=== PATIENT | male | born 2000 | race African-American/Black ===

== ENCOUNTER 2024-09-26 18:45 | Emergency (ER) | payer MEDICAID, SELFPAY ==
[2024-09-26] VITALS (8 sets, daily range): BP systolic 113–140; BP diastolic 56–86; PULSE 96–117; RESP 14–24; TEMP 36.6–38.8; O2SAT 95–100; BMI 27.4
--- NOTE | 2024-09-26 20:05 | EKG12_ITS ---
Test Reason : SOB Blood Pressure : */* mmHG Vent. Rate : 91 BPM Atrial Rate : 91 BPM P-R Int : 162 ms QRS Dur : 86 ms QT Int : 290 ms P-R-T Axes : 30 45 29 degrees QTcB Int : 356 ms Normal sinus rhythm with sinus arrhythmia Normal ECG Confirmed by Kevin Kimball ([id number]), editor book YO SHERMAN ([id number]) on 09/28/2024 6:07:49 AM Referred By: Confirmed By: Kevin Kimball
--- NOTE | 2024-09-26 21:00 | ED.VIS.DYS ---
HPI History of Present Illness Chief Complaint: Shortness of Breath Informant: patient Onset/Context/Timing Onset: Month(s) (2) Context: gradual Timing: Continuous Quality: Positive for Dyspnea on exertion Worsened by: Exertion Relieved by: Nothing Associated Symptoms cough, subjective and chills; Negative for rhinorrhea, post nasal drip, ear pain, fever, sore throat, sweats, clear sputum, white sputum, yellow sputum or green sputum Narrative Narrative: Patient patient presents with shortness of breath that has been constant over the last 2 months. Patient states it is gradually getting worse. Patient states his breathing is worse with any exertion. Patient states nothing helps with it. Patient admits to a cough but denies any sputum production. Patient admits to some subjective chills but denies any fevers. Patient denies any sore throat or rhinorrhea. Patient admits to some chest pain. Patient states it is diffuse across his entire chest. Patient describes it as sharp, stabbing, aching, burning, and dull. Patient denies any PE risk factors. PE Risk Factors: Negative for Cancer, OCP + Smoking + > 35, Prior DVT or PE, Recent immobilization, Recent surgery or Recent travel [facility] Medical History Manic depression ADHD Depression Anxiety Schizophrenia Home Medications ?Medication ?Instructions ?Recorded ?Last Taken ?Type buspirone 15 mg tablet 15 mg PO BID anxiety 09/26/24 Unknown History lithium carbonate 150 mg capsule 300 mg PO BID 09/26/24 09/25/24 History lithium carbonate 300 mg tablet 300 mg PO BID 09/26/24 09/25/24 History Allergy/AdvReac Type Severity Reaction Status Date / Time No Known Allergies Allergy Verified 09/26/24 18:46 Surgical History no surgical history no surgical history Social History Smoking Status: Light Smoker (<10/day) ROS ROS ED Constitutional Constitutional ED: Denies chills or fever(s) Eyes Eyes: Denies blurry vision or change in vision ENT ENT ED: Denies rhinorrhea or sore throat Cardiovascular Cardiovascular: Reports chest pain; Denies palpitations Respiratory/Chest Respiratory/Chest: Reports cough and dyspnea Gastrointestinal Gastrointestinal: Reports nausea and vomiting Genitourinary Genitourinary ED: Reports hematuria; Denies dysuria Musculoskeletal Musculoskeletal: Reports back pain; Denies neck pain Integumentary Denies abscess or rash Neurologic Neurologic: Reports headache(s); Denies weakness Allergic/Immunologic Allergic/Immunologic ED: Denies mouth swelling or urticaria EXAM Physical Exam Const Vital Signs: 09/26/24 18:46 09/26/24 19:51 09/26/24 20:16 Temperature 101.6 F H 97.8 F Temperature Source Oral Oral Pulse Rate 96 96 Respiratory Rate 18 14 Respiratory Effort Short of Breath Respiratory Depth Normal Respiratory Pattern Bradypnea Blood Pressure 122/77 H 127/80 H Blood Pressure Mean 92 95 Pulse Ox 100 100 Oxygen Delivery Method Room Air Room Air Room Air 09/26/24 20:46 09/26/24 21:34 09/26/24 21:37 Temperature 98.2 F 100.2 F H 100.2 F H Temperature Source Oral Oral Oral Pulse Rate 98 106 H 106 H Respiratory Rate 14 19 H 19 H Respiratory Effort Respiratory Depth Respiratory Pattern Blood Pressure 140/74 H 129/79 H 129/79 H Blood Pressure Mean 96 95 95 Pulse Ox 95 99 99 Oxygen Delivery Method Room Air Room Air Room Air 09/26/24 22:00 Temperature 100.1 F H Temperature Source Oral Pulse Rate 117 H Respiratory Rate 17 Respiratory Effort Respiratory Depth Respiratory Pattern Blood Pressure 119/86 H Blood Pressure Mean 97 Pulse Ox 100 Oxygen Delivery Method Room Air Positive well nourished and well developed General Appearance ED: well developed and NAD HEENT Reports moist mucous membranes Neck supple and no JVD Resp normal respiratory effort and clear to auscultation bilaterally Cardio regular rate and regular rhythm GI non-tender and non-distended Palpation: soft Neuro oriented x3, CN's II-XII intact bilaterally and no sensory deficits noted Wilson Coma Scale: document GCS findings Spontaneous Obeys Commands Oriented 15 Sensorium / Orientation: alert Speech: speech normal Motor Exam: strength 5/5 throughout Psych mental status grossly normal MDM MDM MDM Narrative Medical decision making narrative: Differential diagnosis includes pneumonia, bronchitis, electrolyte abnormality, cardiac dysrhythmia, cardiac ischemia, and viral illness. EKG will be obtained to assess for cardiac dysrhythmia and cardiac ischemia. Chest x-ray will be obtained to assess for pneumonia and bronchitis. CBC will be obtained to assess for leukocytosis and anemia. Comprehensive metabolic profile will be obtained to assess for hepatic function, renal function, and electrolyte abnormality. Lipase will be obtained to assess for pancreatitis. [place] level will be obtained to assess for medication compliance. Urinalysis will be obtained to assess for urinary tract infection and hematuria. COVID-19, influenza, and RSV PCR will be obtained to assess for viral illness. History & Record Review Additional record(s) reviewed:: No prior records Lab Data Attestation: I reviewed the patient's lab results. Lab results narrative: CBC was reviewed. There is a slight leukocytosis of 12.8. The remainder is within normal limits. Comprehensive metabolic profile was reviewed. BUN was 21 and creatinine was 1.35. The remainder is within normal limits. Lipase was reviewed and was normal at 28. Urinalysis was reviewed. There is no evidence of urinary tract infection or hematuria. [place] level was reviewed and was less than 0.10. COVID-19 PCR was reviewed and was negative. Influenza PCR was reviewed and was negative for influenza A and influenza B. RSV PCR was reviewed and was negative. Labs: Laboratory Results - last 24 hr 09/26/24 09/26/24 21:20 22:09 WBC 12.8 H RBC 5.75 Hgb 16.3 Hct 48.7 MCV 84.7 MCH 28.3 MCHC 33.5 RDW Std Deviation 39.4 RDW Coeff of [place]onia 12.8 Plt Count 153 MPV 10.4 Immature Gran % (Auto) 0.400 Neut % (Auto) 85.4 H Lymph % (Auto) 4.7 L [place] % (Auto) 8.8 Eos % (Auto) 0.4 Baso % (Auto) 0.3 Absolute Neuts (auto) 10.9 H Absolute Lymphs (auto) 0.60 L Nucleated RBC % 0 Sodium 138 Potassium 4.2 Chloride 100 Carbon Dioxide 24.7 Anion Gap 13 BUN 21 H Creatinine 1.35 H Estim Creat Clear Calc 85.83 Est GFR (MDRD) Non-Af 76 BUN/Creatinine Ratio 15.3 Glucose 91 Calcium 10.0 Total Bilirubin 0.62 AST 24 ALT 19 Alkaline Phosphatase 80 Total Protein 7.6 Albumin 4.6 Globulin 3.0 Albumin/Globulin Ratio 1.6 Lipase 28 Urine Color Straw Urine Clarity Clear Urine pH 6.0 Ur Specific [place] 1.015 Urine Protein 30 H Urine Glucose (UA) Normal Urine Ketones 15 H Urine Occult Blood 10 H Urine Nitrite Negative Urine Bilirubin Negative Urine Urobilinogen Normal Ur Leukocyte Esterase Negative Urine RBC 0-5 SEEN Urine WBC 0-5 SEEN Ur Squamous Epith Cells 0-5 SEEN Urine Bacteria 0 SEEN Urine Mucus 0 SEEN [place] < 0.10 L Radiography Chest X-Ray - ED: 2 View, Read by ED Physician, Read by Radiologist and No Acute Disease Diagnostic Testing: Clinical Impression(s) from Imaging Studies Chest X-Ray 09/26/24 21:35 IMPRESSION: No focal consolidations. Reading Location: [facility] [place] and lateral chest x-ray was obtained. There are 2 views. On my independent interpretation, lung cutler are clear. There is normal cardiac silhouette. Bony thorax is normal. There is no acute process noted. Radiologist also interpreted the x-ray and agrees. EKG Initial EKG: Attestation: I personally reviewed and interpreted this EKG as follows: Interpretation: Sinus Rhythm (91) and No Acute Injury Pattern Comments: EKG was obtained. On my independent interpretation, it showed a normal sinus rhythm with a rate of []. [place] interval, QRS interval, and QTc intervals were all normal. [place] was normal. There are no acute ST or T wave changes. Prior EKG tracings: not available for review Prior: No Prior Treatment and Re-Evaluation :: Patient was advised of his findings. Patient has a HEART score of 1. Patient was advised that this is low risk for acute cardiac event. Patient was instructed to drink plenty of fluids. Patient was instructed to continue Tylenol and ibuprofen as needed for any pain or fevers. Patient was instructed to return if worse in any way. Patient understood and was agreeable with the plan. All questions were answered. Discharge Plan Triage Chief Complaint: Shortness of Breath Other Complaint: Abd Pain ED Provider: Damion Trevino Dx/Rx/DC Orders Clinical Impression: Dyspnea, Anxiety Instructions: ED Dyspnea Prescriptions: No Action lithium carbonate 150 mg capsule 300 mg PO BID lithium carbonate 300 mg tablet 300 mg PO BID buspirone 15 mg tablet 15 mg PO BID Primary Care Provider: Jose Mcgovern Referrals: Jose Mcgovern MD [Primary Care Provider] - 3-5 Days Print Language: Latvian Disposition Disposition: Home, Self Care
[2024-09-26 21:30] LABS: Absolute Neutrophil Count 10.9 X10^3/uL (2.0-7.7); Basophil# 0.04 X10^3/uL; Basophil% 0.3 % (0-1); Eosinophil# 0.05 X10^3/uL; Eosinophils% 0.4 % (0-5); Hematocrit 48.7 % (40-54); Hemoglobin 16.3 g/dL (13.0-16.5); Lymphocyte % 4.7 % (19-41); Mean Corp Hgb Conc 33.5 g/dL (32-36); Mean Corpuscular Hgb 28.3 pg (27.0-32.0); Mean Corpuscular Volume 84.7 fL (80-94); Mean Platelet Vol. 10.4 fl (6.2-12.0); Monocyte# 1.12 X10^3/uL; Monocyte% 8.8 % (0-10); NRBC Flagged by Analyzer 0 % (0-5); Neutrophil # 10.89 X10^3/uL (2.7-7.7); Neutrophil % 85.4 % (47-70); POSITIVE DIFFERENTIAL YES; Platelet Count 153 K/mm3 (150-450); RBC Distribution Width CV 12.8 % (11.6-14.6); RBC Distribution Width SD 39.4 fl (35.1-43.9); Red Blood Count 5.75 M/mm3 (4.6-6.2); White Blood Count 12.8 K/mm3 (4.4-11.0)
[2024-09-26] MEDS: 0.9% Normal Saline (1000mL) 1,000 ML 1000 ML IV (21:31)
--- NOTE | 2024-09-26 21:35 | RAD_ITS ---
PROCEDURE: CHEST PA AND LATERAL 09/26/2024 REASON FOR EXAM: DYSPNEA TECHNIQUE: Frontal and lateral views of the chest. COMPARISON: None FINDINGS: No focal consolidations. No pleural effusion or pneumothorax. Cardiac silhouette is within normal limits. No acute fractures. RAD/Chest PA and Lateral IMPRESSION: No focal consolidations. Reading Location: [id number]
[2024-09-26 21:49] LABS: Lithium < 0.10 mmol/L (0.60-1.20)
[2024-09-26 21:50] LABS: ALB/GLOB Ratio 1.6 RATIO (0.9-2.4); AST(SGOT) 24 U/L (<=37); Alanine Aminotransfer ALT/SGPT 19 U/L (<=46); Albumin, Serum 4.6 g/dL (3.5-5.0); Alkaline Phosphatase 80 U/L (40-129); Anion Gap 13 (5-15); BUN 21 mg/dL (4-19); BUN/Creat Ratio 15.3 RATIO (10-20); Carbon Dioxide 24.7 mmol/L (21.0-32.0); Chloride 100 mmol/L (98-108); Creatinine, Serum 1.35 mg/dL (0.70-1.20); EST Glomerular Filtration Rate 76 (>60); Estimated Creatinine Clearance 85.83 ml/min (50-250); Glucose 91 mg/dL (70-99); Lipase 28 U/L (13-75); Potassium 4.2 mmol/L (3.3-5.1); Protein, Total 7.6 g/dL (5.9-8.4); Sodium Level 138 mmol/L (133-145); Total Bilirubin 0.62 mg/dL (0.00-1.30)
[2024-09-26] MEDS: Ondansetron 4 MG/2 ML Vial IV (22:12)
[2024-09-26 22:15] LABS: Bacteria 0 SEEN /hpf (None Seen); Mucous, Urine 0 SEEN /hpf (<or=2+)
[2024-09-26 22:17] LABS: Color, Urine Straw (Yellow); Glucose, Dipstick Normal (Normal); Ketone-Dipstick 15 mg/dl (Negative); Leukocyte Esterase-Dipstick Negative /ul (Negative); Nitrite-Dipstick Negative (Negative); Occult Blood-Urine 10 /ul (Negative); Protein-Dipstick 30 mg/dl (Negative); Specific Gravity, Urine 1.015 (1.002-1.030); Urine Bilirubin Dipstick Negative (Negative); Urine Clarity Clear (Clear); Urine Urobilinogen Normal (Normal)
[2024-09-26 22:25] LABS: Red Blood Cells-Urine 0-5 SEEN /hpf (0-5); Squamous Epithelial Cells - UA 0-5 SEEN /hpf (0-5); White Blood Cells 0-5 SEEN /hpf (0-5)
[2024-09-26] MEDS: Acetaminophen 500 MG Tablet 1000 MG PO (22:33)
== END 2024-09-26 23:05 | disposition home or self-care (01) ==
PROVIDERS: Emergency Provider Emergency Medicine; PCP Family Medicine; Visit Provider Emergency Medicine
DX: R06.00 Dyspnea, unspecified (principal); F41.9 Anxiety disorder, unspecified; F17.210 Nicotine dependence, cigarettes, uncomplicated; R07.9 Chest pain, unspecified; R05.9 Cough, unspecified; R11.2 Nausea with vomiting, unspecified; R31.9 Hematuria, unspecified; M54.9 Dorsalgia, unspecified; R51.9 Headache, unspecified
CPT/HCPCS: 71046; 80053; 80178; 81001; 83690; 85025; 87631; 93005; 96361; 96374; 99285; A4216; J2405

== ENCOUNTER 2025-02-02 04:55 | Emergency (ER) | payer MEDICAID, SELFPAY ==
[2025-02-02 04:57] VITALS: BP 131/78; PULSE 76; RESP 18; TEMP 37; O2SAT 100; BMI 22.9
--- NOTE | 2025-02-02 05:17 | EX.ED.DYSGE1 ---
HPI History of Present Illness Chief Complaint: Fall Informant: patient and EMS Narrative Narrative: Patient is a 25-year-old male with past medical history of of anxiety depression and schizophrenia. He states that he is staying at the [facility]. He states that he awoke this morning and he was going to sit up and maneuver in bed when he lost his balance and fell out of the top bunk. He states he fell approximately 5 feet. He states that he landed on his left knee. He denies striking his head or any loss of consciousness. He denies any history of bleeding disorder or blood thinner use. He states when he landed he heard a pop. He reports he was able to get up and ambulate but after doing so had severe pain and with concern for injury EMS was called and he was brought into the ER for evaluation. [facility] Medical History Manic depression ADHD Depression Anxiety Schizophrenia Home Medications ?Medication ?Instructions ?Recorded ?Last Taken ?Type buspirone 15 mg tablet 15 mg PO BID anxiety 09/26/24 Unknown History lithium carbonate 150 mg capsule 300 mg PO BID 09/26/24 09/25/24 History lithium carbonate 300 mg tablet 300 mg PO BID 09/26/24 09/25/24 History Allergy/AdvReac Type Severity Reaction Status Date / Time No Known Allergies Allergy Verified 09/26/24 18:46 Social History Smoking Status: Light Smoker (<10/day) ROS ROS ED Constitutional Constitutional ED: Denies chills or fever(s) Eyes Eyes: Denies blurry vision or change in vision Cardiovascular Cardiovascular: Reports other Details: Negative syncope ; Denies chest pain Respiratory/Chest Respiratory/Chest: Denies cough or dyspnea Gastrointestinal Gastrointestinal: Reports diarrhea; Denies abdominal pain Musculoskeletal Musculoskeletal: Reports other Details: Positive left knee pain ; Denies back pain or neck pain Integumentary Reports Abrasions Neurologic Neurologic: Denies headache(s) or paresthesias Hematologic/Lymphatic Hematologic/Lymphatic: Denies easy bleeding or easy bruising EXAM Physical Exam Const Vital Signs: 02/02/25 04:57 02/02/25 05:00 02/02/25 06:14 Temperature 98.6 F 98 F Temperature Source Oral Pulse Rate 76 78 Respiratory Rate 18 18 Respiratory Effort Normal Respiratory Depth Normal Respiratory Pattern Normal Blood Pressure 131/78 H 145/73 H Blood Pressure Mean 95 97 Pulse Ox 100 100 Oxygen Delivery Method Room Air Room Air Positive well nourished and well developed General Appearance ED: well developed; Negative for pallor HEENT HEENT Narrative: Normocephalic atraumatic Eyes PERRL and EOMs intact bilaterally General Eye ED: Negative for scleral icterus Neck supple Resp normal respiratory effort and clear to auscultation bilaterally Cardio regular rate and regular rhythm Extremity Extremity Narrative: Left lower extremity is neurovascularly intact Patellar tendon is intact and knee ligaments are stable The patient has a superficial abrasion to the anterior lateral aspect of the left knee. There is mild soft tissue swelling over top of the patella. No bony deformity or joint effusion. Remainder of the exam is normal All compartments are soft and compressible going against compartment syndrome Neuro oriented x3, CN's II-XII intact bilaterally and no sensory deficits noted Sensorium / Orientation: alert Motor Exam: strength 5/5 throughout Psych mental status grossly normal Skin no rashes or lesions noted Skin Narrative: Positive abrasion to the left knee as documented above without secondary findings to suggest infection General Skin Exam: Negative for jaundice or pallor MDM MDM MDM Narrative Medical decision making narrative: Patient arrived to the ER with stable vitals and reported a mechanical fall causing him to injure his left knee. He did not strike his head or have loss of consciousness he denies any history of bleeding disorder or blood thinner use. Therefore I have low concern for traumatic subarachnoid or subdural hemorrhage and there is no need for a head CT. Also as this was a mechanical fall I do not feel the need for cardiac or syncope workup. As patient had pain to the anterior knee there is concern for a patellar fracture or potential tibial plateau fracture and therefore an x-ray will be obtained. By physical exam he does not have findings of patellar tendon rupture or stabilizing ligament injury. The x-ray revealed no findings of fracture dislocation or joint effusion which correlates with his physical exam. Therefore the negative x-ray and exam indicate he has a knee contusion. He will be placed in an [place] wrap for stabilization and padding and is otherwise safe for discharge History & Record Review Discussion w/independent historian: Patient Radiography Diagnostic Testing: Clinical Impression(s) from Imaging Studies Knee X-Ray 02/02/25 05:20 IMPRESSION: No evidence for acute abnormality. Reading Location: [place] [id number] X-ray of the left knee as interpreted by the emergency medicine physician reveals no acute fracture dislocation or joint effusion Discharge Plan Triage Chief Complaint: Fall Other Complaint: Lower Extremity Injury ED Provider: Jeramie Edouard Dx/Rx/DC Orders Clinical Impression: Contusion of left knee, Accidental fall, Schizophrenia, Anxiety and depression, Abrasion of knee, left Instructions: Bone Contusion Prescriptions: No Action lithium carbonate 150 mg capsule 300 mg PO BID lithium carbonate 300 mg tablet 300 mg PO BID buspirone 15 mg tablet 15 mg PO BID Primary Care Provider: Care Physician,No Primary Referrals: [facility] Doctor,Out of [Non-Staff, Medical] Activity Restrictions/Additional Instructions: Your x-ray revealed no sign of fracture or joint effusion indicating you have a knee contusion. This will heal spontaneously over the next 1 to 2 weeks. Please wash the skin tear to the left knee with soap and water to prevent infection. Use the [place] wrap for compression and padding. You can take Tylenol and/or Motrin for pain control and return to the ER should you have any further concerns Print Language: American Disposition Disposition: Home, Self Care Discharge Date/Time: 02/02/25 06:16
--- NOTE | 2025-02-02 05:20 | RAD_ITS ---
PROCEDURE: KNEE 4 OR MORE VIEWS 02/02/2025 REASON FOR EXAM: PAIN TECHNIQUE: Procedure Code: RADKN Modality: DX Procedure: KNEE 4 OR MORE VIEWS Laterality: Left. COMPARISON: None. FINDINGS: Normal medial femorotibial compartment. Normal lateral femorotibial compartment. Normal patellofemoral articulation. Normal visualized distal femur. Normal visualized proximal tibia and fibula. Normal proximal tibiofibular articulation. RAD/Knee 4 or More Views IMPRESSION: No evidence for acute abnormality. Reading [facility]
--- OUTSIDE RECORDS SUMMARY | 2025-02-02 05:26 | XMS RPT_ITS | CCD ---
Author Organization [facility] Care Team Providers Care Security Guard Dispatcher Name Role Phone VanessaYanely Primary Care Provider [phone] Jose Yen MD Primary Care Provider Jose Yen MD Primary Care Provider FARSHAD WHITT, DR GARCIA Primary Care Physician FARSHAD WHITT, DR GARCIA Primary Care Unavailgreg MOCTEZUMA MD, DRISS Gibbons Attending Unavailable Jose Yen MD Primary Care Provider FARSHAD WHITT, DR GARCIA Primary Care Unavailgreg PRECIADO DO, DR JONI Carmona Attending Unavailable JOSE ELIAS WHITT, DRISS Gibbons Attending Unavailable DR JOSE YEN MD Primary Care UnavailDr. Damion Coughlin DO Emergency Provider Farshad WHITT, Dr. Garcia Primary Care Provider Damion Trevino Attending Unavailable Jose Yen Primary Care Unavailable JOSE YEN Primary Care Unavailable KVNG VERA Attending Unavailable KAR ROJAS Attending Unavailable JOSE YEN Primary Care Unavailable JOSE YEN Primary Care Unavailable JERAMIE POST Admitting Unavailable ONELIA SOFIA Attending Unavailable CATHY FRAIRE Consulting Unavailable JOSE YEN Primary Care Unavailable JOSE YEN Primary Care Unavailable JOSE YEN Attending Unavailable JOSE YEN Primary Care Unavailable KAR ROJAS Attending Unavailable JOSE YEN Primary Care Unavailable Allergies Allergy Classification Reported Allergen(s) Allergy Type Date of Onset Reaction(s) Facility (8 sources) Seasonal allergy Propensity to adverse reactions to substance 11-14-2015 [place], [place] (20 sources) Other Propensity to adverse reactions 11-14-2015 [facility] (1 source) Cholestatin Drug Intolerance 11-14-2015 [facility] (19 sources) Octacosanol Drug Intolerance 11-14-2015 [facility] (1 source) Ondansetron Drug Allergy 10-26-2024 [facility] Medications Current Medications Medication Drug Class(es) Dates Sig (Normalized) Sig (Original) [id number] 200 actuat albuterol 0.09 mg/actuat metered dose inhaler (1 source) beta2-Adrenergic Agonist Start: 10-26-2024 End: 10-26-2025 take 2 puff(s) by inhalation every four hours as needed for wheezing albuterol (Ventolin HFA) 108 (90 Base) MCG/ACT inhaler Indications: Asthma, exercise induced Inhale 2 puffs every 4 hours as needed for wheezing or shortness of breath (and before strenuous exercise). 8 g 5 10/26/2024 10/26/2025 Active busPIRone hydrochloride 15 mg oral tablet (20 sources) Start: 02-07-2024 End: 10-26-2024 take 1 tablet by mouth twice daily Buspirone 15 mg tablet Active 15 mg PO TWICE A DAY September 26, 2024 12:00am Start: 09-08-2023 take 1 tablet by ashutosh th twice daily busPIRone (Buspar) 15 MG tablet Take 15 mg by mouth 2 times daily. 09/08/2023 Active Start: 04-02-2023 End: 07-01-2023 take 1 tablet by mouth twice daily busPIRone (Buspar) 15 MG tablet Indications: Anxiety Disorder Take 1 tablet (15 mg) by mouth 2 times daily. 60 tablet 2 04/02/2023 04/21/2023 Discontinued (Therapy completed) Start: 07-03-2022 take 1 tablet by ashutosh th twice daily busPIRone (Buspar) 15 MG tablet Take 15 mg by mouth 2 times daily. 0 07/03/2022 Active Start: 05-12-2022 take 1 tablet by ashutosh th twice daily busPIRone (Buspar) 10 MG tablet take 1 tablet by mouth twice a day 60 tablet 5 05/12/2022 Active 24 hr dexmethylphenidate hydrochloride 25 mg extended release oral capsule (5 sources) Central Nervous System Stimulant Dexmethylphenidate H Cl ER (FOCALIN XR) 25 MG CP24 Take 25 mg by mouth . 0 Active 2 ml dicyclomine hydrochloride 10 mg/ml injection (5 sources) Anticholinergic Start: 08-07-19 dicyclomine (BENTYL) injection 20 mg Start: 08-06-2021 End: 08-16-2021 take 1 capsule by mouth four times daily dicyclomine (BENTYL) 10 MG capsule Take 1 capsule by mouth 4 times daily for 10 days 40 capsule 0 08/06/2021 Active Start: 05-16-2021 End: 05-21-2021 dicyclomine (BENTYL) capsule 10 mg guaiFENesin 400 mg oral tablet (5 sources) ibuprofen 600 mg oral tablet (4 sources) Nonsteroidal Anti-inflammatory Drug Start: End: take 1 tablet by mouth three times daily at mealtime ibuprofen 600 MG tablet Indications: Back strain, initial encounter Take 1 tablet (600 mg) by mouth 3 times daily for 7 days. Take with food 21 tablet 10/26/2024 11/02/2024 Active Start: 08-18-2021 End: 08-18-2021 ibuprofen (ADVIL;MOTRIN) tab let 400 mg Start: 12-06-2020 ibuprofen (ADV IL;MOTRIN) tablet 600 mg lamoTRIgine 25 mg oral tablet (3 sources) Mood Stabilizer, Anti-epileptic Agent Start: 04-09-2023 lamoTRIgine (LaMICtal) 25 MG tablet take 1 tablet by mouth for 14 days then INCREASE to 2 tablets daily 0 04/09/2023 Active lithium carbonate 150 mg oral capsule (20 sources) Start: 09-26-2024 take 1 tablet by mouth twice daily [place] Carbonate 300 mg tablet Active 300 mg PO TWICE A DAY September 26, 2024 12:00am Start: 09-26-2024 take 2 capsules by m outh twice daily [place] Carbonate 150 mg capsule Active 300 mg PO TWICE A DAY September 26, 2024 12:00am Start: 02-07-2024 End: 10-26-2024 take 3 capsules by mouth twice daily lithium 150 MG capsule Indications: Mood stabilization Take 3 capsules (450 mg) by mouth 2 times daily. 180 capsule 02/07/2024 10/26/2024 Discontinued Start: 04-04-2023 End: 10-12-2023 take 1 capsule by mouth twice daily lithium 600 MG capsule Indications: Bipolar Mood Disorder Take 600 mg by mouth 2 times daily. 04/04/2023 10/12/2023 Discontinued (Med list cleanup) Start: 04-02-2023 End: 07-01-2023 take 1 tablet by mouth twice daily lithium 300 MG tablet Indications: Bipolar Mood Disorder Take 1 tablet (300 mg) by mouth 2 times daily. 60 tablet 2 04/02/2023 04/21/2023 Discontinued (Ineffective) Start: 06-09-2022 take 1 capsule by mo uth three times daily lithium 300 MG capsule Take 300 mg by mouth 3 times daily. 0 06/09/2022 Active Start: 05-12-2022 [facility] ER (Lithobid) 300 MG 12 hr tablet take 1 tablet by mouth twice a day 60 tablet 5 05/12/2022 Active Start: 06-13-2021 take 2 tablets by mo uth twice daily lithium (LITHOBID) 300 MG extended release tablet Take 2 tablets by mouth 2 times daily 60 tablet 3 06/13/2021 Active Start: 03-03-2021 take 1 capsule by mo uth twice daily at mealtime lithium 300 MG capsule Take 1 capsule by mouth 2 times daily (with meals) 90 capsule 1 03/03/2021 Active Start: 11-04-2020 take 1 capsule by mo uth twice daily at mealtime lithium 300 MG capsule Take 1 capsule by mouth 2 times daily (with meals) 60 capsule 1 11/04/2020 Active take 2 capsules by out twice daily at mealtime methylPREDNISolone 4 mg oral tablet (2 sources) Corticosteroid Start: 08-15-2024 End: 08-22-2024 methylPREDNISolone (Medrol Dospak) 4 MG tablets Indications: Contact dermatitis, unspecified contact dermatitis type, unspecified trigger Take as directed on package. 21 tablet 08/15/2024 08/22/2024 Active 24 hr nicotine 0.292 mg/hr transdermal system (4 sources) Cholinergic Nicotinic Agonist Start: 07-16-2021 nicotine (NICODERM CQ) 7 MG/24HR Place 1 patch onto the skin daily for 14 days 14 patch 0 07/16/2021 Active Start: 07-01-2021 apply 1 dose transde rmal route once daily nicotine (NICODERM CQ) 14 MG/24HR Place 1 patch onto the skin daily for 14 days 14 patch 0 07/01/2021 Active ondansetron 4 mg oral tablet (2 sources) Serotonin-3 Receptor Antagonist Start: 09-11-2024 End: 09-16-2024 Zofran 4 mg oral tablet Dose : 4 mg = 1 tab(s), Oral, q8h, PRN Nausea/Vomiting, X 5 day(s), # 15 tab(s), 0 Refill(s), 09/16/24 3:01:00 PM EDT Start Date: 09/11/24 Stop Date: 09/16/24 Status: Ordered Quantity: 15.0 Unit: tab(s) Repeat number: 1 Start: 05-16-2021 End: 05-16-2021 ondansetron (ZOFRAN) injecti on 4 mg 1.5 ml paliperidone palmitate 156 mg/ml prefilled syringe (4 sources) Atypical Antipsychotic Start: 04-29-2023 End: 04-29-2023 paliperidone palmitate ER (Invega Sustenna) 234 MG/1.5ML suspension prefilled syringe Indications: Schizoaffective Disorder Inject 1.5 mL (234 mg) into the shoulder, thigh, or buttocks Once for 1 dose. Do not start before April 29, 2023. 1.5 mL 2 04/29/2023 Active pantoprazole 20 mg delayed release oral tablet (1 source) Proton Pump Inhibitor Start: 09-11-2024 Protonix 20 mg oral enteric coated tablet Dose : 20 mg = 1 tab(s), Oral, qDay, # 30 tab(s), 0 Refill(s) Start Date: 09/11/24 Status: Ordered Quantity: 30.0 Unit: tab(s) Repeat number: 1 risperiDONE 2 mg oral tablet (12 sources) Atypical Antipsychotic Start: 04-08-2022 take 1 tablet by mouth once daily in the morning risperiDONE (RisperDAL) 2 MG tablet Take 2 mg by mouth every morning. 0 04/08/2022 Active Start: 04-06-2022 take 1 tablet by ashutosh th once daily risperiDONE (RisperDAL) 4 MG tablet Take 4 mg by mouth Nightly. 0 04/06/2022 Active Start: 06-14-2021 take 1 tablet by ashutosh th once daily in the morning risperiDONE (RISPERDAL) 2 MG tablet Take 1 tablet by mouth every morning 30 tablet 2 06/14/2021 Active Start: 06-13-2021 take 1 tablet by ashutosh th at bedtime risperiDONE (RISPERDAL) 4 MG tablet Take 1 tablet by mouth at bedtime 30 tablet 2 06/13/2021 Active Start: 03-03-2021 take 1 tablet by ashutosh th once daily risperiDONE (RISPERDAL) 2 MG tablet Take 1 tablet by mouth nightly 30 tablet 1 03/03/2021 Active Start: 11-04-2020 take 1 tablet by ashutosh th once daily risperiDONE (RISPERDAL) 2 MG tablet Take 1 tablet by mouth nightly 30 tablet 1 11/04/2020 Active sucralfate 1000 mg oral tablet (2 sources) Aluminum Complex Start: 05-16-2021 End: 05-21-2021 sucralfate (CARAFATE) tablet 1 g tiZANidine 2 mg oral tablet (1 source) Central alpha-2 Adrenergic Agonist Start: 10-26-2024 End: 10-29-2024 take 1 tablet by mouth every eight hours as needed for muscle spasms tiZANidine (Zanaflex) 2 MG tablet Indications: Back strain, initial encounter Take 1 tablet (2 mg) by mouth every 8 hours as needed for muscle spasms for up to 3 days. 9 tablet 10/26/2024 10/29/2024 Active traZODone hydrochloride 50 mg oral tablet (2 sources) Serotonin Reuptake Inhibitor Start: 05-12-2022 take 1 tablet by mouth once daily for sleep traZODone (Desyrel) 50 MG tablet take 1 tablet by mouth nightly if needed for sleep 30 tablet 5 05/12/2022 Active triamcinolone acetonide 1 mg/ml topical cream (5 sources) Corticosteroid Start: 08-19-2016 triamcinolone (KENALOG) 0.1 % cream Apply topically 2 times daily for 1 week. 1 Tube 0 08/19/2016 Active Completed/Discontinued Medications Medication Drug Class(es) Dates Sig (Normalized) Sig (Original) aluminum & magnesium hydroxide-simethic one (MAALOX) 30 mL, lidocaine viscous hcl (XYLOCAINE) 5 mL (GI COCKTAIL) (1 source) Start: 05-16-2021 End: 05-16-2021 aluminum & magnesium hydroxide-simethico ne (MAALOX) 30 mL, lidocaine viscous hcl (XYLOCAINE) 5 mL (GI COCKTAIL) ARIPiprazole 5 mg oral tablet (8 sources) Atypical Antipsychotic Start: 02-08-2024 End: 10-26-2024 take 1 tablet by mouth once daily ARIPiprazole (Abilify) 5 MG tablet Indications: Unspecified mood disorder Take 1 tablet (5 mg) by mouth daily. 30 tablet 02/08/2024 10/26/2024 Discontinued QUEtiapine 100 mg oral tablet (1 source) Atypical Antipsychotic Start: 01-28-2023 End: 04-21-2023 take 1 tablet by mouth three times daily QUEtiapine (SEROquel) 100 MG tablet Take 100 mg by mouth 3 times daily. 0 01/28/2023 04/21/2023 Discontinued (Therapy completed) rosuvastatin calcium 5 mg oral tablet (3 sources) HMG-CoA Reductase Inhibitor Start: 12-27-2023 End: 04-26-2024 take 1 tablet by mouth once daily rosuvastatin (Crestor) 5 MG tablet Indications: Hyperlipidemia TAKE 1 TABLET BY MOUTH EVERY DAY 90 tablet 1 12/27/2023 04/26/2024 Discontinued (Med list cleanup) 24 hr divalproex sodium 500 mg extended release oral tablet (2 sources) Mood Stabilizer, Anti-epileptic Agent Start: 06-15-2023 End: 10-12-2023 take 2 tablets by mouth once daily divalproex (Depakote ER) 500 MG 24 hr tablet Indications: Mood Disorder Take 2 tablets (1,000 mg) by mouth Nightly. Do not crush, chew, or split. 60 tablet 06/15/2023 10/12/2023 Discontinued (Therapy completed) Problems Active Problems Problem Classification Problem Date Documented Da te Episodic/Chronic Abdominal pain (3 sources) Generalized abdominal pain; Translations: [Generalized abdominal pain] Onset: 09-11-2024 Episodic Allergic reactions (6 sources) Contact dermatitis; Translations: [Unspecified contact dermatitis, unspecified cause] Onset: 08-15-2024 Resolved: 10-26-2024 08-15-2024 Episodic Anxiety disorders (20 sources) Generalized anxiety disorder; Translations: [Generalized anxiety disorder] Onset: 12-31-2011 03-25-2023 Chronic Asthma (20 sources) Exercise-induced asthma; Translations: [Exercise induced bronchospasm] Onset: 11-26-2009 03-03-2021 Chronic Attention-deficit, conduct, and disruptive behavior disorders (20 sources) Attention deficit hyperactivity disorder, combined type; Translations: [Attention-deficit hyperactivity disorder, combined type] Onset: 12-31-2011 03-03-2021 Chronic Attention-deficit, conduct, and disruptive behavior disorders (19 sources) Oppositional defiant disorder; Translations: [Oppositional defiant disorder] Onset: 11-26-2009 03-25-2023 Chronic Attention-deficit, conduct, and disruptive behavior disorders (2 sources) Attention-deficit hyperactivity disorder, combined type; Translations: [Attention-deficit hyperactivity disorder, combined type] Onset: 03-25-2023 Chronic Disorders of lipid metabolism (20 sources) Hypercholesterolemi a; Translations: [Pure hypercholesterolemi a, unspecified] Onset: 10-12-2023 10-12-2023 Chronic Disorders usually diagnosed in infancy, childhood, or adolescence (20 sources) Autism spectrum disorder; Translations: [Pervasive developmental disorder, unspecified] Onset: 03-03-2021 03-03-2021 Chronic Gastrointestinal hemorrhage (3 sources) Hematochezia; Translations: [Melena] Onset: 09-11-2024 Episodic Immunizations and screening for infectious disease (1 source) Immunization due; Translations: [Encounter for immunization] 04-21-2023 Episodic Miscellaneous mental health disorders (20 sources) Mental disorder; Translations: [Mental disorder, not otherwise specified] Onset: 12-28-2013 03-25-2023 Chronic Mood disorders (20 sources) Acute depression; Translations: [Major depressive disorder, single episode, unspecified] Onset: 09-28-2012 Resolved: 11-04-2020 11-04-2020 Chronic Mood disorders (20 sources) Mood disorders; Translations: [Depression, unspecified] Onset: 03-28-2023 Resolved: 10-26-2024 03-28-2023 Nausea and vomiting (3 sources) Vomiting; Translations: [Vomiting, unspecified] Onset: 09-11-2024 Episodic Other acquired deformities (20 sources) Scoliosis deformity of spine; Translations: [Scoliosis, unspecified] Onset: 06-22-2018 03-03-2021 Chronic Other bone disease and musculoskeletal deformities (2 sources) Adolescent idiopathic scoliosis of thoracolumbar spine; Translations: [Adolescent idiopathic scoliosis, thoracolumbar region] 04-26-2024 Chronic Other bone disease and musculoskeletal deformities (2 sources) Adolescent idiopathic scoliosis, thoracic region; Translations: [Adolescent idiopathic scoliosis, thoracic region] Onset: 03-25-2023 Chronic Other lower respiratory disease (1 source) Dyspnea; Translations: [Dyspnea, unspecified] 09-26-2024 Episodic Other lower respiratory disease (1 source) Dyspnea, unspecified; Translations: [Dyspnea, unspecified] Onset: 10-02-2024 Episodic Other nutritional; endocrine; and metabolic disorders (5 sources) Obesity; Translations: [Obesity, unspecified] Onset: 12-28-2013 03-03-2021 Chronic Other upper respiratory disease (20 sources) Allergic rhinitis; Translations: [Allergic rhinitis, unspecified] Onset: 08-13-2011 03-03-2021 Chronic Other upper respiratory disease (2 sources) Allergic rhinitis due to pollen; Translations: [Allergic rhinitis due to pollen] 10-12-2023 Chronic Schizophrenia and other psychotic disorders (20 sources) Disorganized schizophrenia; 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] Onset: 11-02-2020 11-04-2020 Chronic Sprains and strains (6 sources) Sprain of left foot; Translations: [Unspecified sprain of left foot, initial encounter] Onset: 10-26-2024 Episodic Substance-related disorders (19 sources) Substance abuse; Translations: [Other psychoactive substance abuse, uncomplicated] Onset: 03-28-2023 03-28-2023 Chronic Unclassified (2 sources) Blood Work; Translations: [Blood Work] Onset: 12-07-2023 Past or Other Problems Problem Classification Problem Date Documented Da te Episodic/Chronic Epilepsy; convulsions (19 sources) Seizure; Translations: [Unspecified convulsions] Onset: 11-26-2009 Resolved: 10-12-2023 03-25-2023 Episodic Other gastrointestinal disorders (20 sources) Heartburn; Translations: [Heartburn] Onset: 02-26-2012 03-03-2021 Episodic Other nutritional; endocrine; and metabolic disorders (20 sources) Obese class I; Translations: [Obesity, unspecified] Onset: 04-21-2023 Resolved: 04-26-2024 04-21-2023 Chronic Other screening for suspected conditions (not mental disorders or infectious disease) (7 sources) Patient encounter status; Translations: [Encounter for screening for diseases of the blood and blood-forming organs and certain disorders involving the immune mechanism] Onset: 04-26-2024 04-21-2023 Episodic Residual codes; unclassified (4 sources) Noncompliance with treatment; Translations: [Patient's noncompliance with other medical treatment and regimen] Onset: 11-02-2020 Resolved: 11-04-2020 11-04-2020 Episodic Schizophrenia and other psychotic disorders (19 sources) Brief psychotic disorder; Translations: [Unspecified psychosis] Onset: 03-27-2023 Resolved: 10-26-2024 03-27-2023 Episodic Skull and face fractures (18 sources) Fracture of tooth ; Translations: [Fracture of tooth (traumatic), subsequent encounter for fracture with routine healing] Onset: 05-26-2023 Resolved: 10-26-2024 05-26-2023 Episodic Suicide and intentional self-inflicted injury (20 sources) Suicidal thoughts; Translations: [Suicidal ideations] Onset: 03-01-2021 Resolved: 06-13-2021 11-04-2020 Episodic Superficial injury; contusion (20 sources) Contusion of left foot; Translations: [Contusion of left foot, initial encounter] Onset: 05-26-2023 Resolved: 10-26-2024 Episodic Results Test Name Value Interpretation Reference Range Facility 36on 11-06-2024 36 Attempted to phone p t to let hm know Mellisa's message. Unable to lvm as mb not set up. Normal [facility] 36 Per documentation fr om his visit with Jaclyn on 10/26/2024 he was to return around April 28, 2025 for his yearly wellness visit. He will need to schedule an office visit for further documentation regarding his dog. Need more information to determine if this is something we can help him with or not. Normal [facility] 36 Pt came in stating they should have an appt for blood work. I don't see anything in the system for blood work from us. Do they need blood work? Also, pt is requesting how they can go about paper work to have his dog registered as a therapy dog. Normal [facility] Office Visiton 10-26-2024 Follow-up visit [id number] Aries Carrasco 2000 M Date Provider Department Center 10/26/2024 [id number] ROJAS [facility] [place] [facility] Family History Family Status - Relation Status Age at Father Alive Sister Alive Mother Alive Brother Alive Sister Alive Sister Alive Level of Service:45213 MT OFFICE/OUTPATIENT ESTABLISHED MOD MDM 30 MIN Reason for Visit and Comments: Medication Check [[id number]] [facility] Progress Noteon 10-26-2024 Progress Note Consistent with strain. Left side of lumbar, thoracic. NSAID, muscle relaxant as directed. Start stretches provided. Normal [facility] Progress Note Stable currently, recommend that he follow up with his mental health provider [facility] Progress Note Uncontrolled. Recommend follow up with mental health provider [facility] Progress Note Intermittent symptom s. Mostly exercise induced. Continue albuterol mdi as directed [facility] Progress Note Patient was identifi ed by name and Date of . Health Maintenance Due Topic Meningococcal B Vaccine-declined DTaP/Tdap/Td Vaccines-declined Depression Monitoring-completed [facility] Progress Note 10/26/2024 Aries Carrasco (: 2000) is a 24 y.o. male , Established patient, here for evaluation of the following chief complaint(s): Medication Check ASSESSMENT/PLAN: 1. Asthma, exercise induced Assessment & Plan: Intermittent symptoms. Mostly exercise induced. Continue albuterol mdi as directed Orders: - albuterol (Ventolin HFA) 108 (90 Base) MCG/ACT inhaler; Inhale 2 puffs every 4 hours as needed for wheezing or shortness of breath (and before strenuous exercise)., Starting Swati 10/26/2024, Until Wed10/26/2025 at 2359, Normal 2. Back strain, initial encounter Assessment & Plan: Consistent with strain. Left side of lumbar, thoracic. NSAID, muscle relaxant as directed. Start stretches provided. Orders: - tiZANidine (Zanaflex) 2 MG tablet; Take 1 tablet (2 mg) by mouth every 8 hours as needed for muscle spasms for up to 3 days., Starting Swati 10/26/2024, Until 10/29/2024 at 2359, Normal - ibuprofen 600 MG tablet; Take 1 tablet (600 mg) by mouth 3 times daily for 7 days. Take with food, Starting Swati 10/26/2024, Until Swati 11/02/2024, Normal 3. Bipolar disorder in partial remission, most recent episode unspecified type ([facility]) Assessment & Plan: Stable currently, recommend that he follow up with his mental health provider 4. Generalized anxiety disorder Assessment & Plan: Uncontrolled. Recommend follow up with mental health provider Reviewed and provided written patient education/instructions regarding diagnosis and management. Reviewed symptom management with non-pharmacological interventions and appropriate use of otc medications for relief of symptoms. Follow up for worsening or no improvement in symptoms. Follow up in about 6 months (around 04/28/2025) for Yearly Wellness Visit. SUBJECTIVE/OBJECTIVE: HPI - Aries Carrasco (: 2000) is a 24 y.o. male , Established patient, here for the evaluation of the following chief complaint(s): Medication Check Patient presents for med check. He currently is not taking any medications but would like refill of his albuterol inhaler for his exercise-induced asthma. Reports he has been getting some shortness of breath with exercise especially when it is hot out. He has not had an inhaler for quite some time. Denies any chest pain or shortness of breath currently. Mental health-patient reports that he is doing okay but has noted that he does get easily agitated and sometimes his anxiety can be high. He is not taking any of his mental health medications and needs to follow-up with his mental health provider. He did go to the hospital within the past month for some vomiting, reports that he has not had any episodes since. He denies any abdominal pain nausea or vomiting. Back pain-reports his back has been bothering him and is difficult to lift heavy things and when he walks a long time it hurts. It is mostly left-sided going all the way up the back. Denies any numbness or tingling in the legs and no change in bowel or bladder Current Medications[1] Review of Systems Constitutional: Negative. HENT: Negative. Respiratory: Positive for shortness of breath. Negative for cough, chest tightness and wheezing. Occasional with activity such as exercise due to his asthma Cardiovascular: Negative. Gastrointestinal: Negative. Genitourinary: Negative for difficulty urinating. Musculoskeletal: Positive for back pain. Neurological: Negative. Psychiatric/Behavioral : Positive for agitation. Negative for dysphoric mood, self-injury, sleep disturbance and suicidal ideas. The patient is nervous/anxious. Vitals: 10/26/24 0807 BP: 122/82 Pulse: 58 Resp: 24 Weight: 176 lb 3.2 oz (79.9 kg) Physical Exam Vitals reviewed. Constitutional: General: He is not in acute distress. Appearance: Normal appearance. He is not ill-appearing. HENT: Head: Normocephalic and atraumatic. Mouth/Throat: Mouth: Mucous membranes are moist. Pharynx: Oropharynx is clear. No posterior oropharyngeal erythema. Eyes: Conjunctiva/sclera: Conjunctivae normal. Cardiovascular: Rate and Rhythm: Normal rate and regular rhythm. Pulses: Normal pulses. Heart sounds: Normal heart sounds. Pulmonary: Effort: Pulmonary effort is normal. Breath sounds: Normal breath sounds. Musculoskeletal: Thoracic back: Spasms and tenderness present. No bony tenderness. Normal range of motion. Lumbar back: Spasms and tenderness present. No bony tenderness. Normal range of motion. Back: Right lower leg: No edema. Left lower leg: No edema. Comments: Able to get on and off the exam table without difficulty Lymphadenopathy: Cervical: No cervical adenopathy. Neurological: Mental Status: He is alert and oriented to person, place, and time. Psychiatric: Mood and Affect: Mood normal. Behavior: Behavior normal. Thought Content: Thought content normal. An electronic signature was used to authenticate this note. Kar Sanders (more content not included)... Normal [facility] 12 Lead EKGon 09-26-2024 12 Lead EKG [facility] Cardiovascular Services [address] [place] [address] 12 Lead EKG 09/26/24 1913 MR#: [id number] Acct: [id number] Name: ARIES CARRASCO Rep #: [id number] : 2000 24 From: Kevin Kimball MD Attending Dr: Status: DEP ER Ordering Dr: Damion Trevino DO Date: 09/26/24 Location: ED Sex: M AA Admitted: Test Reason : SOB Blood Pressure : */* mmHG Vent. Rate : 91 BPM Atrial Rate : 91 BPM P-R Int : 162 ms QRS Dur : 86 ms QT Int : 290 ms P-R-T Axes : 30 45 29 degrees QTcB Int : 356 ms Normal sinus rhythm with sinus arrhythmia Normal ECG Confirmed by Kevin Kimball ([id number]), supervising film or videotape editor YO SHERMAN ([id number]) on 09/28/2024 6:07:49 AM Referred By: Confirmed By: Kevin Kimball 09/28/24606 Date Kevin Kimball MD CC: Dr. Jose Yen MD; Dr. Damion Trevino DO Signed [address] 09-26-2024 36 Called the patient's sister--Julianne. She states that she is out of town. I gave her the message from Dr. Yen and she states that she will inform the patient when she gets back into town. I said that Dr. Yen recommends him to go to a larger hospital---[place] or [place]---we do not have an opening and our POD is filled as well. [place] [address] I would highly recommend that he go back to the emergency room and probably go to a hospital that is a little bit bigger like [place] or [place], unfortunately we do not have any openings to get him in. [place] [address] Pt came back with hi s sister's phone number [phone]. States we can call her in the mean time. Pt also stated that his sister or his dad would be available if he needs to go to the hospital. [place] [address] Patient went to [facility] 2 weeks ago for stomach pain. He said that they told him he needs to see GI. He has called [facility] and they have not returned his call. He now has urine that is dark red, vomitting blood, headache, stomach ache and he has lost weight---in July he weighed 192 and he was weighed today in the office at 189.4. He also has SOB at times too. He currently does not have a phone---the patient does not have his sister or dad's phone numbers. He will stop back in the office to get message. Informed him we close at 4 pm. The patient states that he has been having this problem x 2 months. He states he has had Zofran from ER in the past. Please advise. Normal [facility] Absolute lymphocyte countOrd ered By: Damion Trevino on 09-26-2024 Lymphocytes Auto (Unsp spec) [#/Vol] 0.60 10*3/uL Low 0.83-4.51 [facility] Absolute neutrophil countOrd ered By: Damion Trevino on 09-26-2024 Neutrophils (Bld) [#/Vol] 10.9 10*3/uL High 2.0-7.7 [facility] Anion gap in Serum or Plasma Ordered By: Damion Trevino on 09-26-2024 Anion gap [Moles/Vol] 13 mmol/L 5-15 [facility] Automated lymphocyte count a s percentage of total leukocytesOrdered By: Damion Trevino on 09-26-2024 Lymphocytes/100 WBC Auto (Unsp spec) 4.7 % Low 19-41 [facility] BUN/creatinine ratioOrdered By: Damion Trevino on 09-26-2024 Urea nitrogen/Creatinine [Mass ratio] 15.3 mg/mg 10-20 [facility] Basophil percentageOrdered B y: Damion Trevino on 09-26-2024 Basophils/100 WBC (Bld) 0.3 % 0-1 [facility] Bilirubin Test strip Ql (U)O rdered By: Damion Trevino on 09-26-2024 Bilirubin Ql (U) Negative Negative [facility] Bilirubin, totalOrdered By: Damion Trevino on 09-26-2024 Bilirubin [Mass/Vol] 0.62 mg/dL 0.00-1.30 [facility] CBC W/Diff, Automatedon 09-17 0 Absolute Lymph 0.60 X10 3/uL Low 0.83-4.51 [facility] Comment on above: Performed By: #### L 500.4050, L100.0100, L501.2450, L501.9060 #### [facility] [address] [place], [id number] Absolute Neut 10.9 X10 3/uL High 2.0-7.7 [facility] Comment on above: Performed By: #### L 500.4050, L100.0100, L501.2450, L501.9060 #### [facility] [address] [place], [address] Basophils/100 WBC (Bld) 0.3 % Normal 0-1 [facility] Comment on above: Performed By: #### L 500.4050, L100.0100, L501.2450, L501.9060 #### [facility] [address] [place], [address] Eosinophils/100 WBC (Bld) 0.4 % Normal 0-5 [facility] Comment on above: Performed By: #### L 500.4050, L100.0100, L501.2450, L501.9060 #### [facility] [address] [place], [address] Erythrocyte distribution width (RBC) [Ratio] 12.8 % Normal 11.6-14.6 [facility] Comment on above: Performed By: #### L 500.4050, L100.0100, L501.2450, L501.9060 #### [facility] [address] [place], [address] Hematocrit (Bld) [Volume fraction] 48.7 % Normal 40-54 [facility] Comment on above: Performed By: #### L 500.4050, L100.0100, L501.2450, L501.9060 #### [facility] [address] [place], [address] Hemoglobin (Bld) [Mass/Vol] 16.3 g/dL Normal 13.0-16.5 [facility] Comment on above: Performed By: #### L 500.4050, L100.0100, L501.2450, L501.9060 #### [facility] [address] [place], [address] IG% 0.400 Normal 0.0-0.9 [facility] Comment on above: Result Comment: IG% - Immature Granulocytes (promyelocytes, myelocytes and metamyelocytes) > 1% indicates that a LEFT SHIFT is Present. Performed By: #### L 500.4050, L100.0100, L501.2450, L501.9060 #### [facility] [address] [place], [address] Lymphocytes/100 WBC (Bld) 4.7 % Low 19-41 [facility] Comment on above: Performed By: #### L 500.4050, L100.0100, L501.2450, L501.9060 #### [facility] [address] [place], [address] MCH (RBC) [Entitic mass] 28.3 pg Normal 27.0-32.0 [facility] Comment on above: Performed By: #### L 500.4050, L100.0100, L501.2450, L501.9060 #### [facility] [address] [place], [address] MCHC (RBC) [Mass/Vol] 33.5 g/dL Normal 32-36 [facility] Comment on above: Performed By: #### L 500.4050, L100.0100, L501.2450, L501.9060 #### [facility] [address] [place], [address] MCV (RBC) [Entitic vol] 84.7 fL Normal 80-94 [facility] Comment on above: Performed By: #### L 500.4050, L100.0100, L501.2450, L501.9060 #### [facility] [address] [place], [address] Monocytes/100 WBC (Bld) 8.8 % Normal 0-10 [facility] Comment on above: Performed By: #### L 500.4050, L100.0100, L501.2450, L501.9060 #### [facility] [address] [place], [address] Neutrophils/100 WBC (Bld) 85.4 % High 47-70 [facility] Comment on above: Performed By: #### L 500.4050, L100.0100, L501.2450, L501.9060 #### [facility] [address] [place], [address] Nucleated RBC (Bld) [#/Vol] 0 10*3/uL Normal 0-5 [facility] Comment on above: Performed By: #### L 500.4050, L100.0100, L501.2450, L501.9060 #### [facility] [address] [place], [address] Platelet mean volume (Bld) [Entitic vol] 10.4 fL Normal 6.2-12.0 [facility] Comment on above: Performed By: #### L 500.4050, L100.0100, L501.2450, L501.9060 #### [facility] [address] [place], [address] Platelets (Bld) [#/Vol] 153 10*3/uL Normal 150-450 [facility] Comment on above: Performed By: #### L 500.4050, L100.0100, L501.2450, L501.9060 #### [facility] [address] [place], [address] RBC (Bld) [#/Vol] 5.75 10*6/uL Normal 4.6-6.2 [facility] Comment on above: Performed By: #### L 500.4050, L100.0100, L501.2450, L501.9060 #### [facility] [address] [place], [address] RDW SD 39.4 fl Normal 35.1-43.9 [facility] Comment on above: Performed By: #### L 500.4050, L100.0100, L501.2450, L501.9060 #### [facility] [address] [place], [address] WBC (Bld) [#/Vol] 12.8 10*3/uL High 4.4-11.0 [facility] Comment on above: Performed By: #### L 500.4050, L100.0100, L501.2450, L501.9060 #### [facility] [address] [place], [address] Carbon dioxide, total [Moles /volume] in Central venous bloodOrdered By: Damion Trevino on 09-26-2024 CO2 [Moles/Vol] 24.7 mmol/L 21.0-32.0 [facility] Chest PA and Lateralon 09-26 Chest PA and Lateral [facility] Imaging Services [address] [place] [place] [address] Chest PA and Lateral MR#: [id number] Acct: [id number] Name: ARIES CARRASCO Rep #: [id number] : 2000 M 24 From: Randal Massey PCP: Dr. Jose Yen MD Status: [facility] ER Study: Chest PA and Lateral Date of Exam: 09/26/24 Exam# [id number] Ordering Dr: Damion Trevino DO PROCEDURE: CHEST PA AND LATERAL 09/26/2024 REASON FOR EXAM: DYSPNEA TECHNIQUE: Frontal and lateral views of the chest. COMPARISON: None FINDINGS: No focal consolidations. No pleural effusion or pneumothorax. Cardiac silhouette is within normal limits. No acute fractures. RAD/Chest PA and Lateral IMPRESSION: No focal consolidations. Reading Location: [facility] CC: Dr. Jose Yen MD; Dr. Damion Trevino, Flocculator Operator: Signed Normal [facility] Chloride assayOrdered By: Santi Trevino on 09-26-2024 Chloride [Moles/Vol] 100 mmol/L 98-108 [facility] Comprehensive Metabolic Prof ilon 09-26-2024 Albumin [Mass/Vol] 4.6 g/dL Normal 3.5-5.0 [facility] Comment on above: Performed By: #### L 500.4050, L100.0100, L501.2450, L501.9060 #### [facility] [address] [place], [address] Albumin/Globulin [Mass ratio] 1.6 {ratio} Normal 0.9-2.4 [facility] Comment on above: Performed By: #### L 500.4050, L100.0100, L501.2450, L501.9060 #### [facility] [address] [place], [address] ALK PHOS 80 U/L Normal 40-129 [facility] Comment on above: Performed By: #### L 500.4050, L100.0100, L501.2450, L501.9060 #### [facility] [address] [place], [address] ALT [Catalytic activity/Vol] 19 U/L Normal <=46 [facility] Comment on above: Performed By: #### L 500.4050, L100.0100, L501.2450, L501.9060 #### [facility] [address] [place], [address] AST [Catalytic activity/Vol] 24 U/L Normal <=37 [facility] Comment on above: Performed By: #### L 500.4050, L100.0100, L501.2450, L501.9060 #### [facility] [address] [place], [address] Bilirubin [Mass/Vol] 0.62 mg/dL Normal 0.00-1.30 [facility] Comment on above: Performed By: #### L 500.4050, L100.0100, L501.2450, L501.9060 #### [facility] [address] [place], [address] BUN/CRE 15.3 RATIO Normal 10-20 [facility] Comment on above: Performed By: #### L 500.4050, L100.0100, L501.2450, L501.9060 #### [facility] [address] [place], [address] Calcium [Mass/Vol] 10.0 mg/dL Normal 7.6-11.0 [facility] Comment on above: Performed By: #### L 500.4050, L100.0100, L501.2450, L501.9060 #### [facility] [address] [place], [address] Chloride [Moles/Vol] 100 mmol/L Normal 98-108 [facility] Comment on above: Performed By: #### L 500.4050, L100.0100, L501.2450, L501.9060 #### [facility] [address] [place], [address] CO2 [Moles/Vol] 24.7 mmol/L Normal 21.0-32.0 [facility] Comment on above: Performed By: #### L 500.4050, L100.0100, L501.2450, L501.9060 #### [facility] [address] [place], [address] Creatinine [Mass/Vol] 1.35 mg/dL High 0.70-1.20 [facility] Comment on above: Performed By: #### L 500.4050, L100.0100, L501.2450, L501.9060 #### [facility] [address] [place], [address] ECRCL 85.83 ml/min Normal 50-250 [facility] Comment on above: Performed By: #### L 500.4050, L100.0100, L501.2450, L501.9060 #### [facility] [address] [place], [address] GAP 13 Normal 5-15 [facility] Comment on above: Performed By: #### L 500.4050, L100.0100, L501.2450, L501.9060 #### [facility] [address] [place], [address] GFR/1.73 sq M.predicted among non-blacks MDRD (S/P/Bld) [Vol rate/Area] 76 mL/min/{1.73_m2} Normal >60 [facility] Comment on above: Result Comment: mL/m in/1.73m2 CKD-EPI Creatinine Equation (2020) Performed By: #### L 500.4050, L100.0100, L501.2450, L501.9060 #### [facility] [address] [place], [address] Globulin (S) [Mass/Vol] 3.0 g/dL Normal 2.2-4.2 [facility] Comment on above: Performed By: #### L 500.4050, L100.0100, L501.2450, L501.9060 #### [facility] [address] [place], [address] Glucose [Mass/Vol] 91 mg/dL Normal 70-99 [facility] Comment on above: Performed By: #### L 500.4050, L100.0100, L501.2450, L501.9060 #### [facility] [address] [place], [address] Potassium [Moles/Vol] 4.2 mmol/L Normal 3.3-5.1 [facility] Comment on above: Performed By: #### L 500.4050, L100.0100, L501.2450, L501.9060 #### [facility] [address] [place], [address] Sodium [Moles/Vol] 138 mmol/L Normal 133-145 [facility] Comment on above: Performed By: #### L 500.4050, L100.0100, L501.2450, L501.9060 #### [facility] [address] [place], [address] T PROT 7.6 g/dL Normal 5.9-8.4 [facility] Comment on above: Performed By: #### L 500.4050, L100.0100, L501.2450, L501.9060 #### [facility] [address] [place], [address] Urea nitrogen [Mass/Vol] 21 mg/dL High 4-19 [facility] Comment on above: Performed By: #### L 500.4050, L100.0100, L501.2450, L501.9060 #### [facility] [address] [place], [address] Emergency Department Summary on 09-26-2024 Emergency Department Summary [facility] Medical Records Department [address] [place] [address] Emergency Department Summary 09/26/24 MR#: [id number] Acct: [id number] Name: DANILOARIES Rep #: [id number] : 2000 24 From: Damion Trevino DO PCP: Dr. Jose Yen MD Status:DEP ER Location: ED HPI History of Present Illness Chief Complaint: Shortness of Breath Informant: patient Onset/Context/Timing Onset: Month(s) (2) Context: gradual Timing: Continuous Quality: Positive for Dyspnea on exertion Worsened by: Exertion Relieved by: Nothing Associated Symptoms cough, subjective and chills; Negative for rhinorrhea, post nasal drip, ear pain, fever, sore throat, sweats, clear sputum, white sputum, yellow sputum or green sputum Narrative Narrative: Patient patient presents with shortness of breath that has been constant over the last 2 months. Patient states it is gradually getting worse. Patient states his breathing is worse with any exertion. Patient states nothing helps with it. Patient admits to a cough but denies any sputum production. Patient admits to some subjective chills but denies any fevers. Patient denies any sore throat or rhinorrhea. Patient admits to some chest pain. Patient states it is diffuse across his entire chest. Patient describes it as sharp, stabbing, aching, burning, and dull. Patient denies any PE risk factors. PE Risk Factors: Negative for Cancer, OCP + Smoking + > 35, Prior DVT or PE, Recent immobilization, Recent surgery or Recent travel [facility] Medical History Manic depression ADHD Depression Anxiety Schizophrenia Home Medications ???Medication ???Instructions ???Recorded ???Last Taken ???Type buspirone 15 mg tablet 15 mg PO BID anxiety 09/26/24 Unkn own History lithium carbonate 150 mg capsule 300 mg PO BID 09/26/24 09/25/24 Hi story lithium carbonate 300 mg tablet 300 mg PO BID 09/26/24 09/25/24 Hi story Allergy/AdvReac Type Severity Reaction Status Date / Time No Known Allergies Allergy Verified 09/26/24 18:46 Surgical History no surgical history no surgical history Social History Smoking Status: Light Smoker (<10/day) ROS ROS ED Constitutional Constitutional ED: Denies chills or fever(s) Eyes Eyes: Denies blurry vision or change in vision ENT ENT ED: Denies rhinorrhea or sore throat Cardiovascular Cardiovascular: Reports chest pain; Denies palpitations Respiratory/Chest Respiratory/Chest: Reports cough and dyspnea Gastrointestinal Gastrointestinal: Reports nausea and vomiting Genitourinary Genitourinary ED: Reports hematuria; Denies dysuria Musculoskeletal Musculoskeletal: Reports back pain; Denies neck pain Integumentary Denies abscess or rash Neurologic Neurologic: Reports headache(s); Denies weakness Allergic/Immunologic Allergic/Immunologic ED: Denies mouth swelling or urticaria EXAM Physical Exam Const Vital Signs: 09/26/24 18:46 09/26/24 19:51 09/26/24 20:16 Temperature 101.6 F H 97.8 F Temperature Source Oral Oral Pulse Rate 96 96 Respiratory Rate 18 14 Respiratory Effort Short of Breath Respiratory Depth Normal Respiratory Pattern Bradypnea Blood Pressure 122/77 H 127/80 H Blood Pressure Mean 92 95 Pulse Ox 100 100 Oxygen Delivery Method Room Air Room Air Room Air 09/26/24 20:46 09/26/24 21:34 09/26/24 21:37 Temperature 98.2 F 100.2 F H 100.2 F H Temperature Source Oral Oral Oral Pulse Rate 98 106 H 106 H Respiratory Rate 14 19 H 19 H Respiratory Effort Respiratory Depth Respiratory Pattern Blood Pressure 140/74 H 129/79 H 129/79 H Blood Pressure Mean 96 95 95 Pulse Ox 95 99 99 Oxygen Delivery Method Room Air Room Air Room Air 09/26/24 22:00 Temperature 100.1 F H Temperature Source Oral Pulse Rate 117 H Respiratory Rate 17 Respiratory Effort Respiratory Depth Respiratory Pattern Blood Pressure 119/86 H Blood Pressure Mean 97 Pulse Ox 100 Oxygen Delivery Method Room Air Positive well nourished and well developed General Appearance ED: well developed and NAD HEENT Reports moist mucous membranes Neck supple and no JVD Resp normal respiratory effort and clear to auscultation bilaterally Cardio regular rate and regular rhythm GI non-tender and non-distended Palpation: soft Neuro oriented x3, CN's II-XII intact bilaterally and no sensory deficits noted [place] Coma Scale: document GCS findings Spontaneous Obeys Commands Oriented 15 Sensorium / Orientation: alert Speech: speech normal Motor Exam: strength 5/5 throughout Psych mental status grossly normal MDM MDM MDM Narrative Medical decisi (more content not included)... Normal [facility] Eosinophil percentageOrdered By: Damion Trevino on 09-26-2024 Eosinophils/100 WBC (Bld) 0.4 % 0-5 [facility] Erythrocyte distribution wid th ratioOrdered By: Damion Trevino on 09-26-2024 Erythrocyte distribution width (RBC) [Ratio] 12.8 % 11.6-14.6 [facility] Erythrocyte distribution wid th standard deviationOrdered By: Damion Trevino on 09-26-2024 Erythrocyte distribution width (RBC) [Ratio] 39.4 fl 35.1-43.9 [facility] Glomerular filtration rate ( GFR) estimation/1.73 sq m using serum, plasma, or whole bOrdered By: Damion Trevino on 09-26-2024 GFR/1.73 sq M.predicted among non-blacks MDRD (S/P/Bld) [Vol rate/Area] 76 mL/min/{1.73_m2} >60 [facility] Comment on above: mL/min/1.73m2 CKD-EP I Creatinine Equation (2020) Hematocrit Auto (Bld) [Volum e fraction]Ordered By: Damion Trevino on 09-26-2024 Hematocrit (Bld) [Volume fraction] 48.7 % 40-54 [facility] Hemoglobin measurementOrdere d By: Damion Trevino on 09-26-2024 Hemoglobin (Bld) [Mass/Vol] 16.3 g/dL 13.0-16.5 [facility] Immature granulocytes/100 WB C Auto (Bld)Ordered By: Damion Trevino on 09-26-2024 Immature granulocytes/100 WBC (Bld) 0.400 % 0.0-0.9 [facility] Comment on above: IG% - Immature Granu locytes (promyelocytes, myelocytes and metamyelocytes) > 1% indicates that a LEFT SHIFT is Present. Influenza virus A and B and SARS-CoV-2 (COVID-19) and Respiratory syncytial virus RNAOrdered By: Damion Trevino on 09-26-2024 SARS-CoV-2 (COVID-19) RNA PERNELL+probe Ql (Unsp spec) [facility] Ketones Test strip Ql (U)Ord ered By: Damion Trevino on 09-26-2024 Ketones Ql (U) 15 mg/dl High Negative [facility] - Chemistry and C hemistry - challengeOrdered By: Damion Trevino on 09-26-2024 AST [Catalytic activity/Vol] 24 U/L <38 [facility] Lipaseon 09-26-2024 Lipase [Catalytic activity/Vol] 28 U/L Normal 13-75 [facility] Comment on above: Result Comment: Natasha rodrigues note: LIPASE revised reference range effective 22. New Lipase methodology. Expected to produce lower values than the previous assay method. NEW Reference Range: 13 - 75 U/L Performed By: #### L 500.4050, L100.0100, L501.2450, L501.9060 #### [facility] [address] [place], [address] Lipase measurementOrdered By : Damion Trevino on 09-26-2024 Lipase [Catalytic activity/Vol] 28 U/L 13-75 [facility] Comment on above: Please note:LIPASE r evised reference range effective 22. New Lipase methodology. Expected to produce lower values than the previous assay method. NEW Reference Range: 13 - 75 U/L Lithiumon 09-26-2024 LI < 0.10 Low 0.60-1.20 [facility] Comment on above: Performed By: #### L 500.4050, L100.0100, L501.2450, L501.9060 #### [facility] [address] [place], [address] M100.678on 09-26-2024 M100.678 Pending SARS-CoV-2 (COVID 19) Negative INFLUENZA A Negative INFLUENZA B Negative RSV PCR Negative Normal [facility] Comment on above: Performed By: #### M 100.678, L400.0001 #### [facility] [address] [place], [address] MCV (mean corpuscular volume ) determinationOrdered By: Damion Trevino on 09-26-2024 MCV (RBC) [Entitic vol] 84.7 fL 80-94 [facility] Mean corpuscular hemoglobin (MCH) determinationOrdered By: Damion Trevino on 09-26-2024 MCH (RBC) [Entitic mass] 28.3 pg 27.0-32.0 [facility] Mean corpuscular hemoglobin concentration (MCHC) determinationOrdered By: Damion Trevino on 09-26-2024 MCHC (RBC) [Mass/Vol] 33.5 g/dL 32-36 [facility] Mean platelet volume determi nationOrdered By: Damion Trevino on 09-26-2024 Platelet mean volume (Bld) [Entitic vol] 10.4 fL 6.2-12.0 [facility] Microscopic analysis of urin e for red blood cells (RBC)Ordered By: Damion Trevino on 09-26-2024 Microscopic analysis of urine for red blood cells (RBC) 0-5 SEEN /hpf 0-5 [facility] Monocyte percentageOrdered B y: Damion Trevino on 09-26-2024 Monocytes/100 WBC (Bld) 8.8 % 0-10 [facility] Mucus LM Ql (Urine sed)Order ed By: Damion Trevino on 09-26-2024 Mucus Ql (Urine sed) 0 SEEN /hpf [facility] Neutrophil percentageOrdered By: Damion Trevino on 09-26-2024 Neutrophils/100 WBC (Bld) 85.4 % High 47-70 [facility] Nitrite Test strip Ql (U)Ord ered By: Damion Trevino on 09-26-2024 Nitrite Ql (U) Negative Negative [facility] Nucleated red blood cell per centageOrdered By: Damion Trevino on 09-26-2024 Nucleated RBC/100 WBC (Bld) [Ratio] 0 % 0-5 [facility] Platelet countOrdered By: Santi Trevino on 09-26-2024 Platelets (Bld) [#/Vol] 153 10*3/uL 150-450 [facility] Potassium measurement (mass/ volume)Ordered By: Damion Trevino on 09-26-2024 Potassium (Unsp spec) [Mass/Vol] 4.2 mmol/L 3.3-5.1 [facility] Protein Test strip Ql (U)Ord ered By: Damion Trevino on 09-26-2024 Protein Ql (U) 30 mg/dl High Negative [facility] RBC Auto (Bld) [#/Vol]Ordere d By: Damion Trevino on 09-26-2024 RBC (Bld) [#/Vol] 5.75 10*6/uL 4.6-6.2 [facility] Serum creatinine measurement (mass/volume)Ordered By: Damion Trevino on 09-26-2024 Creatinine [Mass/Vol] 1.35 mg/dL High 0.70-1.20 [facility] Serum globulin measurementOr dered By: Damion Trevino on 09-26-2024 Globulin (S) [Mass/Vol] 3.0 g/dL 2.2-4.2 [facility] Serum glucose measurement (m ass/volume)Ordered By: Damion Trevino on 09-26-2024 Glucose [Mass/Vol] 91 mg/dL 70-99 [facility] Serum or plasma alanine miramontes otransferase (ALT) measurementOrdered By: Damion Trevino on 09-26-2024 ALT [Catalytic activity/Vol] 19 U/L <47 [facility] Serum or plasma albumin priyanka urement (mass/volume)Ordered By: Damion Trevino on 09-26-2024 Albumin [Mass/Vol] 4.6 g/dL 3.5-5.0 [facility] Serum or plasma albumin/glob ulin mass ratioOrdered By: Damion Trevino on 09-26-2024 Albumin/Globulin [Mass ratio] 1.6 {ratio} 0.9-2.4 [facility] Serum or plasma alkaline teddy sphatase measurementOrdered By: Damion Trevino 09-26-2024 ALP [Catalytic activity/Vol] 80 U/L 40-129 [facility] Serum or plasma calcium priyanka urement (mass/volume)Ordered By: Damion Trevino on 09-26-2024 Calcium [Mass/Vol] 10.0 mg/dL 7.6-11.0 [facility] Serum or plasma urea nitroge n measurement (mass/volume)Ordered By: Damion Trevino on 09-26-2024 Urea nitrogen [Mass/Vol] 21 mg/dL High 4-19 [facility] Sodium levelOrdered By: Damion Trevino on 09-26-2024 Sodium [Moles/Vol] 138 mmol/L 133-145 [facility] Squamous epithelial cells de tection in urine sediment by light microscopyOrdered By: Damion Trevino on 09-26-2024 Epithelial cells.squamous LM Ql (Urine sed) 0-5 SEEN /hpf 0-5 [facility] Total proteinOrdered By: Zahira Trevino on 09-26-2024 Protein [Mass/Vol] 7.6 g/dL 5.9-8.4 [facility] Urinalysis, Completeon 09-26 EPI,SQUAMOUS 0-5 SEEN Normal 0-5 [facility] Comment on above: Order Comment: CLEAN CATCH Performed By: #### M 100.678, [id number] #### [facility] [address] [place], [address] RBC 0-5 SEEN Normal 0-5 [facility] Comment on above: Order Comment: CLEAN CATCH Performed By: #### M 100.678, [id number] #### [facility] [address] [place], [address] WBC 0-5 SEEN Normal 0-5 [facility] Comment on above: Order Comment: CLEAN CATCH Performed By: #### M 100.678, [id number] #### [facility] [address] [place], [address] BACTERIA 0 SEEN Normal None Seen [facility] Comment on above: Order Comment: CLEAN CATCH Performed By: #### M 100.678, [id number] #### [facility] [address] [place], [address] Mucus Ql (Urine sed) 0 SEEN Normal [facility] Comment on above: Order Comment: CLEAN CATCH Performed By: #### M 100.678, [id number] #### [facility] [address] [place], [address] Urine clarityOrdered By: Zahira Trevino on 09-26-2024 Clarity (U) Clear Clear [facility] Urine color determinationOrd ered By: Damion Trevino on 09-26-2024 Color (U) Straw Yellow [facility] Urine glucose detectionOrder ed By: Damion Trevino on 09-26-2024 Glucose Ql (U) Normal mg/dl Normal [facility] Urine leukocyte esterase det ection by dipstickOrdered By: Damion Trevino on 09-26-2024 Leukocyte esterase Test strip Ql (U) Negative Negative [facility] Urine pHOrdered By: Damion beckman on 09-26-2024 pH (U) 6.0 [pH] 5.0 - 8.0 [facility] Urine sediment bacteria coun t by microscopy (number/high power field)Ordered By: Damion Trevino on 09-26-2024 Bacteria LM.HPF (Urine sed) [#/Area] 0 /[HPF] None Seen [facility] Urine specific gravity measu rementOrdered By: Damion Trevino on 09-26-2024 Specific gravity (U) [Rel density] 1.015 1.002-1.030 [facility] Urine urobilinogen measureme ntOrdered By: Damion Trevino on 09-26-2024 Urobilinogen Ql (U) Normal mg/dl Normal [facility] White blood cell (WBC) count Ordered By: Damion Trevino on 09-26-2024 WBC (Bld) [#/Vol] 12.8 10*3/uL High 4.4-11.0 [facility] White blood cell countOrdere d By: Damion Trevino on 09-26-2024 White blood cell count 0-5 SEEN /hpf 0-5 [facility] .Auto Diffon 09-11-2024 Basophil, Absolute 0.0 10 3/mcL Normal 0.0-0.3 [facility] Comment on above: Performed By: #### T ROPHS, GFR, CMP, MDW, ANEU, CBC, LIP, ADIFF #### [address] [place], [place] [address] Basophils/100 WBC (Bld) 0.5 % Normal 0.0-2.5 [facility] Comment on above: Performed By: #### T ROPHS, GFR, CMP, MDW, ANEU, CBC, LIP, ADIFF #### [address] [place], [place] [address] Eosinophil, Absolute 0.1 10 3/mcL Normal 0.0-0.7 [facility] Comment on above: Performed By: #### T ROPHS, GFR, CMP, MDW, ANEU, CBC, LIP, ADIFF #### [address] [address] Eosinophils/100 WBC (Bld) 0.8 % Normal 0.0-6.0 [facility] Comment on above: Performed By: #### T ROPHS, GFR, CMP, MDW, ANEU, CBC, LIP, ADIFF #### [address] [address] Lymphocyte, Absolute 2.1 10 3/mcL Normal 0.9-4.3 [facility] Comment on above: Performed By: #### T ROPHS, GFR, CMP, MDW, ANEU, CBC, LIP, ADIFF #### [address] [address] Lymphocytes/100 WBC (Bld) 30.3 % Normal 20.0-40.0 [facility] Comment on above: Performed By: #### T ROPHS, GFR, CMP, MDW, ANEU, CBC, LIP, ADIFF #### [address] [address] Monocyte, Absolute 0.4 10 3/mcL Normal 0.1-1.4 [facility] Comment on above: Performed By: #### T ROPHS, GFR, CMP, MDW, ANEU, CBC, LIP, ADIFF #### [address] [address] Monocytes/100 WBC (Bld) 6.4 % Normal 2.0-13.0 [facility] Comment on above: Performed By: #### T ROPHS, GFR, CMP, MDW, ANEU, CBC, LIP, ADIFF #### [address] [address] Neutrophils/100 WBC (Bld) 62.0 % Normal 50.0-75.0 [facility] Comment on above: Performed By: #### T ROPHS, GFR, CMP, MDW, ANEU, CBC, LIP, ADIFF #### [address] [address] .GFRon 09-11-2024 Estimated Glomerular Filtration Rate 104 ml/min/1.73sqm Normal [facility] Comment on above: Result Comment: Stages of Chronic Kidney Disease (CKD) Stage Description eGFR(ml/min/1.73 sq.m.) CKD 1 Normal kidney function or >=90 normal kindney function with possible kidney damage (ex. Proteinuria) CKD 2 Kidney damage with mild loss 60-89 of kidney function CKD 3a Mild to moderate loss of kidney 45-59 function CKD 3b Moderate to severe loss of 30-44 of kindey function CKD 4 Severe loss of kidney function 15-29 CKD 5 Kidney failure <15 Note: (go live 2024) the eGFR calculation was updated to the 2020 CKD-EPI creatinine equation without a race factor to calculate the eGFR results. Performed By: #### T ALEX, GFR, CMP, MDW, ANEU, CBC, LIP, ADIFF #### [address] [address] .MDWon 09-11-2024 Monocyte Distribution Width 14.63 Normal 0.00-20.00 [facility] Comment on above: Result Comment: For ED adult patients suspected of sepsis, MDW<=20.0 does not rule out sepsis or risk of sepsis Performed By: #### T ALEX, GFR, CMP, MDW, ANEU, CBC, LIP, ADIFF #### [address] [address] .NEUABSon 09-11-2024 Neutrophil, Absolute 4.2 10 3/mcL Normal 2.3-8.1 [facility] Comment on above: Performed By: #### T SANTYHS, GFR, CMP, MDW, ANEU, CBC, LIP, ADIFF #### [address] [address] CBCon 09-11-2024 Erythrocyte distribution width (RBC) [Ratio] 13.1 % Normal 11.5-15.5 [facility] Comment on above: Performed By: #### T ROPHS, GFR, CMP, MDW, ANEU, CBC, LIP, ADIFF #### [address] [address] Hematocrit (Bld) [Volume fraction] 48.1 % Normal 40.0-52.0 [facility] Comment on above: Performed By: #### T ROPHS, GFR, CMP, MDW, ANEU, CBC, LIP, ADIFF #### [address] [address] Hgb 16.2 G/dL Normal 13.0-17.5 [facility] Comment on above: Performed By: #### T SANTYHS, GFR, CMP, MDW, ANEU, CBC, LIP, ADIFF #### [address] [address] MCH (RBC) [Entitic mass] 29.0 pg Normal 27.0-33.0 [facility] Comment on above: Performed By: #### T ALEX, GFR, CMP, MDW, ANEU, CBC, LIP, ADIFF #### [address] [address] MCHC 33.8 G/dL Normal 32.0-36.0 [facility] Comment on above: Performed By: #### T ALEX, GFR, CMP, MDW, ANEU, CBC, LIP, ADIFF #### [address] [address] MCV (RBC) [Entitic vol] 85.8 fL Normal 81.0-100.0 [facility] Comment on above: Performed By: #### T ROPHS, GFR, CMP, MDW, ANEU, CBC, LIP, ADIFF #### [address] [address] Platelet 168 10 3/mcL Normal 150-450 [facility] Comment on above: Performed By: #### T ROPHS, GFR, CMP, MDW, ANEU, CBC, LIP, ADIFF #### [address] [address] Platelet mean volume (Bld) [Entitic vol] 8.3 fL Normal 6.4-10.5 [facility] Comment on above: Performed By: #### T ROPHS, GFR, CMP, MDW, ANEU, CBC, LIP, ADIFF #### [address] [address] RBC 5.60 10 6/mcL Normal 4.50-6.00 [facility] Comment on above: Performed By: #### T ROPHS, GFR, CMP, MDW, ANEU, CBC, LIP, ADIFF #### [address] [address] WBC 6.8 10 3/mcL Normal 4.5-10.8 [facility] Comment on above: Performed By: #### T ROPHS, GFR, CMP, MDW, ANEU, CBC, LIP, ADIFF #### [address] [address] CMPon 09-11-2024 Albumin Level 4.0 G/dL Normal 3.5-5.0 [facility] Comment on above: Performed By: #### T ROPHS, GFR, CMP, MDW, ANEU, CBC, LIP, ADIFF #### [address] [address] Albumin/Globulin [Mass ratio] 1.3 {ratio} Normal 1.1-2.5 [facility] Comment on above: Performed By: #### T ROPHS, GFR, CMP, MDW, ANEU, CBC, LIP, ADIFF #### [address] [address] ALP [Catalytic activity/Vol] 84 U/L Normal 40-135 [facility] Comment on above: Performed By: #### T ROPHS, GFR, CMP, MDW, ANEU, CBC, LIP, ADIFF #### [address] [address] ALT [Catalytic activity/Vol] 28 U/L Normal 16-63 [facility] Comment on above: Performed By: #### T ROPHS, GFR, CMP, MDW, ANEU, CBC, LIP, ADIFF #### [address] [address] AST [Catalytic activity/Vol] 17 U/L Normal 10-40 [facility] Comment on above: Performed By: #### T ALEX, GFR, CMP, MDW, ANEU, CBC, LIP, ADIFF #### [address] [address] Bili Total 1.1 mg/dL High 0.2-1.0 [facility] Comment on above: Result Comment: Use of this assay is not recommended for patients undergoing treatment with eltrombopag due to the potential for falsely elevated results. Performed By: #### T ALEX, GFR, CMP, MDW, ANEU, CBC, LIP, ADIFF #### [address] [address] BUN/Creatinine Ratio 11 ratio Normal 7-27 [facility] Comment on above: Performed By: #### T ALEX, GFR, CMP, MDW, ANEU, CBC, LIP, ADIFF #### [address] [address] Calcium [Mass/Vol] 9.4 mg/dL Normal 8.4-10.2 [facility] Comment on above: Performed By: #### T ALEX, GFR, CMP, MDW, ANEU, CBC, LIP, ADIFF #### [address] [address] Chloride [Moles/Vol] 104 mmol/L Normal 98-107 [facility] Comment on above: Performed By: #### T ALEX, GFR, CMP, MDW, ANEU, CBC, LIP, ADIFF #### [address] [address] CO2 [Moles/Vol] 29 mmol/L Normal 22-29 [facility] Comment on above: Performed By: #### T ALEX, GFR, CMP, MDW, ANEU, CBC, LIP, ADIFF #### [address] [address] Creatinine [Mass/Vol] 1.04 mg/dL Normal 0.67-1.17 [facility] Comment on above: Performed By: #### T ROPHS, GFR, CMP, MDW, ANEU, CBC, LIP, ADIFF #### [address] [address] Electrolyte Balance 6.0 mEq/L Normal 4.0-15.0 [facility] Comment on above: Performed By: #### T ROPHS, GFR, CMP, MDW, ANEU, CBC, LIP, ADIFF #### [address] [address] Globulin 3.0 G/dL Normal 2.7-4.4 [facility] Comment on above: Performed By: #### T ROPHS, GFR, CMP, MDW, ANEU, CBC, LIP, ADIFF #### [address] [address] Glucose [Mass/Vol] 90 mg/dL Normal 70-105 [facility] Comment on above: Performed By: #### T ROPHS, GFR, CMP, MDW, ANEU, CBC, LIP, ADIFF #### [address] [address] Potassium [Moles/Vol] 4.2 mmol/L Normal 3.5-5.1 [facility] Comment on above: Performed By: #### T ROPHS, GFR, CMP, MDW, ANEU, CBC, LIP, ADIFF #### [address] [address] Sodium [Moles/Vol] 139 mmol/L Normal 136-145 [facility] Comment on above: Performed By: #### T ROPHS, GFR, CMP, MDW, ANEU, CBC, LIP, ADIFF #### [address] [address] Total Protein 7.0 G/dL Normal 6.4-8.2 [facility] Comment on above: Performed By: #### T ROPHS, GFR, CMP, MDW, ANEU, CBC, LIP, ADIFF #### [address] [address] Urea nitrogen [Mass/Vol] 11 mg/dL Normal 7-18 [facility] Comment on above: Performed By: #### T ROPHS, GFR, CMP, MDW, ANEU, CBC, LIP, ADIFF #### [facility] [address] [place], [place] [address] LABORATORYOrdered By: SYSTEM SYSTEM on 09-11-2024 Albumin BCP dye [Mass/Vol] 4.0 G/dL Normal 3.5 - 5.0 G/dL AO ADM SS Albumin/Globulin [Mass ratio] 1.3 {ratio} Normal 1.1 - 2.5 ratio AO ADM SS ALP [Catalytic activity/Vol] 84 U/L Normal 40 - 135 U/L AO ADM SS ALT With P-5'-P [Catalytic activity/Vol] 28 U/L Normal 16 - 63 U/L AO ADM SS AST With P-5'-P [Catalytic activity/Vol] 17 U/L Normal 10 - 40 U/L AO ADM SS Basophils (Bld) [#/Vol] 0.0 103/mcL Normal 0.0 - 0.3 10^3/mcL AO Workflow SS Basophils/100 WBC (Bld) 0.5 % Normal 0.0 - 2.5 % AO Workflow SS Bilirubin [Mass/Vol] 1.1 mg/dL High 0.2 - 1 .0 mg/dL AO ADM SS Comment on above: Interpretive Data: U se of this assay is not recommended for patients undergoing treatment with eltrombopag due to the potential for falsely elevated results. Calcium [Mass/Vol] 9.4 mg/dL Normal 8.4 - 10. 2 mg/dL AO ADM SS Chloride [Moles/Vol] 104 mmol/L Normal 98 - 10 7 mmol/L AO ADM SS CO2 [Moles/Vol] 29 mmol/L Normal 22 - 29 mmol/L AO ADM SS Creatinine [Mass/Vol] 1.04 mg/dL Normal 0.67 - 1.17 mg/dL AO ADM SS Electrolyte Balance 6.0 mEq/L Normal 4.0 - 15 .0 mEq/L AO ADM SS Eosinophil, Absolute 0.1 103/mcL Normal 0.0 - 0 .7 10^3/mcL AO Workflow SS Eosinophils/100 WBC (Bld) 0.8 % Normal 0.0 - 6.0 % AO Workflow SS Erythrocyte distribution width (RBC) [Ratio] 13.1 % Normal 11.5 - 15.5 % AO Workflow SS Estimated Glomerular Filtration Rate 104 ml/min/1.73sqm Invalid Interpretation Code AO Chemistry S Comment on above: Interpretive Data: Stages of Chronic Kidney Disease (CKD) Stage Description eGFR(ml/min/1.73 sq.m.) CKD 1 Normal kidney function or >=90 normal kindney function with possible kidney damage (ex. Proteinuria) CKD 2 Kidney damage with mild loss 60-89 of kidney function CKD 3a Mild to moderate loss of kidney 45-59 function CKD 3b Moderate to severe loss of 30-44 of kindey function CKD 4 Severe loss of kidney function 15-29 CKD 5 Kidney failure <15 Note: (go live 2024) the eGFR calculation was updated to the 2020 CKD-EPI creatinine equation without a race factor to calculate the eGFR results. Globulin 3.0 G/dL Normal 2.7 - 4.4 G/dL AO ADM SS Glucose [Mass/Vol] 90 mg/dL Normal 70 - 105 mg/dL AO ADM SS Hematocrit (Bld) [Volume fraction] 48.1 % Normal 40.0 - 52.0 % AO Workflow SS Hemoglobin (Bld) [Mass/Vol] 16.2 G/dL Normal 13.0 - 17.5 G/dL AO Workflow SS Lipase [Catalytic activity/Vol] 28 U/L Normal 16 - 77 U/L AO ADM SS Lymphocytes (Bld) [#/Vol] 2.1 103/mcL Normal 0.9 - 4.3 10^3/mcL AO Workflow SS Lymphocytes/100 WBC (Bld) 30.3 % Normal 20.0 - 40.0 % AO Workflow SS MCH (RBC) [Entitic mass] 29.0 pg Normal 27. 0 - 33.0 pg AO Workflow SS MCHC 33.8 G/dL Normal 32.0 - 36.0 G/dL AO Workflow SS MCV (RBC) [Entitic vol] 85.8 fL Normal 81.0 - 100.0 fL AO Workflow SS Monocyte distribution width Auto (Bld) [Entitic vol] 14.63 1 Normal 0.00 - 20.00 AO Workflow SS Comment on above: Result Comment: For ED adult patients suspected of sepsis, MDW<=20.0 does not rule out sepsis or risk of sepsis Monocytes (Bld) [#/Vol] 0.4 103/mcL Normal 0.1 - 1.4 10^3/mcL AO Workflow SS Monocytes/100 WBC (Bld) 6.4 % Normal 2.0 - 13.0 % AO Workflow SS Neutrophils (Bld) [#/Vol] 4.2 103/mcL Normal 2.3 - 8.1 10^3/mcL AO Workflow SS Neutrophils/100 WBC (Bld) 62.0 % Normal 50.0 - 75.0 % AO Workflow SS Platelet mean volume (Bld) [Entitic vol] 8.3 fL Normal 6.4 - 10.5 fL AO Workflow SS Platelets (Bld) [#/Vol] 168 103/mcL Normal 150 - 450 10^3/mcL AO Workflow SS Potassium [Moles/Vol] 4.2 mmol/L Normal 3.5 - 5.1 mmol/L AO ADM SS Protein [Mass/Vol] 7.0 G/dL Normal 6.4 - 8.2 G/dL AO ADM SS RBC (Bld) [#/Vol] 5.60 106/mcL Normal 4.50 - 6.0 0 10^6/mcL AO Workflow SS Sodium [Moles/Vol] 139 mmol/L Normal 136 - 145 mmol/L AO ADM SS Troponin I.cardiac DL <= 0.01 ng/mL [Mass/Vol] ng/L Normal 0 - 76 ng/L AO ADM SS Comment on above: Interpretive Data: H igh Sensitive Troponin I Reference Ranges: Female: 0-51 ng/L Male: 0-76 ng/L Testing performed on [employer] using a homogeneous sandwich chemiluminescent immunoassay based on [employer] technology. Urea nitrogen [Mass/Vol] 11 mg/dL Normal 7 - 18 mg/dL AO ADM SS Urea nitrogen/Creatinine [Mass ratio] 11 ratio Normal 7 - 27 ratio AO ADM SS WBC (Bld) [#/Vol] 6.8 103/mcL Normal 4.5 - 10.8 10^3/mcL AO Workflow SS LABORATORYOrdered By: Lias Van on 09-11-2024 Appearance (U) Clear (09/11/24 2:25 PM) Normal Clear AO Auto Urine SS Bilirubin Ql (U) Negative (09/11/24 2:25 PM) Normal Negative AO Auto Urine SS Color (U) Yellow (09/11/24 2:25 PM) Normal AO Auto Urine SS Glucose Test strip (U) [Mass/Vol] Negative Normal Negative AO Auto Urine SS Hemoglobin Auto test strip (U) [Mass/Vol] Negative (09/11/24 2:25 PM) Normal Negative AO Auto Urine SS Ketones Ql (U) Negative Normal Negative AO Auto Urine SS UA Leuk Est Negative (09/11/24 2:25 PM) Normal Negative AO Auto Urine SS UA Nitrite Negative (09/11/24 2:25 PM) Normal Negative AO Auto Urine SS UA pH 7.5 (09/11/24 2:25 PM) Normal 5.0 - 8.0 AO Auto Urine SS UA Protein Negative Normal Negative AO Auto Urine SS UA Spec Grav 1.010 *ABN* (09/11/24 2:25 PM) Invalid Interpretation Code 1.015-1.025 AO Auto Urine SS UA Specimen Type Clean Catch (09/11/24 2:25 PM) Normal AO Auto Urine SS UA Urobilinogen 0.2 E.U./dL Normal 0.2-1.0 AO Auto Urine SS LIPon 09-11-2024 Lipase Level 28 U/L Normal 16-77 [facility] Comment on above: Performed By: #### T ALEX, GFR, CMP, MDW, ANEU, CBC, LIP, ADIFF #### [address] [address] [facility] High Sensitivity Troponin I <4 Normal 0-76 [facility] Comment on above: Result Comment: High Sensitive Troponin I Reference Ranges: Female: 0-51 ng/L Male: 0-76 ng/L Testing performed on [employer] using a homogeneous sandwich chemiluminescent immunoassay based on [employer] technology. Performed By: #### T ALEX, GFR, CMP, MDW, ANEU, CBC, LIP, ADIFF ####[facility] [place], [place] [address] on 09-11-2024 Color (U) Yellow Normal [facility] Comment on above: Performed By: #### U A #### [facility] [address] [place], [place] [address] Glucose (U) [Mass/Vol] Negative Normal Negative [facility] Comment on above: Performed By: #### U A #### [address] [address] Ketones Ql (U) Negative Normal Negative [facility] Comment on above: Performed By: #### U A #### [address] [address] UA Appear Clear Normal Clear [facility] Comment on above: Performed By: #### U A #### [place] [address] UA Blood Negative Normal Negative [facility] Comment on above: Performed By: #### U A #### [place] [address] UA Leuk Est Negative Normal Negative [facility] Comment on above: Performed By: #### U A #### [place] [address] UA Nitrite Negative Normal Negative [facility] Comment on above: Performed By: #### U A #### [place] [address] UA pH 7.5 Normal 5.0 - 8.0 [facility] Comment on above: Performed By: #### U A #### [place] [address] UA Protein Negative Normal Negative [facility] Comment on above: Performed By: #### U A #### [place] [address] UA Spec Grav 1.010 Abnormal 1.015-1.025 [facility] Comment on above: Performed By: #### U A #### [place] [address] UA Specimen Type Clean Catch Normal [facility] Comment on above: Performed By: #### U A #### [place] [address] UA Urobilinogen 0.2 E.U./dL Normal 0.2-1.0 [facility] Comment on above: Performed By: #### U A #### [address] [address] Urobilinogen (U) [Mass/Vol] Negative Normal Negative [facility] Comment on above: Performed By: #### U A #### [address] [address] XR CHEST 1 VIEWon 09-11-2024 XR CHEST 1 VIEW ORIGINAL EXAMINATION: Exam Title:ONE XRAY VIEW OF THE CHEST Completed Time: 09/11/2024 2:39 pm Procedure Description:CHEST ONE VIEW AP/PA COMPARISON: July 12, 2024 chest x-ray HISTORY: ORDERING SYSTEM PROVIDED HISTORY: Reason for Exam: c/o feeling a knot in epigastric area that causes pressure with movement, especially bending over. Pt also c/o vomiting blood pain FINDINGS: Mild hypoinflation. No gross consolidative pneumonia, effusion, or pneumothorax. Heart size normal. Aortic arch contour normal. No gross acute osseous process demonstrated. Mild rotoscoliosis. IMPRESSION: No acute cardiopulmonary process demonstrated. Interpreted by: Wilfredo Gonzalez DO Preliminary Report By: Wilfredo Gonzalez DO Electronically signed By Wilfredo Gonzalez DO Dictated Date: 09/11/2024 2:52:50 PM Prelim Date: 09/11/2024 2:53:30 PM Sign Date: 09/11/2024 2:53:30 PM Ordering Provider: ABNER Basurto [facility] 36on 08-15-2024 36 S: Patient called [facility] clinical access [facility] with complaint of redness and swelling of his nose. B: started on Wednesday A: Pt complains of his nose being dry, wrinkled, puffy. He denies shortness of breath, any other facial swelling, fever, pus, sinus congestion. R: Appt today at 10:20 am with Mely Rojas. Pt advised to bring photo ID, insurance card, medications with them to their visit if possible. Home care advise given to patient: CALL BACK IF: * Fever * Swelling becomes red -spreading redness * You become worse Patient instructed to call back with worsening symptoms, concerns or questions. Covid/Flu questions: 1) Current symptoms consistent with Covid/Flu-no 2) Have you tested positive for Covid/Flu in last 10 days-no, has not taken a test 3) Known exposure to Covid/Flu in the last 10 days -no 4) Traveled out of the country in the last 10 days-no Reason for Disposition Looks infected (e.g., spreading redness, pus) Protocols used: Face [id number] Normal [facility] Office Visiton 08-15-2024 Follow-up visit [id number] Aries Carrasco 2000 M Date Provider Department Center 08/15/2024 [id number] [facility] Family History Family Status - Relation Status Age at Father Alive Sister Alive Mother Alive Brother Alive Sister Alive Sister Alive Level of Service:89453 MT OFFICE/OUTPATIENT ESTABLISHED LOW [facility] 20 MIN Reason for Visit and Comments: Facial Swelling [[id number]] Normal [facility] Progress Noteon 08-15-2024 Progress Note Consistent with contact dermatitis. Unsure etiology. Recommend avoiding possible irritants. Cool compresses. Medrol dose aditya to help with swelling. Normal [facility] Progress Note 08/15/2024 Aries Carrasco (: 2000) is a 24 y.o. male , Established patient, here for evaluation of the following chief complaint(s): Facial Swelling ASSESSMENT/PLAN: 1. Contact dermatitis, unspecified contact dermatitis type, unspecified trigger Assessment & Plan: Consistent with contact dermatitis. Unsure etiology. Recommend avoiding possible irritants. Cool compresses. Medrol dose aditya to help with swelling. Orders: - methylPREDNISolone (Medrol Dospak) 4 MG tablets; Take as directed on package., Normal Follow up if symptoms worsen or fail to improve. SUBJECTIVE/OBJECTIVE: HPI - Aries Carrasco (: 2000) is a 24 y.o. male , Established patient, here for the evaluation of the following chief complaint(s): Facial Swelling Started last Wednesday, Last night started to have more irritation on his face and around the nose. No fever or chills. Nose felt numb yesterday. Inside the nose is sore, throat is mildly irritated. Denies any change in medications. Has tried cool compresses. No itching, skin feels sore. Current Outpatient Medications Medication Sig Dispense Refill ARIPiprazole (Abilify) 5 MG tablet Take 1 tablet (5 mg) by mouth daily. 30 tablet 0 busPIRone (Buspar) 15 MG tablet Take 1 tablet (15 mg) by mouth 2 times daily. 60 tablet 0 lithium 150 MG capsule Take 3 capsules (450 mg) by mouth 2 times daily. 180 capsule 0 methylPREDNISolone (Medrol Dospak) 4 MG tablets Take as directed on package. 21 tablet 0 No current facility-administered medications for this visit. Review of Systems Constitutional: Negative. HENT: Positive for facial swelling. Negative for congestion, mouth sores and postnasal drip. Respiratory: Negative. Cardiovascular: Negative. Skin: Positive for rash. Vitals: 08/15/24 0931 BP: 125/80 Pulse: 76 Resp: 24 Temp: 37.4 ?C (99.3 ?F) TempSrc: Infrared SpO2: 97% Weight: 192 lb 12.8 oz (87.5 kg) Physical Exam Vitals reviewed. Constitutional: General: He is not in acute distress. Appearance: Normal appearance. He is not ill-appearing. HENT: Head: Normocephalic and atraumatic. Mouth/Throat: Mouth: Mucous membranes are moist. Pharynx: Oropharynx is clear. Uvula midline. No posterior oropharyngeal erythema. Eyes: Conjunctiva/sclera: Conjunctivae normal. Cardiovascular: Rate and Rhythm: Normal rate and regular rhythm. Pulses: Normal pulses. Heart sounds: Normal heart sounds. Pulmonary: Effort: Pulmonary effort is normal. Breath sounds: Normal breath sounds. Musculoskeletal: Right lower leg: No edema. Left lower leg: No edema. Lymphadenopathy: Cervical: No cervical adenopathy. Skin: Comments: Noted erythema and mild swelling over nasolabial folds, cheeks and forehead bilaterally. Neurological: Mental Status: He is alert and oriented to person, place, and time. Psychiatric: Mood and Affect: Mood normal. Behavior: Behavior normal. Thought Content: Thought content normal. An electronic signature was used to authenticate this note. Kar Rojas APRN - [place] 08/15/2024 11:02 AM Normal [facility] Progress Note Patient was identifi ed by name and Date of . Normal [facility] .Auto Diffon 07-12-2024 Basophil, Absolute 0.1 10 3/mcL Normal 0.0-0.2 [facility] Comment on above: Performed By: #### M DW, LIP, CBC, GFR, TROPHS, ADIFF, CMP, ANEU ####[facility] [place], [place] [address] Basophils/100 WBC (Bld) 0.6 % Normal 0.0-2.5 [facility] Comment on above: Performed By: #### M DW, LIP, CBC, GFR, TROPHS, ADIFF, CMP, ANEU ####[facility] [place], [place] [address] Eosinophil, Absolute 0.1 10 3/mcL Normal 0.0-0.7 [facility] Comment on above: Performed By: #### M DW, LIP, CBC, GFR, TROPHS, ADIFF, CMP, ANEU ####[address] [place], [place] [address] Eosinophils/100 WBC (Bld) 1.6 % Normal 0.0-7.0 [facility] Comment on above: Performed By: #### M DW, LIP, CBC, GFR, TROPHS, ADIFF, CMP, ANEU ####[address] [address] Lymphocyte, Absolute 2.5 10 3/mcL Normal 0.9-4.3 [facility] Comment on above: Performed By: #### M DW, LIP, CBC, GFR, TROPHS, ADIFF, CMP, ANEU ####[address] [address] Lymphocytes/100 WBC (Bld) 28.5 % Normal 20.0-40.0 [facility] Comment on above: Performed By: #### M DW, LIP, CBC, GFR, TROPHS, ADIFF, CMP, ANEU ####[facility] [place], [place] [address] Monocyte, Absolute 0.5 10 3/mcL Normal 0.1-1.4 [facility] Comment on above: Performed By: #### M DW, LIP, CBC, GFR, TROPHS, ADIFF, CMP, ANEU ####[address] [place], [place] [address] Monocytes/100 WBC (Bld) 6.0 % Normal 2.0-13.0 [facility] Comment on above: Performed By: #### M DW, LIP, CBC, GFR, TROPHS, ADIFF, CMP, ANEU ####[address] [place], [place] [address] Neutrophils/100 WBC (Bld) 63.3 % Normal 50.0-75.0 [facility] Comment on above: Performed By: #### M DW, LIP, CBC, GFR, TROPHS, ADIFF, CMP, ANEU ####[address] [place], [place] [address] .GFRon 07-12-2024 Estimated Glomerular Filtration Rate 80 ml/min/1.73sqm Normal [facility] Comment on above: Result Comment: Stages of Chronic Kidney Disease (CKD) Stage Description eGFR(ml/min/1.73 sq.m.) CKD 1 Normal kidney function or >=90 normal kindney function with possible kidney damage (ex. Proteinuria) CKD 2 Kidney damage with mild loss 60-89 of kidney function CKD 3a Mild to moderate loss of kidney 45-59 function CKD 3b Moderate to severe loss of 30-44 of kindey function CKD 4 Severe loss of kidney function 15-29 CKD 5 Kidney failure <15 Note: (go live 2024) the eGFR calculation was updated to the 2020 CKD-EPI creatinine equation without a race factor to calculate the eGFR results. Performed By: #### M DW, LIP, CBC, GFR, TROPHS, ADIFF, CMP, ANEU ####[facility] [place], [place] [address] .MDWon 07-12-2024 Monocyte Distribution Width 14.38 Normal 0.00-20.00 [facility] Comment on above: Result Comment: For ED adult patients suspected of sepsis, MDW<=20.0 does not rule out sepsis or risk of sepsis Performed By: #### M DW, LIP, CBC, GFR, TROPHS, ADIFF, CMP, ANEU ####[address] [place], [place] [address] .NEUABSon 07-12-2024 Neutrophil, Absolute 5.7 10 3/mcL Normal 2.3-8.1 [facility] Comment on above: Performed By: #### M DW, LIP, CBC, GFR, TROPHS, ADIFF, CMP, ANEU ####[address] [address] CBCon 07-12-2024 Erythrocyte distribution width (RBC) [Ratio] 14.2 % Normal 11.5-15.5 [facility] Comment on above: Performed By: #### M DW, LIP, CBC, GFR, TROPHS, ADIFF, CMP, ANEU ####[address] [address] Hematocrit (Bld) [Volume fraction] 46.9 % Normal 40.0-52.0 [facility] Comment on above: Performed By: #### M DW, LIP, CBC, GFR, TROPHS, ADIFF, CMP, ANEU ####[address] [address] Hgb 16.0 G/dL Normal 13.0-17.5 [facility] Comment on above: Performed By: #### M DW, LIP, CBC, GFR, TROPHS, ADIFF, CMP, ANEU ####[address] [address] MCH (RBC) [Entitic mass] 29.1 pg Normal 27.0-33.0 [facility] Comment on above: Performed By: #### M DW, LIP, CBC, GFR, TROPHS, ADIFF, CMP, ANEU ####[address] [address] MCHC 34.2 G/dL Normal 32.0-36.0 [facility] Comment on above: Performed By: #### M DW, LIP, CBC, GFR, TROPHS, ADIFF, CMP, ANEU ####[address] [address] MCV (RBC) [Entitic vol] 85.1 fL Normal 81.0-100.0 [facility] Comment on above: Performed By: #### M DW, LIP, CBC, GFR, TROPHS, ADIFF, CMP, ANEU ####[address] [place], [place] [address] Platelet 200 10 3/mcL Normal 150-450 [facility] Comment on above: Performed By: #### M DW, LIP, CBC, GFR, TROPHS, ADIFF, CMP, ANEU ####[address] [place], [place] [address] Platelet mean volume (Bld) [Entitic vol] 8.2 fL Normal 6.4-10.5 [facility] Comment on above: Performed By: #### M DW, LIP, CBC, GFR, TROPHS, ADIFF, CMP, ANEU ####[address] [place], [place] [address] RBC 5.51 10 6/mcL Normal 4.50-6.00 [facility] Comment on above: Performed By: #### M DW, LIP, CBC, GFR, TROPHS, ADIFF, CMP, ANEU ####[address] [place], [place] [address] WBC 9.0 10 3/mcL Normal 4.5-10.8 [facility] Comment on above: Performed By: #### M DW, LIP, CBC, GFR, TROPHS, ADIFF, CMP, ANEU ####[address] [place], [place] [address] CMPon 07-12-2024 Albumin Level 4.0 G/dL Normal 3.5-5.0 [facility] Comment on above: Performed By: #### M DW, LIP, CBC, GFR, TROPHS, ADIFF, CMP, ANEU ####[address] [place], [place] [address] Albumin/Globulin [Mass ratio] 1.3 {ratio} Normal 1.1-2.5 [facility] Comment on above: Performed By: #### M DW, LIP, CBC, GFR, TROPHS, ADIFF, CMP, ANEU ####[address] [place], [place] [address] ALP [Catalytic activity/Vol] 80 U/L Normal 40-135 [facility] Comment on above: Performed By: #### M DW, LIP, CBC, GFR, TROPHS, ADIFF, CMP, ANEU ####[facility] [place], [place] [address] ALT [Catalytic activity/Vol] 34 U/L Normal 16-63 [facility] Comment on above: Performed By: #### M DW, LIP, CBC, GFR, TROPHS, ADIFF, CMP, ANEU ####[facility] [place], [place] [address] AST [Catalytic activity/Vol] 18 U/L Normal 10-40 [facility] Comment on above: Performed By: #### M DW, LIP, CBC, GFR, TROPHS, ADIFF, CMP, ANEU ####[address] [place], [place] [address] Bili Total 0.5 mg/dL Normal 0.2-1.0 [facility] Comment on above: Result Comment: Use of this assay is not recommended for patients undergoing treatment with eltrombopag due to the potential for falsely elevated results. Performed By: #### M DW, LIP, CBC, GFR, TROPHS, ADIFF, CMP, ANEU ####[address] [place], [place] [address] BUN/Creatinine Ratio 12 ratio Normal 7-27 [facility] Comment on above: Performed By: #### M DW, LIP, CBC, GFR, TROPHS, ADIFF, CMP, ANEU ####[address] [place], [place] [address] Calcium [Mass/Vol] 9.0 mg/dL Normal 8.4-10.2 [facility] Comment on above: Performed By: #### M DW, LIP, CBC, GFR, TROPHS, ADIFF, CMP, ANEU ####[facility] [place], [place] [address] Chloride [Moles/Vol] 107 mmol/L Normal 98-107 [facility] Comment on above: Performed By: #### M DW, LIP, CBC, GFR, TROPHS, ADIFF, CMP, ANEU ####[address] [address] CO2 [Moles/Vol] 28 mmol/L Normal 22-29 [facility] Comment on above: Performed By: #### M DW, LIP, CBC, GFR, TROPHS, ADIFF, CMP, ANEU ####[address] [place], [place] [address] Creatinine [Mass/Vol] 1.29 mg/dL Normal 0.70-1.30 [facility] Comment on above: Result Comment: Test ing performed on Siemens Dimension EXL analyzer using a modified kinetic Tim technique. Performed By: #### M DW, LIP, CBC, GFR, TROPHS, ADIFF, CMP, ANEU ####[address] [place], [place] [address] Electrolyte Balance 8.0 mEq/L Normal 4.0-15.0 [facility] Comment on above: Performed By: #### M DW, LIP, CBC, GFR, TROPHS, ADIFF, CMP, ANEU ####[address] [address] Globulin 3.1 G/dL Normal 1.5-3.8 [facility] Comment on above: Performed By: #### M DW, LIP, CBC, GFR, TROPHS, ADIFF, CMP, ANEU ####[address] [address] Glucose [Mass/Vol] 102 mg/dL Normal 70-105 [facility] Comment on above: Performed By: #### M DW, LIP, CBC, GFR, TROPHS, ADIFF, CMP, ANEU ####[address] [address] Potassium [Moles/Vol] 4.0 mmol/L Normal 3.5-5.1 [facility] Comment on above: Performed By: #### M DW, LIP, CBC, GFR, TROPHS, ADIFF, CMP, ANEU ####[address] [place], [place] [address] Sodium [Moles/Vol] 143 mmol/L Normal 136-145 [facility] Comment on above: Performed By: #### M DW, LIP, CBC, GFR, TROPHS, ADIFF, CMP, ANEU ####[address] [place], [place] [address] Total Protein 7.1 G/dL Normal 6.4-8.2 [facility] Comment on above: Performed By: #### M DW, LIP, CBC, GFR, TROPHS, ADIFF, CMP, ANEU ####[facility] [place], [place] [address] Urea nitrogen [Mass/Vol] 16 mg/dL Normal 7-18 [facility] Comment on above: Performed By: #### M DW, LIP, CBC, GFR, TROPHS, ADIFF, CMP, ANEU ####[address] [place], [place] [address] LIPon 07-12-2024 Lipase Level 31 U/L Normal 16-77 [facility] Comment on above: Performed By: #### M DW, LIP, CBC, GFR, TROPHS, ADIFF, CMP, ANEU ####[facility] [place], [place] [address] TROPHSon 07-12-2024 High Sensitivity Troponin I 7 ng/L Normal 0-76 [facility] Comment on above: Result Comment: High Sensitive Troponin I Reference Ranges: Female: 0-51 ng/L Male: 0-76 ng/L Testing performed on [employer] using a homogeneous sandwich chemiluminescent immunoassay based on [employer] technology. Performed By: #### M DW, LIP, CBC, GFR, TROPHS, ADIFF, CMP, ANEU ####[address] [place], [place] [address] XR CHEST 1 VIEWon 07-12-2024 XR CHEST 1 VIEW ORIGINAL EXAMINATION: ONE XRAY VIEW OF THE CHEST07/12/2024 7:48 pm COMPARISON: None HISTORY: ORDERING SYSTEM PROVIDED HISTORY: Reason for Exam: SOB FINDINGS: Cardiomediastinal contours are within normal limits. No focal consolidation or pulmonary edema. No pleural effusion or visible pneumothorax. The bony thorax appears intact. IMPRESSION: No acute radiographic findings. I have personally reviewed the images of this examination and agree with the resident's findings and interpretation. Interpreted by: Toño Olmstead Preliminary Report By: Macario Stafford Electronically signed By Toño Olmstead Dictated Date: 07/12/2024 7:53:20 PM Prelim Date: 07/12/2024 7:54:35 PM Sign Date: 07/12/2024 7:55:44 PM Ordering Provider: JONI Basurto [facility] CBC W Auto Differential pane l (Bld)on 06-01-2024 Basophils (Bld) [#/Vol] 0 10*3/uL 0.0 - 0.2 10*3/uL [facility] Basophils/100 WBC (Bld) 0.4 % 0.0 - 2.0 % [facility] Eosinophils (Bld) [#/Vol] 0.2 10*3/uL 0.0 - 0.5 10*3/uL [facility] Eosinophils/100 WBC (Bld) 2.4 % 0.0 - 6.0 % [facility] Erythrocyte distribution width (RBC) [Ratio] 12.4 % 11.5 - 15.0 % [facility] Hematocrit (Bld) [Volume fraction] 45.4 % 40.0 - 52.0 % [facility] Hemoglobin (Bld) [Mass/Vol] 15.6 g/dL 13.0 - 18.0 g/dL [facility] Immature granulocytes (Bld) [#/Vol] 0.1 10*3/uL High NINF - 0.1 10*3/uL [facility] Immature granulocytes/100 WBC (Bld) 0.5 % 0.0 - 2.0 % [facility] Interpretation and review of laboratory results Abnormal [facility] Lymphocytes (Bld) [#/Vol] 1.3 10*3/uL 1.0 - 4.3 10*3/uL [facility] Lymphocytes/100 WBC (Bld) 13.8 % Low 15.0 - 45.0 % [facility] MCH (RBC) [Entitic mass] 28.6 pg 26. 0 - 34.0 pg [facility] MCHC (RBC) [Mass/Vol] 34.4 % 30.5 - 36.0 % [facility] MCV (RBC) [Entitic vol] 83.2 fL 77.0 - 99.0 fL [facility] Monocytes (Bld) [#/Vol] 0.7 10*3/uL 0.0 - 0.9 10*3/uL [facility] Monocytes/100 WBC (Bld) 7.4 % 5.0 - 13.0 % [facility] Neutrophils (Bld) [#/Vol] 7.1 10*3/uL 1.8 - 7.5 10*3/uL [facility] Neutrophils/100 WBC (Bld) 75.5 % 38.0 - 82.0 % [facility] Nucleated RBC/100 WBC (Bld) [Ratio] 0 % [facility] Platelet mean volume (Bld) [Entitic vol] 9.9 fL 9.0 - 12.7 fL [facility] Platelets (Bld) [#/Vol] 171 10*3/uL 140 - 440 10*3/uL [facility] RBC (Bld) [#/Vol] 5.46 10*6/uL 4.40 - 5.9 0 10*6/uL [facility] WBC (Bld) [#/Vol] 9.4 10*3/uL 3.6 - 10.7 10*3/uL [facility] CBC WITH AUTO DIFFERENTIALon 06-01-2024 Basophils (Bld) [#/Vol] 0.0 10*3/uL Normal 0.0-0.2 [facility] Comment on above: Performed By: #### L [id number] ####Aerospace Stress Engineer: ZULMA ESPINO ([id number])[address] Basophils/100 WBC (Bld) 0.4 % Normal 0.0-2.0 [facility] Comment on above: Performed By: #### L [id number] ####Aerospace Stress Engineer: ZULMA ESPINO ([id number])[facility] ([facility])[address] [place] [address] Eosinophils (Bld) [#/Vol] 0.2 10*3/uL Normal 0.0-0.5 [facility] Comment on above: Performed By: #### L [id number] ####Aerospace Stress Engineer: ZULMA ESPINO ([id number])[facility])[address] [place] [address] Eosinophils/100 WBC (Bld) 2.4 % Normal 0.0-6.0 [facility] Comment on above: Performed By: #### L [id number] ####Aerospace Stress Engineer: ZULMA ESPINO ([id number])[address] Erythrocyte distribution width (RBC) [Ratio] 12.4 % Normal 11.5-15.0 [facility] Comment on above: Performed By: #### L [id number] ####Aerospace Stress Engineer: ZULMA ESPINO ([id number])[address] Hematocrit (Bld) [Volume fraction] 45.4 % Normal 40.0-52.0 [facility] Comment on above: Performed By: #### L [id number] ####Aerospace Stress Engineer: ZULMA ESPINO ([id number])[address] Hemoglobin (Bld) [Mass/Vol] 15.6 g/dL Normal 13.0-18.0 [facility] Comment on above: Performed By: #### L [id number] ####Aerospace Stress Engineer: ZULMA ESPINO ([id number])[address] IMMATURE GRANS % 0.5 % Normal 0.0-2.0 [facility] Comment on above: Performed By: #### L [id number] ####Aerospace Stress Engineer: ZULMA ESPINO ([id number])[address] IMMATURE GRANS ABSOLUTE 0.1 10*3/uL High <0.1 [facility] Comment on above: Performed By: #### L [id number] ####Aerospace Stress Engineer: ZULMA ESPINO ([id number])[address] Lymphocytes (Bld) [#/Vol] 1.3 10*3/uL Normal 1.0-4.3 [facility] Comment on above: Performed By: #### L [id number] ####Aerospace Stress Engineer: ZULMA [id number])[facility] ([facility])[address] [place] [address] Lymphocytes/100 WBC (Bld) 13.8 % Low 15.0-45.0 [facility] Comment on above: Performed By: #### L [id number] ####Aerospace Stress Engineer: ZULMA ESPINO ([id number])[facility])[address] [place] [address] MCH (RBC) [Entitic mass] 28.6 pg Normal 26.0-34.0 [facility] Comment on above: Performed By: #### L [id number] ####Aerospace Stress Engineer: ZULMA ESPINO ([id number])[facility])[address] [place] [address] MCHC 34.4 % Normal 30.5-36.0 [facility] Comment on above: Performed By: #### L [id number] ####Aerospace Stress Engineer: ZULMA ESPINO ([id number])[facility] ([facility])[address] [place] [address] MCV (RBC) [Entitic vol] 83.2 fL Normal 77.0-99.0 [facility] Comment on above: Performed By: #### L [id number] ####Aerospace Stress Engineer: ZULMA ESPINO ([id number])[facility])[address] [place] [address] Monocytes (Bld) [#/Vol] 0.7 10*3/uL Normal 0.0-0.9 [facility] Comment on above: Performed By: #### L [id number] ####Aerospace Stress Engineer: ZULMA ESPINO ([id number])[facility])[address] [place] [address] Monocytes/100 WBC (Bld) 7.4 % Normal 5.0-13.0 [facility] Comment on above: Performed By: #### L [id number] ####Aerospace Stress Engineer: ZULMA ESPINO ([id number])[facility])[address] [place] [address] NEUTROPHILS ABSOLUTE 7.1 10*3/uL Normal 1.8-7.5 [facility] Comment on above: Performed By: #### L [id number] ####Aerospace Stress Engineer: ZULMA ESPINO ([id number])[facility] ([facility])[address] [place] [address] Neutrophils/100 WBC (Bld) 75.5 % Normal 38.0-82.0 [facility] Comment on above: Performed By: #### L [id number] ####Aerospace Stress Engineer: ZULMA ESPINO ([id number])[facility] ([facility])[address] [place] [address] NRBC 0.0 /100 WBCs Normal 0.0-2.0 [facility] Comment on above: Performed By: #### L [id number] ####Aerospace Stress Engineer: ZULMA ESPINO ([id number])[facility] ([facility])[address] [place] [address] Platelet mean volume (Bld) [Entitic vol] 9.9 fL Normal 9.0-12.7 [facility] Comment on above: Performed By: #### L [id number] ####Aerospace Stress Engineer: ZULMA ESPINO ([id number])[facility] ([facility])[address] [place] [address] [place] Platelets (Bld) [#/Vol] 171 10*3/uL Normal 140-440 [facility] Comment on above: Performed By: #### L [id number] ####Aerospace Stress Engineer: ZULMA ESPINO ([id number])[facility] ([facility])[address] [place] [address] [place] RBC (Bld) [#/Vol] 5.46 10*6/uL Normal 4.40-5.90 [facility] Comment on above: Performed By: #### L [id number] ####Aerospace Stress Engineer: ZULMA ESPINO ([id number])[facility] ([facility])[address] [place] [address] [place] WBC (Bld) [#/Vol] 9.4 10*3/uL Normal 3.6-10.7 [facility] Comment on above: Performed By: #### L [id number] ####Aerospace Stress Engineer: ZULMA ESPINO ([id number])[facility])[address] [place] [address] COMPREHENSIVE METABOLIC PANE Hipolito 06-01-2024 Albumin [Mass/Vol] 4.1 g/dL Normal 3.5-5.0 [facility] Comment on above: Performed By: #### L AB17, LAB46 #### Aerospace Stress Engineer: ZULMA ESPINO ([id number]) [facility] ([facility]) [address] [place] [address] ALP [Catalytic activity/Vol] 76 U/L Normal 40-150 [facility] Comment on above: Performed By: #### L AB17, LAB46 #### Aerospace Stress Engineer: ZULMA ESPINO ([id number]) [facility]) [address] [place] [address] ALT [Catalytic activity/Vol] 26 U/L Normal <40 [facility] Comment on above: Performed By: #### L AB17, LAB46 #### Aerospace Stress Engineer: ZULMA ESPINO ([id number]) [facility] ([facility]) [address] [place] [address] Anion gap [Moles/Vol] 8 mmol/L Normal 3-13 [facility] Comment on above: Performed By: #### L AB17, LAB46 #### Aerospace Stress Engineer: ZULMA ESPINO ([id number]) [facility] ([facility]) [address] [place] [address] AST [Catalytic activity/Vol] 25 U/L Normal <34 [facility] Comment on above: Performed By: #### L AB17, LAB46 #### Aerospace Stress Engineer: ZULMA ESPINO ([id number]) [facility]) [address] [place] [address] Bilirubin [Mass/Vol] 0.8 mg/dL Normal <1.2 [facility] Comment on above: Performed By: #### L AB17, LAB46 #### Aerospace Stress Engineer: ZULMA [id number]) [facility] ([facility]) [address] [place] [address] [place] Calcium [Mass/Vol] 9.7 mg/dL Normal 8.4-10.2 [facility] Comment on above: Performed By: #### L AB17, LAB46 #### Aerospace Stress Engineer: ZULMA ESPINO ([id number]) [facility] [address] [place] [address] [place] Chloride [Moles/Vol] 108 mmol/L High 98-107 [facility] Comment on above: Performed By: #### L AB17, LAB46 #### Aerospace Stress Engineer: ZULMA ESPINO ([id number]) [facility] [address] [place] [address] CO2 [Moles/Vol] 23 mmol/L Normal 22-29 [facility] Comment on above: Performed By: #### Jessica AB17, LAB46 #### Aerospace Stress Engineer: ZULMA ESPINO ([id number]) [facility] [address] [place] [address] Creatinine [Mass/Vol] 1.03 mg/dL Normal 0.72-1.25 [facility] Comment on above: Performed By: #### L AB17, LAB46 #### Aerospace Stress Engineer: ZULMA ESPINO ([id number]) [facility]) [address] [place] [address] GLOMERULAR FILTRATION RATE ML/MIN/1.73 SQ M.PREDICTED >90.0 Normal >60.0 [facility] Comment on above: Result Comment: Calc ulation based on the Chronic Kidney Disease Epidemiology Collaboration (CKD-EPI) equation refit without adjustment for race Performed By: #### L AB17, LAB46 #### Aerospace Stress Engineer: ZULMA ESPINO ([id number]) [facility] ([facility]) [address] [place] [address] [place] Glucose [Mass/Vol] 97 mg/dL Normal 74-100 [facility] Comment on above: Performed By: #### L AB17, LAB46 #### Aerospace Stress Engineer: ZULMA [id number]) [facility] ([facility]) [address] [place] [address] Potassium [Moles/Vol] 4.0 mmol/L Normal 3.5-5.1 [facility] Comment on above: Result Comment: [facility] potassium values may be up to 0.5 mmol/L lower than serum values. Performed By: #### L AB17, LAB46 #### Aerospace Stress Engineer: ZULMA SEPINO ([id number]) [facility] ([facility]) [address] [place] [address] Protein [Mass/Vol] 7.1 g/dL Normal 6.4-8.3 [facility] Comment on above: Performed By: #### L AB17, LAB46 #### Aerospace Stress Engineer: ZULMA ESPINO ([id number]) [facility] ([facility]) [address] [place] [address] Sodium [Moles/Vol] 139 mmol/L Normal 136-145 [facility] Comment on above: Performed By: #### L AB17, LAB46 #### Aerospace Stress Engineer: ZULMA ESPINO ([id number]) [facility] ([facility]) [address] [place] [address] Urea nitrogen [Mass/Vol] 11 mg/dL Normal 8-21 [facility] Comment on above: Performed By: #### L AB17, LAB46 #### Aerospace Stress Engineer: ZULMA ESPINO ([id number]) [facility]) [address] [place] [address] Comprehensive metabolic 1998 panelon 06-01-2024 Albumin [Mass/Vol] 4.1 g/dL 3.5 - 5.0 g/dL [facility] ALP [Catalytic activity/Vol] 76 U/L 40 - 150 U/L [facility] ALT [Catalytic activity/Vol] 26 U/L NINF - 40 U/L [facility] Anion gap [Moles/Vol] 8 mmol/L 3 - 13 mmol/L [facility] AST [Catalytic activity/Vol] 25 U/L NINF - 34 U/L [facility] Bilirubin [Mass/Vol] 0.8 mg/dL NINF - 1.2 mg/dL [facility] Calcium [Mass/Vol] 9.7 mg/dL 8.4 - 10. 2 mg/dL [facility] Chloride [Moles/Vol] 108 mmol/L High 98 - 10 7 mmol/L [facility] CO2 [Moles/Vol] 23 mmol/L 22 - 29 mmol/L [facility] Creatinine [Mass/Vol] 1.03 mg/dL 0.72 - 1.25 mg/dL [facility] GFR/1.73 sq M.predicted (S/P/Bld) [Vol rate/Area] - PINF [facility] Comment on above: Calculation based on the Chronic Kidney Disease Epidemiology Collaboration (CKD-EPI) equation refit without adjustment for race Glucose [Mass/Vol] 97 mg/dL 74 - 100 mg/dL [facility] Interpretation and review of laboratory results Abnormal [facility] Potassium [Moles/Vol] 4 mmol/L 3.5 - 5.1 mmol/L [facility] Comment on above: Plasma potassium samir ues may be up to 0.5 mmol/L lower than serum values. Protein [Mass/Vol] 7.1 g/dL 6.4 - 8.3 g/dL [facility] Sodium [Moles/Vol] 139 mmol/L 136 - 145 mmol/L [facility] Urea nitrogen [Mass/Vol] 11 mg/dL 8 - 21 mg/dL [facility] DRUGS OF ABUSEon 06-01-2024 AMPHETAMINE SCREEN Negative Normal [facility] Comment on above: Performed By: #### L AB17, LAB46 #### Aerospace Stress Engineer: ZULMA ESPINO ([id number]) [facility] [address] [place] [address] BARBITURATES SCREEN Negative Normal [facility] Comment on above: Performed By: #### L AB17, LAB46 #### Aerospace Stress Engineer: ZULMA ESPINO ([id number]) [facility] ([facility]) [address] [place] [address] BENZODIAZEPINE SCREEN Negative Normal [facility] Comment on above: Performed By: #### L AB17, LAB46 #### Aerospace Stress Engineer: ZULMA ESPINO ([id number]) [facility] ([facility]) [address] [place] [address] [place] COCAINE METAB. SCREEN Negative Normal [facility] Comment on above: Performed By: #### L AB17, LAB46 #### Aerospace Stress Engineer: ZULMA ESPINO ([id number]) [facility] ([facility]) [address] [place] [address] FENTANYL SCREEN, UR QUAL Negative Normal [facility] Comment on above: Result Comment: KELE R COMMENTS: The expected value for all of the drugs listed above is Negative. The following drugs or drug groups have been screened for by Immunoassay at the following thresholds: Amphetamine class (1000 ng/mL) Barbiturates (200 ng/mL) Benzodiazepines (200 ng/mL) Cocaine (300 ng/mL) Methadone (300 ng/mL) Opiates (300 ng/mL) Oxycodone (100 ng/mL) PCP (25 ng/mL) Fentanyl (1.0 ng/ml) NOTE: These results are for medical treatment only. Analysis performed using non-forensic procedures. POSITIVE results are NOT confirmed by a more specific alternative method unless requested. If confirmation is needed, request confirmation under separate order. Performed By: #### L AB17, LAB46 #### Aerospace Stress Engineer: ZULMA ESPINO ([id number]) [facility] [address] [place] [address] [place] METHADONE SCREEN Negative Normal [facility] Comment on above: Performed By: #### L AB17, LAB46 #### Aerospace Stress Engineer: ZULMA ESPINO ([id number]) [facility] ([facility]) [address] [place] [address] [place] OPIATES SCREEN Negative Normal [facility] Comment on above: Performed By: #### L AB17, LAB46 #### Aerospace Stress Engineer: ZULMA ESPINO ([id number]) [facility] ([facility]) [address] [place] [address] [place] OXYCODONE SCREEN Negative Normal [facility] Comment on above: Performed By: #### L AB17, LAB46 #### Aerospace Stress Engineer: ZULMA ESPINO ([id number]) [facility] [address] [place] [address] [place] PHENCYCLIDINE SCREEN Negative Normal [facility] Comment on above: Performed By: #### L AB17, LAB46 #### Aerospace Stress Engineer: ZULMA ESPINO ([id number]) [facility] ([facility]) [address] [place] [address] ECG 12-LEADon 06-01-2024 ECG 12-LEAD IMPRESSION: Sinus rhythm ST elev, probable normal early repol pattern Electronically Signed On 06-01-2024 13:47:40 EST by Kvng Vera Normal [facility] ED Nursing Noteon 06-01-2024 ED Nursing Note Pt walked to cot to leave unit. Pt cooperative. Normal [facility] ED Nursing Note Pt transported with DM. Pt cooperative, ambulatory with steady gate. Pt left with 2 bags Normal [facility] ED Nursing Note Jacob Conner here to transport Pt to [facility]. 2 bags of belongings and paperwork given to EMS. Yael RN at bedside for vitals prior to transport Normal [facility] ED Nursing Note Pt escorted to restroom by Annika DAVIS. Normal [facility] ED Nursing Note Yael RN at bedside Normal [facility] ED Nursing Note Report to RYAN Roblero Normal [facility] ED Nursing Note Pt To Restroom Normal [facility] ED Nursing Note Patient eating dinne r in bed. No needs expressed at this time. Respirations equal and unlabored. Normal [facility] ED Nursing Note Dinner Tray Provided Normal [facility] ED Nursing Note Pt returned phone an d now talking with Tiffanie DAVIS in hallway. Normal [facility] ED Nursing Note Pt provided with phone. Normal [facility] ED Nursing Note RYAN Flynn At Pt Bedside To Check Vitals Normal [facility] ED Nursing Note Report to RYAN Flynn Normal [facility] ED Nursing Note Hand off report give n to Tiffanie DAVIS Normal [facility] ED Nursing Note Pt To Room 58 Normal [facility] ED Nursing Note Pt Changed Into Hospital Gowns And Socks. Skin Assessment Completed By RYAN Delgado. Pt Wanded By Protective Services, 2 Bags Of Belongings Locked Into Cabinet. Normal [facility] ED Nursing Note Tobin at bedside speaking with patient. Normal [facility] ED Nursing Note Patient given a food menu and educated on how to order, patient verbalized understanding. Normal [facility] ED Nursing Note Per Dr. Vera and Dr. Manley patient will be seen shortly by Tobin with [facility]. RN updated patient regarding this information. Normal [facility] ED Nursing Note RN answered patients call light, Patient asking when the provider is coming in to see him. RN notified 3 providers on team via secure chat. Normal [facility] ED Provider Noteon ED Provider Note EMERGENCY DEPARTMENT ENCOUNTER Pt Name: Aries Carrasco Birthdate 2000 Date of evaluation: 06/01/2024 ED Provider: Manjeet Valentin PA-C CHIEF COMPLAINT Chief Complaint Patient presents with Depression Pt states depression increasing, denies SI/HI. HISTORY OF PRESENT ILLNESS (Location/Symptom, Timing/Onset, Context/Setting, Quality, Duration, Modifying Factors, Severity) Note limiting factors. I wore appropriate PPE for the entirety of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 Interactions with others: gave feedback Interventions utilized were Psychoeducation and Modeling/skills training Patient's Response to Intervention: Pt was Actively Engaged and Receptive. Pt was Able to verbalize current knowledge/experience, Able to verbalize/acknowledge new learning, Able to retain information and Capable of insight. One goal the Pt wants to work on is, ?stay out of the hospital Progress Towards Goal(s): Minimal Additional Comments: na Next Step: Continue with current services Patients Problems: Patient Active Problem List Diagnosis Heartburn Asthma, exercise induced Attention deficit hyperactivity disorder, combined type Allergic rhinitis Scoliosis Mental disorder Schizophrenia (HCC) Suicidal ideation Episodic mood disorder (HCC) Generalized anxiety disorder Oppositional defiant disorder Pervasive developmental disorder, unspecified Jermaine (HCC) Acute psychosis (HCC) Substance abuse (CMS/HCC) (HCC) Obesity (BMI 30.0-34.9) Contusion of scalp Closed fracture of tooth with routine healing Hypercholesterolemia Unspecified mood (affective) disorder (HCC) [facility] GROUPNOTE Department: [facility] ACTIVITIES THERAPY Group Topic: Other Group Date: 02/07/2024 Start Time: 1030 End Time: 1100 Facilitators: Swati Munroe Number of Participants: 7 Group Name: Leisure Treatment Modality: Activity Therapy Purpose: enhance coping skills and reinforce self-care Summary: Concentration game- Patient will focus on game playing activities a game that is organized and meant to enhance the therapeutic experience patient will learn games ,skills and techniques Q&A. Object of game is to prompt conversations a fun way to get participants to engage with the group, enhance coping skills,social skills and encourage listening skills. Name: Aries Carrasco Date of : 2000 MR: [id number] Appearance: Appropriately dressed and groomed Affect: Appropriate Behavior: Pleasant Alertness: Alert Speech: Appropriate Level/Quality of Participation: active Interactions with others: gave feedback Interventions utilized were Building rapport and engagement and Empathic listening Patient's Response to Intervention: Patient actively engaged in group social on task supportive of peers. Will continue to offer groups and encourage participation face mask worn at all times during patient interations. Patients Problems: Patient Active Problem List Diagnosis Heartburn Asthma, exercise induced Attention deficit hyperactivity disorder, combined type Allergic rhinitis Scoliosis Mental disorder Schizophrenia (HCC) Suicidal ideation Episodic mood disorder (HCC) Generalized anxiety disorder Oppositional defiant disorder Pervasive developmental disorder, unspecified Jermaine (HCC) Acute psychosis (HCC) Substance abuse (CMS/HCC) (HCC) Obesity (BMI 30.0-34.9) Contusion of scalp Closed fracture of tooth with routine healing Hypercholesterolemia Unspecified mood (affective) disorder (HCC) [facility] GROUPNOTE Department: [facility] ACTIV[facility]IES [facility]ERAP[facility] Group Topic: Other Group Date: 02/07/2024 Start Time: 0830 End Time: 0900 Facilitators: Swati Munroe Number of Participants: 7 Group Name: setting goals Treatment Modality: Activity Therapy Purpose: enhance coping skills and express feelings Summary: To promote positive self- image by identifying things you do to maintain good health and improve well - being to gain an understanding regarding the importance of short - term goals. patient will focus on the positive aspects found in everyday life visualizing achieving daily and weekly goals. Name: Aries Carrasco Date of : 2000 MR: [id number] Appearance: Appropriately dressed and groomed Affect: Appropriate Behavior: Pleasant Alertness: Alert Speech: Appropriate Level/Quality of Participation: active Interactions with others: gave feedback Interventions utilized were Building rapport and engagement Patient's Response to Intervention: Patient meet expectations of group completed worksheet was able to share coping skills setting a goal to reinforce self care. Will continue to offer groups and encourage participation face mask worn at all times during patient interations. Patients Problems: Patient Active Problem List Diagnosis Heartburn Asthma, exercise induced Attention deficit hyperactivity disorder, combined type Allergic rhinitis Scoliosis Mental disorder Schizophrenia (HCC) Suicidal ideation Episodic mood disorder (HCC) Generalized anxiety disorder Oppositional defiant disorder Pervasive developmental disorder, unspecified Jermaine (HCC) Acute psychosis (HCC) Substance abuse (CMS/HCC) (HCC) Obesity (BMI 30.0-34.9) Contusion of scalp Closed fracture of tooth with routine healing Hypercholesterolemia Unspecified mood (affective) disorder ([facility]) [facility] IDNon 02-07-2024 IDN Problem: Anxiety Goal: Verbalizes ways to manage anxiety Outcome: Completed Note: Pt states talking with peers is effective [facility] Nursing Noteon 02-07-2024 Nursing Note [facility] discharged to [facility]. Pt picked up by brother. Discharge medications, appointments, and instructions reviewed with pt. Pt verbalizes understanding. Pt signed discharge paperwork. Pt denies SI/HI and is escorted to intake for belongings. [facility] Nursing Note Pt in day area speaking with peers when approached by RN for assessment. Pt pleasant, cooperative, and medication compliant. Pt states that he slept and ate good. Emotional support provided. Pt denies SI/HI and makes verbal contract for safety on unit. Pt encouraged to seek staff with any questions/concerns/nee ds. Will continue to monitor pt for safety on unit. [facility] GROUPNOTEon 02-06-2024 GROUPNOTE Department: [facility] ACTIV[facility]IES [facility]ERAP[facility] Group Topic: Leisure Skills Group Date: 02/06/2024 Start Time: 1030 End Time: 1100 Facilitators: Mellisa Rader Number of Participants: 5 Group Name: [employer] Treatment Modality: Leisure Development Purpose: enhance coping skills Summary: To expose patients to healthy leisure outlets. Name: Aries Carrasco Date of : 2000 MR: [id number] Mental Status Exam: Appearance: Good eye contact Affect: Appropriate Behavior: Interactive Alertness: Alert Speech: Appropriate Cognition: Intact Thought Process: Goal-directed Thought Content: organized Level/Quality of Participation: engaged Interactions with others: appropriate Interventions utilized were Activity Therapy Patient's Response to Intervention: on-task; appropriate interactions & affect Progress Towards Goal(s): Goal(s) met Additional Comments: Staff will continue to encourage pt to attend AT sessions. Next Step: Continue with current services Patients Problems: Patient Active Problem List Diagnosis Heartburn Asthma, exercise induced Attention deficit hyperactivity disorder, combined type Allergic rhinitis Scoliosis Mental disorder Schizophrenia ([facility]) Suicidal ideation Episodic mood disorder ([facility]) Generalized anxiety disorder Oppositional defiant disorder Pervasive developmental disorder, unspecified Jermaine ([facility]) Acute psychosis ([facility]) Substance abuse (CMS/HCC) ([facility]) Obesity (BMI 30.0-34.9) Contusion of scalp Closed fracture of tooth with routine healing Hypercholesterolemia Unspecified mood (affective) disorder ([facility]) [facility] IDNon 02-06-2024 IDN Problem: Ineffective Coping Goal: Identifies ineffective coping skills Outcome: Progressing Goal: Identifies healthy coping skills Outcome: Progressing Problem: Anxiety Goal: Verbalizes ways to manage anxiety Outcome: Progressing Problem: Problem Interventions Goal: Dietary Supplements Outcome: Progressing Problem: Thought Disorders Goal: STG: Aries will identify 3 coping skills with symptoms Outcome: Progressing [facility] Nursing Noteon 02-06-2024 Nursing Note Aries out in patient lounge watching TV and socializing with others. Behavior calm and appropriate. Denies any SI, HI or hallucinations. Planning to be discharged home tomorrow. Shaved face with staff observation. [facility] Nursing Note Pt calm and cooperative on the unit. Mood is brighter and affect is appropriate. Out in the milieu and social with his peers. Voicing no SI and compliant with medications. Hoping to be discharged on Wednesday. Emotional support given. [facility] Psych Noteon 02-06-2024 Psych Note Pt A&OX4, denies current SI. Pt pleasant and cooperative during assessment. Aries has been compliant with medications and treatment. He is looking forward to being discharged Wednesday and returning to his job at [employer]. Encouraged pt to reach out to staff with any questions or concerns. [facility] IDNon 02-05-2024 IDN Problem: Ineffective Coping Goal: Identifies ineffective coping skills Outcome: Progressing Goal: Identifies healthy coping skills Outcome: Progressing Problem: Anxiety Goal: Verbalizes ways to manage anxiety Outcome: Progressing Problem: Problem Interventions Goal: Dietary Supplements Outcome: Progressing Problem: Thought Disorders Goal: STG: Aries will identify 3 coping skills with symptoms Outcome: Progressing [facility] Nursing Noteon 02-05-2024 Nursing Note Pt states prn Bentyl was effective. [facility] Nursing Note Pt c/o abdominal cramps so prn Bentyl po given. [facility] Psych Noteon 02-05-2024 Psych Note Patient pleasant and cooperative during assessment. Pt compliant with medications and treatment. Aries says he is looking forward to being discharged Wednesday. Reports his boss in [place] is finding him a place to stay. Behaviors appropriate. Encouraged pt to reach out to staff with any questions or concerns. [facility] Behavioral Health Treatment Planon 02-04-2024 Behavioral Health Treatment Plan Complaint with current medications, no prn's for agitation has been given. Denies any SI/HI/AVH, awaiting placement at [facility] in [place]. Follow-up with [facility]. [facility] IDNon 02-04-2024 IDN Problem: Ineffective Coping Goal: Identifies ineffective coping skills 02/04/20242212 by Debbie Troy RN Outcome: Progressing 02/04/20242212 by Debbie Troy RN Outcome: Progressing Goal: Identifies healthy coping skills 02/04/20242212 by Debbie Troy RN Outcome: Progressing 02/04/20242212 by Debbie Troy RN Outcome: Progressing Problem: Anxiety Goal: Verbalizes ways to manage anxiety 02/04/20242212 by Debbie Troy RN Outcome: Progressing 02/04/20242212 by Debbie Troy RN Outcome: Progressing Problem: Problem Interventions Goal: Dietary Supplements 02/04/20242212 by Debbie Troy RN Outcome: Progressing 02/04/20242212 by Debbie Troy RN Outcome: Progressing Problem: Thought Disorders Goal: STG: Aries will identify 3 coping skills with symptoms 02/04/20242212 by Debbie Troy RN Outcome: Progressing 02/04/20242212 by Debbie Troy RN Outcome: Progressing [facility] IDN Problem: Ineffective Coping Goal: Identifies ineffective coping skills Outcome: Progressing Goal: Identifies healthy coping skills Outcome: Progressing Problem: Anxiety Goal: Verbalizes ways to manage anxiety Outcome: Progressing Problem: Problem Interventions Goal: Dietary Supplements Outcome: Progressing Problem: Thought Disorders Goal: STG: Aries will identify 3 coping skills with symptoms Outcome: Progressing [facility] IDN Problem: Thought Disorders Intervention: Encourage Aries to participate in treatment to assist with improvement of insight and understanding of needs Note: Pt has been active in his treatment. Has insight about his triggers, and ways to remain calm. He also knows to continue his medications after discharge. Intervention: Encourage Aries to engage in therapeutic groups and wellness-focused activities Note: Pt goes to majority of groups and is focused on improving his mental health [facility] Nursing Noteon 02-04-2024 Nursing Note Aries has been pleasant and cooperative on unit. Compliant with medications. Declined PRN Trazodone. Denies thoughts of harming self or others. Behavior calm. [facility] Nursing Note Patient states that he now has a plan upon discharge. He says his boss is able to arrange somewhere for him to stay in [place], as of Wednesday, and his parents will be able to pick him up and take him there. [facility] Nursing Note Pt out in common are a, pleasant, cooperative, and compliant with medications. Denies SI/HI/AVH. States he and his mother will be making more phone calls today to try to set up housing. He is feeling hopeful for the future, and thinks it will be good to get out on his own, and be more independent. Denies needs at this time. Encouraged to notify staff of any needs, questions, or concerns. [facility] Progress Noteon 02-04-2024 Progress Note -- Attestation signed by Tim Weir MD at 02/04/2024 4:47 PM I saw and evaluated the patient, participating in the iraheta portions of the service. I reviewed the resident?s note. I agree with the resident?s findings and plan. Tim Weir MD Inpatient Psychiatric Progress Note 02/04/24 Aries Carrasco was seen in follow up for unspecified mood and anxiety disorders, which are chronic in nature. He denies suicidal or homicidal ideation. Denied auditory and visual hallucinations. Reports good sleep and good appetite. On exam, Aries was friendly during discussion. Shares he is overwhelmed with trying to figure out where he can live after discharge. He plans to call various apartments today to figure out if he can find any housing options and figure out who his payee is for his disability check. He notes some anxiety over there stressors, so encouraged him to use coping skills from group therapy and ask for PRN vistaril as needed. He also expressed some concerns about managing his emotions, saying that patients on the unit have been frustrating him and he feels he is almost at a point of acting up. Shares an analogy about how he is like water that is about to boil and his usual coping skills aren't doing enough. Discussed adding medication for mood stability as he reports feeling like a ticking time bomb. Per SW/TCC team, only option at this time on discharge would be [facility]. Afternoon update: Patient shares he talked to his boss on the phone who will find him a place to live before Wednesday. Parents will be able to drive him there that day. He has been compliant with his [place], Abilify, and Buspar. Medications: ARIPiprazole, 5 mg, Oral, Daily busPIRone, 15 mg, Oral, BID lithium, 300 mg, Oral, BID rosuvastatin, 5 mg, Oral, Daily PRN medications: acetaminophen, dicyclomine, diphenhydrAMINE AND haloperidol lactate AND LORazepam, diphenhydrAMINE AND haloperidol AND LORazepam, hydrOXYzine pamoate, ondansetron ODT OR ondansetron, polyethylene glycol (PEG) 3350, simethicone, traZODone Mental Status Examination: Vitals : BP (!) 141/105 (BP Location: Left arm, Patient Position: Sitting) Pulse 64 Temp 36.4 ?C (97.5 ?F) (Temporal) Resp 16 Ht 1.753 m (5' 9) Wt 86.2 kg (190 lb) SpO2 100% BMI 28.06 kg/m? APPEARANCE: Well groomed, appropriate eye contact. BEHAVIOR: normal PSYCHOMOTOR: unremarkable SPEECH: Coherent and Regular rate, rhythm, volume and articulation LANGUAGE: Naming intact MOOD: overwhelmed AFFECT: Congruent with mood and topic of conversation THOUGHT PROCESS: Goal-directed THOUGHT CONTENT: normal PERCEPTIONS/HALLUCINAT IONS: none ABSTRACTION: good INSIGHT: poor, including concerning psychiatric condition. JUDGMENT: fair, including concerning psychiatric condition. ORIENTATION: Appropriate to age MEMORY: recent and remote memory intact ATTENTION SPAN: fair CONCENTRATION: fair FUND OF KNOWLEDGE: fair GAIT: Within normal limits ROS: [] All negative/unchanged except if checked. Explain positive(checked items) below: [x] Constitutional [] Eyes [] Ear/Nose/Mouth/Throat [] Respiratory [] CV [x] GI [] [] Musculoskeletal [] Skin/Breast [] Neurological [] Endocrine [] Heme/Lymph [] Allergic/Immunologic Explanation: has some bloating/abdominal pain, still improving ASSESSMENT: Unspecified mood disorder Unspecified anxiety disorder Patient symptoms : are improving Patient continues to need, on a daily basis, active treatment furnished directly by or requiring the supervision of inpatient psychiatric personnel. Treatment Plan: - Will increase lithium from 300 mg twice daily to 450 mg twice daily for mood stabilization. Milford level was subtherapeutic on 02/03/24 blood draw. Will need repeat level in 5 days 02/09/24 - Continue buspar 15 mg twice daily for anxiety - Continue 5 mg Abilify nightly for psychosis symptoms - Continue follow up with [facility] for for abdominal pain. - Hopeful for discharge early next week with plan for housing, patient is working towards these goals over the weekend with help of his mom. Continue Current Medications if not otherwise stated. Will continue to titrate medications and assess for effectiveness and tolerability. Continue Follow-up. Continue crisis intervention oriented psychotherapy, group and milieu therapies. Social work and transitional care continue to assist with necessary family liaison and discharge planning. Pt expressed agreement and understanding with treatment plan. PSYCHOTHERAPY/COUNSELI NG: Supportive, therapeutic interview Note: Please note this report has been produced using speech recogni (more content not included)... Normal [facility] CARECOORDon 02-03-2024 CAR[place]OORD Telephone call to catalina [phone] spoke with Hamzah. Per Contreras patient has no flags and [facility]. Shall work continues to follow for additional discharge needs. Normal [facility] CBC (HEMOGRAM)on 02-03-2024 Erythrocyte distribution width (RBC) [Ratio] 13.0 % Normal 11.5-15.0 [facility] Comment on above: Performed By: #### L AB17, LAB46 #### Aerospace Stress Engineer: ZULMA ESPINO ([id number]) [address] Hematocrit (Bld) [Volume fraction] 48.3 % Normal 40.0-52.0 [facility] Comment on above: Performed By: #### L AB17, LAB46 #### Aerospace Stress Engineer: ZULMA ESPINO ([id number]) [address] Hemoglobin (Bld) [Mass/Vol] 15.7 g/dL Normal 13.0-18.0 [facility] Comment on above: Performed By: #### L AB17, LAB46 #### Aerospace Stress Engineer: ZULMA ESPINO ([id number]) [facility] ([facility]) [address] [place] [address] MCH (RBC) [Entitic mass] 28.3 pg Normal 26.0-34.0 [facility] Comment on above: Performed By: #### L AB17, LAB46 #### Aerospace Stress Engineer: ZULMA ESPINO ([id number]) [facility]) [address] [place] [address] MCHC 32.5 % Normal 30.5-36.0 [facility] Comment on above: Performed By: #### L AB17, LAB46 #### Aerospace Stress Engineer: ZULMA ESPINO ([id number]) [facility]) [address] [place] [address] MCV (RBC) [Entitic vol] 87.2 fL Normal 77.0-99.0 [facility] Comment on above: Performed By: #### L AB17, LAB46 #### Aerospace Stress Engineer: ZULMA ESPINO ([id number]) [facility] ([facility]) [address] [place] [address] Platelet mean volume (Bld) [Entitic vol] 10.8 fL Normal 9.0-12.7 [facility] Comment on above: Performed By: #### L AB17, LAB46 #### Aerospace Stress Engineer: ZULMA ESPINO ([id number]) [facility]) [address] [place] [address] Platelets (Bld) [#/Vol] 194 10*3/uL Normal 140-440 [facility] Comment on above: Performed By: #### L AB17, LAB46 #### Aerospace Stress Engineer: ZULMA ESPINO ([id number]) [facility]) [address] [place] [address] RBC (Bld) [#/Vol] 5.54 10*6/uL Normal 4.40-5.90 [facility] Comment on above: Performed By: #### L AB17, LAB46 #### Aerospace Stress Engineer: ZULMA ESPINO ([id number]) [facility] ([facility]) [address] [place] [address] WBC (Bld) [#/Vol] 9.6 10*3/uL Normal 3.6-10.7 [facility] Comment on above: Performed By: #### L AB17, LAB46 #### Aerospace Stress Engineer: ZULMA ESPINO ([id number]) [facility] ([facility]) [address] [place] [address] GROUPNOTEon 02-03-2024 GROUPNOTE Department: [facility] Group Topic: Art Therapy Group Date: 02/03/2024 Start Time: 1400 End Time: 1530 Facilitators: DAVID White Number of Participants: 8 Group Name: Art Therapy: Self Appreciation Leaves Treatment Modality: Art Therapy, [place] Therapy, and Patient-Centered Therapy Purpose: explore maladaptive thinking, express feelings, regain self-worth, and reinforce self-care Summary: Starke Yourself. Therapist facilitated discussion of self-love and appreciation of the self via poem prompt. Therapist facilitated art therapy task: decorate an origami leaf based on self-love and self-apreciation. Therapist facilitated processing of art making process. Therapist facilitated processing of individual self-love valentines. Name: Aries Carrasco Date of : 2000 MR: [id number] Mental Status Exam: Appearance: Appropriately dressed and groomed Mood: Euthymic Affect: Appropriate Behavior: Pleasant, Cooperative, Engaging, and Interactive Alertness: Alert Speech: Appropriate Cognition: Intact Thought Process: Goal-directed Thought Content: No evidence of psychosis/delusions Level/Quality of Participation: active, attentive, cooperative, engaged, and motivated Interactions with others: sociable and supportive Interventions utilized were: Building rapport and engagement, Empathic listening, Psychoeducation, Modeling/skills training, Art therapy, Expressive therapy, and [place] Therapy Patient's Response to Intervention: Patient appropriately participated in discussion of self-love and self-appreciation. Patient actively participated in creating self-love and self-appreciation origami leaf. Patint appropriately processed art making process. Patient actively engaged in processing his individual leaf art with the group. Patient created a jewel tones leaf bejeweled in rhinestones on which the patient wrote many words and phrases the patient stated described himself and made him individual. Progress Towards Goal(s): Moderate Additional Comments: None Next Step: Continue with current services Patients Problems: Patient Active Problem List Diagnosis Heartburn Asthma, exercise induced Attention deficit hyperactivity disorder, combined type Allergic rhinitis Scoliosis Mental disorder Schizophrenia (HCC) Suicidal ideation Episodic mood disorder (HCC) Generalized anxiety disorder Oppositional defiant disorder Pervasive developmental disorder, unspecified Jermaine (HCC) Acute psychosis (HCC) Substance abuse (CMS/HCC) (HCC) Obesity (BMI 30.0-34.9) Contusion of scalp Closed fracture of tooth with routine healing Hypercholesterolemia Unspecified mood (affective) disorder (HCC) Normal [facility] GROUPNOTE Department: [facility] Group Topic: Emotional Regulation Skill Group Date: 02/03/2024 Start Time: 899 End Time: 949 Facilitators: DAVID Sellers Number of Participants: 4 Group Name: dual diagnosis Treatment Modality: Psychoeducation and Skills Training Purpose: enhance coping skills, increase insight or knowledge, and reinforce self-care Summary: Discussed sympathetic/parasympat hetic nervous system, as well as dangers to physical and mental health due to prolonged stress. Discussed benefits of gratitude and reframing thoughts (CBT) in situations that are out of our control. Name: Aries Carrasco Date of : 2000 MR: [id number] Mental Status Exam: Appearance: Appropriately dressed and groomed Mood: Euthymic Affect: Congruent with mood Behavior: Pleasant Alertness: Alert Speech: Appropriate Cognition: Intact Thought Process: Goal-directed Thought Content: No evidence of psychosis/delusions Level/Quality of Participation: active Interactions with others: gave feedback Interventions utilized were Psychoeducation and Modeling/skills training Patient's Response to Intervention: Pt was Actively Engaged and Receptive. Pt was Able to verbalize current knowledge/experience, Able to verbalize/acknowledge new learning, Able to retain information and Capable of insight. Pt reported they are thankful for, ?my family Progress Towards Goal(s): Minimal Additional Comments: na Next Step: Continue with current services Patients Problems: Patient Active Problem List Diagnosis Heartburn Asthma, exercise induced Attention deficit hyperactivity disorder, combined type Allergic rhinitis Scoliosis Mental disorder Schizophrenia (HCC) Suicidal ideation Episodic mood disorder (HCC) Generalized anxiety disorder Oppositional defiant disorder Pervasive developmental disorder, unspecified Jermaine (HCC) Acute psychosis (HCC) Substance abuse (CMS/HCC) (HCC) Obesity (BMI 30.0-34.9) Contusion of scalp Closed fracture of tooth with routine healing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 can keep his behaviors under control. Shares that upon discussion with his mom yesterday, he would be open to going to the [facility] for temporary housing. He shares he is unable to return home, as the legal eviction date was moved up so now he cannot reside with his parents. Also has 2 adult siblings in the area, but he does not have their phone numbers and his mom doesn't think it would be good for him to live with them given his behavioral issues (as they have young kids too). Today, SW/TCC team reached out to [facility]--unfortunately there are no beds available at this time. Call was made to his case work aide as well, who has been working to find housing for this patient, though he did not follow up on appointments prior to admission. Will continue to work to find other options. At this time, patient cannot identify other friends or family with whom he can stay. He has been compliant with his [place], Abilify, and Buspar. Medications: ARIPiprazole, 5 mg, Oral, Daily busPIRone, 15 mg, Oral, BID dicyclomine, 10 mg, Oral, Once lithium, 300 mg, Oral, BID rosuvastatin, 5 mg, Oral, Daily PRN medications: acetaminophen, diphenhydrAMINE AND haloperidol lactate AND LORazepam, diphenhydrAMINE AND haloperidol AND LORazepam, hydrOXYzine pamoate, ondansetron ODT OR ondansetron, polyethylene glycol (PEG) 3350, simethicone, traZODone Mental Status Examination: Vitals : BP 147/89 (BP Location: Left arm, Patient Position: Sitting) Pulse 69 Temp 36.3 ?C (97.4 ?F) (Temporal) Resp 16 Ht 1.753 m (5' 9) Wt 86.2 kg (190 lb) SpO2 100% BMI 28.06 kg/m? APPEARANCE: Well groomed, appropriate eye contact. BEHAVIOR: normal PSYCHOMOTOR: unremarkable SPEECH: Coherent and Regular rate, rhythm, volume and articulation LANGUAGE: Naming intact MOOD: better AFFECT: Congruent with mood and topic of conversation THOUGHT PROCESS: Goal-directed THOUGHT CONTENT: normal PERCEPTIONS/HALLUCINAT IONS: none ABSTRACTION: good INSIGHT: poor, including concerning psychiatric condition. JUDGMENT: fair, including concerning psychiatric condition. ORIENTATION: Appropriate to age MEMORY: recent and remote memory intact ATTENTION SPAN: fair CONCENTRATION: fair FUND OF KNOWLEDGE: fair GAIT: Within normal limits ROS: [] All negative/unchanged except if checked. Explain positive(checked items) below: [x] Constitutional [] Eyes [] Ear/Nose/Mouth/Throat [] Respiratory [] CV [x] GI [] [] Musculoskeletal [] Skin/Breast [] Neurological [] Endocrine [] Heme/Lymph [] Allergic/Immunologic Explanation: has some bloating/abdominal pain, still improving ASSESSMENT: Unspecified mood disorder Unspecified anxiety disorder Patient symptoms : are improving Patient continues to need, on a daily basis, active treatment furnished directly by or requiring the supervision of inpatient psychiatric personnel. Treatment Plan: - Continue home medications for mood: buspar 15 mg BID and lithium 300 mg BID - Continue 5 mg Abilify nightly for psychosis symptoms - Will need to check lithium level due to restarting medication after period of noncompliance (level was subtherapeutic on admission): recheck on 02/03/24 - Continue follow up with [facility]MS for for abdominal pain. X-ray results show non-obstructive gas at this time. Continue Current Medications if not otherwise stated. Will continue to titrate medications and assess for effectiveness and tolerability. Continue Follow-up. Continue crisis intervention oriented psychotherapy, group and milieu therapies. Social work and transitional care continue to assist with necessary family liaison and discharge planning. Pt expressed agreement and understanding with treatment plan. PSYCHOTHERAPY/COUNSELI NG: Supportive, therapeutic interview Note: Please note this report has been produced using speech recognition software and may contain errors related to th (more content not included)... Normal [facility] COMPLETE URINALYSISon 2023 BILIRUBIN, TOTAL PRESENCE IN URINE Negative Normal Negative [facility] Comment on above: Performed By: #### L AB17, LAB46 #### Aerospace Stress Engineer: ZULMA ESPINO ([id number]) [facility] ([facility]) [address] [place] [address] Clarity (U) Clear Normal Clear [facility] Comment on above: Performed By: #### L AB17, LAB46 #### Aerospace Stress Engineer: ZULMA ESPINO ([id number]) [facility] ([facility]) [address] [place] [address] Color (U) Colorless Normal Lt. Yellow [facility] Comment on above: Performed By: #### L AB17, LAB46 #### Aerospace Stress Engineer: ZULMA ESPINO ([id number]) [facility] [address] [place] [address] [place] GLUCOSE (MG/DL) IN URINE Normal Normal Nor mal (<70) [facility] Comment on above: Performed By: #### L AB17, LAB46 #### Aerospace Stress Engineer: ZULMA ESPINO ([id number]) [facility] [address] [place] [address] [place] HEMOGLOBIN PRESENCE IN URINE Negative Normal Negative [facility] Comment on above: Performed By: #### L AB17, LAB46 #### Aerospace Stress Engineer: ZULMA ESPINO ([id number]) [facility] [address] [place] [address] Ketones Ql (U) Negative Normal Negative [facility] Comment on above: Performed By: #### L AB17, LAB46 #### Aerospace Stress Engineer: ZULMA ESPINO ([id number]) [facility] [address] [place] [address] [place] LEUKOCYTE ESTERASE PRESENCE IN URINE BY TEST STRIP Negative Normal Negative [facility] Comment on above: Performed By: #### L AB17, LAB46 #### Aerospace Stress Engineer: ZULMA ESPINO ([id number]) [facility] [address] [place] [address] [place] NITRITE PRESENCE IN URINE Negative Normal Negative [facility] Comment on above: Performed By: #### L AB17, LAB46 #### Aerospace Stress Engineer: ZULMA ESPINO ([id number]) [facility] [address] [place] [address] [place] pH (U) 7.0 [pH] Normal 5.0-8.0 [facility] Comment on above: Performed By: #### L AB17, LAB46 #### Aerospace Stress Engineer: ZULMA ESPINO ([id number]) [facility] [address] [place] [address] [place] Protein (U) [Mass/Vol] Negative Normal Negative [facility] Comment on above: Performed By: #### L AB17, LAB46 #### Aerospace Stress Engineer: ZULMA ESPINO ([id number]) [facility]) [address] [place] [address] Specific gravity (U) [Rel density] 1.011 Normal 1.005-1.030 [facility] Comment on above: Performed By: #### L AB17, LAB46 #### Aerospace Stress Engineer: ZULMA ESPINO ([id number]) [facility] ([facility]) [address] [place] [address] UROBILINOGEN (MG/DL) IN URINE Normal Normal Normal (0-1) [facility] Comment on above: Performed By: #### L AB17, LAB46 #### Aerospace Stress Engineer: ZULMA ESPINO ([id number]) [address] Consulton 02-01-2024 Consult [facility] Medicine Consult Patient - Aries Carrasco, Age - 24 y.o. - 2000 Room Number - [id number]/[id number] A Consulting - Onelia Sofia DO Primary Care Physician - Jose Yne MD [facility] # - [id number] Date of Admission - 01/27/2024 4:45 PM Hospital Day - 5 Reason for Consult: Medical Management HISTORY OF PRESENT ILLNESS: Aries is a 24 y.o. male with a PMH of ADD, ADHD, asthma, Bipolar 1 disorder, schizophrenia, noncompliance, substance abuse that presented to the ED requesting admission to get back on his psychiatric medications. Pt reported that he used to take lithium however is no longer taking it. He reported being very stressed at home. He had a relationship that recently ended and he had been feeling upset. He reported that he was kicked out of his moms home due to aggression and agitation. He denied SI, HI, hallucinations. Reports he has been off medications for 6 months. In the ED, pt was afebrile, hemodynamically stable. CMP and CBC were unremarkable, CK 279, lithium level 0.2, UA not concerning for infection, etoh normal, urine tox negative. Pt was medically cleared and admitted to behavioral health for further evaluation and management. [facility] [place] consulted for abdominal pain. Pt seen and evaluated at bedside. Reports lower abdominal pain that started 4 days ago. He denies nausea and vomiting. Reports pain is like someone tearing in to him with a knife Denies flank pain, dysuria, hematuria, frequency, urgency. Last BM yesterday. Denies dark stools, bright red blood in stools. He reports stool was soft, brown. Denies fever, chills. 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 No pertinent surgical history. Medications: Scheduled PRN ARIPiprazole, 5 mg, Oral, Daily busPIRone, 15 mg, Oral, BID lithium, 300 mg, Oral, BID rosuvastatin, 5 mg, Oral, Daily PRN medications: acetaminophen, diphenhydrAMINE AND haloperidol lactate AND LORazepam, diphenhydrAMINE AND haloperidol AND LORazepam, hydrOXYzine pamoate, ondansetron ODT OR ondansetron, polyethylene glycol (PEG) 3350, traZODone Continuous Allergies: Other and Seasonal ic [octacosanol] Social History: Social History Socioeconomic History Marital status: Single Spouse name: Not on file Number of children: Not on file Years of education: Not on file Highest education level: Not on file Occupational History Not on file Tobacco Use Smoking status: Former Current packs/day: 0.00 Average packs/day: 0.3 packs/day for 0.1 years Types: Cigarettes Start date: 05/03/2021 Quit date: 06/03/2021 Years since quittin.6 Smokeless tobacco: Never Vaping Use Vaping status: Never Used Substance and Sexual Activity Alcohol use: Not Currently Drug use: Not Currently Comment: sober 3 years Sexual activity: Not Currently Comment: attracted to both male and female. Other Topics Concern Not on file Social History [place] step dad and biological mom (biological dad estranged prior to ). Gets along with step dad. Ok with mom. 2 older step siblings and 1/2 sister and 1/2 sister, 1/2 sister (oldest 28, youngest 7)brother 26. 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 Social Determinants of Health Financial Resource Strain: High Risk (01/27/2024) Overall Financial Resource Strain (CARDIA) Difficulty of Paying Living Expenses: Very hard Food Insecurity: Patient Declined (01/27/2024) Hunger Vital Sign Worried About Running Out of Food in the Last Year: Patient declined Ran Out of Food in the Last Year: Patient declined Transportation Needs: Unmet Transportation Needs (01/27/2024) PRAPARE - Transportation Lack of Transportation (Medical): No Lack of Transportation (Non-Medical): Yes Physical Activity: Patient Declined (01/27/2024) Exercise Vital Sign Days of Exercise per Week: Patient declined Minutes of Exercise per Session: Patient declined Stress: Stress Concern Present (01/27/2024) [place] [address] [facility] [employer] - Occupational Stress Questionnaire Feeling of Stress : Rather much Social Connections: Unknown (01/27/2024) Social Connection and Isolation Panel [NHANES] Frequency of Communication with Friends and Family: Patient declined Frequency of Social Gatherings with Friends and Family: Patient declined Attends Restorationism Services: Patient declined Active Member of Clubs or Organizations: Patient declined Attends Club or Organization Meetings: Patient declined Marital Status: Never Intimate Partner Violence: Not At Risk (01/27/2024) Humiliation, Afraid, Rape, and Kick questionnaire Fear of Curren (more content not included)... Normal [facility] GROUPNOTEon 02-01-2024 GROUPNOTE Department: [facility] ACTIVITIES THERAPY Group Topic: Leisure Skills Group Date: 02/01/2024 Start Time: 1600 End Time: 1630 Facilitators: Mellisa Rader Number of Participants: 3 Group Name: [employer] Treatment Modality: Leisure Development Purpose: enhance coping skills Summary: To expose patients to healthy leisure outlets. Name: Aries Carrasco Date of : 2000 MR: [id number] Mental Status Exam: Appearance: Good eye contact Affect: Appropriate Behavior: Interactive Alertness: Alert Speech: Appropriate Cognition: Intact Thought Process: Goal-directed Thought Content: organized Level/Quality of Participation: engaged Interactions with others: appropriate Interventions utilized were Activity Therapy Patient's Response to Intervention: on-task; appropriate interactions & affect Progress Towards Goal(s): Goal(s) met Additional Comments: Staff will continue to encourage pt to attend AT sessions. Next Step: Continue with current services Patients Problems: Patient Active Problem List Diagnosis Heartburn Asthma, exercise induced Attention deficit hyperactivity disorder, combined type Allergic rhinitis Scoliosis Mental disorder Schizophrenia (HCC) Suicidal ideation Episodic mood disorder (HCC) Generalized anxiety disorder Oppositional defiant disorder Pervasive developmental disorder, unspecified Jermaine (HCC) Acute psychosis (HCC) Substance abuse (CMS/HCC) (HCC) Obesity (BMI 30.0-34.9) Contusion of scalp Closed fracture of tooth with routine healing Hypercholesterolemia Unspecified mood (affective) disorder ([facility]) Normal [facility] GROUPNOTE Department: [facility]IV[facility]ER[facility] Group Topic: Art Therapy Group Date: 02/01/2024 Start Time: 1400 End Time: 1530 Facilitators: DAVID White Number of Participants: 7 Group Name: Art Therapy: Self Love Valentines Treatment Modality: Art Therapy, [place] Therapy, and Patient-Centered Therapy Purpose: explore maladaptive thinking, express feelings, regain self-worth, and reinforce self-care Summary: Facilitated group: Star[place] Yourself. Therapist facilitated discussion of self-love via quote prompts. Therapist facilitated art therapy task: Create a Best for yourself using origami hearts provided. Therapist facilitated processing of art making process. Therapist facilitated processing of individual self-love valentines. Name: Aries Carrasco Date of : 2000 MR: [id number] Mental Status Exam: Appearance: Appropriately dressed and groomed Mood: Euthymic Affect: Appropriate Behavior: Pleasant, Cooperative, Engaging, and Interactive Alertness: Alert Speech: Appropriate and patient has a slight impediment Cognition: Intact Thought Process: Goal-directed Thought Content: No evidence of psychosis/delusions Level/Quality of Participation: active, attentive, cooperative, engaged, and motivated Interactions with others: Sociable Interventions utilized were Building rapport and engagement, Empathic listening, Psychoeducation, Modeling/skills training, Art therapy, and Expressive therapy Patient's Response to Intervention: Patient appropriately participated in discussion of self-love. Patient actively participated in creating self-love best. Patient actively engaged in processing their individual self-love best with the group. Patient created a rhinestone encrusted heart and stated, love yourself fist, and stated that he has, always felt that way. Progress Towards Goal(s): Moderate Additional Comments: None Next Step: Continue with current services Patients Problems: Patient Active Problem List Diagnosis Heartburn Asthma, exercise induced Attention deficit hyperactivity disorder, combined type Allergic rhinitis Scoliosis Mental disorder Schizophrenia (HCC) Suicidal ideation Episodic mood disorder (HCC) Generalized anxiety disorder Oppositional defiant disorder Pervasive developmental disorder, unspecified Jermaine (HCC) Acute psychosis (HCC) Substance abuse (CMS/HCC) (HCC) Obesity (BMI 30.0-34.9) Contusion of scalp Closed fracture of tooth with routine healing Hypercholesterolemia Unspecified mood (affective) disorder (HCC) [facility] GROUPNOTE Department: [facility] X-IO THERAPY Group Topic: Other Group Date: 02/01/2024 Start Time: 1300 End Time: 1350 Facilitators: Abhishek Reyes Number of Participants: 4 Group Name: [employer] Treatment Modality: Leisure Development Purpose: express feelings, improve communication skills, and reinforce self-care Summary: Pts will choose a song from a given list. Pts will share how the song has impacted their life or how the song is meaningful to them. Pts will have the opportunity to listen, sing, or otherwise perform the song with the therapist if they desire. Name: Aries Carrasco Date of : 2000 MR: [id number] Appearance: Appropriately dressed and groomed Mood: Euthymic Affect: Appropriate Behavior: Pleasant Alertness: Alert Speech: Appropriate Level/Quality of Participation: active Interactions with others: supportive Interventions utilized were Building rapport and engagement and Empathic listening Patient's Response to Intervention: Pt voiced improvement Next Step: Continue with current services Patients Problems: Patient Active Problem List Diagnosis Heartburn Asthma, exercise induced Attention deficit hyperactivity disorder, combined type Allergic rhinitis Scoliosis Mental disorder Schizophrenia (HCC) Suicidal ideation Episodic mood disorder (HCC) Generalized anxiety disorder Oppositional defiant disorder Pervasive developmental disorder, unspecified Jermaine (HCC) Acute psychosis (HCC) Substance abuse (CMS/HCC) (HCC) Obesity (BMI 30.0-34.9) Contusion of scalp Closed fracture of tooth with routine healing Hypercholesterolemia Unspecified mood (affective) disorder (HCC) Normal [facility] GROUPNOTE Department: [facility] Group Topic: Emotional Regulation Skill Group Date: 02/01/2024 Start Time: 899 End Time: 929 Facilitators: DAVID Sellers Number of Participants: 1 Group Name: dual diagnosis Treatment Modality: Psychoeducation and Skills Training Purpose: enhance coping skills, increase insight or knowledge, and reinforce self-care Summary: Discussion on the myths of resentment (it's punsihment for the other person, sense of false power, forgiveness is weakness, letting go means they win, bad habit, need an apology to forgive,protects me, is justified). Assisted group members with work sheet on processing through emotions of resentment and practical ways to let go of it. Name: Aries Carrasco Date of : 2000 MR: [id number] Mental Status Exam: Appearance: Appropriately dressed and groomed Mood: Euthymic Affect: Congruent with mood Behavior: Pleasant Alertness: Alert Speech: Appropriate Cognition: Intact Thought Process: Goal-directed Thought Content: No evidence of psychosis/delusions Level/Quality of Participation: active Interactions with others: gave feedback Interventions utilized were Psychoeducation and Modeling/skills training Patient's Response to Intervention: Pt was Actively Engaged and Receptive. Pt was Able to verbalize current knowledge/experience, Able to verbalize/acknowledge new learning, Able to retain information and Capable of insight. Pt reported they are going to work on letting go of a resentment towards, ?family Progress Towards Goal(s): Minimal Additional Comments: na Next Step: Continue with current services Patients Problems: Patient Active Problem List Diagnosis Heartburn Asthma, exercise induced Attention deficit hyperactivity disorder, combined type Allergic rhinitis Scoliosis Mental disorder Schizophrenia (HCC) Suicidal ideation Episodic mood disorder (HCC) Generalized anxiety disorder Oppositional defiant disorder Pervasive developmental disorder, unspecified Jermaine (HCC) Acute psychosis (HCC) Substance abuse (CMS/HCC) (HCC) Obesity (BMI 30.0-34.9) Contusion of scalp Closed fracture of tooth with routine healing Hypercholesterolemia Unspecified mood (affective) disorder (HCC) Normal [facility] GROUPNOTE Department: [facility] ACTIV[facility]IES [facility]ERAP[facility] Group Topic: Other Group Date: 02/01/2024 Start Time: 824 End Time: 854 Facilitators: Swati Munroe Number of Participants: 4 Group Name: Coping skills Treatment Modality: Activity Therapy Purpose: enhance coping skills and express feelings Summary: To increase coping skills by using methods to deal with stress such as relaxation, art ,music activities you enjoy doing . To improve self care health and wellness. Name: Aries Carrasco Date of : 2000 MR: [id number] Appearance: Appropriately dressed and groomed Affect: Appropriate Behavior: Pleasant Alertness: Alert Speech: Appropriate Level/Quality of Participation: active Interactions with others: gave feedback Interventions utilized were Building rapport and engagement and Empathic listening Patient's Response to Intervention: Patient meet expectations of group completed worksheet was able to share coping skills setting a goal to reinforce self care. Will continue to offer groups and encourage participation face mask worn at all times during patient interations. Patients Problems: Patient Active Problem List Diagnosis Heartburn Asthma, exercise induced Attention deficit hyperactivity disorder, combined type Allergic rhinitis Scoliosis Mental disorder Schizophrenia (HCC) Suicidal ideation Episodic mood disorder (HCC) Generalized anxiety disorder Oppositional defiant disorder Pervasive developmental disorder, unspecified Jermaine (HCC) Acute psychosis (HCC) Substance abuse (CMS/HCC) (HCC) Obesity (BMI 30.0-34.9) Contusion of scalp Closed fracture of tooth with routine healing Hypercholesterolemia Unspecified mood (affective) disorder ([facility]) Normal [facility] LITHIUMon 02-01-2024 [place] [Moles/Vol] 0.3 mmol/L Low 0.6-1.2 [facility] Comment on above: Performed By: #### L [id number] ####Aerospace Stress Engineer: ZULMA ESPINO ([phone])[address] Nursing Noteon 02-01-2024 Nursing Note Pt in dayroom when approached by RN for assessment. Pt stated their day was great and reports attending groups today. Pt has been social on the unit and did attend evening snack. Pt denied anxiety and depression. Pt denied SI/HI/AH/VH and pain. Pt calm and compliant with scheduled 2100 medications and received PRN Trazodone for sleep. Pt encouraged to reach out to staff with any questions or concerns. 0637- Pt observed sleeping with no s/s of distress. Pt has no morning medications and received no PRN medications at this time. Pt calm and compliant with scheduled blood work. Only 1 of 2 tubes was filled with first attempt. Pt refused second attempt. RN rescheduled second tube for 02/02. Pt currently in dayroom. Pt encouraged to reach out to staff with any questions or concerns. Normal [facility] Nursing Note Pt in common area wh en approached by RN. Pt denies SI/HI/AVH at this time. Pt stated he is feeling good today. Pt has been in common area interacting with other pt's and has been attending groups. Pt is calm, cooperative and medication compliant. Pt denies any complaints at this time. Emotional support provided. Pt encouraged to seek staff with any questions/concerns/nee ds. Will continue to monitor pt for safety on unit. Normal [facility] Progress Noteon 02-01-2024 Progress Note -- Attestation signed by Tim Weir MD at 02/01/2024 2:02 PM I saw and evaluated the patient, participating in the iraheta portions of the service. I reviewed the resident?s note. I agree with the resident?s findings and plan. Tim Weir MD Inpatient Psychiatric Progress Note 02/01/24 Aries Carrasco was seen in follow up for unspecified mood and anxiety disorders, which are chronic in nature. He denies suicidal or homicidal ideation. Denied auditory and visual hallucinations. He reported sleeping from 11 pm -4 am and that he awakened several times throughout the night. 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 His appetite was slightly decreased this morning but he was still able to eat most of his breakfast, though limited by ongoing abdominal pain. On exam, Aries was friendly and pleasant to talk to. He describes his mood as amazing. He shared that he has been communicating with his mom on his plans for living arrangements upon discharge from the hospital. He has a plan to receive his check from social security on the first of February and start renting a one-bedroom apartment in [place], at an apartment building he heard about from another patient on the unit. He wants to stay with his mother for the remaining 2 weeks of January, but is unsure if his mother will allow this. He plans to call her again today at 12 pm to further discuss this, though notes he has trouble with communication and wonders if a social contact worker here could better communicate his needs with his mom. He has been compliant with his [place], Abilify, and Buspar. Per SW, patient [facility] a [facility], but of [place] in [facility]. He has already tried the [facility] there and [facility] here for housing, reporting poor experiences at both. He is not a candidate for group homes or CSS at this time, so possible discharge plan would be for patient to go to his mother or brother's house temporarily before finding other housing. Patient will work to further explore this option today via phone calls to family. Medications: ARIPiprazole, 5 mg, Oral, Daily busPIRone, 15 mg, Oral, BID lithium, 300 mg, Oral, BID rosuvastatin, 5 mg, Oral, Daily PRN medications: acetaminophen, diphenhydrAMINE AND haloperidol lactate AND LORazepam, diphenhydrAMINE AND haloperidol AND LORazepam, hydrOXYzine pamoate, ondansetron ODT OR ondansetron, polyethylene glycol (PEG) 3350, traZODone Mental Status Examination: Vitals : BP 127/67 Pulse 63 Temp 36.7 ?C (98.1 ?F) (Temporal) Resp 16 Ht 1.753 m (5' 9) Wt 86.2 kg (190 lb) SpO2 97% BMI 28.06 kg/m? APPEARANCE: Well groomed, appropriate eye contact. BEHAVIOR: normal PSYCHOMOTOR: unremarkable SPEECH: Coherent and Regular rate, rhythm, volume and articulation LANGUAGE: Naming intact MOOD: Amazing AFFECT: Congruent with mood and topic of conversation THOUGHT PROCESS: Goal-directed THOUGHT CONTENT: normal PERCEPTIONS/HALLUCINAT IONS: none ABSTRACTION: good INSIGHT: poor, including concerning psychiatric condition. JUDGMENT: fair, including concerning psychiatric condition. ORIENTATION: Appropriate to age MEMORY: recent and remote memory intact ATTENTION SPAN: fair CONCENTRATION: fair FUND OF KNOWLEDGE: fair GAIT: Within normal limits ROS: [] All negative/unchanged except if checked. Explain positive(checked items) below: [x] Constitutional [] Eyes [] Ear/Nose/Mouth/Throat [] Respiratory [] CV [x] GI [] [] Musculoskeletal [] Skin/Breast [] Neurological [] Endocrine [] Heme/Lymph [] Allergic/Immunologic Explanation: He has been having some lightheadedness for 3-4 days now. He describes that it comes and goes, and he did have another episode this morning upon waking up with pain. He has had severe lower abdominal pain that is worsened by urination and eating meals. He describes it as a sharp and knife-like pain. He has also been experiencing some heartburn after meals. He is scheduled for an abdominal x-ray this morning to further evaluate the cause of his abdominal pain. Also reports having ongoing bloated feeling last few days, with little relief from miralax. ASSESSMENT: Unspecified mood disorder Unspecified anxiety disorder Patient symptoms : are improving Patient continues to need, on a daily basis, active treatment furnished directly by or requiring the supervision of inpatient psychiatric personnel. Treatment Plan: - Continue home medications for mood: buspar 15 mg BID and lithium 300 mg BID - Continue 5 mg Abilify nightly for psychosis symptoms - Will need to check lithium level due t (more content not included)... Normal [facility] XR ABDOMEN 1 VIEWon 02-01-20 24 XR ABDOMEN 1 VIEW Patient Name: ARIES CARRASCO : 2000 Exam Date/Time: 02/01/2024 12:16 Procedure: XR ABDOMEN 1 VIEW Ordering Provider: FRAIRE SHANNON Reason For Exam: ABDOMINAL PAIN EXAM TYPE: XR ABDOMEN 1 VIEW EXAM DATE AND TIME: 02/01/2024 11:49 AM EDT INDICATION: 24 years Male with ABDOMINAL PAIN COMPARISON: No relevant prior study TECHNIQUE: AP supine radiograph of the abdomen and pelvis was obtained. FINDINGS: Nonobstructive bowel gas pattern. Limited evaluation for free air or air-fluid levels on supine-only imaging. No abnormal soft tissue calcifications are seen. The visualized osseous structures are unremarkable. The visualized lung bases are unremarkable. IMPRESSION: Nonobstructive bowel gas pattern. Report Dictated on Electronically Signed By: Olga Fernandez MD Electronically Signed Date/Time: 02/01/2024 12:[address] [facility] CARECOORDon 01-31-2024 [facility] 1000-social work presented to bedside to speak with patient. Social work inquiring about potential options for patient's upon discharge. Patient reports that he would like to stay in a shelter; however patient is not qualified at this time to stay in any shelter. Patient is from the [facility]. Patient reports that he has attempted to stay at the [facility], and reports that it was not a good fit for him. Patient also reports that he had stayed in the [facility] in the waiting area; and reports that he had issues with other residents following him around and taking his stuff. Social work explained to patient that his options were limited at this time as he is currently considered to be homeless with his past of action. Patient reports that he could ask his mother if he is able to stay with his brother while he transitions into finding new housing. Patient reports that his counseling center [facility] and [facility] currently has him in a housing list at this time. [facility] GROUPNOTEon 01-31-2024 GROUPNOTE Department: [facility] ACTIVITIES THERAPY Group Topic: Recreation Therapy Group Date: 01/31/2024 Start Time: 1734 End Time: 1800 Facilitators: Karly Clarke Number of Participants: 5 Group Name: Self Expression Treatment Modality: Recreation Therapy Purpose: enhance coping skills, explore healthy outlets Summary: Art - To allow Patients the opportunity to utilize self expression as a healthy outlet, source of relaxation and reflection. In addition, patients are challenged to engage decision making skills and self awareness during the creative process. Name: Aries Carrasco Date of : 2000 MR: [id number] Appearance: Good eye contact Affect: Appropriate Behavior: Pleasant Alertness: Alert Speech: Appropriate Level/Quality of Participation: engaged Interactions with others: supportive Interventions utilized were Empathic listening and Expressive therapy Patient's Response to Intervention: Patient engaged fully in art task by choosing their focus and supplies. Patient was active in discussion and reported ability to meet intention of being present and being able to relax. Patient reported enjoyment in participation. Continue to engage Patient in groups to address stated treatment goals and objectives. Patients Problems: Patient Active Problem List Diagnosis Heartburn Asthma, exercise induced Attention deficit hyperactivity disorder, combined type Allergic rhinitis Scoliosis Mental disorder Schizophrenia (HCC) Suicidal ideation Episodic mood disorder (HCC) Generalized anxiety disorder Oppositional defiant disorder Pervasive developmental disorder, unspecified Jermaine (HCC) Acute psychosis (HCC) Substance abuse (CMS/HCC) (HCC) Obesity (BMI 30.0-34.9) Contusion of scalp Closed fracture of tooth with routine healing Hypercholesterolemia Unspecified mood (affective) disorder ([facility]) [facility] GROUPNOTE Department: [facility] 6 Group Topic: Goals Group Date: 01/31/2024 Start Time: 1300 End Time: 1350 Facilitators: Carlos Thorpe [facility] Number of Participants: 7 Group Name: Dual Diagnosis Treatment Modality: Cognitive Behavioral Therapy Purpose: increase insight or knowledge Summary: The group members each introduced themselves and shared one goal they were working on today. The group read a meditation from the Language of Letting Go book on learning a lesson from the hermit crab. The group discussed the analogy of the hermit crab changing shells throughout their life as a way to think about emotional pain, making healthy life changes, and reducing guilt/shame from the past. Name: Aries Carrasco Date of : 2000 MR: [id number] Mental Status Exam: Appearance: Appropriately dressed and groomed Mood: Anxious and Depressed Affect: Full Behavior: Cooperative Alertness: Alert Speech: Normal pace Cognition: Intact Thought Process: Goal-directed Thought Content: Preoccupations Level/Quality of Participation: attentive Interactions with others: gave feedback Interventions utilized were Building rapport and engagement, Empathic listening, and Cognitive Behavioral Therapy (CBT) Patient's Response to Intervention: PT came to group and was attentive. PT shared that one goal he is working on is continue to stay positive Progress Towards Goal(s): Minimal Additional Comments: N/A Next Step: Continue with current services Patients Problems: Patient Active Problem List Diagnosis Heartburn Asthma, exercise induced Attention deficit hyperactivity disorder, combined type Allergic rhinitis Scoliosis Mental disorder Schizophrenia (HCC) Suicidal ideation Episodic mood disorder (HCC) Generalized anxiety disorder Oppositional defiant disorder Pervasive developmental disorder, unspecified Jermaine (HCC) Acute psychosis (HCC) Substance abuse (CMS/HCC) (HCC) Obesity (BMI 30.0-34.9) Contusion of scalp Closed fracture of tooth with routine healing Hypercholesterolemia Unspecified mood (affective) disorder (HCC) [facility] GROUPNOTE Department: [facility] Group Topic: Other Group Date: 01/31/2024 Start Time: 829 End Time: 899 Facilitators: Swati Munroe Number of Participants: 9 Group Name: Setting Goals Treatment Modality: Activity Therapy Purpose: enhance coping skills and reinforce self-care Summary: To promote positive self- image by identifying things you do to maintain good health and improve well - being to gain an understanding regarding the importance of short - term goals. patient will focus on the positive aspects found in everyday life visualizing achieving daily and weekly goals. Name: Aries Carrasco Date of : 2000 MR: [id number] Appearance: Appropriately dressed and groomed Affect: Appropriate Behavior: Pleasant Alertness: Alert Speech: Appropriate Level/Quality of Participation: active Interactions with others: gave feedback Interventions utilized were Building rapport and engagement and Empathic listening Patient's Response to Intervention: Patient meet expectations of group completed worksheet was able to share coping skills setting a goal to reinforce self care. Will continue to offer groups and encourage participation face mask worn at all times during patient interations. Patients Problems: Patient Active Problem List Diagnosis Heartburn Asthma, exercise induced Attention deficit hyperactivity disorder, combined type Allergic rhinitis Scoliosis Mental disorder Schizophrenia (HCC) Suicidal ideation Episodic mood disorder (HCC) Generalized anxiety disorder Oppositional defiant disorder Pervasive developmental disorder, unspecified Jermaine (HCC) Acute psychosis (HCC) Substance abuse (CMS/HCC) (HCC) Obesity (BMI 30.0-34.9) Contusion of scalp Closed fracture of tooth with routine healing Hypercholesterolemia Unspecified mood (affective) disorder (HCC) [facility] IDNon 01-31-2024 IDN Problem: Ineffective Coping Goal: Identifies ineffective coping skills Outcome: Progressing Goal: Identifies healthy coping skills Outcome: Progressing Problem: Anxiety Goal: Verbalizes ways to manage anxiety Outcome: Progressing Problem: Problem Interventions Goal: Dietary Supplements Outcome: Progressing [facility] Nursing Noteon 01-31-2024 Nursing Note Pt in dayroom when approached by RN for assessment. Pt stated their day was amazing. Pt did attend groups today and also attended evening snack. Pt has been social on the unit. Pt denied SI/HI/AH/VH and pain. Pt calm and compliant with scheduled 2100 medications and received no PRN medications at this time. Pt encouraged to reach out to staff with any questions or concerns. 0414- Pt in dayroom awake since 0400. Pt stated I couldn't sleep. Pt given cheyanne jenny for upset stomach. 0544- Pt talked to multiple RNs about their three jobs that they report having, money they have and their past drug use. 0617- Pt observed sleeping throughout the night with no s/s of distress until about 0400. Pt had no morning medications and received no PRN medications given at this time. Pt currently in dayroom. [facility] Nursing Note Pt denies suicidal a nd homicidal ideation. Pt denies visual hallucinations and auditory hallucinations. Pt denies delusions. Affect is mood-congruent and mood is euthymic. Overall cooperative. Pt is compliant with scheduled psychiatric medication. He is friendly and social with select peers. Patient encouraged to seek out staff with questions or concerns. [facility] Nursing Note This RN took over ca re for this patient at this time. Pt in bed awake, denies needs. Safety checks maintained per unit policy. [facility] Nursing Note Had trouble falling asleep initially last night but was able to fall asleep and still sleeping at this time. [facility] Progress Noteon 01-31-2024 Progress Note -- Attestation signed by Tim Weir MD at 01/31/2024 2:45 PM I saw and evaluated the patient, participating in the iraheta portions of the service. I reviewed the resident?s note. I agree with the resident?s findings and plan. Tim Weir MD Inpatient Psychiatric Progress Note 01/31/24 Aries Carrasco was seen in follow up for unspecified mood and anxiety disorders, which is chronic in nature. Denied suicidal or homicidal ideation. Denied auditory or visual hallucinations. Reported good sleep, but decreased appetite. Eating all meals, but having lower abdominal pain/heartburn with meals, remits over time. On exam, Aries was pleasant and reported he is doing good. Shares that he called family and friends over the weekend, who expressed worry about him and are glad he is getting help. He has been attending group therapy sessions, getting physical activity, and feels more confident. He feels motivated by the group therapy sessions and that his mood has improved. Per conversations with his mom, he feels he should go to a shelter to receive medications/therapy/ho using in one location and he shares he needs a new case work aide. Shares that his last case work aide, whom he had through [facility], made false accusations about him not showing up to appointments and false claims about his family, so he fired her at the start of the year. He is unable to return home with parents at this time. Per JUN, he has been compliant with medications (lithium, Abilify, Buspar). Per , patient not a resident of [facility], but of [place] in [facility]. He has already tried the [facility] there and [facility] here, reporting poor experiences at both. He is not a candidate for group homes or CSS at this time, so possible discharge plan would be for patient to go to his brother's house temporarily before finding other housing. Patient will work to explore this option today. Medications: ARIPiprazole, 5 mg, Oral, Daily busPIRone, 15 mg, Oral, BID lithium, 300 mg, Oral, BID rosuvastatin, 5 mg, Oral, Daily PRN medications: acetaminophen, diphenhydrAMINE AND haloperidol lactate AND LORazepam, diphenhydrAMINE AND haloperidol AND LORazepam, hydrOXYzine pamoate, ondansetron ODT OR ondansetron, polyethylene glycol (PEG) 3350, traZODone Mental Status Examination: Vitals : BP 132/84 Pulse 54 Temp 36.7 ?C (98 ?F) (Temporal) Resp 16 Ht 1.753 m (5' 9) Wt 86.2 kg (190 lb) SpO2 98% BMI 28.06 kg/m? APPEARANCE: Well groomed, appropriate eye contact. BEHAVIOR: normal PSYCHOMOTOR: within normal limits SPEECH: Coherent and Regular rate, rhythm, volume and articulation LANGUAGE: Naming intact MOOD: good! AFFECT: Euthymic, full-range THOUGHT PROCESS: Goal-directed THOUGHT CONTENT: normal PERCEPTIONS/HALLUCINAT IONS: none ABSTRACTION: good INSIGHT: poor, including concerning psychiatric condition. JUDGMENT: fair, including concerning psychiatric condition. ORIENTATION: Appropriate to age MEMORY: recent and remote memory intact ATTENTION SPAN: fair CONCENTRATION: fair FUND OF KNOWLEDGE: fair GAIT: Within normal limits ROS: [] All negative/unchanged except if checked. Explain positive(checked items) below: [x] Constitutional [] Eyes [] Ear/Nose/Mouth/Throat [] Respiratory [] CV [x] GI [] [] Musculoskeletal [] Skin/Breast [] Neurological [] Endocrine [] Heme/Lymph [] Allergic/Immunologic Explanation: having some lightheadedness for 2-3 days (comes and goes), lower abdominal pain that is worsened by urination and by eating meals (burning sharp pain 5/10 on pain scale), and heartburn after meals. ASSESSMENT: Unspecified mood disorder Unspecified anxiety disorder Patient symptoms :are improving Patient continues to need, on a daily basis, active treatment furnished directly by or requiring the supervision of inpatient psychiatric personnel. Treatment Plan: - Continue home medications for mood: buspar 15 mg BID and lithium 300 mg BID - Continue 5 mg Abilify nightly for psychosis symptoms - Will need to check lithium level due to restarting medication after period of noncompliance (level was subtherapeutic on admission): recheck on 02/03/24 Continue Current Medications if not otherwise stated. Will continue to titrate medications and assess for effectiveness and tolerability. Continue Follow-up. Continue crisis intervention oriented psychotherapy, group and milieu therapies. Social work and transitional care continue to assist with necessary family liaison and discharge planning. Pt expressed agreement and understanding with treatment plan. PSYCHOTHERAPY/COUNSELI NG: Supportive, therapeutic interview Electronically signed (more content not included)... [facility] GROUPNOTEon 01-30-2024 GROUPNOTE Department: [facility] Group Topic: Leisure Skills Group Date: 01/30/2024 Start Time: 1030 End Time: 1100 Facilitators: Mellisa Rader Number of Participants: 4 Group Name: [employer] Treatment Modality: Leisure Development Purpose: enhance coping skills Summary: To expose patients to healthy leisure outlets. Name: Aries Carrasco Date of : 2000 MR: [id number] Mental Status Exam: Appearance: Good eye contact Affect: Appropriate Behavior: Interactive Alertness: Alert Speech: Appropriate Cognition: Intact Thought Process: Goal-directed Thought Content: organized Level/Quality of Participation: engaged Interactions with others: appropriate Interventions utilized were Activity Therapy Patient's Response to Intervention: on-task; appropriate interactions & affect Progress Towards Goal(s): Goal(s) met Additional Comments: Staff will continue to encourage pt to attend AT sessions. Next Step: Continue with current services Patients Problems: Patient Active Problem List Diagnosis Heartburn Asthma, exercise induced Attention deficit hyperactivity disorder, combined type Allergic rhinitis Scoliosis Mental disorder Schizophrenia (HCC) Suicidal ideation Episodic mood disorder ([facility]) Generalized anxiety disorder Oppositional defiant disorder Pervasive developmental disorder, unspecified Jermaine (HCC) Acute psychosis (HCC) Substance abuse ([facility]/HCC) (HCC) Obesity (BMI 30.0-34.9) Contusion of scalp Closed fracture of tooth with routine healing Hypercholesterolemia Unspecified mood (affective) disorder ([facility]) [facility] IDNon 01-30-2024 IDN Problem: Ineffective Coping Goal: Identifies ineffective coping skills Outcome: Progressing Goal: Identifies healthy coping skills Outcome: Progressing Problem: Anxiety Goal: Verbalizes ways to manage anxiety Outcome: Progressing Problem: Problem Interventions Goal: Dietary Supplements Outcome: Progressing [facility] Nursing Noteon 01-30-2024 Nursing Note He is alert and oriented x4. He is up independently with a steady gait. He is friendly with staff and peers. He has been out in the day area this evening watching tv, coloring, and had a snack. He reports feeling really good and reports having a good phone call with his family and friends today. He denies SI/HI/AVH. He was med compliant. Does not have any concerns at this time. Will continue to monitor, safety maintained. [facility] Nursing Note Pt out in common are a, pleasant, cooperative, and compliant with medications. Social with peers. States I'm doing really good. I have the confidence to call and talk to my friends and family today. I called one of my friends so far and it went really well. Pt denies SI/HI/AVH. Denies needs at this time. Encouraged to notify staff of any needs, questions, or concerns. [facility] Progress Noteon 01-30-2024 Progress Note Chief Complaints: Unspecified mood disorder, unspecified anxiety disorder Target symptoms: Mood symptoms and anxiety Interval history: The patient was admitted on 01/27/2024. His symptoms are severe in intensity and intermittent in nature. They have been present for the last several years. The patient states that he is doing well and does not have any concerns. He is sleeping and eating well. He denied any current suicidal or homicidal ideations, intent or plan. Denied any symptoms of jermaine or psychosis. No obsession or compulsions. No binging, purging restricting behavior. Labs: Admission on 01/27/2024 Component Date Value Ref Range Status ETHANOL IN SER/PLAS 01/27/2024 <0.010 0.000 - 0.010 g/dL Final AMPHETAMINE SCREEN 01/27/2024 Negative Final BARBITURATES SCREEN 01/27/2024 Negative Final BENZODIAZEPINE SCREEN 01/27/2024 Negative Final COCAINE METAB. SCREEN 01/27/2024 Negative Final METHADONE SCREEN 01/27/2024 Negative Final OPIATES SCREEN 01/27/2024 Negative Final OXYCODONE SCREEN 01/27/2024 Negative Final PHENCYCLIDINE SCREEN 01/27/2024 Negative Final SODIUM 01/27/2024 141 135 - 145 mmol/L Final POTASSIUM 01/27/2024 4.1 3.5 - 5.1 mmol/L Final CHLORIDE 01/27/2024 104 98 - 107 mmol/L Final CARBON DIOXIDE 01/27/2024 28 22 - 30 mmol/L Final ANION GAP 01/27/2024 10 3 - 13 mmol/L Final UREA NITROGEN 01/27/2024 12 9 - 20 mg/dL Final CREATININE 01/27/2024 1.25 0.66 - 1.25 mg/dL Final GLUCOSE 01/27/2024 82 70 - 100 mg/dL Final CALCIUM 01/27/2024 10.3 8.4 - 10.4 mg/dL Final AST (SGOT) 01/27/2024 30 15 - 46 U/L Final ALT 01/27/2024 25 0 - 49 U/L Final ALKALINE PHOSPHATASE 01/27/2024 81 38 - 126 U/L Final ALBUMIN 01/27/2024 5.2 (H) 3.5 - 5.0 g/dL Final BILIRUBIN, TOTAL 01/27/2024 0.9 0.2 - 1.3 mg/dL Final TOTAL PROTEIN 01/27/2024 8.6 (H) 6.3 - 8.2 g/dL Final eGFR 01/27/2024 83.5 >60.0 mL/min/1.73m*2 Final Calculation based on the Chronic Kidney Disease Epidemiology Collaboration (CKD-EPI) equation refit without adjustment for race Auto WBC 01/27/2024 7.5 3.6 - 10.7 10*3/uL Final RBC 01/27/2024 5.82 4.40 - 5.90 10*6/uL Final Hemoglobin 01/27/2024 16.3 13.0 - 18.0 g/dL Final Hematocrit 01/27/2024 49.3 40.0 - 52.0 % Final MCV 01/27/2024 84.7 77.0 - 99.0 fL Final MCH 01/27/2024 28.0 26.0 - 34.0 pg Final MCHC 01/27/2024 33.1 30.5 - 36.0 % Final RDW 01/27/2024 13.4 11.5 - 15.0 % Final Platelets 01/27/2024 226 140 - 440 10*3/uL Final MPV 01/27/2024 10.8 9.0 - 12.7 fL Final nRBC 01/27/2024 0.0 0.0 - 2.0 /100 WBCs Final Neutrophils Relative 01/27/2024 68.6 38.0 - 82.0 % Final Lymphocytes Relative 01/27/2024 22.7 15.0 - 45.0 % Final Monocytes Relative 01/27/2024 6.3 5.0 - 13.0 % Final Eosinophils Relative 01/27/2024 1.5 0.0 - 6.0 % Final Basophils Relative 01/27/2024 0.5 0.0 - 2.0 % Final Immature Grans % 01/27/2024 0.4 0.0 - 2.0 % Final Neutrophils Absolute 01/27/2024 5.1 1.8 - 7.5 10*3/uL Final Lymphocytes Absolute 01/27/2024 1.7 1.0 - 4.3 10*3/uL Final Monocytes Absolute 01/27/2024 0.5 0.0 - 0.9 10*3/uL Final Eosinophils Absolute 01/27/2024 0.1 0.0 - 0.5 10*3/uL Final Basophils Absolute 01/27/2024 0.0 0.0 - 0.2 10*3/uL Final Immature Grans Absolute 01/27/2024 0.0 <0.1 10*3/uL Final CK 01/27/2024 279 (H) 30 - 170 U/L Final Heart Rate 01/27/2024 59 bpm Final QRSD Interval 01/27/2024 91 ms Final QT Interval 01/27/2024 354 ms Final QTC Interval 01/27/2024 351 ms Final P [place] 01/27/2024 41 degrees Final QRS [place] 01/27/2024 38 degrees Final T Wave [place] 01/27/2024 35 degrees Final MT Interval 01/27/2024 176 ms Final SARS-CoV-2 Antigen 01/27/2024 Negative Negative Final A negative result does not rule out the possibility of SARS-CoV-2 infection. NAAT-based methods should be considered for symptomatic patients presenting greater than seven days after onset of symptoms. Method: Lateral flow immunoassay. Fact sheets for healthcare providers and patients can be found at the following sites: https://www.fda.gov/[place]/810729/download https://www.fda.gov/[place]/364169/download Color, Urine 01/27/2024 Light Yellow Lt. Yellow Final Clarity, Urine 01/27/2024 Clear Clear Final pH, Urine 01/27/2024 6.0 5.0 - 8.0 pH Final Leukocytes, Urine 01/27/2024 Negative Negative Lazaro/uL Final Nitrite, Urine 01/27/2024 Negative Negative Final Protein, Urine 01/27/2024 Negative Negative mg/dL Final Glucose, Urine 01/27/2024 Normal Normal (<70) mg/dL Final Bilirubin, Urine 01/27/2024 Negative Negative mg/dL Final Ketones, Urine 01/27/2024 Negative Negative mg/dL Final Urobilinogen, Urine 01/27/2024 Normal Normal (0-1) mg/dL Final Blood, Urine 01/27/2024 Negative Negative mg/dL Final SPECIFIC GRAVITY OF URINE (NUMERIC) 01/27/2024 1.014 1.005 - 1.030 Final LITHIUM 01/27/2024 0.2 (L) 0.6 - 1.2 mmol/L Final Current Medications: ARIPiprazole, 5 mg, Oral, Daily busPIRone, 15 mg, Oral, BID lithium, 300 mg, Oral, BID rosuvastatin, 5 mg, Oral, Daily PRN medications: acetami (more content not included)... [facility] GROUPNOTEon 01-29-2024 GROUPNOTE Department: [facility] Group Topic: Music Therapy Group Date: 01/29/2024 Start Time: 1300 End Time: 1330 Facilitators: Madeline Mitchell Number of Participants: 6 Group Name: Music [employer] Treatment Modality: music therapy Purpose: enhance coping skills Summary: Patient was provided with a 5x5 Vox[employer] card grid of song titles. Patient then guessed the song titles while they were played and matched the song to the title on their card. Discussion of the use of mindfulness as a coping strategy followed. Name: Aries Carrasco Date of : 2000 MR: [id number] Mental Status Exam: Appearance: Appropriately dressed and groomed Mood: Euthymic Affect: Full Behavior: Pleasant and Cooperative Alertness: Alert Speech: Appropriate Cognition: Intact Thought Process: Goal-directed Thought Content: No evidence of psychosis/delusions Level/Quality of Participation: active Interactions with others: gave feedback Interventions utilized were focused music listeing Patient's Response to Intervention: Patient participated appropriately and guessed songs appropriately. Pt observed smiling and offering peers support. n Progress Towards Goal(s): Minimal Next Step: Continue with current services Patients Problems: Patient Active Problem List Diagnosis Heartburn Asthma, exercise induced Attention deficit hyperactivity disorder, combined type Allergic rhinitis Scoliosis Mental disorder Schizophrenia (HCC) Suicidal ideation Episodic mood disorder (HCC) Generalized anxiety disorder Oppositional defiant disorder Pervasive developmental disorder, unspecified Jermaine (HCC) Acute psychosis (HCC) Substance abuse (CMS/HCC) (HCC) Obesity (BMI 30.0-34.9) Contusion of scalp Closed fracture of tooth with routine healing Hypercholesterolemia Unspecified mood (affective) disorder (HCC) [facility] GROUPNOTE Department: [facility] Group Topic: Other Group Date: 01/29/2024 Start Time: 1030 End Time: 1100 Facilitators: Swati Munroe Number of Participants: 6 Group Name: [employer] Treatment Modality: Activity Therapy Purpose: enhance coping skills and express feelings Summary: To encourage patients to open up and share in a non - threatening environment share goals, talent ,unit Q&A leaving patient on a positive and thoughtful note. Name: Aries Carrasco Date of : 2000 MR: [id number] Appearance: Appropriately dressed and groomed Affect: Appropriate Behavior: Pleasant Alertness: Alert Speech: Appropriate Level/Quality of Participation: active Interactions with others: gave feedback Interventions utilized were Building rapport and engagement Patient's Response to Intervention: Patient actively engaged in group social on task supportive of peers. Will continue to offer groups and encourage participation face mask worn at all times during patient interations. Patients Problems: Patient Active Problem List Diagnosis Heartburn Asthma, exercise induced Attention deficit hyperactivity disorder, combined type Allergic rhinitis Scoliosis Mental disorder Schizophrenia (HCC) Suicidal ideation Episodic mood disorder (HCC) Generalized anxiety disorder Oppositional defiant disorder Pervasive developmental disorder, unspecified Jermaine (HCC) Acute psychosis (HCC) Substance abuse (CMS/HCC) (HCC) Obesity (BMI 30.0-34.9) Contusion of scalp Closed fracture of tooth with routine healing Hypercholesterolemia Unspecified mood (affective) disorder (HCC) [facility] IDNon 01-29-2024 IDN Will admit to consuming > 50% of supplements. 1 Ensure Max @ 2p [facility] Nursing Noteon 01-29-2024 Nursing Note Patient has been pleasant, cooperative, no behavioral issues. Friendly with staff and peers. Compliant with HS medications. Denies thoughts or intent to harm self or others. No paranoia or delusions elicited. No further issues voiced. Ate HS snack, watched some TV and retreated to room. [facility] Nursing Note Pt remains social wi th peers, participates in activities. Pt calm ath this time. No concerns voiced. [facility] Nursing Note Pt cooperative with care, denies pain, denies SI/HI/AVH. Pt social with peers. Compliant with medications. Pt AOX4. Pt gait steady, speech clear. Pt voices no concerns at this time. [facility] Progress Noteon 01-29-2024 Progress Note Chief Complaints: Unspecified mood disorder, unspecified anxiety disorder Target symptoms: Mood symptoms and anxiety Interval history: The patient states that he is doing better and does not have any concerns. He said that he slept well and is eating fine. He denied any current suicidal or homicidal ideations, intent or plan. No symptoms of jermaine or psychosis. No obsession or compulsions. No binging, purging restricting behavior. Labs: Admission on 01/27/2024 Component Date Value Ref Range Status ETHANOL IN SER/PLAS 01/27/2024 <0.010 0.000 - 0.010 g/dL Final AMPHETAMINE SCREEN 01/27/2024 Negative Final BARBITURATES SCREEN 01/27/2024 Negative Final BENZODIAZEPINE SCREEN 01/27/2024 Negative Final COCAINE METAB. SCREEN 01/27/2024 Negative Final METHADONE SCREEN 01/27/2024 Negative Final OPIATES SCREEN 01/27/2024 Negative Final OXYCODONE SCREEN 01/27/2024 Negative Final PHENCYCLIDINE SCREEN 01/27/2024 Negative Final SODIUM 01/27/2024 141 135 - 145 mmol/L Final POTASSIUM 01/27/2024 4.1 3.5 - 5.1 mmol/L Final CHLORIDE 01/27/2024 104 98 - 107 mmol/L Final CARBON DIOXIDE 01/27/2024 28 22 - 30 mmol/L Final ANION GAP 01/27/2024 10 3 - 13 mmol/L Final UREA NITROGEN 01/27/2024 12 9 - 20 mg/dL Final CREATININE 01/27/2024 1.25 0.66 - 1.25 mg/dL Final GLUCOSE 01/27/2024 82 70 - 100 mg/dL Final CALCIUM 01/27/2024 10.3 8.4 - 10.4 mg/dL Final AST (SGOT) 01/27/2024 30 15 - 46 U/L Final ALT 01/27/2024 25 0 - 49 U/L Final ALKALINE PHOSPHATASE 01/27/2024 81 38 - 126 U/L Final ALBUMIN 01/27/2024 5.2 (H) 3.5 - 5.0 g/dL Final BILIRUBIN, TOTAL 01/27/2024 0.9 0.2 - 1.3 mg/dL Final TOTAL PROTEIN 01/27/2024 8.6 (H) 6.3 - 8.2 g/dL Final eGFR 01/27/2024 83.5 >60.0 mL/min/1.73m*2 Final Calculation based on the Chronic Kidney Disease Epidemiology Collaboration (CKD-EPI) equation refit without adjustment for race Auto WBC 01/27/2024 7.5 3.6 - 10.7 10*3/uL Final RBC 01/27/2024 5.82 4.40 - 5.90 10*6/uL Final Hemoglobin 01/27/2024 16.3 13.0 - 18.0 g/dL Final Hematocrit 01/27/2024 49.3 40.0 - 52.0 % Final MCV 01/27/2024 84.7 77.0 - 99.0 fL Final MCH 01/27/2024 28.0 26.0 - 34.0 pg Final MCHC 01/27/2024 33.1 30.5 - 36.0 % Final RDW 01/27/2024 13.4 11.5 - 15.0 % Final Platelets 01/27/2024 226 140 - 440 10*3/uL Final MPV 01/27/2024 10.8 9.0 - 12.7 fL Final nRBC 01/27/2024 0.0 0.0 - 2.0 /100 WBCs Final Neutrophils Relative 01/27/2024 68.6 38.0 - 82.0 % Final Lymphocytes Relative 01/27/2024 22.7 15.0 - 45.0 % Final Monocytes Relative 01/27/2024 6.3 5.0 - 13.0 % Final Eosinophils Relative 01/27/2024 1.5 0.0 - 6.0 % Final Basophils Relative 01/27/2024 0.5 0.0 - 2.0 % Final Immature Grans % 01/27/2024 0.4 0.0 - 2.0 % Final Neutrophils Absolute 01/27/2024 5.1 1.8 - 7.5 10*3/uL Final Lymphocytes Absolute 01/27/2024 1.7 1.0 - 4.3 10*3/uL Final Monocytes Absolute 01/27/2024 0.5 0.0 - 0.9 10*3/uL Final Eosinophils Absolute 01/27/2024 0.1 0.0 - 0.5 10*3/uL Final Basophils Absolute 01/27/2024 0.0 0.0 - 0.2 10*3/uL Final Immature Grans Absolute 01/27/2024 0.0 <0.1 10*3/uL Final CK 01/27/2024 279 (H) 30 - 170 U/L Final Heart Rate 01/27/2024 59 bpm Final QRSD Interval 01/27/2024 91 ms Final QT Interval 01/27/2024 354 ms Final QTC Interval 01/27/2024 351 ms Final P [place] 01/27/2024 41 degrees Final QRS [place] 01/27/2024 38 degrees Final T Wave [place] 01/27/2024 35 degrees Final MT Interval 01/27/2024 176 ms Final SARS-CoV-2 Antigen 01/27/2024 Negative Negative Final A negative result does not rule out the possibility of SARS-CoV-2 infection. NAAT-based methods should be considered for symptomatic patients presenting greater than seven days after onset of symptoms. Method: Lateral flow immunoassay. Fact sheets for healthcare providers and patients can be found at the following sites: https://www.fda.gov/il marlene/282370/download https://www.fda.gov/[place] marlene/119857/download Color, Urine 01/27/2024 Light Yellow Lt. Yellow Final Clarity, Urine 01/27/2024 Clear Clear Final pH, Urine 01/27/2024 6.0 5.0 - 8.0 pH Final Leukocytes, Urine 01/27/2024 Negative Negative Lazaro/uL Final Nitrite, Urine 01/27/2024 Negative Negative Final Protein, Urine 01/27/2024 Negative Negative mg/dL Final Glucose, Urine 01/27/2024 Normal Normal (<70) mg/dL Final Bilirubin, Urine 01/27/2024 Negative Negative mg/dL Final Ketones, Urine 01/27/2024 Negative Negative mg/dL Final Urobilinogen, Urine 01/27/2024 Normal Normal (0-1) mg/dL Final Blood, Urine 01/27/2024 Negative Negative mg/dL Final SPECIFIC GRAVITY OF URINE (NUMERIC) 01/27/2024 1.014 1.005 - 1.030 Final LITHIUM 01/27/2024 0.2 (L) 0.6 - 1.2 mmol/L Final Current Medications: ARIPiprazole, 5 mg, Oral, Daily busPIRone, 15 mg, Oral, BID lithium, 300 mg, Oral, BID rosuvastatin, 5 mg, Oral, Daily PRN medications: acetaminophen, diphenhydrAMINE AND haloperidol lactate AND LORazepam, diphenhydrAMINE AND haloperidol AND LORazepam, hydrOXYzine pamoate, (more content not included)... Normal [facility] Progress Note Nutrition Assessment Type and Reason for Visit: Initial, Positive Nutrition Screen Nutrition Recommendations/Plan: Will initiate: 1 Ensure Max @ 2p daily Will monitor po intake. Malnutrition Assessment: Malnutrition Status: No malnutrition Nutrition Assessment: Per 01/26 chart excerpt: 24 y.o. male who presents to the emergency department due to suicidal ideation. Patient reports a history of schizophrenia for which he used to take lithium. Chart review also reveals a history of jermaine substance abuse and acute psychosis. Additionally the patient has a history of bipolar 1 disorder and prior history of suicide attempt. Patient denies suicidal ideation homicidal ideation visual auditory hallucinations as well as alcohol or drug use. He is presenting because he states that he would like to be restarted on lithium which was discontinued approximately 1 year ago per his report. He states that he is recently being evicted by his parents. Per pt.: mentions some broken teeth left and right upper, able to chew foods here, appetite is fair, intentional weight loss hx. Estimated Daily Nutrient Needs: Energy Requirements Based On: Kcal/kg Weight Used for Energy Requirements: [place] Weight for Energy Calculation (kg): 73 kg Total Energy Requirements (kcals/day): 1825 - 2190 kcals/day Weight Used for Protein Requirements: [place] Weight in Kg Used for Protein Requirements: 73 kg Estimated Total Protein (g/day): 58 - 73 gms protein/day Estimated Daily Total Fluid (ml/day): 1825 - 2190 mls/day Nutrition Related Findings: weight loss hx, dental; note: lipid profile improved w/weight loss Wound Type: None Current Nutrition Therapies: Adult diet Regular Current Oral Intake Average Meal Intake: 26-50% Average Supplements Intake: None Ordered Anthropometric Measures: Height: 175.3 cm (5' 9) Current Body Weight: 86.2 kg (190 lb) Weight Source: Not Specified Admission Body Weight: 86.2 kg (190 lb) Usual Body Weight: 98.9 kg (218 lb) ([facility] 06/13/23) % Weight Change (Calculated): -12.8 [place] Body Weight (lbs) (Calculated): 160 lbs [place] Body Weight (Kg) (Calculated): 73 kg % [place] Body Weight (Calculated): 118.8 % BMI (kg/m2) (Calculated): 28 Weight Adjustment For: No Adjustment BMI Categories: Overweight (BMI 25.0-29.9) Nutrition Diagnosis: In context of social or environmental circumstances, Unintended weight loss, Overweight/Obese, Biting/chewing (masticatory) difficulty, Predicted inadequate energy intake related to psychological cause or life stress, partial or complete edentulism as evidenced by BMI, weight loss (est. [id number]% loss of UBW over 8 months) Nutrition Interventions: Nutrition Education/Counseling: Counseling initiated (discussed how his lipid profile is WNL, improved w/weight loss) Coordination of Nutrition Care: Continue to monitor while inpatient, Coordination of Care Plan of Care discussed with: pt. Goals: Goals: PO intake 50% or greater, other (specify) Specify Other Goals: of supplement Nutrition Monitoring and Evaluation: Behavioral-Environment al Outcomes: Beliefs and Attitutes, Readiness for Change, Knowledge or Skill Food/Nutrient Intake Outcomes: Supplement Intake, Food and Nutrient Intake Physical Signs/Symptoms Outcomes: Biochemical Data, Chewing or Swallowing, Fluid Status or Edema, Hemodynamic Status, Meal Time Behavior, Nutrition Focused Physical Findings, GI Status, Skin, Weight Discharge Planning: Assist with food insecurity, Continue current diet, Continue Oral Nutrition Supplement Alicia Woodard RD Contact: via [facility] chat or office *[id number] [facility] Behavioral Health Treatment Planon 10-11-2024 Behavioral Health Treatment Plan Per ED Aries Carrasco is a 24 y.o. male who presents to the emergency department due to suicidal ideation. Patient reports a history of schizophrenia for which he used to take lithium. Chart review also reveals a history of jermaine substance abuse and acute psychosis. Additionally the patient has a history of bipolar 1 disorder and prior history of suicide attempt. BAL and UDS negative Home with parents and siblings Follow up [facility] Normal [facility] CARECOORDon 01-28-2024 [facility] Behavioral Health Psycho-Social Assessment (Social Work) Date: 01/28/2024 Patient Name: Aries Carrasco : 2000 Identifying Information: Patient is a 24 y.o. male with psychiatric history of Bipolar disorder, schizophrenia, anxiety, ADHD, ODD, anger whom presented to [facility] ED on 01/27/2024 from home, brought in by self and stepfather, for chief complaint anxiety, worsening aggression, and medication. Per chart review patient is currently established with [facility] for counseling services, has attended 3 sessions in the last month. Does not currently have a prescriber for psychiatric medications as his previous psychiatrist left practice. Patient is currently signed in voluntarily onto the unit at this time. Presenting Problem: Per chart review ED note of Elizabeth Treviño DO on 01/26 patient reports that he been off of his psychiatric medications for the last year because his psychiatrist left practice and he has not been scheudled with a new prescriber yet. Additionally, he recently ended a relationship with a man he met on the internet two weeks ago because he bought a $200 non-refundable plane ticket to visit then discovered he would not have accommodations. He says that was my last 200 dollars and I wasted it. He also explains that he called CPS on his mom and that CPS recommended his mother evict him because he scared his 7 year old sibling with autism when he had an angry outburst at home. As a result of the eviction which was final on 01/26/24, Aries must find new housing. He says I need to get my life together so I do not end of in long-term. He is very concerned about his ability to get his life together and is unsure where to start. He has been unsuccessful in searching for housing on his own and he is unable to obtain a job despite reportedly filling out applications. Aries endorses poor sleep and high levels of anxiety. He denies suicidal or homicidal ideation currently. Psychiatric History: Per chart review patient has a diagnosis history of Bipolar disorder, schizophrenia, anxiety, ADHD, ODD. Per chart review patient is currently established with [facility] in [facility] in [place] for counseling services, has attended 3 sessions in the last month. Does not currently have a prescriber for psychiatric medications as his previous psychiatrist left practice. Most recently admitted to [facility] 06/08/2023. Other admissions on chart review: 03/27/2023, 11/01/2021, 06/08/2019, 03/01/2021, 10/31/2020. Per chart review patient endorses 4 or 5 past attempts, first attempt at age 11 Per chart review current medications Guanfacine, lithium, Risperdal, BuSpar, Invega. Substance Abuse/Use: Per chart review patient denies any current use of any substance at this time. Patient reports he has been sober for about 2 years; however does not identify from which substance at this time. Patient's labs and UDS's were negative upon admission Medical/Self-care Issues: Patient reports ongoing struggles with self-care secondary to mental health. Patient is increasing with frequency and tolerance over time. Patient reports experiencing poor nutrition, sleep, and hygiene secondary to ongoing mental health. Legal/Trauma/ History: Per chart review patient denies any history of background of any legal issues at this time. Per chart review patient endorses of history of trauma but does not elaborate at this time. Per chart review patient denies any history of any status at this time. Family Constellation/Childhoo d History: Per chart review patient was born and raised in [facility] by his biological mother. Education/Work: Per chart review patient has a high school diploma, and has attended some courses through trade school; however has dropped out and did not complete. Per chart review patient is currently unemployed at this time. Cultural/Spirituality/ Leisure: Per chart review patient does not identify any cultural background at this time. Per chart review patient denies any spiritual/sabianist practice or group at this time. Patient reports he enjoys music and art as leisure activities. Support Systems/Collateral Information: Patient identifies his father Rodriguez Yeung [phone] and his mother Nikia Kimball [phone] as his support systems. Patient reports being currently single, ended 2-week relationship yesterday, 01/25. Was most recently living at home with mother, stepfather, and 7-year-old sibling; however, he was evicted on 01/25 and is currently/technically homeless, seeking housing assistance. C-SSRS Actual Attempt (Past 3 Months): No (Patient denies this at this time.) Actual Attempt (Lifetime): Yes ([facility] 06/08/2023. Other admissions on chart review: 03/27/2023, 11/01/2021, 06/08/2019, 03/01/2021, 10/31/2020. past attempts patient endorses 4 or (more content not included)... [facility] GROUPNOTEon 01-28-2024 GROUPNOTE Department: [facility] 7 Group Topic: ABC Model Group Date: 01/28/2024 Start Time: 1230 End Time: 1330 Facilitators: DAVID Sellers Number of Participants: 5 Group Name: dual diagnosis Treatment Modality: Psychoeducation and Skills Training Purpose: enhance coping skills Summary: Group discussion on the basics of CBT. Reviewed worksheet, 'The Cognitive Model'. Explored how our interpretations of events impact emotions and behavior. Discussed the development of Core Beliefs (world/self/others) and emotions of fear/shame/guilt. Name: Aries Carrasco Date of : 2000 MR: [id number] Mental Status Exam: Appearance: Appropriately dressed and groomed Mood: Euthymic Affect: Congruent with mood Behavior: Pleasant Alertness: Alert Speech: Appropriate Cognition: Intact Thought Process: Goal-directed Thought Content: No evidence of psychosis/delusions Level/Quality of Participation: active Interactions with others: gave feedback Interventions utilized were Cognitive Behavioral Therapy (CBT) Patient's Response to Intervention: Pt was Actively Engaged and Receptive. Pt was Able to verbalize current knowledge/experience, Able to verbalize/acknowledge new learning, Able to retain information and Capable of insight. Pt reported a negative core belief they have is, I should have known better and a positive one of, I can be trusted Progress Towards Goal(s): Minimal Additional Comments: na Next Step: Continue with current services Patients Problems: Patient Active Problem List Diagnosis Heartburn Asthma, exercise induced Attention deficit hyperactivity disorder, combined type Allergic rhinitis Scoliosis Mental disorder Schizophrenia (HCC) Suicidal ideation Episodic mood disorder (HCC) Generalized anxiety disorder Oppositional defiant disorder Pervasive developmental disorder, unspecified Jermaine (HCC) Acute psychosis (HCC) Substance abuse (CMS/HCC) (HCC) Obesity (BMI 30.0-34.9) Contusion of scalp Closed fracture of tooth with routine healing Hypercholesterolemia Unspecified mood (affective) disorder (HCC) [facility] GROUPNOTE Department: [facility] 7 Group Topic: Self-awareness Group Date: 01/28/2024 Start Time: 0900 End Time: 1000 Facilitators: DVAID Sellers Number of Participants: 5 Group Name: dual diagnosis Treatment Modality: Psychoeducation and Skills Training Purpose: enhance coping skills, increase insight or knowledge, and reinforce self-care Summary: Explored three areas people struggle with, Control/Boundaries/Exp ectation. Discussed how these three areas can negatively impact mental health. Reviewed coping skills, such as acceptance, to help mitigate negative impact of them. Name: Aries Carrasco Date of : 2000 MR: [id number] Mental Status Exam: Appearance: Appropriately dressed and groomed Mood: Euthymic Affect: Congruent with mood Behavior: Pleasant Alertness: Alert Speech: Appropriate Cognition: Intact Thought Process: Goal-directed Thought Content: No evidence of psychosis/delusions Level/Quality of Participation: active Interactions with others: gave feedback Interventions utilized were Psychoeducation and Modeling/skills training Patient's Response to Intervention: Pt was Actively Engaged and Receptive. Pt was Able to verbalize current knowledge/experience, Able to verbalize/acknowledge new learning, Able to retain information and Capable of insight. One goal the Pt wants to work on is, ?deep breathing Progress Towards Goal(s): Minimal Additional Comments: na Next Step: Continue with current services Patients Problems: Patient Active Problem List Diagnosis Heartburn Asthma, exercise induced Attention deficit hyperactivity disorder, combined type Allergic rhinitis Scoliosis Mental disorder Schizophrenia (HCC) Suicidal ideation Episodic mood disorder (HCC) Generalized anxiety disorder Oppositional defiant disorder Pervasive developmental disorder, unspecified Jermaine (HCC) Acute psychosis (HCC) Substance abuse (CMS/HCC) (HCC) Obesity (BMI 30.0-34.9) Contusion of scalp Closed fracture of tooth with routine healing Hypercholesterolemia Unspecified mood (affective) disorder (HCC) Normal [facility] Nursing Noteon 01-28-2024 Nursing Note Patient pleasant and cooperative with peers and staff, out visible on the unit coloring prior to bed. Compliant with medications, denies SI/HI, denies pain. Said his day was pretty good. Normal [facility] Nursing Note Pt remains pleasant and cooperative, social and talkative with staff and peers. Med compliant with Abilify and Crestor that were added this afternoon, education provided and pt verbalized understanding. Pt attended almost all groups today. No other concerns voiced at this time [facility] Nursing Note Pt pleasant and talkative with this RN, stating after a good sleep and a good shower, I just reminded myself this morning that I can do this and I have opportunities to get better. If I had hurt myself, I wouldn't have those opportunities, so I am glad that I got help. Pt expresses a positive mindset about his admission, med compliant and cooperative with care. Denies SI/HI/AVH, denies other needs at this time. Encouraged to seek staff with needs [facility] Progress Noteon 01-28-2024 Progress Note ACTIVITY THERAPY ASSESSMENT Met with patient for activity therapy assessment. Reviewed diagnosis, presenting complaint, current living situation, cultural/spiritual preferences, education level, vocational status and mental status at time of this assessment. Diagnosis (per chart review): Unspecified mood (affective) disorder; Depression, unspecified depression type Presenting Problem: Unspecified mood (affective) disorder Does the patient identify any cultural/spiritual influences that may impact patient participation with programs offered by the Activities team? No If Yes, describe: N/A Review of Recreation Therapy Involvement/Interests What do you normally enjoy doing in your free time? Draw; art; walk; music; exercise Are you satisifed with how you've spent your free time recently? Yes Leisure Barriers: None reported Review of Music Therapy Involvement/Interests Favorite Band/Artist: none stated Musical Preferences: All Music Experiences/Skills and current involvement: None reported Use of Music: Enhance Mood and Uses Music for Relaxation Music Triggers/Adverse reactions: none stated Review of Other Diversionary Activities/Interests What are other activities, hobbies or events that you enjoy or help you feel better? None reported When you think about activities you enjoy, what is a positive benefit you experience at that time? Increased mood/relax If patient unable to identify activities that bring angelica or other positive benefits, provide education on the benefits of participating in activities. Patient provided information on unit programming, including types of activities and program schedule for the unit? Yes Patient response: Patient states an interest in participating in groups Normal [facility] CBC WITH AUTO DIFFERENTIALon 01-27-2024 Basophils (Bld) [#/Vol] 0.0 10*3/uL Normal 0.0-0.2 [facility] Comment on above: Performed By: #### L [id number] #### Aerospace Stress Engineer: ZULMA ESPINO ([id number]) [facility]) [address] [place] [address] Basophils/100 WBC (Bld) 0.5 % Normal 0.0-2.[address] [facility] Comment on above: Performed By: #### L [id number] #### Aerospace Stress Engineer: ZULMA ESPINO ([id number]) [facility]) [address] [place] [address] Eosinophils (Bld) [#/Vol] 0.1 10*3/uL Normal 0.0-0.5 [facility] Comment on above: Performed By: #### L [id number] #### Aerospace Stress Engineer: ZULMA ESPINO ([id number]) [facility] ([facility]) [address] [place] [address] Eosinophils/100 WBC (Bld) 1.5 % Normal 0.0-6.0 [facility] Comment on above: Performed By: #### L [id number] #### Aerospace Stress Engineer: ZULMA ESPINO ([id number]) [facility]) [address] [place] [address] Erythrocyte distribution width (RBC) [Ratio] 13.4 % Normal 11.5-15.0 [facility] Comment on above: Performed By: #### L [id number] #### Aerospace Stress Engineer: ZULMA ESPINO ([id number]) [facility] ([facility]) [address] [place] [address] Hematocrit (Bld) [Volume fraction] 49.3 % Normal 40.0-52.0 [facility] Comment on above: Performed By: #### L [id number] #### Aerospace Stress Engineer: ZULMA ESPINO ([id number]) [facility]) [address] [place] [address] Hemoglobin (Bld) [Mass/Vol] 16.3 g/dL Normal 13.0-18.0 [facility] Comment on above: Performed By: #### L [id number] #### Aerospace Stress Engineer: ZULMA ESPINO ([id number]) [facility]) [address] [place] [address] IMMATURE GRANS % 0.4 % Normal 0.0-2.0 [facility] Comment on above: Performed By: #### L [id number] #### Aerospace Stress Engineer: ZULMA ESPINO ([id number]) [facility] ([facility]) [address] [place] [address] IMMATURE GRANS ABSOLUTE 0.0 10*3/uL Normal <0.1 [facility] Comment on above: Performed By: #### L [id number] #### Aerospace Stress Engineer: ZULMA ESPINO ([id number]) [facility]) [address] [place] [address] [place] Lymphocytes (Bld) [#/Vol] 1.7 10*3/uL Normal 1.0-4.3 [facility] Comment on above: Performed By: #### L [id number] #### Aerospace Stress Engineer: ZULMA ESPINO ([id number]) [facility]) [address] [place] [address] [place] Lymphocytes/100 WBC (Bld) 22.7 % Normal 15.0-45.0 [facility] Comment on above: Performed By: #### L [id number] #### Aerospace Stress Engineer: ZULMA ESPINO ([id number]) [facility]) [address] [place] [address] MCH (RBC) [Entitic mass] 28.0 pg Normal 26.0-34.0 [facility] Comment on above: Performed By: #### L [id number] #### Aerospace Stress Engineer: ZULMA ESPINO ([id number]) [facility]) [address] [place] [address] MCHC 33.1 % Normal 30.5-36.0 [facility] Comment on above: Performed By: #### L [id number] #### Aerospace Stress Engineer: ZULMA ESPINO ([id number]) [facility] ([facility]) [address] [place] [address] MCV (RBC) [Entitic vol] 84.7 fL Normal 77.0-99.0 S [facility] Comment on above: Performed By: #### L [id number] #### Aerospace Stress Engineer: ZULMA ESPINO ([id number]) [facility]) [address] [place] [address] Monocytes (Bld) [#/Vol] 0.5 10*3/uL Normal 0.0-0.9 [facility] Comment on above: Performed By: #### L [id number] #### Aerospace Stress Engineer: ZULMA ESPINO ([id number]) [facility]) [address] [place] [address] Monocytes/100 WBC (Bld) 6.3 % Normal 5.0-13.0 [facility] Comment on above: Performed By: #### L [id number] #### Aerospace Stress Engineer: ZULMA ESPINO ([id number]) [facility]) [address] [place] [address] NEUTROPHILS ABSOLUTE 5.1 10*3/uL Normal 1.8-7.5 [facility] Comment on above: Performed By: #### L [id number] #### Aerospace Stress Engineer: ZULMA ESPINO ([id number]) [facility] [facility]) [address] [place] [address] Neutrophils/100 WBC (Bld) 68.6 % Normal 38.0-82.0 [facility] Comment on above: Performed By: #### L [id number] #### Aerospace Stress Engineer: ZULMA ESPINO ([id number]) [facility] ([facility]) [address] [place] [address] NRBC 0.0 /100 WBCs Normal 0.0-2.0 [facility] Comment on above: Performed By: #### L [id number] #### Aerospace Stress Engineer: ZULMA ESPINO ([id number]) [facility] ([facility]) [address] [place] [address] Platelet mean volume (Bld) [Entitic vol] 10.8 fL Normal 9.0-12.7 [facility] Comment on above: Performed By: #### L [id number] #### Aerospace Stress Engineer: ZULMA ESPINO ([id number]) [facility] ([facility]) [address] [place] [address] Platelets (Bld) [#/Vol] 226 10*3/uL Normal 140-440 [facility] Comment on above: Performed By: #### L [id number] #### Aerospace Stress Engineer: ZULMA ESPINO ([id number]) [facility] ([facility]) [address] [place] [address] RBC (Bld) [#/Vol] 5.82 10*6/uL Normal 4.40-5.90 [facility] Comment on above: Performed By: #### L [id number] #### Aerospace Stress Engineer: ZULMA ESPINO ([id number]) [facility] ([facility]) [address] [place] [address] WBC (Bld) [#/Vol] 7.5 10*3/uL Normal 3.6-10.7 [facility] Comment on above: Performed By: #### L [id number] #### Aerospace Stress Engineer: ZULMA ESPINO ([id number]) [facility] ([facility]) [address] [place] [address] CKon 01-27-2024 CK [Catalytic activity/Vol] 279 U/L High 30-170 [facility] Comment on above: Performed By: #### L [id number], LAB62, LAB46 ####Aerospace Stress Engineer: ZULMA ESPINO ([id number])[facility] ([facility])[address] [place] [address] COMPLETE URINALYSISon 2023 BILIRUBIN, TOTAL PRESENCE IN URINE Negative Normal Negative [facility] Comment on above: Performed By: #### L [id number] ####Aerospace Stress Engineer: ZULMA ESPINO ([id number])[facility] [place] [address] Clarity (U) Clear Normal Clear [facility] Comment on above: Performed By: #### L [id number] ####Aerospace Stress Engineer: ZULMA ESPINO ([id number])[facility] ([facility])[address] [place] [address] Color (U) Light Yellow Normal Lt. Yellow [facility] Comment on above: Performed By: #### L [id number] ####Aerospace Stress Engineer: ZULMA ESPINO ([id number])[facility] ([facility])[address] [place] [address] GLUCOSE (MG/DL) IN URINE Normal Normal Nor mal (<70) [facility] Comment on above: Performed By: #### L [id number] ####Aerospace Stress Engineer: ZULMA ESPINO ([id number])[facility] ([facility])[address] [place] [address] HEMOGLOBIN PRESENCE IN URINE Negative Normal Negative [facility] Comment on above: Performed By: #### L [id number] ####Aerospace Stress Engineer: ZULMA ESPINO ([id number])[facility] [place] [address] Ketones Ql (U) Negative Normal Negative [facility] Comment on above: Performed By: #### L [id number] ####Aerospace Stress Engineer: ZULMA ESPINO ([id number])[facility] ([facility])[address] [place] [address] LEUKOCYTE ESTERASE PRESENCE IN URINE BY TEST STRIP Negative Normal Negative [facility] Comment on above: Performed By: #### L [id number] ####Aerospace Stress Engineer: ZULMA ESPINO ([id number])[facility] ([facility])[address] [place] [address] NITRITE PRESENCE IN URINE Negative Normal Negative [facility] Comment on above: Performed By: #### L [id number] ####Aerospace Stress Engineer: ZULMA ESPINO ([id number])[facility] ([facility])[address] [place] [address] pH (U) 6.0 [pH] Normal 5.0-8.0 [facility] Comment on above: Performed By: #### L [id number] ####Aerospace Stress Engineer: ZULMA ESPINO ([id number])[facility] ([facility])[address] [place] [address] Protein (U) [Mass/Vol] Negative Normal Negative [facility] Comment on above: Performed By: #### L [id number] ####Aerospace Stress Engineer: ZULMA ESPINO ([id number])[facility] ([facility])[address] [place] [address] Specific gravity (U) [Rel density] 1.014 Normal 1.005-1.030 [facility] Comment on above: Performed By: #### L [id number] ####Aerospace Stress Engineer: ZULMA ESPINO ([id number])[facility] ([facility])[address] [place] [address] UROBILINOGEN (MG/DL) IN URINE Normal Normal Normal (0-1) [facility] Comment on above: Performed By: #### L [id number] ####Aerospace Stress Engineer: ZULMA ESPINO ([id number])[facility] ([facility])[address] [place] [address] COMPREHENSIVE METABOLIC PANE Hipolito 01-27-2024 Albumin [Mass/Vol] 5.2 g/dL High 3.5-5.0 [facility] Comment on above: Performed By: #### L AB17, LAB62, LAB46 ####Aerospace Stress Engineer: ZULMA ESPINO ([id number])[facility] ([facility])[address] [place] [address] ALP [Catalytic activity/Vol] 81 U/L Normal 38-126 [facility] Comment on above: Performed By: #### Jessica PACHECO, LAB62, LAB46 ####Aerospace Stress Engineer: ZULMA ESPINO ([id number])[facility] ([facility])[address] [place] [address] ALT [Catalytic activity/Vol] 25 U/L Normal 0-49 [facility] Comment on above: Performed By: #### Jessica PACHECO, LAB62, LAB46 ####Aerospace Stress Engineer: ZULMA ESPINO ([id number])[facility] ([facility])[address] [place] [address] Anion gap [Moles/Vol] 10 mmol/L Normal 3-13 [facility] Comment on above: Performed By: #### Jessica PACHECO, LAB62, LAB46 ####Aerospace Stress Engineer: ZULMA ESPINO ([id number])[facility] ([facility])[address] [place] [address] AST [Catalytic activity/Vol] 30 U/L Normal 15-46 [facility] Comment on above: Performed By: #### Jessica PACHECO, LAB62, LAB46 ####Aerospace Stress Engineer: ZULMA ESPINO ([id number])[facility] ([facility])[address] [place] [address] Bilirubin [Mass/Vol] 0.9 mg/dL Normal 0.2-1.3 [facility] Comment on above: Performed By: #### Jessica PACHECO, LAB62, LAB46 ####Aerospace Stress Engineer: ZULMA ESPINO ([id number])[facility] ([facility])[address] [place] [address] Calcium [Mass/Vol] 10.3 mg/dL Normal 8.4-10.4 [facility] Comment on above: Performed By: #### Jessica ABRomeor, LAB62, LAB46 ####Aerospace Stress Engineer: ZULMA ESPINO ([id number])[facility])[address] [place] [address] Chloride [Moles/Vol] 104 mmol/L Normal 98-107 [facility] Comment on above: Performed By: #### L AB17, LAB62, LAB46 ####Aerospace Stress Engineer: ZULMA ESPINO ([id number])[facility] ([facility])[address] [place] [address] CO2 [Moles/Vol] 28 mmol/L Normal 22-30 [facility] Comment on above: Performed By: #### Jessica PACHECO, LAB62, LAB46 ####Aerospace Stress Engineer: ZULMA ESPINO ([id number])[facility])[address] [place] [address] Creatinine [Mass/Vol] 1.25 mg/dL Normal 0.66-1.25 [facility] Comment on above: Performed By: #### Jessica PACHECO, LAB62, LAB46 ####Aerospace Stress Engineer: ZULMA ESPINO ([id number])[facility] ([facility])[address] [place] [address] GLOMERULAR FILTRATION RATE ML/MIN/1.73 SQ M.PREDICTED 83.5 mL/min/1.73m*2 Normal >60.0 [facility] Comment on above: Result Comment: Calc ulation based on the Chronic Kidney Disease Epidemiology Collaboration (CKD-EPI) equation refit without adjustment for race Performed By: #### Jessica PACHECO, LAB62, LAB46 ####Aerospace Stress Engineer: ZULMA ESPINO ([id number])[facility] ([facility])[address] [place] [address] [place] Glucose [Mass/Vol] 82 mg/dL Normal 70-100 [facility] Comment on above: Performed By: #### Jessica PACHECO, LAB62, LAB46 ####Aerospace Stress Engineer: ZULMA ESPINO ([id number])[facility] ([facility])[address] [place] [address] [place] Potassium [Moles/Vol] 4.1 mmol/L Normal 3.5-5.1 [facility] Comment on above: Performed By: #### Jessica PACHECO, LAB62, LAB46 ####Aerospace Stress Engineer: ZULMA ESPINO ([phone])[facility])[address] [place] [address] [place] Protein [Mass/Vol] 8.6 g/dL High 6.3-8.2 [facility] Comment on above: Performed By: #### L AB17, LAB62, LAB46 ####Aerospace Stress Engineer: ZULMA ESPINO ([id number])[facility])[address] [place] [address] Sodium [Moles/Vol] 141 mmol/L Normal 135-145 [facility] Comment on above: Performed By: #### L AB17, LAB62, LAB46 ####Aerospace Stress Engineer: ZULMA ESPINO ([id number])[address] Urea nitrogen [Mass/Vol] 12 mg/dL Normal 9-20 [facility] Comment on above: Performed By: #### L AB17, LAB62, LAB46 ####Aerospace Stress Engineer: ZULMA ESPINO ([id number])[address] Consulton 01-27-2024 Consult -- Attestation signed by Jeramie Post MD at 01/28/2024 8:19 AM I did not personally examine this patient but provided indirect supervision for this resident. I attest that the below is reasonable care. DEPARTMENT OF hotel attendant Emergency Department Consult - Adult IDENTIFYING INFORMATION Name: Aries Carrasco : 2000 TODAY: 01/27/2024 CHIEF COMPLAINT: Anxiety [x] Patient was seen and examined in person [x] Chart reviewed [x] Labs reviewed [x] Patient's case discussed with staff/team Per ED Note: Chief Complaint Patient presents with Anxiety Very stressed at home and overwhelmed just got out of a relationship and feeling upset. Not on medications and wants to get back on his medications. Been off of them for 1 year. Denies SI denies HI. Currently lives with parents but they are kicking him out HISTORY OF PRESENT ILLNESS Aries Carrasco is a 24 y.o. male with psychiatric history of Bipolar disorder, schizophrenia, anxiety, ADHD, ODD, anger whom presented to [facility] ED on 01/27/2024 from home, brought in by self and stepfather, for chief complaint anxiety, worsening aggression, and medication. In the ED, workup was largely unremarkable om CMP, CBC, UA, serum ethanol, covid antigen. [place] level 0.2 (subtherapeutic). Ck mildly elevated 279. EKG with Qtc 351 ms. Urine Drug Screen findings were negative. Patient was medically cleared by ED for psychiatric evaluation. On initial presentation, Aries Carrasco presents sitting up in ED bed awake and watching TV. Aries identifies multiple stressors which have made him feel overwhelmed and made it difficult for him to control his anger issues. Aries shares that he been off of his psychiatric medications for the last year because his psychiatrist left practice and he has not been scheudled with a new prescriber yet. Additionally, he recently ended a relationship with a man he met on the internet two weeks ago because he bought a $200 non-refundable plane ticket to visit then discovered he would not have accommodations. He says that was my last 200 dollars and I wasted it. He also explains that he called CPS on his mom and that CPS recommended his mother evict him because he scared his 7 year old sibling with autism when he had an angry outburst at home. As a result of the eviction which was final on 01/26/24, Aries must find new housing. He says I need to get my life together so I do not end of in long-term. He is very concerned about his ability to get his life together and is unsure where to start. He has been unsuccessful in searching for housing on his own and he is unable to obtain a job despite reportedly filling out applications. Aries endorses poor sleep and high levels of anxiety. He denies suicidal or homicidal ideation currently. He denies auditory or visual hallucinations and endorses some paranoia but does not elaborate. Aries does not exhibit aggression. Aries has no other questions or concerns at this time. Aries did provide verbal consent for this provider to speak with his mother, Nikia (see below). COLLATERAL: Nikia Kimball, Aries's mother, , contacted on 01/27/2024 around 8:20 PM Nikia was pleasant on the phone. Nikia corroborates what Aries has shared. She adds that he has been so bad, very paranoid, not taking his medications, complaining of seeing shadow people, getting very angry, and blames everything on me. She explains that Aries had made false allegations to child services which led to CPS investigation and ultimately their recommendation for Aries to be evicted from the home due to his aggression directed towards Nikia as well as their concern for the safety of his 7 year old sibling. Nikia says the aggression has been worsening for the last 3 months, around the time he stopped seeing a psychiatrist and he has gotten to the point he makes threats towards her such as I'm going to beat the f*ck out of you. Additionally, he has been fighting with trees and the air and repeatedly calls police telling them people are chasing him when they are not. Due to the frequency of calls, the count room clerk have reportedly stated he would go to long-term for disorderly conduct if the pattern continues. Nikia does report that Aries is a different person when he is on medications but she is not sure if he has ever been on the right regimen. She believes the best he has done on medication was when he was taking lithium 300 mg in the morning and 600 mg at night, Risperdal at night, and buspar. Nikia does make a point to warn that Aries can be very manipulativeto get what he wants and that he knows what to say. She feels he does need to be hospitalized because she is worri (more content not included)... Normal [facility] DRUGS OF ABUSEon 01-27-2024 AMPHETAMINE SCREEN Negative Normal [facility] Comment on above: Performed By: #### L [id number] #### Aerospace Stress Engineer: ZULMA ESPINO ([id number]) [facility] ([facility]) [address] [place] [address] BARBITURATES SCREEN Negative Normal [facility] Comment on above: Performed By: #### L [id number] #### Aerospace Stress Engineer: ZULMA ESPINO ([id number]) [facility] ([facility]) [address] [place] [address] BENZODIAZEPINE SCREEN Negative Normal [facility] Comment on above: Performed By: #### L [id number] #### Aerospace Stress Engineer: ZULMA ESPINO ([id number]) [facility] ([facility]) [address] [place] [address] COCAINE METAB. SCREEN Negative Normal [facility] Comment on above: Performed By: #### L [id number] #### Aerospace Stress Engineer: ZULMA ESPINO ([id number]) [facility] ([facility]) [address] [place] [address] METHADONE SCREEN Negative Normal [facility] Comment on above: Performed By: #### L [id number] #### Aerospace Stress Engineer: ZULMA ESPINO ([id number]) [facility] ([facility]) [address] [place] [address] OPIATES SCREEN Negative Normal [facility] Comment on above: Performed By: #### L [id number] #### Aerospace Stress Engineer: ZULMA ESPINO ([id number]) [facility] [address] [place] [address] OXYCODONE SCREEN Negative Normal [facility] Comment on above: Performed By: #### L [id number] #### Aerospace Stress Engineer: ZULMA ESPINO ([id number]) [facility] ([facility]) [address] [place] [address] PHENCYCLIDINE SCREEN Negative Normal [facility] Comment on above: Result Comment: ORDE R COMMENTS: The expected value for all of the drugs listed above is Negative. The following drugs or drug groups have been screened for by Immunoassay at the following thresholds: Amphetamine class (1000 ng/mL) Barbiturates (200 ng/mL) Benzodiazepines (200 ng/mL) Cocaine (300 ng/mL) Methadone (300 ng/mL) Opiates (300 ng/mL) Oxycodone (100 ng/mL) PCP (25 ng/mL) NOTE: These results are for medical treatment only. Analysis performed using non-forensic procedures. POSITIVE results are NOT confirmed by a more specific alternative method unless requested. If confirmation is needed, request confirmation under separate order. Performed By: #### L [id number] #### Aerospace Stress Engineer: ZULMA ESPINO ([id number]) [facility] ([facility]) [address] [place] [address] ECG 12-LEADon 01-27-2024 ECG 12-LEAD IMPRESSION: Sinus bradycardia ST elev, probable normal early repol pattern Similar to prior on 06/08/23 Electronically Signed On 01-27-2024 21:44:42 EDT by E[address]iel Gimenez [facility] ED Nursing Noteon 01-27-2024 ED Nursing Note Pt transported to [facility] in stable condition by Protective Services and patient transport. 1 document patient belongings bag transported with patient. Pt calm and cooperative at this time. Yael Juarez RN 01/27/[address] [facility] ED Nursing Note Transportation Here Protective Services Called Dora Escalona 01/27/[address] [facility] ED Nursing Note Report called to Eduardo DAVIS on [facility] 5 Yael Juarez RN 01/27/[address] [facility] ED Nursing Note RYAN Dowell At Pt Bedsi de To Medicate Dora Escalona 01/27/24 2130 Normal [facility] ED Nursing Note Psych At Pt Bedside Dora Escalona 01/27/[address] [facility] ED Nursing Note Psych At Pt Bedside Dora Escalona 01/27/24 2000 Normal [facility] ED Nursing Note Dinner tray given. Kristin Cavazos 01/27/[address] [facility] ED Nursing Note Pt to bathroom and then to rm 59 after providing a urine specimen. Kristin Cavazos 01/27/[address] [facility] ED Nursing Note Pt has been changed into 2 hospital gowns, footies and skin assessment completed by nursing. Pt wanded by protective services. 1 bag. Kristin Cavazos 01/27/24 1733 Normal [facility] ED Nursing Note Pt calm and corporative with staff. Pleasant conversationalist. Denies any SI or HI just concerned about stress at home and feeling overwhelmed. Pt able to change into gown and ambulate to bathroom and provide urine sample and then ambulated to room. Juana Kaba RN 01/27/24 1819 Normal [facility] ED Provider Noteon ED Provider Note Emergency Department Encounter [facility] EMERGENCY DEPT Patient: Aries Carrasco : 2000 Date of Evaluation: 01/27/2024 ED Supervising Physician: Ezekiel Gimenez DO I personally saw Aries Carrasco and made/approved the management plan and take responsibility for the patient management. This will serve as my Supervisory note and shared attestation. I did perform a substantive portion of the visit including all aspects of the Medical Decision Making. I wore appropriate PPE for the entirety of this encounter. In brief, Aries Carrasco is a 24 y.o. that presents to the emergency department requesting admission for stabilization on psychiatric medications. Has been admitted for his bipolar and questionable schizophrenia in the past. States he was kicked out of his mother's home due to poor impulse control aggression and agitation. Denies suicidality or homicidality. Has had hallucinations in the past but denies any currently. States he was feeling well on medications after last admission but has been since lost to follow-up, has not been on medications for over 6 months. Would like to restart his Latuda and lithium. Denies any current medical complaints. Focused exam: Alert and oriented ?4, no acute distress, nontoxic appearing, Pulm: clear to auscultation bilaterally, Cardiac: regular rate and rhythm, Abdomen: soft nontender, Neuro: no focal motor or sensory deficits. Brief ED course/MDM: Patient presents with aggression agitation and impulse control causing him to be kicked out of his home. Thinks he needs to be put back on his bipolar/it is for any medications. Has not taken them for many months. Patient is overall calm and cooperative. Denying SI or HI. Denies any illicit drug use. Lab work is benign. Will admit for psychiatric stabilization. Diagnostics interpreted by me: EKG(s) no acute ischemic changes I personally discussed the patient's management with other clinicians: All diagnostic, treatment, and disposition decisions were made by myself in conjunction with the resident. I also supervised iraheta portions of any procedures performed by the Resident. For all further details of the patient's emergency department visit, please see their documentation. (Comment: Please note this report has been produced using speech recognition software and may contain errors related to that system including errors in grammar, punctuation, and spelling, as well as words and phrases that may be inappropriate. If there are any questions or concerns please feel free to contact the dictating provider for clarification.) Ezekiel Gimenez DO [employer] Ezekiel Gimenez DO 01/27/242057 [facility] ED Provider Note EMERGENCY DEPARTMENT ENCOUNTER Patient Name: Aries Carrasco Birthdate 2000 Date of evaluation: 01/27/2024 ED Physician: Garland Maurer DO CHIEF COMPLAINT Chief Complaint Patient presents with Anxiety Very stressed at home and overwhelmed just got out of a relationship and feeling upset. Not on medications and wants to get back on his medications. Been off of them for 1 year. Denies SI denies HI. Currently lives with parents but they are kicking him out HISTORY OF PRESENT ILLNESS (Location/Symptom, Timing/Onset, Context/Setting, Quality, Duration, Modifying Factors, Severity) Note limiting factors. I wore appropriate PPE for the entirety of this encounter. HPI Aries Carrasco is a 24 y.o. male who presents to the emergency department due to suicidal ideation. Patient reports a history of schizophrenia for which he used to take lithium. Chart review also reveals a history of jermaine substance abuse and acute psychosis. Additionally the patient has a history of bipolar 1 disorder and prior history of suicide attempt. Patient denies suicidal ideation homicidal ideation visual auditory hallucinations as well as alcohol or drug use. He is presenting because he states that he would like to be restarted on lithium which was discontinued approximately 1 year ago per his report. He states that he is recently being evicted by his parents. Nursing Notes were reviewed. Limitations to history: Behavior REVIEW OF SYSTEMS Review of Systems Pertinent positives and negatives as per HPI. 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 No pertinent surgical history. CURRENT MEDICATIONS Previous Medications BUSPIRONE (BUSPAR) 15 MG TABLET Take 15 mg by mouth 2 times daily. LURASIDONE (LATUDA) 20 MG TABLET Take 20 mg by mouth daily. Take with food. ROSUVASTATIN (CRESTOR) 5 MG TABLET TAKE 1 TABLET BY MOUTH EVERY DAY ALLERGIES Other and Seasonal ic [octacosanol] FAMILY HISTORY No family history on file. SOCIAL HISTORY Social History Socioeconomic History Marital status: Single Tobacco Use Smoking status: Former Current packs/day: 0.00 Average packs/day: 0.3 packs/day for 0.1 years Types: Cigarettes Start date: 05/03/2021 Quit date: 06/03/2021 Years since quittin.6 Smokeless tobacco: Never Vaping Use Vaping status: Never Used Substance and Sexual Activity Alcohol use: No Drug use: Never Sexual activity: Never Comment: attracted to both male and female. Social History [place]ative [place] step dad and biological mom (biological dad estranged prior to ). Gets along with step dad. Ok with mom. 2 older step siblings and 1/2 sister and 1/2 sister, 1/2 sister (oldest 28, youngest 7)brother 26. 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 Social Determinants of Health Financial Resource Strain: Patient Declined (06/09/2023) Overall Financial Resource Strain (CARDIA) Difficulty of Paying Living Expenses: Patient declined Food Insecurity: Patient Declined (06/09/2023) Hunger Vital Sign Worried About Running Out of Food in the Last Year: Patient declined Ran Out of Food in the Last Year: Patient declined Transportation Needs: Patient Declined (06/09/2023) PRAPARE - Transportation Lack of Transportation (Medical): Patient declined Lack of Transportation (Non-Medical): Patient declined Physical Activity: Patient Declined (06/09/2023) Exercise Vital Sign Days of Exercise per Week: Patient declined Minutes of Exercise per Session: Patient declined Stress: Patient Declined (06/09/2023) [place] [address] [facility] [employer] - Occupational Stress Questionnaire Feeling of Stress : Patient declined Social Connections: Patient Declined (06/09/2023) Social Connection and Isolation Panel [NHANES] Frequency of Communication with Friends and Family: Patient declined Frequency of Social Gatherings with Friends and Family: Patient declined Attends Restorationism Services: Patient declined Active Member of Clubs or Organizations: Patient declined Attends Club or Organization Meetings: Patient declined Marital Status: Patient declined Intimate Partner Violence: Patient Declined (03/28/2023) Humiliation, Afraid, Rape, and Kick questionnaire Fear of Current or Ex-Partner: Patient declined Emotionally Abused: Patient declined Physically Abused: Patient declined Sexually Abused: Patient declined Housing Stability: Patient Declined (06/09/2023) Housing Stability Vital Sign Unable to Pay for Housing in the Last Year: Patient declined Number of Places Lived in the Last Year: 1 Unstable Housing in the Last Year: Patient declined SCREENINGS PHYSI (more content not included)... Normal [facility] ETHANOLon 01-27-2024 ETHANOL IN SER/PLAS <0.010 Normal 0.000-0.010 [facility] Comment on above: Result Comment: AARON Martins COMMENTS: NOTE: This result is for medical treatment only. Analysis performed using non-forensic procedures. Performed By: #### L AB17, LAB62, LAB46 ####Aerospace Stress Engineer: ZULMA ESPINO ([id number])[address] LITHIUMon 01-27-2024 [place] [Moles/Vol] 0.2 mmol/L Low 0.6-1.2 [facility] Comment on above: Performed By: #### L AB29 ####Aerospace Stress Engineer: ZULMA ESPNIO ([id number])[address] Nursing Noteon 01-27-2024 Nursing Note Patient admit from A ED. Patient reports feeling overwhelmed. His recent stressors are being evicted from his parents house and a breakup with his significant other that resulted in him losing $200. At this time patient is relativity calm, he is hoping to find new housing and restart his medications while admitted. He denies SI/HI, denies pain., he is friendly and cooperative. Reports good sleep and appetite. He is not currently working, reports being sober from drugs for the last 3 years and uses ETOH rarely. Denies trauma hx. Patient oriented to unit and room, admission paperwork signed. Orders placed prior to arrival. He voices no concerns at this time, emotional support and reassurance provided. [facility] SARS-COV-2 ANTIGENon 024 SARS-COV-2 ANTIGEN SARS-COV-2 ANTIGEN -BINAX Reference Negative Negative A negative result does not rule out the possibility of SARS-CoV-2 infection. NAAT-based methods should be considered for symptomatic patients presenting greater than seven days after onset of symptoms. Method: Lateral flow immunoassay. Fact sheets for healthcare providers and patients can be found at the following sites: https://www.[facility].gov/il marlene/604464/download https://www.[facility].gov/il marlene/320837/download [facility] Comment on above: Performed By: #### L AB17, LAB46 #### Aerospace Stress Engineer: ZULMA ESPINO ([id number]) [facility] ([facility]) [address] [place] [address] 12-27-2023 36 Rx sent. Follow up a s scheduled. [facility] 12-13-2023 36 Called pt, no answer and no vm. Mailed letter to contact the office. [facility] 12-09-2023 36 ----- Message from Jose Yen MD sent at 12/08/2023 7:15 AM EDT ----- Cholesterol is excellent, continue rosuvastatin at current dose, strict low-fat low-cholesterol diet Called pt, no answer and no vm. [facility] 12-08-2023 36 ----- Message from Jose Yen MD sent at 12/08/2023 7:15 AM EDT ----- Cholesterol is excellent, continue rosuvastatin at current dose, strict low-fat low-cholesterol diet Called pt, no answer and no vm. [facility] Progress Noteon 12-07-2023 Progress Note Venipuncture complet ed by [facility]. Normal [facility] 36on 11-09-2023 36 Rx sent, order signed Normal [facility] 36 Aries stopped into t he office, is agreeable to start rosuvastatin per lab results. [facility] and orders pended. Normal [facility] House Account Tracking (Ques t)on 10-12-2023 Tracking House Account [facility] Comment on above: We were unable to id entify an account number for the order submitted. If you do not have a [employer] account number or if your account information needs to be updated please call [phone] ([phone]) for assistance. To prevent delays in testing and processing of your orders please provide the following information for this order and with every additional order submitted: [facility] account number and account name Client address Client phone and fax number NPI number of ordering physician along with the physician name. [facility] .GFRon 07-30-2023 GFR 90 ml/min/1.73sqm Normal [facility] ([place]) Comment on above: Result Comment: GFR Population mean for , Non- Americans Ages 20-29 = 116 mL/min/1.73 sq.m. Ages 30-39 = 107 mL/min/1.73 sq.m. Ages 40-49 = 99 mL/min/1.73 sq.m. Ages 50-59 = 93 mL/min/1.73 sq.m. Ages 60-69 = 85 mL/min/1.73 sq.m. Ages 70+ = 75 mL/min/1.73 sq.m. Chronic Kidney Disease: Less than 60 mL/min/1.73 square meters End Stage Renal Disease: Less than 15 mL/min/1.73 square meters Performed By: #### C MP, ADIFF, ANEU, ACETA, CBC, ALC, NITA, MDW, GFR #### [address] [address] #### LITH #### [address] [address] GFR Non- 74 ml/min/1.73sqm Normal [facility] ([place]) Comment on above: Result Comment: GFR Population mean for , Non- Americans Ages 20-29 = 116 mL/min/1.73 sq.m. Ages 30-39 = 107 mL/min/1.73 sq.m. Ages 40-49 = 99 mL/min/1.73 sq.m. Ages 50-59 = 93 mL/min/1.73 sq.m. Ages 60-69 = 85 mL/min/1.73 sq.m. Ages 70+ = 75 mL/min/1.73 sq.m. Chronic Kidney Disease: Less than 60 mL/min/1.73 square meters End Stage Renal Disease: Less than 15 mL/min/1.73 square meters Performed By: #### C MP, ADIFF, ANEU, ACETA, CBC, ALC, NITA, MDW, GFR #### [address] [address] #### LITH #### [place] [address] ACETAon 07-30-2023 Acetaminophen [Mass/Vol] 0.0 ug/mL Low 10.0-30.0 [facility] ([place]) Comment on above: Performed By: #### C MP, ADIFF, ANEU, ACETA, CBC, ALC, NITA, MDW, GFR #### [address] [address] #### LITH #### [place] [address] Ben 07-30-2023 Ethanol Level <3 Normal 0-3 [facility] ([place]) Comment on above: Performed By: #### C MP, ADIFF, ANEU, ACETA, CBC, ALC, NITA, MDW, GFR #### [address] [address] #### LITH #### [place] [address] CMPon 07-30-2023 Albumin Level 4.4 G/dL Normal 3.5-5.0 [facility] ([place]) Comment on above: Performed By: #### C MP, ADIFF, ANEU, ACETA, CBC, ALC, NITA, MDW, GFR #### [place] [address] #### LITH #### [address] [address] Albumin/Globulin [Mass ratio] 1.4 {ratio} Normal 1.1-2.5 [facility] ([place]) Comment on above: Performed By: #### C MP, ADIFF, ANEU, ACETA, CBC, ALC, NITA, MDW, GFR #### [place] [address] #### LITH #### [address] [address] ALP [Catalytic activity/Vol] 108 U/L Normal 40-135 [facility] ([place]) Comment on above: Performed By: #### C MP, ADIFF, ANEU, ACETA, CBC, ALC, NITA, MDW, GFR #### [place] [address] #### LITH #### [place] [address] ALT [Catalytic activity/Vol] 55 U/L Normal 16-63 [facility] ([place]) Comment on above: Performed By: #### C MP, ADIFF, ANEU, ACETA, CBC, ALC, NITA, MDW, GFR #### [place] [address] #### LITH #### [place] [address] AST [Catalytic activity/Vol] 22 U/L Normal 10-40 [facility] ([place]) Comment on above: Performed By: #### C MP, ADIFF, ANEU, ACETA, CBC, ALC, NITA, MDW, GFR #### [place] [address] #### LITH #### [place] [address] Bili Total 0.6 mg/dL Normal 0.2-1.0 [facility] ([place]) Comment on above: Result Comment: Use of this assay is not recommended for patients undergoing treatment with eltrombopag due to the potential for falsely elevated results. Performed By: #### C MP, ADIFF, ANEU, ACETA, CBC, ALC, NITA, MDW, GFR #### [address] [address] #### LITH #### [address] [address] BUN/Creatinine Ratio 7 ratio Normal 7-27 [facility] ([place]) Comment on above: Performed By: #### C MP, ADIFF, ANEU, ACETA, CBC, ALC, NITA, MDW, GFR #### [address] [address] #### LITH #### [address] [address] Calcium [Mass/Vol] 9.3 mg/dL Normal 8.4-10.2 [facility] ([place]) Comment on above: Performed By: #### C MP, ADIFF, ANEU, ACETA, CBC, ALC, NITA, MDW, GFR #### [place] [address] #### LITH #### [address] [address] Chloride [Moles/Vol] 104 mmol/L Normal 98-107 [facility] ([place] Comment on above: Performed By: #### C MP, ADIFF, ANEU, ACETA, CBC, ALC, NITA, MDW, GFR #### [place] [address] #### LITH #### [address] [address] CO2 [Moles/Vol] 30 mmol/L High 22-29 [facility] ([place]) Comment on above: Performed By: #### C MP, ADIFF, ANEU, ACETA, CBC, ALC, NITA, MDW, GFR #### [address] [address] #### LITH #### [address] [address] Creatinine [Mass/Vol] 1.23 mg/dL Normal 0.70-1.30 [facility] ([place]) Comment on above: Performed By: #### C MP, ADIFF, ANEU, ACETA, CBC, ALC, NITA, MDW, GFR #### [address] [address] #### LITH #### [address] [address] Electrolyte Balance 6.0 mEq/L Normal 4.0-15.0 [facility] ([place] Comment on above: Performed By: #### C MP, ADIFF, ANEU, ACETA, CBC, ALC, NITA, MDW, GFR #### [address] [address] #### LITH #### [address] [address] Globulin 3.1 G/dL Normal [facility] ([place]) Comment on above: Performed By: #### C MP, ADIFF, ANEU, ACETA, CBC, ALC, NITA, MDW, GFR #### [place] [address] #### LITH #### [address] [address] Glucose [Mass/Vol] 91 mg/dL Normal 70-105 [facility] ([place]) Comment on above: Performed By: #### C MP, ADIFF, ANEU, ACETA, CBC, ALC, NITA, MDW, GFR #### [place] [address] #### LITH #### [address] [address] Potassium [Moles/Vol] 4.0 mmol/L Normal 3.5-5.1 [facility] ([place]) Comment on above: Performed By: #### C MP, ADIFF, ANEU, ACETA, CBC, ALC, NITA, MDW, GFR #### [place] [address] #### LITH #### [address] [address] Sodium [Moles/Vol] 140 mmol/L Normal 136-145 [facility] ([place]) Comment on above: Performed By: #### C MP, ADIFF, ANEU, ACETA, CBC, ALC, NITA, MDW, GFR #### [place] [address] #### LITH #### [address] [address] Total Protein 7.5 G/dL Normal 6.4-8.2 [facility] ([place]) Comment on above: Performed By: #### C MP, ADIFF, ANEU, ACETA, CBC, ALC, NITA, MDW, GFR #### [place] [address] #### LITH #### [place] [address] Urea nitrogen [Mass/Vol] 8 mg/dL Normal 7-18 [facility] ([place]) Comment on above: Performed By: #### C MP, ADIFF, ANEU, ACETA, CBC, ALC, NITA, MDW, GFR #### [place] [address] #### LITH #### [place] [address] CVFLURVon 07-30-2023 FLU A PCR Negative Normal Negative [facility] ([place] Comment on above: Performed By: #### C VFLURV #### [place] [address] FLU B PCR Negative Normal Negative [facility] ([place] Comment on above: Performed By: #### C VFLURV #### [place] [address] RSV PCR Negative Normal Negative [facility] ([place] Comment on above: Performed By: #### C VFLURV #### [place] [address] SARS-CoV-2 (COVID-19) RNA PERNELL+probe Ql (Unsp spec) Negative Normal Negative [facility] ([place]) Comment on above: Result Comment: Resu lts from the Xpert Xpress CoV-2/Flu/RSV plus test should be correlated with the clinical history, epidemiological data, and other data available to the clinical evaluating the patient. Performance of the Xpert Xpress CoV-2/Flu/RSV plus test has only been established in nasopharyngeal swab specimen. Erroneous test results might occur from improper specimen collection, failure to follow the recommended sample collection, handling and storage procedures, technical error, or sample mix-up. False negative results may occur if a virus is present at a level below the analytical limit of detection. Viral nucleic acid may persist in vivo, independent of virus viability. Detection of analyte target(s) does not imply that the corresponding virus(es) are infectious or are the causative agents for clinical symptoms. Recent patient exposure to FluMist or other live attenuated influenza vaccines may cause inaccurate positive results. Performed By: #### C VFLURV #### [address] 07-30-2023 [place] Level 0.73 mmol/L Normal 0.40-1.30 [facility] ([place]) Comment on above: Performed By: #### C MP, ADIFF, ANEU, ACETA, CBC, ALC, NITA, MDW, GFR #### [place] [address] #### LITH #### [address] 07-30-2023 Salicylate Level <0.2 Low 2.8-20.0 [facility] ([place]) Comment on above: Performed By: #### C MP, ADIFF, ANEU, ACETA, CBC, ALC, NITA, MDW, GFR #### [place] [address] #### LITH #### [place] [address] UDRUGon 07-30-2023 Amphetamine (u) Negative Normal Negative [facility] ([place] Comment on above: Performed By: #### C MP, ADIFF, ANEU, ACETA, CBC, ALC, NITA, MDW, GFR #### [place] [address] #### LITH #### [place] [address] Barbiturate (u) Negative Normal Negative [facility] ([place] Comment on above: Performed By: #### C MP, ADIFF, ANEU, ACETA, CBC, ALC, NITA, MDW, GFR #### [address] [address] #### LITH #### [place] [address] Benzodiazepine (u) Negative Normal Negative [facility] ([place]) Comment on above: Performed By: #### C MP, ADIFF, ANEU, ACETA, CBC, ALC, NITA, MDW, GFR #### [place] [address] #### LITH #### [place] [address] Cannabinoid (u) Negative Normal Negative [facility] ([place] Comment on above: Performed By: #### C MP, ADIFF, ANEU, ACETA, CBC, ALC, NITA, MDW, GFR #### [place] [address] #### LITH #### [place] [address] Cocaine Ql (U) Negative Normal Negative [facility] ([place] Comment on above: Performed By: #### C MP, ADIFF, ANEU, ACETA, CBC, ALC, NITA, MDW, GFR #### [address] [address] #### LITH #### [place] [address] Methadone Ql (U) Negative Normal Negative [facility] ([place] Comment on above: Performed By: #### C MP, ADIFF, ANEU, ACETA, CBC, ALC, NITA, MDW, GFR #### [address] [address] #### LITH #### [place] [address] Opiate (u) Negative Normal Negative [facility] ([place] Comment on above: Performed By: #### C MP, ADIFF, ANEU, ACETA, CBC, ALC, NITA, MDW, GFR #### [address] [address] #### LITH #### [address] [address] PCP (u) Negative Normal Negative [facility] ([place] Comment on above: Performed By: #### C MP, ADIFF, ANEU, ACETA, CBC, ALC, NITA, MDW, GFR #### [address] [address] #### LITH #### [place] [address] Urine Drugs screened: See Below Normal [facility] ([place]) Comment on above: Result Comment: This drug screen is a presumptive screening only. No confirmation will be performed unless requested. Drugs screened include: Threshold Amphetamines/Methamphetamines 1,000 ng/mL Barbiturates 200 ng/mL Benzodiazepine metabolites 200 ng/mL Cannabinoids (THC metabolites) 50 ng/mL Cocaine 300 ng/mL Opiates 300 ng/mL Methadone 300 ng/mL Phencyclidine (PCP) 25 ng/mL Testing has been performed FOR MEDICAL PURPOSES ONLY. Performed By: #### C MP, ADIFF, ANEU, ACETA, CBC, ALC, NITA, MDW, GFR #### [address] [address] #### LITH #### [place] [address] UFENTSon 07-30-2023 Fentanyl (u) Negative Normal Negative [facility] ([place]) Comment on above: Result Comment: Test ing has been performed FOR MEDICAL PURPOSES ONLY. Performed By: #### C MP, ADIFF, ANEU, ACETA, CBC, ALC, NITA, MDW, GFR #### [address] [address] #### LITH #### [place] [address] UOXYSon 07-30-2023 Oxycodone (u) Negative Normal Negative [facility] ([place]) Comment on above: Result Comment: Test ing has been performed FOR MEDICAL PURPOSES ONLY. Performed By: #### C MP, ADIFF, ANEU, ACETA, CBC, ALC, NITA, MDW, GFR #### [address] [address] #### LITH #### [address] [address] .Auto Diffon 07-29-2023 Basophil, Absolute 0.0 10 3/mcL Normal 0.0-0.2 [facility] ([place]) Comment on above: Performed By: #### C MP, ADIFF, ANEU, ACETA, CBC, ALC, NITA, MDW, GFR #### [address] [address] #### LITH #### [address] [address] Basophils/100 WBC (Bld) 0.5 % Normal 0.0-2.5 [facility] ([place]) Comment on above: Performed By: #### C MP, ADIFF, ANEU, ACETA, CBC, ALC, NITA, MDW, GFR #### [address] [address] #### LITH #### [address] [address] Eosinophil, Absolute 0.2 10 3/mcL Normal 0.0-0.4 [facility] ([place]) Comment on above: Performed By: #### C MP, ADIFF, ANEU, ACETA, CBC, ALC, NITA, MDW, GFR #### [address] [address] #### LITH #### [address] [address] Eosinophils/100 WBC (Bld) 1.8 % Normal 0.0-7.0 [facility] ([place]) Comment on above: Performed By: #### C MP, ADIFF, ANEU, ACETA, CBC, ALC, NITA, MDW, GFR #### [place] [address] #### LITH #### [address] [address] Lymphocyte, Absolute 2.5 10 3/mcL Normal 0.8-3.9 [facility] ([place]) Comment on above: Performed By: #### C MP, ADIFF, ANEU, ACETA, CBC, ALC, NITA, MDW, GFR #### [address] [address] #### LITH #### [address] [address] Lymphocytes/100 WBC (Bld) 25.9 % Normal 10.0-50.0 [facility] ([place]) Comment on above: Performed By: #### C MP, ADIFF, ANEU, ACETA, CBC, ALC, NITA, MDW, GFR #### [address] [address] #### LITH #### [address] [address] Monocyte, Absolute 0.6 10 3/mcL Normal 0.2-1.0 [facility] ([place] Comment on above: Performed By: #### C MP, ADIFF, ANEU, ACETA, CBC, ALC, NITA, MDW, GFR #### [address] [address] #### LITH #### [address] [address] Monocytes/100 WBC (Bld) 6.5 % Normal 1.7-13.0 [facility] ([place]) Comment on above: Performed By: #### C MP, ADIFF, ANEU, ACETA, CBC, ALC, NITA, MDW, GFR #### [address] [address] #### LITH #### [address] [address] Neutrophils/100 WBC (Bld) 65.3 % Normal 37.0-80.0 [facility] ([place]) Comment on above: Performed By: #### C MP, ADIFF, ANEU, ACETA, CBC, ALC, NITA, MDW, GFR #### [place] [address] #### LITH #### [place] [address] .MDWon 07-29-2023 Monocyte Distribution Width 15.83 Normal 0.00-20.00 [facility] ([place]) Comment on above: Result Comment: For ED adult patients suspected of sepsis, MDW<=20.0 does not rule out sepsis or risk of sepsis Performed By: #### C MP, ADIFF, ANEU, ACETA, CBC, ALC, NITA, MDW, GFR #### [place] [address] #### LITH #### [place] [address] .NEUABSon 07-29-2023 Neutrophil, Absolute 6.4 10 3/mcL High 2.9-6.2 [facility] ([place]) Comment on above: Performed By: #### C MP, ADIFF, ANEU, ACETA, CBC, ALC, NITA, MDW, GFR #### [place] [address] #### LITH #### [place] [address] CBCon 07-29-2023 Erythrocyte distribution width (RBC) [Ratio] 15.4 % High 11.5-14.5 [facility] ([place]) Comment on above: Performed By: #### C MP, ADIFF, ANEU, ACETA, CBC, ALC, NITA, MDW, GFR #### [place] [address] #### LITH #### [place] [address] Hematocrit (Bld) [Volume fraction] 44.0 % Normal 42.0-52.0 [facility] ([place]) Comment on above: Performed By: #### C MP, ADIFF, ANEU, ACETA, CBC, ALC, NITA, MDW, GFR #### [place] [address] #### LITH #### [place] [address] Hgb 14.9 G/dL Normal 14.0-18.0 [facility] ([place]) Comment on above: Performed By: #### C MP, ADIFF, ANEU, ACETA, CBC, ALC, NITA, MDW, GFR #### [place] [address] #### LITH #### [place] [address] MCH (RBC) [Entitic mass] 28.6 pg Normal 27.0-31.2 [facility] ([place]) Comment on above: Performed By: #### C MP, ADIFF, ANEU, ACETA, CBC, ALC, NITA, MDW, GFR #### [place] [address] #### LITH #### [place] [address] MCHC 34.0 G/dL Normal 31.8-35.4 [facility] ([place]) Comment on above: Performed By: #### C MP, ADIFF, ANEU, ACETA, CBC, ALC, NITA, MDW, GFR #### [place] [address] #### LITH #### [place] [address] MCV (RBC) [Entitic vol] 84.2 fL Normal 80.0-94.0 [facility] ([place]) Comment on above: Performed By: #### C MP, ADIFF, ANEU, ACETA, CBC, ALC, NITA, MDW, GFR #### [place] [address] #### LITH #### [place] [address] Platelet 209 10 3/mcL Normal 130-400 [facility] ([place]) Comment on above: Performed By: #### C MP, ADIFF, ANEU, ACETA, CBC, ALC, NITA, MDW, GFR #### [place] [address] #### LITH #### [place] [address] Platelet mean volume (Bld) [Entitic vol] 8.2 fL Normal 7.4-10.4 [facility] ([place]) Comment on above: Performed By: #### C MP, ADIFF, ANEU, ACETA, CBC, ALC, NITA, MDW, GFR #### [address] [address] #### LITH #### [place] [address] RBC 5.22 10 6/mcL Normal 4.04-6.13 [facility] ([place]) Comment on above: Performed By: #### C MP, ADIFF, ANEU, ACETA, CBC, ALC, NITA, MDW, GFR #### [address] [address] #### LITH #### [place] [address] WBC 9.8 10 3/mcL Normal 4.6-10.8 [facility] ([place]) Comment on above: Performed By: #### C MP, ADIFF, ANEU, ACETA, CBC, ALC, NITA, MDW, GFR #### [place] [address] #### LITH #### [place] [address] LABORATORYOrdered By: Navneet Carreno on 07-29-2023 Acetaminophen [Mass/Vol] 0.0 ug/mL Low 10. 0 - 30.0 mcg/mL AO Chemistry S Amphetamines Screen Ql (U) Negative *NA* (07/29/23 9:42 PM) Invalid Interpretation Code Negative AO ADM SS Barbiturates Screen Ql (U) Negative *NA* (07/29/23 9:42 PM) Invalid Interpretation Code Negative AO ADM SS Benzodiazepines Ql (U) Negative *NA* (07/29/23 9:42 PM) Invalid Interpretation Code Negative AO ADM SS Benzoylecgonine Screen Ql (U) Negative *NA* (07/29/23 9:42 PM) Invalid Interpretation Code Negative AO ADM SS Cannabinoids Screen Ql (U) Negative *NA* (07/29/23 9:42 PM) Invalid Interpretation Code Negative AO ADM SS Methadone Screen Ql (U) Negative *NA* (07/29/23 9:42 PM) Invalid Interpretation Code Negative AO ADM SS Opiates Screen Ql (U) Negative *NA* (07/29/23 9:42 PM) Invalid Interpretation Code Negative AO ADM SS Phencyclidine Ql (U) Negative *NA* (07/29/23 9:42 PM) Invalid Interpretation Code Negative AO ADM SS Salicylates [Mass/Vol] mg/dL Low 2.8 - 20.0 mg/dL AO Chemistry S Urine Drugs screened: See Below 5 (07/29/23 9:42 PM) Normal AO Chemistry S Comment on above: Interpretive Data: T his drug screen is a presumptive screening only. No confirmation will be performed unless requested. Drugs screened include: Threshold Amphetamines/Methamphetamines 1,000 ng/mL Barbiturates 200 ng/mL Benzodiazepine metabolites 200 ng/mL Cannabinoids (THC metabolites) 50 ng/mL Cocaine 300 ng/mL Opiates 300 ng/mL Methadone 300 ng/mL Phencyclidine (PCP) 25 ng/mL Testing has been performed FOR MEDICAL PURPOSES ONLY. LABORATORYOrdered By: SYSTEM SYSTEM on 07-29-2023 Albumin BCP dye [Mass/Vol] 4.4 G/dL Normal 3.5 - 5.0 G/dL AO ADM SS Albumin/Globulin [Mass ratio] 1.4 {ratio} Normal 1.1 - 2.5 ratio AO ADM SS ALP [Catalytic activity/Vol] 108 U/L Normal 40 - 135 U/L AO ADM SS ALT With P-5'-P [Catalytic activity/Vol] 55 U/L Normal 16 - 63 U/L AO ADM SS AST With P-5'-P [Catalytic activity/Vol] 22 U/L Normal 10 - 40 U/L AO ADM SS Basophil, Absolute 0.0 103/mcL Normal 0.0 - 0.2 10^3/mcL AO Workflow SS Basophils/100 WBC (Bld) 0.5 % Normal 0.0 - 2.5 % AO Workflow SS Bilirubin [Mass/Vol] 0.6 mg/dL Normal 0.2 - 1 .0 mg/dL AO ADM SS Comment on above: Interpretive Data: U se of this assay is not recommended for patients undergoing treatment with eltrombopag due to the potential for falsely elevated results. Calcium [Mass/Vol] 9.3 mg/dL Normal 8.4 - 10. 2 mg/dL AO ADM SS Chloride [Moles/Vol] 104 mmol/L Normal 98 - 10 7 mmol/L AO ADM SS CO2 [Moles/Vol] 30 mmol/L High 22 - 29 mmol/L AO ADM SS Creatinine [Mass/Vol] 1.23 mg/dL Normal 0.70 - 1.30 mg/dL AO ADM SS Electrolyte Balance 6.0 mEq/L Normal 4.0 - 15 .0 mEq/L AO ADM SS Eosinophil, Absolute 0.2 103/mcL Normal 0.0 - 0 .4 10^3/mcL AO Workflow SS Eosinophils/100 WBC (Bld) 1.8 % Normal 0.0 - 7.0 % AO Workflow SS Erythrocyte distribution width (RBC) [Ratio] 15.4 % High 11.5 - 14.5 % AO Workflow SS Ethanol [Mass/Vol] mg/dL Normal 0 - 3 mg/dL AO AD M SS GFR/1.73 sq M.predicted among blacks MDRD (S/P/Bld) [Vol rate/Area] 90 ml/min/1.73sqm Invalid Interpretation Code AO Chemistry S Comment on above: Interpretive Data: GFR Population mean for , Non- Americans Ages 20-29 = 116 mL/min/1.73 sq.m. Ages 30-39 = 107 mL/min/1.73 sq.m. Ages 40-49 = 99 mL/min/1.73 sq.m. Ages 50-59 = 93 mL/min/1.73 sq.m. Ages 60-69 = 85 mL/min/1.73 sq.m. Ages 70+ = 75 mL/min/1.73 sq.m. Chronic Kidney Disease: Less than 60 mL/min/1.73 square meters End Stage Renal Disease: Less than 15 mL/min/1.73 square meters GFR/1.73 sq M.predicted among non-blacks MDRD (S/P/Bld) [Vol rate/Area] 74 ml/min/1.73sqm Invalid Interpretation Code AO Chemistry S Comment on above: Interpretive Data: GFR Population mean for , Non- Americans Ages 20-29 = 116 mL/min/1.73 sq.m. Ages 30-39 = 107 mL/min/1.73 sq.m. Ages 40-49 = 99 mL/min/1.73 sq.m. Ages 50-59 = 93 mL/min/1.73 sq.m. Ages 60-69 = 85 mL/min/1.73 sq.m. Ages 70+ = 75 mL/min/1.73 sq.m. Chronic Kidney Disease: Less than 60 mL/min/1.73 square meters End Stage Renal Disease: Less than 15 mL/min/1.73 square meters Globulin 3.1 G/dL Invalid Interpretation Code AO ADM SS Glucose [Mass/Vol] 91 mg/dL Normal 70 - 105 mg/dL AO ADM SS Hematocrit (Bld) [Volume fraction] 44.0 % Normal 42.0 - 52.0 % AO Workflow SS Hemoglobin (Bld) [Mass/Vol] 14.9 G/dL Normal 14.0 - 18.0 G/dL AO Workflow SS [place] [Moles/Vol] 0.73 mmol/L Normal 0.40 - 1 .30 mmol/L AH ADM SS Lymphocyte, Absolute 2.5 103/mcL Normal 0.8 - 3 .9 10^3/mcL AO Workflow SS Lymphocytes/100 WBC (Bld) 25.9 % Normal 10.0 - 50.0 % AO Workflow SS MCH (RBC) [Entitic mass] 28.6 pg Normal 27. 0 - 31.2 pg AO Workflow SS MCHC 34.0 G/dL Normal 31.8 - 35.4 G/dL AO Workflow SS MCV (RBC) [Entitic vol] 84.2 fL Normal 80.0 - 94.0 fL AO Workflow SS Monocyte distribution width Auto (Bld) [Entitic vol] 15.83 1 Normal 0.00 - 20.00 AO Workflow SS Comment on above: Result Comment: For ED adult patients suspected of sepsis, MDW<=20.0 does not rule out sepsis or risk of sepsis Monocyte, Absolute 0.6 103/mcL Normal 0.2 - 1.0 10^3/mcL AO Workflow SS Monocytes/100 WBC (Bld) 6.5 % Normal 1.7 - 13.0 % AO Workflow SS Neutrophil, Absolute 6.4 103/mcL High 2.9 - 6 .2 10^3/mcL AO Workflow SS Neutrophils/100 WBC (Bld) 65.3 % Normal 37.0 - 80.0 % AO Workflow SS Platelet mean volume (Bld) [Entitic vol] 8.2 fL Normal 7.4 - 10.4 fL AO Workflow SS Platelets (Bld) [#/Vol] 209 103/mcL Normal 130 - 400 10^3/mcL AO Workflow SS Potassium [Moles/Vol] 4.0 mmol/L Normal 3.5 - 5.1 mmol/L AO ADM SS Protein [Mass/Vol] 7.5 G/dL Normal 6.4 - 8.2 G/dL AO ADM SS RBC (Bld) [#/Vol] 5.22 106/mcL Normal 4.04 - 6.1 3 10^6/mcL AO Workflow SS Sodium [Moles/Vol] 140 mmol/L Normal 136 - 145 mmol/L AO ADM SS Urea nitrogen [Mass/Vol] 8 mg/dL Normal 7 - 18 mg/dL AO ADM SS Urea nitrogen/Creatinine [Mass ratio] 7 ratio Normal 7 - 27 ratio AO ADM SS WBC (Bld) [#/Vol] 9.8 103/mcL Normal 4.6 - 10.8 10^3/mcL AO Workflow SS LABORATORYOrdered By: Kevin Calabrese on 07-29-2023 fentaNYL Screen Ql (U) Negative 2 *NA* (07/29/23 9:42 PM) Invalid Interpretation Code Negative ADM SS Comment on above: Interpretive Data: T esting has been performed FOR MEDICAL PURPOSES ONLY. oxyCODONE Ql (U) Negative 3 *NA* (07/29/23 9:42 PM) Invalid Interpretation Code Negative ADM SS Comment on above: Interpretive Data: T esting has been performed FOR MEDICAL PURPOSES ONLY. LABORATORYOrdered By: Elizabeth Schulz on 07-29-2023 FLUAV RNA PERNELL+probe Ql (Resp) Negative (07/29/23 9:42 PM) Normal Negative AO Auto Urine SS FLUBV RNA PERNELL+probe Ql (Resp) Negative (07/29/23 9:42 PM) Normal Negative AO Auto Urine SS RSV RNA PERNELL+probe Ql (Resp) Negative (07/29/23 9:42 PM) Normal Negative AO Auto Urine SS SARS-CoV-2 (COVID-19) RNA PERNELL+probe Ql (Resp) Negative 6 (07/29/23 9:42 PM) Normal Negative AO Auto Urine SS Comment on above: Interpretive Data: R esults from the Xpert Xpress CoV-2/Flu/RSV plus test should be correlated with the clinical history, epidemiological data, and other data available to the clinical evaluating the patient. Performance of the Xpert Xpress CoV-2/Flu/RSV plus test has only been established in nasopharyngeal swab specimen. Erroneous test results might occur from improper specimen collection, failure to follow the recommended sample collection, handling and storage procedures, technical error, or sample mix-up. False negative results may occur if a virus is present at a level below the analytical limit of detection. Viral nucleic acid may persist in vivo, independent of virus viability. Detection of analyte target(s) does not imply that the corresponding virus(es) are infectious or are the causative agents for clinical symptoms. Recent patient exposure to FluMist or other live attenuated influenza vaccines may cause inaccurate positive results. House Account Tracking (Ques t)on 09-22-2022 Tracking House Account [facility] Comment on above: We were unable to id entify an account number for the order submitted. If you do not have a [employer] account number or if your account information needs to be updated please call [phone] ([phone]) for assistance. To prevent delays in testing and processing of your orders please provide the following information for this order and with every additional order submitted: [facility] account number and account name Client address Client phone and fax number NPI number of ordering physician along with the physician name. [facility] [employer] Hemoglobin A1Con 11-04-2021 Glucose [Mass/Vol] 97 mg/dL Normal [facility] Comment on above: Performed By: #### H A1C2, LIPD2 ####[id number] [place] [address] HbA1c (Bld) [Mass fraction] 5.0 % Normal [facility] Comment on above: Result Comment: Norm al less than 5.7% Prediabetes 5.7% to 6.4% Diabetes 6.5% or higher --HgbA1C levels may not be accurate in patients who have renal disease, received recent blood transfusions, are anemic, or who have dyshemoglobinemia. Performed By: #### H A1C2, LIPD2 ####[address] [place] [address] Lipid Panelon 11-04-2021 Chol/HDL 6 Normal [facility] Comment on above: Result Comment: Ref Range: < 3 Low Risk for CHD 3-6 Mod Risk for CHD > 6 High Risk for CHD Performed By: #### H A1C2, LIPD2 ####[address] [place] [address] Cholesterol [Mass/Vol] 245 mg/dL Abnormal < 200 See [facility] Comment on above: Performed By: #### H A1C2, LIPD2 ####[address] [place] [address] Cholesterol in HDL [Mass/Vol] 39 mg/dL Low 40-60 [facility] Comment on above: Performed By: #### H A1C2, LIPD2 ####[address] [place] [address] Low Density Lipoprotein 173 mg/dL Abnormal <100 [facility] Comment on above: Performed By: #### H A1C2, LIPD2 ####[address] [place] [address] Triglyceride [Mass/Vol] 166 mg/dL Abnormal <150 [facility] Comment on above: Performed By: #### H A1C2, LIPD2 ####[address] [place] [address] Basic Metabolic Panelon 10-17 Anion gap [Moles/Vol] 11 mmol/L Normal 3-13 [facility] Comment on above: Performed By: #### B MP3 ####[facility] [place] [address] Calcium [Mass/Vol] 10.2 mg/dL Normal 8.4-10.4 [facility] Comment on above: Performed By: #### B MP3 ####[facility] [place] [address] Chloride [Moles/Vol] 105 mmol/L Normal 98-107 [facility] Comment on above: Performed By: #### B MP3 ####[facility] [place] [address] CO2 [Moles/Vol] 22 mmol/L Normal 22-30 [facility] Comment on above: Performed By: #### B MP3 ####[facility] [place] [address] Creatinine [Mass/Vol] 1.14 mg/dL Normal 0.52-1.25 [facility] Comment on above: Performed By: #### B MP3 ####[facility] [place] [address] eGFR OTHER > 90.0 Normal >60 [facility] Comment on above: Result Comment: KDIG O guidelines provide the following GFR categories: Stage GFR(ml/min/1.73 m2) Terms G1 >=90 Normal or high G2 60-89 Mildly decreased* G3a 45-59 Mildly to moderately decreased G3b 30-44 Moderately to severely decreased G4 15-29 Severely decreased G5 <15 Kidney failure *Relative to young adult level. In the absence of evidence of kidney damage, neither GFR category G1 nor G2 fulfill the criteria for CKD. The CKD-EPI equation is validated in individuals 18 years of age and older. Currently the best equation for estimating glomerular filtration rate (GFR) from serum creatinine in children is the Bedside Watts equation. It is less accurate in patients with extremes of muscle mass, restriction of dietary protein, ingestion of creatine, extra-renal metabolism of creatinine, or treatment with medications that affect renal tubular creatinine secretion. Performed By: #### B MP3 ####[facility] [place] [address] GFR/1.73 sq M.predicted among blacks MDRD (S/P/Bld) [Vol rate/Area] mL/min/{1.73_m2} Normal >60 [facility] Comment on above: Performed By: #### B MP3 ####[facility] [place] [address] Glucose [Mass/Vol] 112 mg/dL High 70-100 [facility] Comment on above: Performed By: #### B MP3 ####[facility] [place] [address] Potassium [Moles/Vol] 3.8 mmol/L Normal 3.5-5.1 [facility] Comment on above: Performed By: #### B MP3 ####[facility] [place] [address] Sodium [Moles/Vol] 138 mmol/L Normal 135-145 [facility] Comment on above: Performed By: #### B MP3 ####[facility] [place] [address] Urea nitrogen [Mass/Vol] 21 mg/dL High 7-17 [facility] Comment on above: Performed By: #### B MP3 ####[facility] [place] [address] Comp Metabolic Panelon 11-02 ALP [Catalytic activity/Vol] 85 U/L Normal 38-126 [facility] Comment on above: Performed By: #### E TOH4, CMP3, HEMDF ####[facility] [place] [address] ALT [Catalytic activity/Vol] 24 U/L Normal 0-49 [facility] Comment on above: Result Comment: The ALT test is performed by an updated assay method. Please note that the reference intervals have been changed and are now sex specific. Performed By: #### E TOH4, CMP3, HEMDF ####[facility] [place] [address] Anion gap [Moles/Vol] 11 mmol/L Normal 3-13 [facility] Comment on above: Performed By: #### E TOH4, CMP3, HEMDF ####[facility] [place] [address] AST [Catalytic activity/Vol] 32 U/L Normal 15-46 [facility] Comment on above: Performed By: #### E TOH4, CMP3, HEMDF ####[facility] [place] [address] Bilirubin [Mass/Vol] 0.7 mg/dL Normal 0.2-1.3 [facility] Comment on above: Performed By: #### E TOH4, CMP3, HEMDF ####[facility] [place] [address] Calcium [Mass/Vol] 10.2 mg/dL Normal 8.4-10.4 [facility] Comment on above: Performed By: #### E TOH4, CMP3, HEMDF ####[facility] [place] [address] CO2 [Moles/Vol] 25 mmol/L Normal 22-30 [facility] Comment on above: Performed By: #### E TOH4, CMP3, HEMDF ####[facility] [place] [address] Glucose [Mass/Vol] 103 mg/dL High 70-100 [facility] Comment on above: Performed By: #### E TOH4, CMP3, HEMDF ####[facility] [place] [address] Protein [Mass/Vol] 7.9 g/dL Normal 6.3-8.2 [facility] Comment on above: Performed By: #### E TOH4, CMP3, HEMDF ####[facility] [place] [address] Urea nitrogen [Mass/Vol] 17 mg/dL Normal 7-17 [facility] Comment on above: Performed By: #### E TOH4, CMP3, HEMDF ####[facility] [place] [address] Creatinine [Mass/Vol] 1.40 mg/dL High 0.52-1.25 [facility] Comment on above: Performed By: #### E TOH4, CMP3, HEMDF ####[facility] [place] [address] GFR/1.73 sq M.predicted among blacks MDRD (S/P/Bld) [Vol rate/Area] 83.4 mL/min/{1.73_m2} Normal >60 [facility] Comment on above: Performed By: #### E TOH4, CMP3, HEMDF ####[facility] [place] [address] GFR/1.73 sq M.predicted among non-blacks MDRD (S/P/Bld) [Vol rate/Area] 71.9 mL/min/{1.73_m2} Normal >60 [facility] Comment on above: Result Comment: KDIG O guidelines provide the following GFR categories: Stage GFR(ml/min/1.73 m2) Terms G1 >=90 Normal or high G2 60-89 Mildly decreased* G3a 45-59 Mildly to moderately decreased G3b 30-44 Moderately to severely decreased G4 15-29 Severely decreased G5 <15 Kidney failure *Relative to young adult level. In the absence of evidence of kidney damage, neither GFR category G1 nor G2 fulfill the criteria for CKD. The CKD-EPI equation is validated in individuals 18 years of age and older. Currently the best equation for estimating glomerular filtration rate (GFR) from serum creatinine in children is the Bedside Watts equation. It is less accurate in patients with extremes of muscle mass, restriction of dietary protein, ingestion of creatine, extra-renal metabolism of creatinine, or treatment with medications that affect renal tubular creatinine secretion. Performed By: #### E TOH4, CMP3, HEMDF ####[facility] [place] [address] Albumin [Mass/Vol] 4.9 g/dL Normal 3.5-5.0 [facility] Comment on above: Performed By: #### E TOH4, CMP3, HEMDF ####[facility] [place] [address] Chloride [Moles/Vol] 103 mmol/L Normal 98-107 [facility] Comment on above: Performed By: #### E TOH4, CMP3, HEMDF ####[facility] [place] [address] Potassium [Moles/Vol] 4.0 mmol/L Normal 3.5-5.1 [facility] Comment on above: Performed By: #### E TOH4, CMP3, HEMDF ####[facility] [place] [address] Sodium [Moles/Vol] 139 mmol/L Normal 135-145 [facility] Comment on above: Performed By: #### E TOH4, CMP3, HEMDF ####[facility] [place] [address] Drugs of Abuseon 11-02-2021 Phencyclidine (PCP), Ur Negative Normal [facility] Comment on above: Result Comment: The expected value for all of the drugs listed above is Negative. The following drugs or drug groups have been screened for by Immunoassay at the following thresholds: Amphetamine class (1000 ng/mL), Barbiturates (200 ng/mL), Benzodiazepines (200 ng/mL), Cocaine (300 ng/mL), Methadone (300 ng/mL), Opiates (300 ng/mL), Oxycodone (100 ng/mL), and PCP (25 ng/mL). NOTE: These results are for medical treatment only. Analysis performed using non-forensic procedures. POSITIVE results are NOT confirmed by a more specific alternative method unless requested. If confirmation is needed, request confirmation under separate order. Performed By: #### C OVID, DRGA4 #### [facility] [place] [address] Methadone, Ur Negative Normal [facility] Comment on above: Performed By: #### C OVID, DRGA4 #### [facility] [address] [place] [address] Opiates, Ur Negative Normal [facility] Comment on above: Performed By: #### C OVID, DRGA4 #### [facility] [place] [address] Cocaine, Ur Negative Normal [facility] Comment on above: Performed By: #### C OVID, DRGA4 #### [facility] [place] [address] Barbiturates, Ur Negative Normal [facility] Comment on above: Performed By: #### C OVID, DRGA4 #### [facility] [address] [place] [address] Benzodiazepines, Ur Negative Normal [facility] Comment on above: Performed By: #### C OVID, DRGA4 #### [facility] [address] [place] [address] Amphetamines, Ur Negative Normal [facility] Comment on above: Performed By: #### C OVID, DRGA4 #### [facility] [address] [place] [address] Oxycodone/Oxymorphine,Ur Negative Normal [facility] Comment on above: Performed By: #### C OVID, DRGA4 #### [facility] [address] [place] [address] Ethanol Serum/Plasmaon 11-02 Ethanol-Serum/Plasma < 0.010 Normal 0.000-0.010 [facility] Comment on above: Result Comment: NOTE : This result is for medical treatment only. Analysis performed using non-forensic procedures. Performed By: #### E TOVanesa, CMP3, HEMDF ####[facility] [place] [address] Hemogram w/ Autodiffon 11-02 Abs Baso Cnt 0.0 10*3/uL Normal 0.0-0.2 [facility] Comment on above: Performed By: #### E TOVanesa, CMP3, HEMDF ####[facility] [place] [address] Abs Neutrophile Cnt 4.7 10*3/uL Normal 1.8-7.0 [facility] Comment on above: Performed By: #### E TOVanesa, CMP3, HEMDF ####[facility] [place] [address] Basophils/100 WBC (Bld) 0.6 % Normal 0.0-2.0 [facility] Comment on above: Performed By: #### E TOVanesa, CMP3, HEMDF ####[facility] [place] [address] Eosinophils (Bld) [#/Vol] 0.2 10*3/uL Normal 0.0-0.5 [facility] Comment on above: Performed By: #### E TOH4, CMP3, HEMDF ####[facility] [place] [address] Eosinophils/100 WBC (Bld) 2.3 % Normal 1.0-6.0 [facility] Comment on above: Performed By: #### E TOH4, CMP3, HEMDF ####[facility] [place] [address] Erythrocyte distribution width (RBC) [Ratio] 12.6 % Normal 11.5-14.5 [facility] Comment on above: Performed By: #### E TOH4, CMP3, HEMDF ####[facility] [place] [address] Granulocytes/100 WBC (Bld) 57.4 % Normal 40.0-80.0 [facility] Comment on above: Performed By: #### E TOH4, CMP3, HEMDF ####[facility] [place] [address] Hematocrit (Bld) [Volume fraction] 43.6 % Normal 40.0-52.0 [facility] Comment on above: Performed By: #### E TOH4, CMP3, HEMDF ####[facility] [place] [address] Hemoglobin (Bld) [Mass/Vol] 15.2 g/dL Normal 13.0-18.0 [facility] Comment on above: Performed By: #### E TOH4, CMP3, HEMDF ####[address] [place] [address] Lymphocytes (Bld) [#/Vol] 2.6 10*3/uL Normal 1.0-4.3 [facility] Comment on above: Performed By: #### E TOH4, CMP3, HEMDF ####[address] [place] [address] Lymphocytes/100 WBC (Bld) 32.2 % Normal 20.0-40.0 [facility] Comment on above: Performed By: #### E TOH4, CMP3, HEMDF ####[facility] [place] [address] MCH (RBC) [Entitic mass] 29.6 pg Normal 26.0-34.0 [facility] Comment on above: Performed By: #### E TOH4, CMP3, HEMDF ####[facility] [place] [address] MCHC 34.9 % Normal 32.0-36.0 [facility] Comment on above: Performed By: #### E TOH4, CMP3, HEMDF ####[facility] [place] [address] MCV (RBC) [Entitic vol] 85.0 fL Normal 80.0-98.0 [facility] Comment on above: Performed By: #### E TOH4, CMP3, HEMDF ####[facility] [place] [address] Monocytes (Bld) [#/Vol] 0.6 10*3/uL Normal 0.0-0.8 [facility] Comment on above: Performed By: #### E TOH4, CMP3, HEMDF ####[facility] [place] [address] Monocytes/100 WBC (Bld) 6.8 % Normal 2.0-10.0 [facility] Comment on above: Performed By: #### E TOH4, CMP3, HEMDF ####[facility] [place] [address] Platelet mean volume (Bld) [Entitic vol] 10.5 fL Normal 7.4-12.4 [facility] Comment on above: Result Comment: MPV is a calculated measurement using platelet volume ratio. Performed By: #### E TOH4, CMP3, HEMDF ####[facility] [place] [address] Platelets (Bld) [#/Vol] 203 10*3/uL Normal 140-440 [facility] Comment on above: Performed By: #### E TOH4, CMP3, HEMDF ####[facility] [place] [address] RBC (Bld) [#/Vol] 5.13 10*6/uL Normal 4.40-5.90 [facility] Comment on above: Performed By: #### E TOH4, CMP3, HEMDF ####[facility] [place] [address] WBC (Bld) [#/Vol] 8.2 10*3/uL Normal 3.6-10.7 [facility] Comment on above: Performed By: #### E TOH4, CMP3, HEMDF ####[facility] [place] [address] [id number] 11-02-2021 SARS-CoV-2 (COVID-19) RNA PERNELL+probe Ql (Unsp spec) Not detected Normal [facility] Comment on above: Performed By: #### C OVID, DRGA4 #### [facility] [address] [place] [address] CR Finger(s) Min 2 Views Rig hton 08-18-2021 CR Finger(s) Min 2 Views Right Patient Name: ARIES CARRASCO Diagnostic Radiology ACCESSION EXAM DATE/TIME PROCEDURE ORDERING PROVIDER [id number] 08/18/2021 21:35 EDT CR Finger(s) Min 2 Views MD BRITO NISHIT Right CPT code 05029 Reason For Exam (CR Finger(s) Min 2 Views Right) third finger pain Report EXAMINATION: RIGHT FINGER RADIOGRAPH CLINICAL INDICATION: Third finger pain after injury TECHNIQUE: Three views COMPARISON: None. FINDINGS: No acute fracture or subluxation. Alignment is anatomic. Joint spaces are preserved. Soft tissues are intact. IMPRESSION: No acute osseous abnormality. Report Dictated on Final Dictating Physician: MD LESLIE WASSIM OSAMA Signed Date and Time: 08/18/2021 9:44 pm Signed by: MD LESLIE WASSIM OSAMA Transcribed Date and Time: 08/18/2021 9:45 Normal [facility] XR FINGER RIGHT (MIN 2 VIEWS )on 08-18-2021 Patient Name: ARIES CARRASCO Diagnostic Radiology ACCESSION EXAM DATE/TIME PROCEDURE ORDERING PROVIDER [id number] 08/18/2021 21:35 EDT CR Finger(s) Min 2 Views MD BRITO NISHIT Right CPT code 38263 Reason For Exam (CR Finger(s) Min 2 Views Right) third finger pain Report EXAMINATION: RIGHT FINGER RADIOGRAPH CLINICAL INDICATION: Third finger pain after injury TECHNIQUE: Three views COMPARISON: None. FINDINGS: No acute fracture or subluxation. Alignment is anatomic. Joint spaces are preserved. Soft tissues are intact. IMPRESSION: No acute osseous abnormality. Report Dictated on --- Final --- Dictating Physician: MD LESLIE WASSIM OSAMA Signed Date and Time: 08/18/2021 9:44 pm Signed by: MD LESLIE WASSIM OSAMA Transcribed Date and Time: 08/18/2021 9:45 [facility] RAD Martin Leslie MD - 08/18/2021 Patient Name: ARIES CARRASCO Diagnostic Radiology ACCESSION EXAM DATE/TIME PROCEDURE ORDERING PROVIDER [id number] 08/18/2021 21:35 EDT CR Finger(s) Min 2 Views MD KEV, PAULA Right CPT code 10587 Reason For Exam (CR Finger(s) Min 2 Views Right) third finger pain Report EXAMINATION: RIGHT FINGER RADIOGRAPH CLINICAL INDICATION: Third finger pain after injury TECHNIQUE: Three views COMPARISON: None. FINDINGS: No acute fracture or subluxation. Alignment is anatomic. Joint spaces are preserved. Soft tissues are intact. IMPRESSION: No acute osseous abnormality. Report Dictated on --- Final --- Dictating Physician: MD LESLIE WASSIM OSAMA Signed Date and Time: 08/18/2021 9:44 pm Signed by: MD LESLIE WASSIM OSAMA Transcribed Date and Time: 08/18/2021 9:45 [facility] Work Phone: Radiology Study observation (narrative) [facility] Work Phone: XR FINGER RIGHT (MIN 2 VIEWS )Ordered By: Martin Leslie on 08-18-2021 [facility] Work Phone: Glucose,Bedsideon 06-10-2021 Glucose [Mass/Vol] 101 mg/dL High 70-100 [facility] Comment on above: Result Comment: Test performed by glucose meter. Results may be 10%-15% lower than serum/plasma values. (CLIA ID [id number]) Performed By: #### B GLU ####[facility] [place] [address] Lithiumon 06-10-2021 [place] [Moles/Vol] 1.0 mmol/L Normal 0.6-1.2 [facility] Comment on above: Performed By: #### L I3 ####[address] [place] [address] Basic Metabolic Panelon 05-21 Calcium [Mass/Vol] 10.2 mg/dL Normal 8.4-10.4 [facility] Comment on above: Performed By: #### B MP3, ETOH4, HEMDF #### [facility] [address] [place] [address] Anion gap [Moles/Vol] 7 mmol/L Normal 3-13 [facility] Comment on above: Performed By: #### B MP3, ETOH4, HEMDF #### [facility] [address] [place] [address] CO2 [Moles/Vol] 28 mmol/L Normal 22-30 [facility] Comment on above: Performed By: #### B MP3, ETOH4, HEMDF #### [facility] [address] [place] [address] Creatinine [Mass/Vol] 1.21 mg/dL Normal 0.52-1.25 [facility] Comment on above: Performed By: #### B MP3, ETOH4, HEMDF #### [facility] [address] [place] [address] GFR/1.73 sq M.predicted among blacks MDRD (S/P/Bld) [Vol rate/Area] mL/min/{1.73_m2} Normal >60 [facility] Comment on above: Performed By: #### B MP3, ETOH4, HEMDF #### [facility] [address] [place] [address] GFR/1.73 sq M.predicted among non-blacks MDRD (S/P/Bld) [Vol rate/Area] 86.0 mL/min/{1.73_m2} Normal >60 [facility] Comment on above: Result Comment: KDIG O guidelines provide the following GFR categories: Stage GFR(ml/min/1.73 m2) Terms G1 >=90 Normal or high G2 60-89 Mildly decreased* G3a 45-59 Mildly to moderately decreased G3b 30-44 Moderately to severely decreased G4 15-29 Severely decreased G5 <15 Kidney failure *Relative to young adult level. In the absence of evidence of kidney damage, neither GFR category G1 nor G2 fulfill the criteria for CKD. The CKD-EPI equation is validated in individuals 18 years of age and older. Currently the best equation for estimating glomerular filtration rate (GFR) from serum creatinine in children is the Bedside Watts equation. It is less accurate in patients with extremes of muscle mass, restriction of dietary protein, ingestion of creatine, extra-renal metabolism of creatinine, or treatment with medications that affect renal tubular creatinine secretion. Performed By: #### B MP3, ETOH4, HEMDF #### [facility] [address] [place] [address] Glucose [Mass/Vol] 102 mg/dL High 70-100 [facility] Comment on above: Performed By: #### B MP3, ETOH4, HEMDF #### [facility] [address] [place] [address] Urea nitrogen [Mass/Vol] 9 mg/dL Normal 7-17 [facility] Comment on above: Performed By: #### B MP3, ETOH4, HEMDF #### [facility] [address] [place] [address] Chloride [Moles/Vol] 102 mmol/L Normal 98-107 [facility] Comment on above: Performed By: #### B MP3, ETOH4, HEMDF #### [facility] [address] [place] [address] Potassium [Moles/Vol] 3.8 mmol/L Normal 3.5-5.1 [facility] Comment on above: Performed By: #### B MP3, ETOH4, HEMDF #### [facility] [address] [place] [address] Sodium [Moles/Vol] 138 mmol/L Normal 135-145 [facility] Comment on above: Performed By: #### B MP3, ETOH4, HEMDF #### [facility] [address] [place] [address] Complete Urinalysison 2021 RBC, Urine 0 - 2 Normal 0-2 [facility] Comment on above: Result Comment: . Performed By: #### C UA2, DRGA4, COVAG ####[facility] [place] [address] Squamous Epithelial 0 - 2 Normal 3-5 [facility] Comment on above: Result Comment: . Performed By: #### C UA2, DRGA4, COVAG ####[facility] [place] [address] VOLUME, URINE 12 ml Normal [facility] Comment on above: Result Comment: . Performed By: #### C UA2, DRGA4, COVAG ####[facility] [place] [address] WBC, Urine 0 - 2 Normal 0-5 [facility] Comment on above: Result Comment: . Performed By: #### C UA2, DRGA4, COVAG ####[facility] [place] [address] Appearance (U) Clear Normal Clear [facility] Comment on above: Result Comment: . Performed By: #### C UA2, DRGA4, COVAG ####[facility] [place] [address] Bilirubin,Urine Negative Normal Negative [facility] Comment on above: Result Comment: . Performed By: #### C UA2, DRGA4, COVAG ####[facility] [place] [address] Color (U) LIGHT YELLOW Normal Lt. Yellow [facility] Comment on above: Result Comment: . Performed By: #### C UA2, DRGA4, COVAG ####[facility] [place] [address] Glucose Ql (U) Normal Normal Normal (<70) [facility] Comment on above: Result Comment: . Performed By: #### C UA2, DRGA4, COVAG ####[address] [place] [address] Ketone,Urine Negative Normal Negative [facility] Comment on above: Result Comment: . Performed By: #### C UA2, DRGA4, COVAG ####[address] [place] [address] Leukocytes,Urine Negative Normal Negative [facility] Comment on above: Result Comment: . Performed By: #### C UA2, DRGA4, COVAG ####[address] [place] [address] Nitrites,Urine Negative Normal Negative [facility] Comment on above: Result Comment: . Performed By: #### C UA2, DRGA4, COVAG ####[address] [place] [address] Occult Blood,Urine Negative Normal Negative [facility] Comment on above: Result Comment: . Performed By: #### C UA2, DRGA4, COVAG ####[address] [place] [address] pH,Urine 6.5 Normal 5.0-8.0 [facility] Comment on above: Result Comment: . Performed By: #### C UA2, DRGA4, COVAG ####[address] [place] [address] Protein (U) [Mass/Vol] 10 mg/dL Abnormal Negative [facility] Comment on above: Result Comment: . Performed By: #### C UA2, DRGA4, COVAG ####[address] [place] [address] Specific [place],Urine 1.008 Normal 1.005 - 1.030 [facility] Comment on above: Result Comment: . Performed By: #### C UA2, DRGA4, COVAG ####[address] [place] [address] Urobilinogen,Urine Normal Normal Normal (0-1) [facility] Comment on above: Result Comment: . Performed By: #### C UA2, DRGA4, COVAG ####[place] [place] [address] Drugs of Abuseon 06-08-2021 Phencyclidine (PCP), Ur Negative Normal [facility] Comment on above: Result Comment: The expected value for all of the drugs listed above is Negative. The following drugs or drug groups have been screened for by Immunoassay at the following thresholds: Amphetamine class (1000 ng/mL), Barbiturates (200 ng/mL), Benzodiazepines (200 ng/mL), Cocaine (300 ng/mL), Methadone (300 ng/mL), Opiates (300 ng/mL), Oxycodone (100 ng/mL), and PCP (25 ng/mL). NOTE: These results are for medical treatment only. Analysis performed using non-forensic procedures. POSITIVE results are NOT confirmed by a more specific alternative method unless requested. If confirmation is needed, request confirmation under separate order. Performed By: #### C UA2, DRGA4, COVAG ####[address] [place] [address] Methadone, Ur Negative Normal [facility] Comment on above: Performed By: #### C UA2, DRGA4, COVAG ####[address] [place] [address] Opiates, Ur Negative Normal [facility] Comment on above: Performed By: #### C UA2, DRGA4, COVAG ####[address] [place] [address] Benzodiazepines, Ur Negative Normal [facility] Comment on above: Performed By: #### C UA2, DRGA4, COVAG ####[address] [place] [address] Cocaine, Ur Negative Normal [facility] Comment on above: Performed By: #### C UA2, DRGA4, COVAG ####[address] [place] [address] Barbiturates, Ur Negative Normal [facility] Comment on above: Performed By: #### C UA2, DRGA4, COVAG ####[address] [place] [address] Amphetamines, Ur Negative Normal [facility] Comment on above: Performed By: #### C UA2, DRGA4, COVAG ####[facility] [place] [address] Oxycodone/Oxymorphine,Ur Negative Normal [facility] Comment on above: Performed By: #### C UA2, DRGA4, COVAG ####[facility] [place] [address] Ethanol Serum/Plasmaon 06-08 Ethanol-Serum/Plasma < 0.010 Normal 0.000-0.010 [facility] Comment on above: Result Comment: NOTE : This result is for medical treatment only. Analysis performed using non-forensic procedures. Performed By: #### B MP3, ETOH4, HEMDF #### [facility] [address] [place] [address] Hemogram w/ Autodiffon 06-08 Abs Baso Cnt 0.1 10*3/uL Normal 0.0-0.2 [facility] Comment on above: Performed By: #### B MP3, ETOH4, HEMDF #### [facility] [address] [place] [address] Abs Neutrophile Cnt 6.7 10*3/uL Normal 1.8-7.0 [facility] Comment on above: Performed By: #### B MP3, ETOH4, HEMDF #### [facility] [address] [place] [address] Basophils/100 WBC (Bld) 1.4 % Normal 0.0-2.0 [facility] Comment on above: Performed By: #### B MP3, ETOH4, HEMDF #### [facility] [address] [place] [address] Eosinophils (Bld) [#/Vol] 0.0 10*3/uL Normal 0.0-0.5 [facility] Comment on above: Performed By: #### B MP3, ETOH4, HEMDF #### [facility] [address] [place] [address] Eosinophils/100 WBC (Bld) 0.5 % Low 1.0-6.0 [facility] Comment on above: Performed By: #### B MP3, ETOH4, HEMDF #### [facility] [address] [place] [address] Erythrocyte distribution width (RBC) [Ratio] 14.2 % Normal 11.5-14.5 [facility] Comment on above: Performed By: #### B MP3, ETOH4, HEMDF #### [facility] [address] [place] [address] Granulocytes/100 WBC (Bld) 76.1 % Normal 40.0-80.0 [facility] Comment on above: Performed By: #### B MP3, ETOH4, HEMDF #### [facility] [address] [place] [address] Hematocrit (Bld) [Volume fraction] 42.9 % Normal 40.0-52.0 [facility] Comment on above: Performed By: #### B MP3, ETOH4, HEMDF #### [facility] [address] [place] [address] Hemoglobin (Bld) [Mass/Vol] 14.4 g/dL Normal 13.0-18.0 [facility] Comment on above: Performed By: #### B MP3, ETOH4, HEMDF #### [facility] [address] [place] [address] Lymphocytes (Bld) [#/Vol] 1.4 10*3/uL Normal 1.0-4.3 [facility] Comment on above: Performed By: #### B MP3, ETOH4, HEMDF #### [facility] [address] [place] [address] Lymphocytes/100 WBC (Bld) 15.4 % Low 20.0-40.0 [facility] Comment on above: Performed By: #### B MP3, ETOH4, HEMDF #### [facility] [address] [place] [address] MCH (RBC) [Entitic mass] 28.3 pg Normal 26.0-34.0 [facility] Comment on above: Performed By: #### B MP3, ETOH4, HEMDF #### [facility] [address] [place] [address] MCHC 33.5 % Normal 32.0-36.0 [facility] Comment on above: Performed By: #### B MP3, ETOH4, HEMDF #### [facility] [address] [place] [address] MCV (RBC) [Entitic vol] 84.4 fL Normal 80.0-98.0 [facility] Comment on above: Performed By: #### B MP3, ETOH4, HEMDF #### [facility] [address] [place] [address] Monocytes (Bld) [#/Vol] 0.6 10*3/uL Normal 0.0-0.8 [facility] Comment on above: Performed By: #### B MP3, ETOH4, HEMDF #### [facility] [address] [place] [address] Monocytes/100 WBC (Bld) 6.6 % Normal 2.0-10.0 [facility] Comment on above: Performed By: #### B MP3, ETOH4, HEMDF #### [facility] [address] [place] [address] Platelet mean volume (Bld) [Entitic vol] 8.4 fL Normal 7.4-10.4 [facility] Comment on above: Performed By: #### B MP3, ETOH4, HEMDF #### [facility] [address] [place] [address] Platelets (Bld) [#/Vol] 225 10*3/uL Normal 140-440 [facility] Comment on above: Performed By: #### B MP3, ETOH4, HEMDF #### [facility] [address] [place] [address] RBC (Bld) [#/Vol] 5.09 10*6/uL Normal 4.40-5.90 [facility] Comment on above: Performed By: #### B MP3, ETOH4, HEMDF #### [facility] [address] [place] [address] WBC (Bld) [#/Vol] 8.9 10*3/uL Normal 3.6-10.7 [facility] Comment on above: Performed By: #### B MP3, ETOH4, HEMDF #### [facility] [address] [place] [address] SARS-CoV-2 Antigenon 022 SARS-CoV-2 Antigen Negative Normal Negative [facility] Comment on above: Result Comment: A negative result does not rule out the possibility of SARS-CoV-2 infection. NAAT-based methods should be considered for symptomatic patients presenting greater than seven days after onset of symptoms. Method: Lateral flow immunoassay. Fact sheets for healthcare providers and patients can be found at the following sites: https://www.fda.gov/media/790457/download https://www.fda.gov/media/118654/download Performed By: #### C UA2, DRGA4, COVAG ####[facility] [employer] [address] [place] [address] Lithiumon 05-17-2021 [place] [Moles/Vol] 0.7 mmol/L Normal 0.6-1.2 [facility] Comment on above: Performed By: #### L I3 ####[facility] [employer] [id number] [place] [address] CBCon 05-16-2021 Hematocrit (Bld) [Volume fraction] 43.8 % 40.0 - 52.0 % [facility] Hemoglobin.gastrointesti nal spec 1 Ql (Stl) 15.2 g/dL 13.0 - 18.0 g/dL [facility] MCH (RBC) [Entitic mass] 28.5 pg 26. 0 - 34.0 pg [facility] MCHC (RBC) [Mass/Vol] 34.6 % 32.0 - 36.0 % [facility] MCV (RBC) [Entitic vol] 82.4 fL 80.0 - 98.0 fL [facility] Platelet distribution width (Bld) [Ratio] 13.6 % 11.5 - 14.5 % [facility] Platelet mean volume (Bld) [Entitic vol] 8.0 fL 7.4 - 10.4 fL [facility] Platelets (Bld) [#/Vol] 208 10*3/uL 140 - 440 10*3/uL [facility] RBC (Bld) [#/Vol] 5.32 10*6/uL 4.40 - 5.9 0 10*6/uL [facility] WBC (Bld) [#/Vol] 6.9 10*3/uL 3.6 - 10.7 10*3/uL [facility] Test Performed by [facility], [address] , [place], [place] [id number] [place] [address] LAB [facility] Comp Metabolic Panelon 05-16 Calcium [Mass/Vol] 10.0 mg/dL Normal 8.4-10.4 [facility] Comment on above: Performed By: #### L IPA4, CMP3, HEMOG ####[facility] [place] [address] ALP [Catalytic activity/Vol] 107 U/L Normal 38-126 [facility] Comment on above: Result Comment: Slig htly hemolysed, interpret with caution. Performed By: #### L IPA4, CMP3, HEMOG ####[facility] [place] [address] ALT [Catalytic activity/Vol] 26 U/L Normal 0-49 [facility] Comment on above: Result Comment: The ALT test is performed by an updated assay method. Please note that the reference intervals have been changed and are now sex specific. Performed By: #### L IPA4, CMP3, HEMOG ####[facility] [place] [address] Anion gap [Moles/Vol] 5 mmol/L Normal 3-13 [facility] Comment on above: Performed By: #### L IPA4, CMP3, HEMOG ####[facility] [place] [address] AST [Catalytic activity/Vol] 34 U/L Normal 15-46 [facility] Comment on above: Result Comment: Slig htly hemolysed, interpret with caution. Performed By: #### L IPA4, CMP3, HEMOG ####[facility] [place] [address] Bilirubin [Mass/Vol] 0.4 mg/dL Normal 0.2-1.3 [facility] Comment on above: Performed By: #### L IPA4, CMP3, HEMOG ####[facility] [place] [address] CO2 [Moles/Vol] 27 mmol/L Normal 22-30 [facility] Comment on above: Performed By: #### L IPA4, CMP3, HEMOG ####[facility] [place] [address] Glucose [Mass/Vol] 105 mg/dL High 70-100 [facility] Comment on above: Performed By: #### L IPA4, CMP3, HEMOG ####[facility] [place] [address] Protein [Mass/Vol] 7.7 g/dL Normal 6.3-8.2 [facility] Comment on above: Performed By: #### L IPA4, CMP3, HEMOG ####[facility] [place] [address] Urea nitrogen [Mass/Vol] 11 mg/dL Normal 7-17 [facility] Comment on above: Performed By: #### L IPA4, CMP3, HEMOG ####[facility] [place] [address] Creatinine [Mass/Vol] 1.11 mg/dL Normal 0.52-1.25 [facility] Comment on above: Performed By: #### L IPA4, CMP3, HEMOG ####[facility] [place] [address] eGFR OTHER > 90.0 Normal >60 [facility] Comment on above: Result Comment: KDIG O guidelines provide the following GFR categories: Stage GFR(ml/min/1.73 m2) Terms G1 >=90 Normal or high G2 60-89 Mildly decreased* G3a 45-59 Mildly to moderately decreased G3b 30-44 Moderately to severely decreased G4 15-29 Severely decreased G5 <15 Kidney failure *Relative to young adult level. In the absence of evidence of kidney damage, neither GFR category G1 nor G2 fulfill the criteria for CKD. The CKD-EPI equation is validated in individuals 18 years of age and older. Currently the best equation for estimating glomerular filtration rate (GFR) from serum creatinine in children is the Bedside Watts equation. It is less accurate in patients with extremes of muscle mass, restriction of dietary protein, ingestion of creatine, extra-renal metabolism of creatinine, or treatment with medications that affect renal tubular creatinine secretion. Performed By: #### L SUZI LOPEZ3, HEMOG ####[address] [place] [address] GFR/1.73 sq M.predicted among blacks MDRD (S/P/Bld) [Vol rate/Area] mL/min/{1.73_m2} Normal >60 [facility] Comment on above: Performed By: #### L SUZI LOPEZ3, HEMOG ####[address] [place] [address] Potassium [Moles/Vol] 4.1 mmol/L Normal 3.5-5.1 [facility] Comment on above: Result Comment: Slig htly hemolysed, interpret with caution. Performed By: #### L SUZI LOPEZ3, HEMOG ####[address] [place] [address] Albumin [Mass/Vol] 4.4 g/dL Normal 3.5-5.0 [facility] Comment on above: Performed By: #### L SUZI LOPEZ3, HEMOG ####[address] [place] [address] Chloride [Moles/Vol] 107 mmol/L Normal 98-107 [facility] Comment on above: Performed By: #### L SUZI LOPEZ3, HEMOG ####[place] [address] [place] [address] Sodium [Moles/Vol] 139 mmol/L Normal 135-145 [facility] Comment on above: Performed By: #### L SUZI LOPEZ3, HEMOG ####[address] [place] [address] Comprehensive Metabolic Pane hipolito 05-16-2021 Albumin [Mass/Vol] 4.4 g/dL 3.5 - 5.0 g/dL [facility] ALP (Bld) [Catalytic activity/Vol] 107 U/L 38 - 126 U/L [facility] Comment on above: Slightly hemolysed, interpret with caution. ALT [Catalytic activity/Vol] 26 U/L 0 - 49 U/L [facility] Comment on above: The ALT test is perf ormed by an updated assay method. Please note that the reference intervals have been changed and are now sex specific. Anion gap [Moles/Vol] 5 mmol/L 3 - 13 mmol/L [facility] AST [Catalytic activity/Vol] 34 U/L 15 - 46 U/L [facility] Comment on above: Slightly hemolysed, interpret with caution. Bilirubin [Mass/Vol] 0.4 mg/dL 0.2 - 1 .3 mg/dL [facility] Calcium [Mass/Vol] 10.0 mg/dL 8.4 - 10. 4 mg/dL [facility] Chloride [Moles/Vol] 107 mmol/L 98 - 10 7 mmol/L [facility] CO2 [Moles/Vol] 27 mmol/L 22 - 30 mmol/L [facility] Creatinine [Mass/Vol] 1.11 mg/dL 0.52 - 1.25 mg/dL [facility] EGFR IF NonAfrican Cuban >90.0 >60 mL/min [facility] Comment on above: KDIGO guidelines pro vide the following GFR categories: Stage GFR(ml/min/1.73 m2) Terms G1 >=90 Normal or high G2 60-89 Mildly decreased* G3a 45-59 Mildly to moderately decreased G3b 30-44 Moderately to severely decreased G4 15-29 Severely decreased G5 <15 Kidney failure *Relative to young adult level. In the absence of evidence of kidney damage, neither GFR category G1 nor G2 fulfill the criteria for CKD. The CKD-EPI equation is validated in individuals 18 years of age and older. Currently the best equation for estimating glomerular filtration rate (GFR) from serum creatinine in children is the Bedside Watts equation. It is less accurate in patients with extremes of muscle mass, restriction of dietary protein, ingestion of creatine, extra-renal metabolism of creatinine, or treatment with medications that affect renal tubular creatinine secretion. Free PSA/Total PSA [Mass fraction] 7.7 g/dL 6.3 - 8.2 g/dL [facility] GFR/1.73 sq M.predicted among blacks MDRD (S/P/Bld) [Vol rate/Area] mL/min/{1.73_m2} >60 mL/min [facility] Glucose [Mass/Vol] 105 mg/dL High 70 - 100 mg/dL [facility] Interpretation and review of laboratory results Abnormal [facility] Potassium [Moles/Vol] 4.1 mmol/L 3.5 - 5.1 mmol/L [facility] Comment on above: Slightly hemolysed, interpret with caution. Sodium [Moles/Vol] 139 mmol/L 135 - 145 mmol/L [facility] Urea nitrogen (BldV) [Mass/Vol] 11 mg/dL 7 - 17 mg/dL [facility] EKG 12 Leadon 05-16-2021 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 Comment on above: Performed By: #### L IPA4, CMP3, HEMOG ####[facility] [place] [address] Hematocrit (Bld) [Volume fraction] 43.8 % Normal 40.0-52.0 [facility] Comment on above: Performed By: #### L IPA4, CMP3, HEMOG ####[facility] [place] [address] Hemoglobin (Bld) [Mass/Vol] 15.2 g/dL Normal 13.0-18.0 [facility] Comment on above: Performed By: #### L IPA4, CMP3, HEMOG ####[facility] [place] [address] MCH (RBC) [Entitic mass] 28.5 pg Normal 26.0-34.0 [facility] Comment on above: Performed By: #### L IPA4, CMP3, HEMOG ####[facility] [place] [address] MCHC 34.6 % Normal 32.0-36.0 [facility] Comment on above: Performed By: #### L IPA4, CMP3, HEMOG ####[place] [address] [place] [address] MCV (RBC) [Entitic vol] 82.4 fL Normal 80.0-98.0 [facility] Comment on above: Performed By: #### L IPA4, CMP3, HEMOG ####[facility] [place] [address] Platelet mean volume (Bld) [Entitic vol] 8.0 fL Normal 7.4-10.4 [facility] Comment on above: Performed By: #### L IPA4, CMP3, HEMOG ####[facility] [place] [address] Platelets (Bld) [#/Vol] 208 10*3/uL Normal 140-440 [facility] Comment on above: Performed By: #### L IPA4, CMP3, HEMOG ####[facility] [place] [address] RBC (Bld) [#/Vol] 5.32 10*6/uL Normal 4.40-5.90 [facility] Comment on above: Performed By: #### L IPA4, CMP3, HEMOG ####[facility] [place] [address] WBC (Bld) [#/Vol] 6.9 10*3/uL Normal 3.6-10.7 [facility] Comment on above: Performed By: #### L IPA4, CMP3, HEMOG ####[facility] [place] [address] Lipaseon 05-16-2021 Lipase [Catalytic activity/Vol] 95 U/L Normal 23-300 [facility] Comment on above: Performed By: #### L IPA4, CMP3, HEMOG ####[facility] [place] [address] Lipase [Catalytic activity/Vol] 95 U/L 23 - 300 U/L [facility] No Panel Informationon 05-16 Test Performed by [facility], [address] [place], [place] [address] [facility] CT Head or Brain w/o Contras ton 03-26-2021 CT Head or Brain w/o Contrast Patient Name: ARIES CARRASCO Computed Tomography ACCESSION EXAM DATE/TIME PROCEDURE ORDERING PROVIDER [id number] 03/26/2021 12:[address] Head or Brain w/o MD FRACISCO, DRISS Contrast CPT code 48358 Reason For Exam (CT Head or Brain w/o Contrast) Head injury head injury Report CLINICAL INFORMATION: Headache following head trauma. CT HEAD WITHOUT INTRAVENOUS CONTRAST: Volume acquisition CT images are obtained from foramen magnum to vertex without intravenous contrast with axial, coronal and sagittal 2-D reconstructions. Comparison is made to the examination of 11/06/2015.. The ventricles and sulci are normal in size and configuration. No intra-axial mass lesion or mass-effect is seen. There is no evidence of intracranial hemorrhage or other focal abnormal intra-axial densities. The bony calvarium is intact. The mastoid air cells and included paranasal sinuses are clear. The maxillary sinuses are not included. IMPRESSION: No evidence of acute intracranial abnormality or significant interval change. CLINICAL INFORMATION: Neck pain following trauma. CT cervical spine with 3-D reconstructions: Volume acquisition CT images are obtained from the occiput to the upper thoracic spine without intrathecal contrast with axial, sagittal and coronal 2-D reconstructions. Additional 3-D survey surface shaded images of the cervical spine were concurrently generated by me on the [employer] workstation to better visualize gross skeletal anatomy. Images through the lower cervical spine are degraded by artifact likely from the patient's shoulders. The anterior and posterior arches and lateral masses of C1 and the odontoid, body and posterior arch of C2 are intact. There is a normal relationship between the odontoid and lateral masses and anterior arch of C1. The other vertebral bodies, pedicles and posterior elements are intact. No ossific densities are seen in the spinal canal. No evidence for perched or dislocated facet joint is seen at any level. There is mild intervertebral disc narrowing at C5-C6. The other intervertebral are well-maintained. There is straightening of cervical lordosis which is Computed Tomography Report nonspecific and may be positional. Although the differentiation of densities within the cervical spine canal is inherently extremely limited on CT without intrathecal contrast, no large abnormal soft tissue densities are seen within the spinal canal. There is a generally patient's cervical spinal canal. The neural foramina are patent. IMPRESSION: Nonspecific straightening of cervical lordosis possibly positional. Mild intervertebral disc narrowing at C5-C6. No evidence of acute bone trauma. Report Dictated on Final Dictating Physician: MD LYLES HARLAN Signed Date and Time: 03/26/2021 1:08 pm Signed by: MD LYLES HARLAN Transcribed Date and Time: 03/26/2021 1:09 Normal [facility] CT Spine Cervical w/o Contra ston 03-26-2021 CT Spine Cervical w/o Contrast Patient Name: ARIES CARRASCO Computed Tomography ACCESSION EXAM DATE/TIME PROCEDURE ORDERING PROVIDER [id number] 03/26/2021 12:[address] Spine Cervical w/o MD FRACISCO, DRISS Contrast CPT code 36265 Reason For Exam (CT Spine Cervical w/o Contrast) Head/neck injury Report CLINICAL INFORMATION: Headache following head trauma. CT HEAD WITHOUT INTRAVENOUS CONTRAST: Volume acquisition CT images are obtained from foramen magnum to vertex without intravenous contrast with axial, coronal and sagittal 2-D reconstructions. Comparison is made to the examination of 11/06/2015.. The ventricles and sulci are normal in size and configuration. No intra-axial mass lesion or mass-effect is seen. There is no evidence of intracranial hemorrhage or other focal abnormal intra-axial densities. The bony calvarium is intact. The mastoid air cells and included paranasal sinuses are clear. The maxillary sinuses are not included. IMPRESSION: No evidence of acute intracranial abnormality or significant interval change. CLINICAL INFORMATION: Neck pain following trauma. CT cervical spine with 3-D reconstructions: Volume acquisition CT images are obtained from the occiput to the upper thoracic spine without intrathecal contrast with axial, sagittal and coronal 2-D reconstructions. Additional 3-D survey surface shaded images of the cervical spine were concurrently generated by il on the [employer] workstation to better visualize gross skeletal anatomy. Images through the lower cervical spine are degraded by artifact likely from the patient's shoulders. The anterior and posterior arches and lateral masses of C1 and the odontoid, body and posterior arch of C2 are intact. There is a normal relationship between the odontoid and lateral masses and anterior arch of C1. The other vertebral bodies, pedicles and posterior elements are intact. No ossific densities are seen in the spinal canal. No evidence for perched or dislocated facet joint is seen at any level. There is mild intervertebral disc narrowing at C5-C6. The other intervertebral are well-maintained. There is straightening of cervical lordosis which is Computed Tomography Report nonspecific and may be positional. Although the differentiation of densities within the cervical spine canal is inherently extremely limited on CT without intrathecal contrast, no large abnormal soft tissue densities are seen within the spinal canal. There is a generally patient's cervical spinal canal. The neural foramina are patent. IMPRESSION: Nonspecific straightening of cervical lordosis possibly positional. Mild intervertebral disc narrowing at C5-C6. No evidence of acute bone trauma. Report Dictated on Final Dictating Physician: MD LYLES HARLAN Signed Date and Time: 03/26/2021 1:08 pm Signed by: MD LYLES HARLAN Transcribed Date and Time: 03/26/2021 1:09 Normal [facility] Lithiumon 03-03-2021 [place] [Moles/Vol] 0.7 mmol/L Normal 0.6-1.2 [facility] Comment on above: Performed By: #### T SH5 #### [facility] [address], [place] #### LI3 #### [facility] [address] [place] [address] Thyroid Stim. Hormoneon 02-17 Thyroid Stim. Hormone 0.503 u[IU]/mL Normal 0.465-4.68 0 [facility] Comment on above: Performed By: #### T SH5 #### [place] [address] [place], [place] #### LI3 #### [facility] [address] [place] [address] Basic Metabolic Panelon 02-17 Calcium [Mass/Vol] 10.0 mg/dL Normal 8.4-10.4 [facility] Comment on above: Performed By: #### B MP3, ETOH4, LI3, HEMDF, LFT3 #### [place] [address] [place], [place] Glucose [Mass/Vol] 86 mg/dL Normal 70-100 [facility] Comment on above: Performed By: #### B MP3, ETOH4, LI3, HEMDF, LFT3 #### [place] [address] [place], [place] Urea nitrogen [Mass/Vol] 14 mg/dL Normal 7-17 [facility] Comment on above: Performed By: #### B MP3, ETOH4, LI3, HEMDF, LFT3 #### [place] [address] [place], [place] Anion gap [Moles/Vol] 10 mmol/L Normal 3-13 [facility] Comment on above: Performed By: #### B MP3, ETOH4, LI3, HEMDF, LFT3 #### [facility] [address] [place] [address] CO2 [Moles/Vol] 27 mmol/L Normal 22-30 [facility] Comment on above: Performed By: #### B MP3, ETOH4, LI3, HEMDF, LFT3 #### [facility] [address] [place] [address] Creatinine [Mass/Vol] 1.21 mg/dL Normal 0.52-1.25 [facility] Comment on above: Performed By: #### B MP3, ETOH4, LI3, HEMDF, LFT3 #### [address] [address] GFR/1.73 sq M.predicted among blacks MDRD (S/P/Bld) [Vol rate/Area] mL/min/{1.73_m2} Normal >60 [facility] Comment on above: Performed By: #### B MP3, ETOH4, LI3, HEMDF, LFT3 #### [address] [address] GFR/1.73 sq M.predicted among non-blacks MDRD (S/P/Bld) [Vol rate/Area] 86.2 mL/min/{1.73_m2} Normal >60 [facility] Comment on above: Result Comment: KDIG O guidelines provide the following GFR categories: Stage GFR(ml/min/1.73 m2) Terms G1 >=90 Normal or high G2 60-89 Mildly decreased* G3a 45-59 Mildly to moderately decreased G3b 30-44 Moderately to severely decreased G4 15-29 Severely decreased G5 <15 Kidney failure *Relative to young adult level. In the absence of evidence of kidney damage, neither GFR category G1 nor G2 fulfill the criteria for CKD. The CKD-EPI equation is validated in individuals 18 years of age and older. Currently the best equation for estimating glomerular filtration rate (GFR) from serum creatinine in children is the Bedside Watts equation. It is less accurate in patients with extremes of muscle mass, restriction of dietary protein, ingestion of creatine, extra-renal metabolism of creatinine, or treatment with medications that affect renal tubular creatinine secretion. Performed By: #### B MP3, ETOH4, LI3, HEMDF, LFT3 #### [facility] [address] [place], [place] Chloride [Moles/Vol] 103 mmol/L Normal 98-107 [facility] Comment on above: Performed By: #### B MP3, ETOH4, LI3, HEMDF, LFT3 #### [facility] [address] [place], [place] Potassium [Moles/Vol] 4.0 mmol/L Normal 3.5-5.1 [facility] Comment on above: Performed By: #### B MP3, ETOH4, LI3, HEMDF, LFT3 #### [facility] [address] [place], [place] Sodium [Moles/Vol] 140 mmol/L Normal 135-145 [facility] Comment on above: Performed By: #### B MP3, ETOH4, LI3, HEMDF, LFT3 #### [address] [address] [address] [place], [place] Complete Urinalysison 2020 Appearance (U) Clear Normal Clear [facility] Comment on above: Result Comment: . Performed By: #### D RGA4, CUA2 ####[place] [address] [place], [place] Bilirubin,Urine Negative Normal Negative [facility] Comment on above: Result Comment: . Performed By: #### D RGA4, CUA2 ####[address] [place], [place] Color (U) Colorless Normal Lt. Yellow [facility] Comment on above: Result Comment: . Performed By: #### D RGA4, CUA2 ####[address] [place], [place] Glucose Ql (U) Normal Normal Normal (<70) [facility] Comment on above: Result Comment: . Performed By: #### D RGA4, CUA2 ####[address] [place], [place] Ketone,Urine Negative Normal Negative [facility] Comment on above: Result Comment: . Performed By: #### D RGA4, CUA2 ####[address] [place] [address] Leukocytes,Urine Negative Normal Negative [facility] Comment on above: Result Comment: . Performed By: #### Bryson PETIT, CUA2 ####[address] [place], [place] Nitrites,Urine Negative Normal Negative [facility] Comment on above: Result Comment: . Performed By: #### Bryson PETIT, CUA2 ####[address] [place], [place] Occult Blood,Urine Negative Normal Negative [facility] Comment on above: Result Comment: . Performed By: #### Bryson PETIT, CUA2 ####[place] [address] [place], [place] pH,Urine 7.0 Normal 5.0-8.0 [facility] Comment on above: Result Comment: . Performed By: #### Bryson PETIT, CUA2 ####[address] [place], [place] Specific [place],Urine 1.008 Normal 1.005 - 1.030 [facility] Comment on above: Result Comment: . Performed By: #### Bryson PETIT, CUA2 ####[address] [place], [place] Total Protein,Urine Negative Normal Negative [facility] Comment on above: Result Comment: . Performed By: #### Bryson PETIT, CUA2 ####[place] [address] [address] [place], [place] Urobilinogen,Urine Normal Normal Normal (0-1) [facility] Comment on above: Result Comment: . Performed By: #### Bryson PETIT, CUA2 ####[address] [place], [place] Drugs of Abuseon 03-01-2021 Phencyclidine (PCP), Ur Negative Normal [facility] Comment on above: Result Comment: The expected value for all of the drugs listed above is Negative. The following drugs or drug groups have been screened for by Immunoassay at the following thresholds: Amphetamine class (1000 ng/mL), Barbiturates (200 ng/mL), Benzodiazepines (200 ng/mL), Cocaine (300 ng/mL), Methadone (300 ng/mL), Opiates (300 ng/mL), Oxycodone (100 ng/mL), and PCP (25 ng/mL). NOTE: These results are for medical treatment only. Analysis performed using non-forensic procedures. POSITIVE results are NOT confirmed by a more specific alternative method unless requested. If confirmation is needed, request confirmation under separate order. Performed By: #### D RGA4, CUA2 ####[facility] [id number], [place] Opiates, Ur Negative Normal [facility] Comment on above: Performed By: #### Bryson RGA4, CUA2 ####[facility] [id number] Cocaine, Ur Negative Normal [facility] Comment on above: Performed By: #### Bryson RGA4, CUA2 ####[facility] [id number] Methadone, Ur Negative Normal [facility] Comment on above: Performed By: #### Bryson RGA4, CUA2 ####[facility] [id number] Barbiturates, Ur Negative Normal [facility] Comment on above: Performed By: #### D RGA4, CUA2 ####[facility] [id number] Amphetamines, Ur Negative Normal [facility] Comment on above: Performed By: #### D RGA4, CUA2 ####[facility] [id number] Benzodiazepines, Ur Negative Normal [facility] Comment on above: Performed By: #### D RGA4, CUA2 ####[facility] [id number] Oxycodone/Oxymorphine,Ur Negative Normal [facility] Comment on above: Performed By: #### D RGA4, CUA2 ####[id number] [place] [address] ED Provider Noteon ED Provider Note Emergency Department Encounter [facility] EMERGENCY DEPT Patient: Aries Carrasco : 2000 Date of Evaluation: 03/01/2021 ED Supervising Physician: Jose Jenkins DO I independently examined and evaluated Aries Carrasco. I saw and evaluated the patient. The case was discussed with the MARBIN/resident. I personally reviewed the HPI, PH, FH, SH, ROS and medications. I repeated pertinent portions of the examination reviewed the relevant imaging and laboratory data. I agree with the findings, assessment and plan as documented. 21-year-old male here for suicidal ideation History of disorganized schizophrenia ADHD asthma bipolar disorder currently on lithium and risperidone. Exam: BP 139/84 Pulse 73 Temp 99.2 ?F (37.3 ?C) (Temporal) Resp 17 Ht 5' 8 (1.727 m) Wt 89 kg (196 lb 3.4 oz) SpO2 100% BMI 29.83 kg/m? The patient was hemodynamically stable, afebrile, non-toxic appearing. There was no murmurs, gallops, or rubs. Lungs were clear without wheezing or rales. The patient had symmetric pulses in all 4 extremities. There is no lower extremity edema. There were no pulsatile abdominal masses, no auscultated abdominal bruits, no peritoneal signs. There were no focal neurologic deficits. MDM/Plan: Patient was seen and examined he was still endorsing suicidal ideation. Likely need admission after medical clearance. Will obtain a broad left medical clearance lab work-up including COVID-19 test reassess patient disposition accordingly. Total critical care time today provided was at least 0 minutes. This excludes seperately billable procedure. 1. Suicidal ideation 2. Depression, unspecified depression type All diagnostic, treatment, and disposition decisions were made by myself in conjunction with the MARBIN. For all further details of the patient's emergency department visit, please see their documentation. (Please note that portions of this note may have been completed with a voice recognition program. Efforts were made to edit the dictations but occasionally words are mis-transcribed.) Jose Jenkins DO [employer] Jose Jenkins DO 03/01/21 2030 [facility] ED Provider Note [facility] EMERGENCY DEPT eMERGENCY dEPARTMENT eNCOUnter Pt Name: Aries Carrasco Birthdate 2000 Date of evaluation: 03/01/2021 Provider: Sirisha Oliveira PA-C CHIEF COMPLAINT Chief Complaint Patient presents with ? Suicidal ideations only I evaluated this patient in conjunction with Dr. Jenkins the ED attending who is in agreement with the assessment and plan. I was wearing a kN95 mask, gloves, surgical mask for the entirety of this encounter. Does this patient come from an ECF, SNF, Rehab, Chcf or other Congregate setting: no (If yes to above patient needs a Covid-19 test) HISTORY OF PRESENT ILLNESS (Location/Symptom, Timing/Onset,Context/S etting, Quality, Duration, Modifying Factors, Severity) Note limiting factors. HPI Aries Carrasco is a 21 y.o. male who presents to the emergency department with suicidal ideation. Patient has history of disorganized schizophrenia and is on risperidone and lithium. States that his grandmother recently passed and he was very close to her. Notes that she was his best friend. Patient's friend took items of his grandmothers and this greatly upset him. States that he felt as though there was something more he could do to prevent her things from being taken or even try to help prevent her so soon. Patient has not recently attempted any self-harm however has had progressively worsening and increasing thoughts. States today he went into a spiral and had a complete breakdown. Patient unable to think clearly. Patient has had history in the past with attempted self-harm. Patient denies any homicidal ideation. Denies any delusions or hallucinations. States that he has not had any hallucinations in quite some time for the medicine is working for that. Nursing Notes were reviewed. REVIEW OF SYSTEMS (2+ forlevel 4; 10+ for level 5) Review of Systems at least 10 systems reviewed and otherwise acutely negative except as stated in [place]. PAST MEDICAL HISTORY Past Medical History: Diagnosis Date ? ADD (attention deficit disorder) ? ADHD (attention deficit hyperactivity disorder) ? Asthma ? Bipolar 1 disorder (HCC) ? Disorganized schizophrenia (HCC) 11/02/2020 ? Noncompliance 11/02/2020 ? Suicidal behavior SURGICALHISTORY History reviewed. No pertinent surgical history. CURRENT MEDICATIONS Previous Medications IBUPROFEN (ADVIL;MOTRIN) 600 MG TABLET Take 1 tablet by mouth every 6 hours as needed for Pain LITHIUM 600 MG CAPSULE Take 600 mg by mouth 2 times daily RISPERIDONE (RISPERDAL) 4 MG TABLET Take 4 mg by mouth ALLERGIES Seasonal FAMILY HISTORY History reviewed. No pertinent family history. SOCIAL HISTORY Social History Socioeconomic History ? Marital status: Single Spouse name: None ? Number of children: None ? Years of education: None ? Highest education level: None Occupational History ? None Tobacco Use ? Smoking status: Current Some Day Smoker Packs/day: 0.50 Types: Cigarettes ? Smokeless tobacco: Never Used Vaping Use ? Vaping Use: Never used Substance and Sexual Activity ? Alcohol use: No ? Drug use: No ? Sexual activity: None Other Topics Concern ? None Social History Narrative ? None Social Determinants of Health Financial Resource Strain: ? Difficulty of Paying Living Expenses: Not on file Food Insecurity: ? Worried About Running Out of Food in the Last Year: Not on file ? Ran Out of Food in the Last Year: Not on file Transportation Needs: ? Lack of Transportation (Medical): Not on file ? Lack of Transportation (Non-Medical): Not on file Physical Activity: ? Days of Exercise per Week: Not on file ? Minutes of Exercise per Session: Not on file Stress: ? Feeling of Stress : Not on file Social Connections: ? Frequency of Communication with Friends and Family: Not on file ? Frequency of Social Gatherings with Friends and Family: Not on file ? Attends Restorationism Services: Not on file ? Active Member of Clubs or Organizations: Not on file ? Attends Club or Organization Meetings: Not on file ? Marital Status: Not on file Intimate Partner Violence: ? Fear of Current or Ex-Partner: Not on file ? Emotionally Abused: Not on file ? Physically Abused: Not on file ? Sexually Abused: Not on file Housing Stability: ? Unable to Pay for Housing in the Last Year: Not on file ? Number of Places Lived in the Last Year: Not on file ? Unstable Housing in the Last Year: Not on file SCREENINGS PHYSICAL EXAM (5+ for level 4, 8+ for level 5) ED Triage Vitals BP Temp Temp src Pulse Resp SpO2 Height Weight 139/84 99.2 -- 73 17 100 -- -- Physical Exam GENERAL: The patient is sitting upright in no distress, appears nourished and normally developed. Vital signs as documented. EYES: Head exam is unremarkable. No scleral icterus or orbital trauma noted. HEENT: Mucous membranes moist. Nares patent without copious rhinorrhea. No enlar (more content not included)... Normal [facility] Ethanol Serum/Plasmaon 03-01 Ethanol-Serum/Plasma < 0.010 Normal 0.000-0.010 [facility] Comment on above: Result Comment: NOTE : This result is for medical treatment only. Analysis performed using non-forensic procedures. Performed By: #### B MP3, ETOH4, LI3, HEMDF, LFT3 #### [address] Hemogram w/ Autodiffon 03-01 Abs Baso Cnt 0.0 10*3/uL Normal 0.0-0.2 [facility] Comment on above: Performed By: #### B MP3, ETOH4, LI3, HEMDF, LFT3 #### [address] Abs Neutrophile Cnt 5.4 10*3/uL Normal 1.8-7.0 [facility] Comment on above: Performed By: #### B MP3, ETOH4, LI3, HEMDF, LFT3 #### [address] Basophils/100 WBC (Bld) 0.6 % Normal 0.0-2.0 [facility] Comment on above: Performed By: #### B MP3, ETOH4, LI3, HEMDF, LFT3 #### [address] Eosinophils (Bld) [#/Vol] 0.1 10*3/uL Normal 0.0-0.5 [facility] Comment on above: Performed By: #### B MP3, ETOH4, LI3, HEMDF, LFT3 #### [address] Eosinophils/100 WBC (Bld) 1.3 % Normal 1.0-6.0 [facility] Comment on above: Performed By: #### B MP3, ETOH4, LI3, HEMDF, LFT3 #### [address] [place], [place] Erythrocyte distribution width (RBC) [Ratio] 13.4 % Normal 11.5-14.5 [facility] Comment on above: Performed By: #### B MP3, ETOH4, LI3, HEMDF, LFT3 #### [address] [address] [place], [place] Granulocytes/100 WBC (Bld) 68.2 % Normal 40.0-80.0 [facility] Comment on above: Performed By: #### B MP3, ETOH4, LI3, HEMDF, LFT3 #### [address] [address] [place], [place] Hematocrit (Bld) [Volume fraction] 49.0 % Normal 40.0-52.0 [facility] Comment on above: Performed By: #### B MP3, ETOH4, LI3, HEMDF, LFT3 #### [address] [address] [place], [place] Hemoglobin (Bld) [Mass/Vol] 16.1 g/dL Normal 13.0-18.0 [facility] Comment on above: Performed By: #### B MP3, ETOH4, LI3, HEMDF, LFT3 #### [address] [place], [place] Lymphocytes (Bld) [#/Vol] 2.0 10*3/uL Normal 1.0-4.3 [facility] Comment on above: Performed By: #### B MP3, ETOH4, LI3, HEMDF, LFT3 #### [address] [address] [place], [place] Lymphocytes/100 WBC (Bld) 24.9 % Normal 20.0-40.0 [facility] Comment on above: Performed By: #### B MP3, ETOH4, LI3, HEMDF, LFT3 #### [address] [address] [place], [place] MCH (RBC) [Entitic mass] 28.4 pg Normal 26.0-34.0 [facility] Comment on above: Performed By: #### B MP3, ETOH4, LI3, HEMDF, LFT3 #### [address] [place], [place] MCHC 32.8 % Normal 32.0-36.0 [facility] Comment on above: Performed By: #### B MP3, ETOH4, LI3, HEMDF, LFT3 #### [address] [place], [place] MCV (RBC) [Entitic vol] 86.6 fL Normal 80.0-98.0 [facility] Comment on above: Performed By: #### B MP3, ETOH4, LI3, HEMDF, LFT3 #### [address] [address] [place], [place] Monocytes (Bld) [#/Vol] 0.4 10*3/uL Normal 0.0-0.8 [facility] Comment on above: Performed By: #### B MP3, ETOH4, LI3, HEMDF, LFT3 #### [address] [place], [place] Monocytes/100 WBC (Bld) 5.0 % Normal 2.0-10.0 [facility] Comment on above: Performed By: #### B MP3, ETOH4, LI3, HEMDF, LFT3 #### [address] [place], [place] Platelet mean volume (Bld) [Entitic vol] 9.2 fL Normal 7.4-10.4 [facility] Comment on above: Performed By: #### B MP3, ETOH4, LI3, HEMDF, LFT3 #### [address] [place], [place] Platelets (Bld) [#/Vol] 205 10*3/uL Normal 140-440 [facility] Comment on above: Performed By: #### B MP3, ETOH4, LI3, HEMDF, LFT3 #### [address] RBC (Bld) [#/Vol] 5.66 10*6/uL Normal 4.40-5.90 [facility] Comment on above: Performed By: #### B MP3, ETOH4, LI3, HEMDF, LFT3 #### [address] WBC (Bld) [#/Vol] 8.0 10*3/uL Normal 3.6-10.7 [facility] Comment on above: Performed By: #### B MP3, ETOH4, LI3, HEMDF, LFT3 #### [address] Hepatic Functionon 1 ALP [Catalytic activity/Vol] 111 U/L Normal 38-126 [facility] Comment on above: Performed By: #### B MP3, ETOH4, LI3, HEMDF, LFT3 #### [address] ALT [Catalytic activity/Vol] 17 U/L Normal 0-49 [facility] Comment on above: Result Comment: The ALT test is performed by an updated assay method. Please note that the reference intervals have been changed and are now sex specific. Performed By: #### B MP3, ETOH4, LI3, HEMDF, LFT3 #### [address] AST [Catalytic activity/Vol] 28 U/L Normal 15-46 [facility] Comment on above: Performed By: #### B MP3, ETOH4, LI3, HEMDF, LFT3 #### [address] [address] [place], [place] Protein [Mass/Vol] 8.1 g/dL Normal 6.3-8.2 [facility] Comment on above: Performed By: #### B MP3, ETOH4, LI3, HEMDF, LFT3 #### [address] Bilirubin [Mass/Vol] 0.7 mg/dL Normal 0.2-1.3 [facility] Comment on above: Performed By: #### B MP3, ETOH4, LI3, HEMDF, LFT3 #### [facility] [address] [place], [place] Bilirubin.indirect [Mass/Vol] 0.0 mg/dL Normal 0.0-0.3 [facility] Comment on above: Performed By: #### B MP3, ETOH4, LI3, HEMDF, LFT3 #### [facility] [address] [place], [place] Albumin [Mass/Vol] 5.1 g/dL High 3.5-5.0 [facility] Comment on above: Performed By: #### B MP3, ETOH4, LI3, HEMDF, LFT3 #### [facility] [address] [place], [place] Lithiumon 03-01-2021 [place] [Moles/Vol] 0.6 mmol/L Normal 0.6-1.2 [facility] Comment on above: Performed By: #### B MP3, ETOH4, LI3, HEMDF, LFT3 #### [facility] [address] [place], [place] SARS-CoV-2 Antigenon 021 SARS-CoV-2 Antigen Negative Normal Negative [facility] Comment on above: Result Comment: A negative result does not rule out the possibility of SARS-CoV-2 infection. NAAT-based methods should be considered for symptomatic patients presenting greater than seven days after onset of symptoms. Method: Lateral flow immunoassay. Fact sheets for healthcare providers and patients can be found at the following sites: https://www.fda.gov/media/043391/download https://www.fda.gov/media/643398/download Performed By: #### C OVAG #### [facility] [address] [place], [place] CR Foot Complete 3+ Views Le fton 02-15-2021 CR Foot Complete 3+ Views Left Patient Name: ARIES CARRASCO Diagnostic Radiology ACCESSION EXAM DATE/TIME PROCEDURE ORDERING PROVIDER [id number] 02/15/2021 19:02 EDT CR Foot Complete 3+ JIM LOPEZ Left CPT code 95259 Reason For Exam (CR Foot Complete 3+ Views Left) pain Report LEFT FOOT CLINICAL INDICATION: Pain AP, lateral, and oblique plain film views of the left foot were obtained. COMPARISON: Left foot radiographs on 09/26/2020. No fracture or dislocation of the left foot is identified. There is no abnormal soft tissue swelling or radiopaque foreign body seen. IMPRESSION: No fracture or dislocation of the left foot is seen. Report Dictated on Final Dictating Physician: MD BLUE NEIL Signed Date and Time: 02/15/2021 7:14 pm Signed by: MD BLUE NEIL Transcribed Date and Time: 02/15/2021 7:15 Normal [facility] CR Tibia/Fibula 2 Views Left on 02-15-2021 CR Tibia/Fibula 2 Views Left Patient Name: ARIES CARRASCO Diagnostic Radiology ACCESSION EXAM DATE/TIME PROCEDURE ORDERING PROVIDER [id number] 02/15/2021 19:02 EDT CR Tibia/Fibula 2 Views JIM LOPEZ Left CPT code 13406 Reason For Exam (CR Tibia/Fibula 2 Views Left) pain Report EXAMINATION: LEFT TIB-FIB RADIOGRAPH CLINICAL INDICATION: Pain TECHNIQUE: Two views COMPARISON: None. FINDINGS: No acute fracture or subluxation. Alignment is anatomic. Joint spaces are preserved. Soft tissues are intact. IMPRESSION: No acute osseous abnormality. Report Dictated on Final Dictating Physician: MD ANDRA, MARTIN KOROMA Signed Date and Time: 02/15/2021 7:10 pm Signed by: MD ANDRA, MARTNI KOROMA Transcribed Date and Time: 02/15/2021 7:11 Normal [facility] CR Knee 3 Views Lefton 12-07 CR Knee 3 Views Left Patient Name: ARIES CARRASCO Diagnostic Radiology ACCESSION EXAM DATE/TIME PROCEDURE ORDERING PROVIDER [id number] 12/06/2020 23:26 EDT CR Knee 3 Views Left MD MADDOX KEVIN G CPT code 09341 Reason For Exam (CR Knee 3 Views Left) contusion, pain anterior patella Report LEFT KNEE 3 VIEWS CLINICAL INDICATION: contusion, pain anterior patella TECHNIQUE: 3 views of the left knee. COMPARISON: None. FINDINGS: No acute fracture or dislocation. Joint spaces maintained. Soft tissues grossly unremarkable. IMPRESSION: 1. No acute osseous abnormality. Report Dictated on Workstation: JAKE Final Dictating Physician: MD SANTIZO WENDELL Signed Date and Time: 12/06/2020 11:37 pm Signed by: MD SANTIZO WENDELL Transcribed Date and Time: 12/06/2020 11:38 Normal [facility] XR KNEE LEFT (3 VIEWS)Ordere d By: Ankit Maddox on 12-06-2020 Patient Name: ARIES CARRASCO Diagnostic Radiology ACCESSION EXAM DATE/TIME PROCEDURE ORDERING PROVIDER [id number] 12/06/2020 23:26 EDT CR Knee 3 Views Left MD MADDOX KEVIN G CPT code 55107 Reason For Exam (CR Knee 3 Views Left) contusion, pain anterior patella Report LEFT KNEE 3 VIEWS CLINICAL INDICATION: contusion, pain anterior patella TECHNIQUE: 3 views of the left knee. COMPARISON: None. FINDINGS: No acute fracture or dislocation. Joint spaces maintained. Soft tissues grossly unremarkable. IMPRESSION: 1. No acute osseous abnormality. Report Dictated on Workstation: [id number] --- Final --- Dictating Physician: MD SANTIZO WENDELL Signed Date and Time: 12/06/2020 11:37 pm Signed by: MD ASNTIZO WENDELL Transcribed Date and Time: 12/06/2020 11:38 [facility] Work Phone: Ta, [facility] Incoming Radiology Results From [facility] - 12/06/2020 11:39 PM EDT Patient Name: ARIES CARRASCO Diagnostic Radiology ACCESSION EXAM DATE/TIME PROCEDURE ORDERING PROVIDER [id number] 12/06/2020 23:26 EDT CR Knee 3 Views Left MD MADDOX KEVIN G CPT code 60227 Reason For Exam (CR Knee 3 Views Left) contusion, pain anterior patella Report LEFT KNEE 3 VIEWS CLINICAL INDICATION: contusion, pain anterior patella TECHNIQUE: 3 views of the left knee. COMPARISON: None. FINDINGS: No acute fracture or dislocation. Joint spaces maintained. Soft tissues grossly unremarkable. IMPRESSION: 1. No acute osseous abnormality. Report Dictated on Workstation: JAKE --- Final --- Dictating Physician: MD SANTIZO WENDELL Signed Date and Time: 12/06/2020 11:37 pm Signed by: MD SANTIZO WENDELL Transcribed Date and Time: 12/06/2020 11:38 [facility] Work Phone: [facility] Work Phone: XR ANKLE LEFT (MIN 3 VIEWS)O rdered By: Yanely Humphrey on 09-26-2020 Patient Name: ARIES CARRASCO Diagnostic Radiology ACCESSION EXAM DATE/TIME PROCEDURE ORDERING PROVIDER [id number] 09/26/2020 21:18 EDT CR Ankle 3+ Views Left 58YANELY MARTINEZ CPT code 55488 Reason For Exam (CR Ankle 3+ Views Left) left foot got slammed in room door yesterday, pain on left lateral foot and ankle Report LEFT ANKLE History: Pain Findings: Three views show no acute fracture, dislocation, bone erosion or periosteal reaction. The talotibial joint space is maintained. LEFT FOOT History: Foot pain Findings: Three views show no acute fracture, dislocation, bone erosion or periosteal reaction. IMPRESSION: Unremarkable left ankle and foot. Report Dictated on --- Final --- Dictating Physician: MD PATEL AHMAD Signed Date and Time: 09/26/2020 9:32 pm Signed by: MD PATEL AHMAD Transcribed Date and Time: 09/26/2020 9:34 [facility] Work Phone: Ta, [facility] Incoming Radiology Results From [facility] - 09/26/2020 9:34 PM EDT Patient Name: ARIES CARRASCO Diagnostic Radiology ACCESSION EXAM DATE/TIME PROCEDURE ORDERING PROVIDER [id number] 09/26/2020 21:18 EDT CR Ankle 3+ Views Left YANELY EDWARDS CPT code 01254 Reason For Exam (CR Ankle 3+ Views Left) left foot got slammed in room door yesterday, pain on left lateral foot and ankle Report LEFT ANKLE History: Pain Findings: Three views show no acute fracture, dislocation, bone erosion or periosteal reaction. The talotibial joint space is maintained. LEFT FOOT History: Foot pain Findings: Three views show no acute fracture, dislocation, bone erosion or periosteal reaction. IMPRESSION: Unremarkable left ankle and foot. Report Dictated on --- Final --- Dictating Physician: MD PATEL AHMAD Signed Date and Time: 09/26/2020 9:32 pm Signed by: MD PATEL AHMAD Transcribed Date and Time: 09/26/2020 9:34 [facility] Work Phone: [facility] Work Phone: XR FOOT LEFT (MIN 3 VIEWS)Or dered By: Yanely Humphrey on 09-26-2020 [id number] ACCESSION EXAM DATE/TIME PROCEDURE ORDERING PROVIDER [id number] 09/26/2020 21:18 EDT CR Foot Complete 3+ YANELY EDWARDS Views Left CPT code 83210 Reason For Exam (CR Foot Complete 3+ Views Left) left foot got slammed in room door yesterday, pain on left lateral foot and ankle Report LEFT ANKLE History: Pain Findings: Three views show no acute fracture, dislocation, bone erosion or periosteal reaction. The talotibial joint space is maintained. LEFT FOOT History: Foot pain Findings: Three views show no acute fracture, dislocation, bone erosion or periosteal reaction. IMPRESSION: Unremarkable left ankle and foot. Report Dictated on --- Final --- Dictating Physician: MD PATEL AHMAD Signed Date and Time: 09/26/2020 9:32 pm Signed by: MD PATEL AHMAD Transcribed Date and Time: 09/26/2020 9:34 [facility] Work Phone: Ta, [facility] Incoming Radiology Results From [facility] - 09/26/2020 9:34 PM EDT Patient Name: ARIES CARRASCO Diagnostic Radiology ACCESSION EXAM DATE/TIME PROCEDURE ORDERING PROVIDER [id number] 09/26/2020 21:18 EDT CR Foot Complete 3+ 5816 -YANELY HUMPHREY Views Left CPT code 16790 Reason For Exam (CR Foot Complete 3+ Views Left) left foot got slammed in room door yesterday, pain on left lateral foot and ankle Report LEFT ANKLE History: Pain Findings: Three views show no acute fracture, dislocation, bone erosion or periosteal reaction. The talotibial joint space is maintained. LEFT FOOT History: Foot pain Findings: Three views show no acute fracture, dislocation, bone erosion or periosteal reaction. IMPRESSION: Unremarkable left ankle and foot. Report Dictated on --- Final --- Dictating Physician: MD PATEL AHMAD Signed Date and Time: 09/26/2020 9:32 pm Signed by: MD PATEL AHMAD Transcribed Date and Time: 09/26/2020 9:34 [facility] Work Phone: [facility] Work Phone: [place] Levelon 02-03-2020 [place] Lvl 0.7 mmol/L 0.6 - 1.2 mmol/L [place], [place] [facility], [address] [place], [place], [place] [address] [place], [place] CBC Auto Differentialon - Absolute Baso # 0.0 10*3/uL 0 - 0.1 10*3/uL [place] Absolute Neut # 4.5 10*3/uL 1.8 - 8 10*3/uL [place] Basophils/100 WBC (Bld) 0.4 % 0 - 2 % [place], [place] Eosinophils (Bld) [#/Vol] 0.3 10*3/uL 0 - 0.7 10*3/uL [place] Eosinophils/100 WBC (Bld) 3.5 % 1 - 6 % [place] Erythrocyte distribution width (RBC) [Ratio] 14.9 % High 11.5 - 14.5 % [place] Granulocytes/100 WBC (Bld) 55.9 % 40 - 80 % [place] Hematocrit (Bld) [Volume fraction] 36.9 % 36 - 47 % [place] Hemoglobin (Bld) [Mass/Vol] 13.4 g/dL 13 - 15.2 g/dL [place] Interpretation and review of laboratory results Abnormal [place] Lymphocytes (Bld) [#/Vol] 2.8 10*3/uL 1.2 - 5.2 10*3/uL [place] Lymphocytes/100 WBC (Bld) 34.2 % 20 - 40 % [place] MCH (RBC) [Entitic mass] 29.5 pg 25 - 35 pg [place] MCHC (RBC) [Mass/Vol] 36.3 % 31 - 37 % [place], [place] MCV (RBC) [Entitic vol] 81.3 fL 78 - 96 fL [place], [place] Monocytes (Bld) [#/Vol] 0.5 10*3/uL 0 - 0.8 10*3/uL [place] Monocytes/100 WBC (Bld) 6.0 % 2 - 10 % [place] Platelet mean volume (Bld) [Entitic vol] 9.0 fL 7.4 - 10.4 fL [place] Platelets (Bld) [#/Vol] 235 10*3/uL 150 - 450 10*3/uL [place] RBC (Bld) [#/Vol] 4.54 10*6/uL 4.5 - 5.1 10*6/uL [place] WBC (Bld) [#/Vol] 8.1 10*3/uL 4.5 - 13 10*3/uL [place] Test Performed by [facility], [address] , [place], [place] [address] [place] Comprehensive Metabolic Pane hipolito 12-13-2019 Albumin [Mass/Vol] 4.3 g/dL 3.5 - 5 g/dL [place] ALP [Catalytic activity/Vol] 117 U/L 38 - 126 U/L [place] ALT [Catalytic activity/Vol] 18 U/L 0 - 49 U/L [place] Comment on above: The ALT test is perf ormed by an updated assay method. Please note that the reference intervals have been changed and are now sex specific. Anion gap [Moles/Vol] 9 mmol/L [place], [place] AST [Catalytic activity/Vol] 24 U/L 15 - 46 U/L [place] Bilirubin Ql (U) 0.4 mg/dL 0.2 - 1.3 mg/dL [place] Calcium [Mass/Vol] 10.0 mg/dL 8.4 - 10. 4 mg/dL [place] Chloride [Moles/Vol] 105 mmol/L 98 - 10 7 mmol/L [place] CO2 [Moles/Vol] 25 mmol/L 22 - 30 mmol/L [place] Creatinine [Mass/Vol] 1.28 mg/dL High 0.52 - 1.25 mg/dL [place] EGFR IF NonAfrican Cuban Not Calculated Critically abnormal >60 mL/min [place] Comment on above: KDIGO guidelines pro vide the following GFR categories: Stage GFR(ml/min/1.73 m2) Terms G1 >=90 Normal or high G2 60-89 Mildly decreased* G3a 45-59 Mildly to moderately decreased G3b 30-44 Moderately to severely decreased G4 15-29 Severely decreased G5 <15 Kidney failure *Relative to young adult level. In the absence of evidence of kidney damage, neither GFR category G1 nor G2 fulfill the criteria for CKD. The CKD-EPI equation is validated in individuals 18 years of age and older. Currently the best equation for estimating glomerular filtration rate (GFR) from serum creatinine in children is the Bedside Watts equation. It is less accurate in patients with extremes of muscle mass, restriction of dietary protein, ingestion of creatine, extra-renal metabolism of creatinine, or treatment with medications that affect renal tubular creatinine secretion. GFR/1.73 sq M predicted among blacks MDRD (S/P/Bld) [Vol rate/Area] Not Calculated Critically abnormal >60 mL/min [place] Glucose [Mass/Vol] 97 mg/dL 70 - 100 mg/dL [place] Potassium [Moles/Vol] 4.6 mmol/L 3.5 - 5.1 mmol/L [place] Protein [Mass/Vol] 7.0 g/dL 6.3 - 8.2 g/dL [place] Sodium [Moles/Vol] 138 mmol/L 135 - 145 mmol/L [place] Urea nitrogen [Mass/Vol] 16 mg/dL 7 - 20 mg/dL [place] Hemoglobin A1Con 12-13-2019 eAG 94 mg/dL [place] HbA1c (Bld) [Mass fraction] 4.9 % 4 - 6 % [place] Comment on above: --HgbA1C levels may not be accurate in patients who have renal disease, received recent blood transfusions, are anemic, or who have dyshemoglobinemia. Test Performed by [facility], [facility] [address] , [address] Hepatic Function Panelon Bilirubin.direct [Mass/Vol] 0.0 mg/dL 0 - 0.3 mg/dL [place] Lipid Panelon 12-13-2019 Cholesterol [Mass/Vol] 155 mg/dL <200 [place] Cholesterol in HDL [Mass/Vol] 35 mg/dL Low 40 - 60 mg/dL [place] Cholesterol in LDL [Mass/Vol] 82 mg/dL <100 [place] Cholesterol.total/Choles terol in HDL [Mass ratio] 4 {ratio} [place] Comment on above: Ref Range: < 3 Low Risk for CHD 3-6 Mod Risk for CHD > 6 High Risk for CHD Triglyceride [Mass/Vol] 189 mg/dL Abnormal <150 [place] Levelon 12-13-2019 Interpretation and review of laboratory results Abnormal [place] Lvl 1.3 mmol/L High 0.6 - 1.2 mmol/L [place] Test Performed by [facility], [address], [place], [place] [address] [facility] SHARON Otheron 12-13-2019 Interpretation and review of laboratory results Abnormal [place] Test Performed by [facility], [address] , [address] TSH without Reflexon 020 Interpretation and review of laboratory results Abnormal [place] TSH Qn 4.682 u[IU]/mL High 0.465 - 4.68 u[IU]/mL [place] Test Performed by [facility], [address] , [address] CBC Auto Differentialon 10-0 Absolute Baso # 0.0 10*3/uL 0 - 0.1 10*3/uL [place] Absolute Neut # 4.2 10*3/uL 1.8 - 8 10*3/uL [place] Basophils/100 WBC (Bld) 0.7 % 0 - 2 % [place] Eosinophils (Bld) [#/Vol] 0.0 10*3/uL 0 - 0.7 10*3/uL [place] Eosinophils/100 WBC (Bld) 2.6 % 1 - 6 % [place] Erythrocyte distribution width (RBC) [Ratio] 13.0 % 11.5 - 14.5 % [place] Granulocytes/100 WBC (Bld) 58.5 % 40 - 80 % [place] Hematocrit (Bld) [Volume fraction] 43.8 % 36 - 47 % [place] Hemoglobin (Bld) [Mass/Vol] 15.2 g/dL 13 - 15.2 g/dL [place] Interpretation and review of laboratory results Abnormal [place] Lymphocytes (Bld) [#/Vol] 2.3 10*3/uL 1.2 - 5.2 10*3/uL [place] Lymphocytes/100 WBC (Bld) 32.6 % 20 - 40 % [place] MCH (RBC) [Entitic mass] 29.1 pg 25 - 35 pg [place] MCHC (RBC) [Mass/Vol] 34.6 % 31 - 37 % [place] MCV (RBC) [Entitic vol] 84.2 fL 78 - 96 fL [place] Monocytes (Bld) [#/Vol] 0.4 10*3/uL 0 - 0.8 10*3/uL [place] Monocytes/100 WBC (Bld) 5.6 % 2 - 10 % [place] Platelet mean volume (Bld) [Entitic vol] 8.6 fL 7.4 - 10.4 fL [place] Platelets (Bld) [#/Vol] 228 10*3/uL 150 - 450 10*3/uL [place] RBC (Bld) [#/Vol] 5.20 10*6/uL High 4.5 - 5.1 10*6/uL [place] WBC (Bld) [#/Vol] 7.2 10*3/uL 4.5 - 13 10*3/uL [place] Test Performed by [facility], [address] , [address] Hemoglobin A1Con 01-21-2019 eAG 103 mg/dL [place] HbA1c (Bld) [Mass fraction] 5.2 % 4 - 5.7 % [place] Comment on above: --HgbA1C levels may not be accurate in patients who have renal disease, received recent blood transfusions, are anemic, or who have dyshemoglobinemia. Test Performed by [facility], [address] , [address] [place] Levelon 01-21-2019 Interpretation and review of laboratory results Abnormal [place] Lvl 1.4 mmol/L High 0.6 - 1.2 mmol/L [place] Test Performed by [facility], [address], [place], [place] [address] [place] TSH without Reflexon 019 TSH Qn 2.812 u[IU]/mL 0.465 - 4.68 u[IU]/mL [place] Test Performed by [facility], [address] , [address] Urinalysison 01-21-2019 Appearance (U) Clear [place] Comment on above: Reference Range: [place] Bilirubin Urine Negative mg/dL [place] Comment on above: Reference Range: Neg ative Color (U) COLORLESS [place] Comment on above: Reference Range: Lt. Yellow Glucose, Ur Normal mg/dL [place], [place] Comment on above: Reference Range: Nor mal (<70) Ketones Ql (U) Negative mg/dL [place], [place] Comment on above: Reference Range: Neg ative LEUKOCYTES, UA Negative Lazaro/uL [place] Comment on above: Reference Range: Neg ative Nitrite, Urine Negative [place] Comment on above: Reference Range: Neg ative Occult Blood,Urine Negative mg/dL [place] Comment on above: Reference Range: Neg ative pH (U) 7.0 [pH] [place] Protein (U) [Mass/Vol] Negative mg/dL [place] Comment on above: Reference Range: Neg ative Specific [place], Urine 1.007 M [place], [place] Urobilinogen, Urine Normal mg/dL [place], [place] Comment on above: Reference Range: Nor mal (0-1) Test Performed by [facility], [address] , [address] Vital Signs Date Time Vital Sign Value Performing Clinician Facility 10-26-2024 08:07-0400 Body mass index (BMI) [Ratio] 26.02 kg/m2 Kar Rojas APRN - VARNISH MAKER HELPER Work Phone: [facility] 10-26-2024 08:07-0400 Body weight 79.92 kg Kar Bridenthal EMBOSSING CLERK - [employer]ARNISH MAKER HELPER Work Phone: [facility] 10-26-2024 08:07-0400 Diastolic blood pressure 82 mm[Hg] Kar Bridenthal EMBOSSING CLERK - VARNISH MAKER HELPER Work Phone: [facility] 10-26-2024 08:07-0400 Heart rate 58 /min Kar Bridenthal EMBOSSING CLERK - [employer]ARNISH MAKER HELPER Work Phone: [facility] 10-26-2024 08:07-0400 Respiratory rate 24 /min Kar Bridenthal EMBOSSING CLERK - [employer]ARNISH MAKER HELPER Work Phone: [facility] 10-26-2024 08:07-0400 Systolic blood pressure 122 mm[Hg] Kar Bridenthal EMBOSSING CLERK - VARNISH MAKER HELPER Work Phone: [facility] 09-26-2024 23:05-0400 Body temperature 102 [degF] Dr. Damion Trevino DO Work Phone: [facility] 09-26-2024 23:05-0400 Diastolic blood pressure 56 mm[Hg] Dr. Damion Trevino DO Work Phone: [facility] 09-26-2024 23:05-0400 Heart rate 110 /min Dr. Damion Trevino DO Work Phone: [facility] 09-26-2024 23:05-0400 Respiratory rate 24 /min Dr. Damion Trevino DO Work Phone: [facility] 09-26-2024 23:05-0400 SaO2% (BldA) [Mass fraction] 100 % Dr. Damion Trevino DO Work Phone: [facility] 09-26-2024 23:05-0400 Systolic blood pressure 113 mm[Hg] Dr. Damion Trevino DO Work Phone: [facility] 09-26-2024 18:46-0400 Body height 175.[address] Damion Trevino DO Work Phone: [facility] 09-26-2024 18:46-0400 Body mass index (BMI) [Ratio] 27.4 kg/m2 Dr. Damion Trevino DO Work Phone: [facility] 09-26-2024 18:46-0400 Body weight 84.[address] Damion Trevino DO Work Phone: [facility] 08-15-2024 09:31-0400 Body mass index (BMI) [Ratio] 28.47 kg/m2 Kar Bridenthal EMBOSSING CLERK - [employer]ARNISH MAKER HELPER Work Phone: [facility] 08-15-2024 09:31-0400 Body temperature 99.3 [degF] Kar Bridenthal EMBOSSING CLERK - VARNISH MAKER HELPER Work Phone: [facility] 08-15-2024 09:31-0400 Body weight 87.45 kg Kar Bridenthal EMBOSSING CLERK - VARNISH MAKER HELPER Work Phone: [facility] 08-15-2024 09:31-0400 Diastolic blood pressure 80 mm[Hg] Kar Bridenthal EMBOSSING CLERK - VARNISH MAKER HELPER Work Phone: [facility] 08-15-2024 09:31-0400 Heart rate 76 /min Kar Bridenthal EMBOSSING CLERK - VARNISH MAKER HELPER Work Phone: [facility] 08-15-2024 09:31-0400 Respiratory rate 24 /min Kar Bridenthal EMBOSSING CLERK - VARNISH MAKER HELPER Work Phone: [facility] 08-15-2024 09:31-0400 SaO2% (BldA) [Mass fraction] 97 % Kar Bridenthal EMBOSSING CLERK - VARNISH MAKER HELPER Work Phone: [facility] 08-15-2024 09:31-0400 Systolic blood pressure 125 mm[Hg] Kar Bridenthal EMBOSSING CLERK - [employer]ARNISH MAKER HELPER Work Phone: [facility] 06-01-2024 23:25-0500 Body temperature 98.49 [degF] Kvng Vera MD Work Phone: [facility] 06-01-2024 23:25-0500 Diastolic blood pressure 89 mm[Hg] Kvng Vera MD Work Phone: [employer] 06-01-2024 23:25-0500 Heart rate 76 /min Kvng Vera MD Work Phone: [facility] [facility] 06-01-2024 23:25-0500 Respiratory rate 14 /min Kvng Vera MD Work Phone: [facility] 06-01-2024 23:25-0500 SaO2% (BldA) [Mass fraction] 99 % Kvng Vera MD Work Phone: [employer] 06-01-2024 23:25-0500 Systolic blood pressure 133 mm[Hg] Kvng Vera MD Work Phone: [facility] 06-01-2024 08:10-0500 Body height 175.3 cm Kvng Vera MD Work Phone: [facility] [employer] [facility] 06-01-2024 08:10-0500 Body mass index (BMI) [Ratio] 27.32 kg/m2 Kvng Vera MD Work Phone: [employer] [facility] 06-01-2024 08:10-0500 Body weight 83.92 kg Kvng Vera MD Work Phone: [facility] 04-26-2024 07:40-0500 Body height 175.3 cm Jose Yen MD Work Phone: [employer] [facility] 04-26-2024 07:40-0500 Body mass index (BMI) [Ratio] 29.92 kg/m2 Jose Yen MD Work Phone: [facility] 04-26-2024 07:40-0500 Body weight 91.9 kg Jose Yen MD Work Phone: [facility] 04-26-2024 07:40-0500 Diastolic blood pressure 76 mm[Hg] Jose Yen MD Work Phone: [employer] [facility] 04-26-2024 07:40-0500 Heart rate 64 /min Jose Yen MD Work Phone: [facility] 04-26-2024 07:40-0500 SaO2% (BldA) [Mass fraction] 96 % Jose Yen MD Work Phone: [facility] 04-26-2024 07:40-0500 Systolic blood pressure 125 mm[Hg] Jose Yen MD Work Phone: [facility] 10-12-2023 08:37-0400 Body height 175.3 cm Jose Yen MD Work Phone: [facility] 10-12-2023 08:37-0400 Body mass index (BMI) [Ratio] 30.54 kg/m2 Jose Yen MD Work Phone: [facility] 10-12-2023 08:37-0400 Body weight 93.8 kg Jose Yen MD Work Phone: [facility] 10-12-2023 08:37-0400 Diastolic blood pressure 80 mm[Hg] Jose Yen MD Work Phone: [facility] 10-12-2023 08:37-0400 Heart rate 52 /min Jose Yen MD Work Phone: [facility] 10-12-2023 08:37-0400 SaO2% (BldA) [Mass fraction] 96 % Jose Yen MD Work Phone: [facility] 10-12-2023 08:37-0400 Systolic blood pressure 121 mm[Hg] Jose Yen MD Work Phone: [facility] 07-30-2023 03:26-0400 Diastolic Blood Pressure Non-Invasive 90 mm[Hg] DRISS MOCTEZUMA MD [facility] 07-30-2023 03:26-0400 Heart rate 63 /min DRISS MOCTEZUMA MD [facility] 07-30-2023 03:26-0400 Mean blood pressure 103 mm[Hg] DRISS MOCTEZUMA MD [facility] 07-30-2023 03:26-0400 Respiratory rate 16 /min DRISS MOCTEZUMA MD [facility] 07-30-2023 03:26-0400 Systolic Blood Pressure Non-Invasive 145 mm[Hg] DRISS MOCTEZUMA MD [facility] 07-29-2023 20:11-0400 Body height 175.3 cm DRISS MOCTEZUMA MD [facility] 07-29-2023 20:11-0400 Body temperature 97.7 [degF] DRISS MOCTEZUMA MD [facility] 07-29-2023 20:11-0400 Body weight 90.9 kg DRISS MOCTEZUMA MD [facility] 07-29-2023 20:11-0400 Diastolic Blood Pressure Non-Invasive 83 mm[Hg] DRISS MOCTEZUMA MD [facility] 07-29-2023 20:11-0400 Heart rate 74 /min DRISS MOCTEZUMA MD [facility] 07-29-2023 20:11-0400 Respiratory rate 18 /min DRISS MOCTEZUMA MD [facility] 07-29-2023 20:11-0400 Systolic Blood Pressure Non-Invasive 133 mm[Hg] DRISS MOCTEZUMA MD [facility] 05-26-2023 15:23-0500 Body height 175.3 cm Kar Rojas EMBOSSING CLERK - [employer]ARNISH MAKER HELPER Work Phone: [facility] 05-26-2023 15:23-0500 Body mass index (BMI) [Ratio] 32.19 kg/m2 Kar Rojas EMBOSSING CLERK - [employer]ARNISH MAKER HELPER Work Phone: [facility] 05-26-2023 15:23-0500 Body weight 98.88 kg Kar Bridenthal EMBOSSING CLERK - [employer]ARNISH MAKER HELPER Work Phone: [employer] [facility] 05-26-2023 15:23-0500 Diastolic blood pressure 75 mm[Hg] Kar Bridenthal EMBOSSING CLERK - VARNISH MAKER HELPER Work Phone: [employer] 05-26-2023 15:23-0500 Heart rate 82 /min Kar Bridenthal EMBOSSING CLERK - VARNISH MAKER HELPER Work Phone: [facility] 05-26-2023 15:23-0500 SaO2% (BldA) [Mass fraction] 98 % Kar Bridenthal EMBOSSING CLERK - VARNISH MAKER HELPER Work Phone: [facility] 05-26-2023 15:23-0500 Systolic blood pressure 125 mm[Hg] Kar Bridenthal EMBOSSING CLERK - VARNISH MAKER HELPER Work Phone: [facility] 04-21-2023 08:52-0500 Body height 175.3 cm Kar Bridenthal EMBOSSING CLERK - VARNISH MAKER HELPER Work Phone: [facility] 04-21-2023 08:52-0500 Body mass index (BMI) [Ratio] 32.78 kg/m2 Kar Bridenthal EMBOSSING CLERK - VARNISH MAKER HELPER Work Phone: [facility] 04-21-2023 08:52-0500 Body temperature 98.4 [degF] Kar Bridenthal EMBOSSING CLERK - VARNISH MAKER HELPER Work Phone: [facility] 04-21-2023 08:52-0500 Body weight 100.7 kg Kar Bridenthal EMBOSSING CLERK - VARNISH MAKER HELPER Work Phone: [facility] 04-21-2023 08:52-0500 Diastolic blood pressure 73 mm[Hg] Kar Bridenthal EMBOSSING CLERK - VARNISH MAKER HELPER Work Phone: [facility] 04-21-2023 08:52-0500 Heart rate 88 /min Kar Bridenthal EMBOSSING CLERK - VARNISH MAKER HELPER Work Phone: [facility] 04-21-2023 08:52-0500 Respiratory rate 24 /min Kar Hillal EMBOSSING CLERK - VARNISH MAKER HELPER Work Phone: [facility] 04-21-2023 08:52-0500 SaO2% (BldA) [Mass fraction] 99 % Kar Villasenorenthal EMBOSSING CLERK - VARNISH MAKER HELPER Work Phone: [facility] 04-21-2023 08:52-0500 Systolic blood pressure 116 mm[Hg] Kar Hillal EMBOSSING CLERK - VARNISH MAKER HELPER Work Phone: [facility] 08-18-2021 21:03-0400 Body height 172.7 cm Paula Brito MD Work Phone: [facility] 08-18-2021 21:03-0400 Body mass index (BMI) [Percentile] Per age and sex 95.31 % Paula Brito MD Work Phone: [facility] 08-18-2021 21:03-0400 Body mass index (BMI) [Ratio] 30.41 kg/m2 Paula Brito MD Work Phone: [facility] 08-18-2021 21:03-0400 Body temperature 98.29 [degF] Paula Brito MD Work Phone: [facility] 08-18-2021 21:03-0400 Body weight 90.72 kg Paula Brito MD Work Phone: [facility] 08-18-2021 21:03-0400 Diastolic blood pressure 93 mm[Hg] Paula Brito MD Work Phone: [facility] 08-18-2021 21:03-0400 Heart rate 94 /min Paula Brito MD Work Phone: [facility] 08-18-2021 21:03-0400 Respiratory rate 14 /min Paula Brito MD Work Phone: [facility] 08-18-2021 21:03-0400 SaO2% (BldA) [Mass fraction] 100 % Paula Brito MD Work Phone: [facility] 08-18-2021 21:03-0400 Systolic blood pressure 141 mm[Hg] Paula Brito MD Work Phone: [facility] 08-06-2021 16:24-0400 Body height 172.7 cm Abner Carrion DO Work Phone: [facility] 08-06-2021 16:24-0400 Body mass index (BMI) [Percentile] Per age and sex 95.35 % Abner Carrion DO Work Phone: [facility] 08-06-2021 16:24-0400 Body mass index (BMI) [Ratio] 30.41 kg/m2 Abner Carrion DO Work Phone: [facility] 08-06-2021 16:24-0400 Body temperature 98.01 [degF] Abner Carrion DO Work Phone: [facility] 08-06-2021 16:24-0400 Body weight 90.72 kg Abner Carrion DO Work Phone: [facility] 08-06-2021 16:24-0400 Diastolic blood pressure 84 mm[Hg] Abner Carrion DO Work Phone: [facility] 08-06-2021 16:24-0400 Heart rate 77 /min Abner Carrion DO Work Phone: [facility] 08-06-2021 16:24-0400 Respiratory rate 16 /min Abner Carrion DO Work Phone: [facility] 08-06-2021 16:24-0400 SaO2% (BldA) [Mass fraction] 100 % Abner Carrion DO Work Phone: [facility] 08-06-2021 16:24-0400 Systolic blood pressure 133 mm[Hg] Abner Carrion DO Work Phone: [facility] 05-16-2021 20:02-0500 Body temperature 98.4 [degF] Bhavesh Horn MD Work Phone: [facility] 05-16-2021 19:50-0500 Body mass index (BMI) [Percentile] Per age and sex 94.47 % Bhavesh Horn MD Work Phone: [facility] 05-16-2021 19:50-0500 Body mass index (BMI) [Ratio] 29.65 kg/m2 Bhavesh Horn MD Work Phone: [facility] 05-16-2021 19:50-0500 Body weight 88.45 kg Bhavesh Horn MD Work Phone: [facility] 05-16-2021 19:50-0500 Diastolic blood pressure 90 mm[Hg] Bhavesh Horn MD Work Phone: [facility] 05-16-2021 19:50-0500 Heart rate 86 /min Bhavesh Horn MD Work Phone: [facility] 05-16-2021 19:50-0500 Respiratory rate 16 /min Bhavesh Horn MD Work Phone: [facility] 05-16-2021 19:50-0500 SaO2% (BldA) [Mass fraction] 100 % Bhavesh Horn MD Work Phone: [facility] 05-16-2021 19:50-0500 Systolic blood pressure 148 mm[Hg] Bhavesh Horn MD Work Phone: [facility] 12-06-2020 22:58-0400 Body height 170.2 cm Ankit Maddox MD Work Phone: [facility] Work Phone: 12-06-2020 22:58-0400 Body temperature 98.2 [degF] Ankit Maddox MD Work Phone: [facility] Work Phone: 12-06-2020 22:58-0400 Diastolic blood pressure 103 mm[Hg] Ankit Maddox MD Work Phone: [facility] Work Phone: 12-06-2020 22:58-0400 Heart rate 68 /min Ankit Maddox MD Work Phone: [facility] Work Phone: 08-20-2021 22:58-0400 Respiratory rate 16 /min Ankit Maddox MD Work Phone: [facility] Work Phone: 12-06-2020 22:58-0400 SaO2% (BldA) [Mass fraction] 98 % Ankit Maddox MD Work Phone: [facility] Work Phone: 12-06-2020 22:58-0400 Systolic blood pressure 138 mm[Hg] Ankit Maddox MD Work Phone: [facility] Work Phone: 09-26-2020 20:49-0400 Body height 172.7 cm Yanely Humphrey MD Work Phone: [facility] Work Phone: 09-26-2020 20:49-0400 Body mass index (BMI) [Ratio] 30.41 kg/m2 Yanely Humphrey MD Work Phone: [facility] Work Phone: 09-26-2020 20:49-0400 Body temperature 98.1 [degF] Yanely Humphrey MD Work Phone: [facility] Work Phone: 09-26-2020 20:49-0400 Body weight 90.72 kg Yanely Humphrey MD Work Phone: [facility] Work Phone: 09-26-2020 20:49-0400 Diastolic blood pressure 98 mm[Hg] Yanely Humphrey MD Work Phone: [facility] Work Phone: 09-26-2020 20:49-0400 Heart rate 71 /min Yanely Humphrey MD Work Phone: [facility] Work Phone: 09-26-2020 20:49-0400 Respiratory rate 18 /min Yanely Humphrey MD Work Phone: [facility] Work Phone: 09-26-2020 20:49-0400 SaO2% (BldA) [Mass fraction] 97 % Yanely Humphrey MD Work Phone: [facility] Work Phone: 09-26-2020 20:49-0400 Systolic blood pressure 147 mm[Hg] Yanely Humphrey MD Work Phone: [facility] Work Phone: Encounters Encounter Date Encounter Type Care Provider Facility Start: 10-26-2024 End: 10-26-2024 Office outpatient visit 25 minutes Kar Sergiovick EMBOSSING CLERK - [employer]ARNISH MAKER HELPER Work Phone: [facility] Comment on above: Asthma, exercise ind uced (Primary Dx); Back strain, initial encounter; Bipolar disorder in partial remission, most recent episode unspecified type (HCC); Generalized anxiety disorder Start: 10-26-2024 End: 10-26-2024 ambulatory KAR [facility] Start: 09-26-2024 End: 09-26-2024 Emergency department patient visit Dr. Damion Trevino DO Work Phone: -Emergency Department Work Phone: Start: 09-11-2024 End: 09-11-2024 Emergency department patient visit DRISS MOCTEZUMA MD [facility] Start: 08-15-2024 End: 08-15-2024 Patient encounter procedure Guerline Langford RN [facility] Clinical Communication Start: 08-15-2024 End: 08-15-2024 Office outpatient visit 15 minutes Kar Hamiltonnik EMBOSSING CLERK - VARNISH MAKER HELPER Work Phone: [facility] Comment on above: Contact dermatitis, unspecified contact dermatitis type, unspecified trigger (Primary Dx) Start: 08-15-2024 End: 08-15-2024 [facility] Start: 07-12-2024 End: 07-12-2024 Emergency department patient visit DR JOSE YEN MD Facility:[facility] Start: 06-01-2024 End: 06-01-2024 Emergency department patient visit Kvng Vera MD Work Phone: [facility] Comment on above: Persistent depressiv e disorder (Primary Dx) Start: 04-26-2024 End: 04-26-2024 Patient encounter procedure Jose Yen MD Work Phone: [facility] Work Phone: Start: 04-26-2024 End: 04-26-2024 Periodic preventive med est patient 18-39 yrs Jose Yen MD Work Phone: [facility] Comment on above: Annual physical exam (Primary Dx); Residual schizophrenia (CMS/HCC) (HCC); Asthma, exercise induced; Adolescent idiopathic scoliosis of thoracolumbar region; Attention deficit hyperactivity disorder, combined type; Bipolar disorder in partial remission, most recent episode unspecified type (HCC); Hypercholesterolemia; Screening for diabetes mellitus Start: 04-26-2024 End: 04-26-2024 ambulatory [facility] Start: 04-26-2024 End: 04-26-2024 Encounter for general adult medical examination without abnormal findings [facility] Start: 03-03-2024 End: 03-03-2024 Orders Only Provider Not In System Work Phone: [facility] Start: 03-03-2024 End: 03-03-2024 ambulatory [facility] Start: 01-27-2024 End: 02-07-2024 Evaluation and management of inpatient [facility] Start: 12-07-2023 End: 12-07-2023 ambulatory [facility] Start: 10-27-2023 End: 11-01-2023 Telephone encounter Jose Yen MD Work Phone: [facility] Comment on above: Appointment; Medicat ion Problem Start: 10-13-2023 End: 10-14-2023 Telephone encounter Elva Pearce [facility] Comment on above: Discuss Labs Start: 10-12-2023 End: 10-12-2023 Orders Only Kvng Foster Work Phone: [facility] Start: 10-12-2023 End: 10-12-2023 Office outpatient visit 25 minutes Jose Yen MD Work Phone: [facility] Comment on above: Residual schizophren ia (CMS/HCC) (HCC) (Primary Dx); Asthma, exercise induced; Generalized anxiety disorder; Allergic rhinitis due to pollen, unspecified seasonality; Obesity (BMI 30.0-34.9); Hypercholesterolemia Start: 07-29-2023 End: 07-30-2023 Emergency department patient visit DR JOSE YEN MD Facility:[facility] Start: 07-29-2023 End: 07-30-2023 Emergency department patient visit DRISS MOCTEZUMA MD [facility] Start: 05-26-2023 End: 05-26-2023 Office outpatient visit 15 minutes Kar Pinky EMBOSSING CLERK - [employer]ARN[employer] MAKER HELPER Work Phone: [facility] Comment on above: Contusion of scalp, initial encounter (Primary Dx); Closed fracture of tooth with routine healing Start: 05-26-2023 ambulatory Whit Rice RN [facility] Cl inical Communication Start: 05-26-2023 [facility] Start: 04-21-2023 End: 04-21-2023 Patient encounter procedure Kar Sergioal EMBOSSING CLERK - VARNISH MAKER HELPER Work Phone: [facility] Work Phone: Start: 04-21-2023 End: 04-21-2023 Periodic preventive med est patient 18-39 yrs Kar Hamiltonenthal EMBOSSING CLERK - [employer]ARNISH MAKER HELPER Work Phone: [facility] Comment on above: Annual physical exam (Primary Dx); Screening for deficiency anemia; Screening for cholesterol level; Screening for diabetes mellitus; Immunization due; Jermaine (HCC); Attention deficit hyperactivity disorder, combined type; Mental disorder; Obesity (BMI 30.0-34.9) Start: 04-08-2023 Telephone encounter Jose Lamas MD Work Phone: [facility] Comment on above: Appointment Start: 09-22-2022 Orders Only Kvng Foster Work Phone: [facility] Start: 05-12-2022 Peng Yen MD Work Phone: [facility] Start: 08-18-2021 End: 08-18-2021 Emergency department patient visit Paula Brito MD Work Phone: [facility] Comment on above: Sprain of right midd le finger, unspecified site of digit, initial encounter (Primary Dx) Start: 08-06-2021 End: 08-06-2021 Emergency department patient visit Abner Carrion DO Work Phone: [facility] Comment on above: Blood in stool (Prim denise Dx) Start: 05-16-2021 End: 05-16-2021 Emergency department patient visit Bhavesh Horn MD Work Phone: [facility] Comment on above: Generalized abdomina l pain (Primary Dx) Start: 12-06-2020 End: 12-06-2020 Emergency department patient visit Ankit Maddox MD Work Phone: [facility] Comment on above: Contusion of left kn ee, initial encounter (Primary Dx) Start: 09-26-2020 End: 09-26-2020 Emergency department patient visit Yanely Humphrey MD Work Phone: [facility] Comment on above: Foot sprain, left, i nitial encounter (Primary Dx); Contusion of left foot, initial encounter Start: 02-03-2020 End: 02-03-2020 Subsequent hospital visit by physician [facility] Start: 12-13-2019 End: 12-13-2019 Subsequent hospital visit by physician [facility] Start: 01-21-2019 End: 01-21-2019 Subsequent hospital visit by physician [facility] Procedures Date Procedure Procedure Detail Performing Clinician Start: 09-26-2024 Urnls dip stick/tabl et reagent auto microscopy Dr. Damion Trevino DO Work Phone: Start: 09-26-2024 X-ray of chest, PA a nd lateral views Dr. Damion Trevino DO Work Phone: Start: 09-26-[address] Damion Trevino DO Work Phone: Start: 09-26-[address] Damion Trevino DO Work Phone: Start: 09-26-2024 SARS-CoV-2, Influenz a & RSV (PCR) Dr. Damion Trevino DO Work Phone: Start: 06-01-2024 SARS-CoV-2 (COVID-19 ) Ag [Presence] in Respiratory specimen by Rapid immunoassay Manjeet Vegaer PA-C Work Phone: Start: 06-01-2024 Ecg routine ecg w/le ast 12 lds trcg only w/o i&r Manjeet Barbie PA-C Work Phone: Start: 06-01-2024 Comprehensive metabo lic panel Manjeet Barbie PA-C Work Phone: Start: 06-01-2024 End: 06-01-2024 Drug test def 1-7 classes Manjeet Barbie P A-C Work Phone: Start: 04-26-2024 Lipid 1996 panel - S chris or Plasma Kvng Vera MD Work Phone: Start: 03-03-2024 HOUSE ACCOUNT TRACKI NG (Fluoresent[employer]) Provider Not In System Work Phone: Start: 12-07-2023 Lipid 1995 panel - S chris or Plasma Provider System Work Phone: Start: 10-12-2023 HOUSE ACCOUNT TRACKI NG ([facility]) Kvng Foster Work Phone: Start: 10-12-2023 Lipid 1996 panel - S chris or Plasma Elva D'Maria Esther Start: 06-10-2023 Thyrotropin [Units/v olume] in Serum or Plasma Provider System Work Phone: Start: 06-09-2023 Adult depression scr eening assessment Jose Yen MD Work Phone: Start: 04-21-2023 Lipid 1996 panel - S chris or Plasma Whit Rice RN Start: 03-28-2023 Adult depression scr eening assessment Jose Yen MD Work Phone: Start: 09-22-2022 HOUSE ACCOUNT MIGUELITO TODD ([facility]) Kvng Foster Work Phone: Start: 09-22-2022 Thyrotropin [Units/v olume] in Serum or Plasma oJse Yen MD Work Phone: Start: 02-04-2022 Lipid 1996 panel - S chris or Plasma Jose Yen MD Work Phone: Start: 08-18-2021 Radex fingr minimum 2 views Paula Brito MD Work Phone: Start: 05-16-2021 Comprehensive metabo lic panel Bhavesh Horn MD Work Phone: Start: 05-16-2021 Ecg routine ecg w/le ast 12 lds w/i&r Bhavesh Horn MD Work Phone: Start: 12-06-2020 Radiologic examinati on knee 3 views Ankit Maddox MD Work Phone: Start: 09-26-2020 Radex ankle complete minimum 3 views Yanely Humphrey MD Work Phone: Start: 02-03-2020 Drug screen quantita tive lithium Unknown Provider Result Start: 12-13-2019 Assay of thyroid stimulating hormone tsh Unknown Provider Result Start: 12-13-2019 Blood count complete auto&auto difrntl wbc Unknown Provider Result Start: 12-13-2019 Comprehensive metabo lic panel Unknown Provider Result Start: 12-13-2019 Drug screen quantita tive lithium Unknown Provider Result Start: 12-13-2019 Hemoglobin glycosylated a1c Unknown Provider Result Start: 12-13-2019 Hepatic function panel Unknown Provider Result Start: 12-13-2019 Lipid panel Unknown Pr ovider Result Start: 01-21-2019 Urnls dip stick/tabl et rgnt auto w/o microscopy Unknown Provider Result Start: 01-21-2019 Assay of thyroid stimulating hormone tsh Unknown Provider Result Start: 01-21-2019 Blood count complete auto&auto difrntl wbc Unknown Provider Result Start: 01-21-2019 Drug screen quantita tive lithium Unknown Provider Result Start: 01-21-2019 Hemoglobin glycosylated a1c Unknown Provider Result Plan of Treatment Date Care Activity Detail Author Start: 2077 RSV Immunization for Adults (1 - 1-dose 75+ series) RSV Immunization for Adults (1 - 1-dose 75+ series) [facility] Start: 2062 RSV Immunization aged 60 or older (1 - 1-dose 60+ series) RSV Immunization aged 60 or older (1 - 1-dose 60+ series) [facility] Start: 01-16-2052 Zoster Vaccines (1 of 2) Zoster Vaccines (1 of 2) [facility] Start: 04-26-2029 Lipid panel Lipid Panel [facility] Start: 12-06-2028 Lipid panel Lipid Panel [facility] Start: 10-11-2028 Lipid panel Lipid Panel [facility] Start: 04-21-2028 Lipid panel Lipid Panel [facility] Start: 02-04-2027 Lipid panel Lipid Panel [facility] Start: 04-28-2025 Depression Monitoring Depression Monitoring [facility] Start: 04-27-2025 End: 04-27-2025 Patient encounter procedure 04/27/2025 10:40 AM EST Office Visit [facility] [address] [place] [address] Mlelisa Salcedo S, EMBOSSING CLERK - [employer]ARNISH MAKER HELPER [address] [place] [address] [facility] Start: 04-26-2025 COVID-19 Vaccine ( season) COVID-19 Vaccine ( season) [facility] Comment on above: Postponed from 12/19/2023 (Patient Refus ed) Start: 12-18-2024 Influenza vaccination Influenza Vaccine (#1) [facility] Start: 10-26-2024 End: 10-26-2024 Patient encounter procedure [facility] Start: 10-24-2024 Depression Monitoring Depression Monitoring [facility] Start: 09-26-2024 [facility] Start: 07-27-2024 Depression Monitoring Depression Monitoring [facility] Start: 06-10-2024 Thyroid stimulating hormone measurement TSH Level [facility] Start: 06-09-2024 Depression Screening Depression Screening [facility] Start: 04-26-2024 End: 04-26-2025 Comprehensive metabolic 1998 panel - Serum or Plasma Comprehensive metabolic panel Lab Routine Screening for diabetes mellitus Expected: 04/26/2024 (Approximate), Expires: 04/26/2025 [facility] Comment on above: Expected: 04/26/2024 (Approximate), Expi res: 04/26/2025 Start: 04-26-2024 End: 04-26-2025 Lipid 1996 panel - Serum or Plasma Lipid panel Lab Routine Hypercholesterolemia Expected: 04/26/2024 (Approximate), Expires: 04/26/2025 [facility] Work Phone: Comment on above: Expected: 04/26/2024 (Approximate), Expi res: 04/26/2025 Start: 04-26-2024 End: 04-26-2024 Patient encounter procedure [facility] Start: 04-21-2024 COVID-19 Vaccine () COVID-19 Vaccine () [facility] Comment on above: Postponed from 12/18/2022 (Patient Refus ed) Start: 04-21-2024 Hepatitis A Vaccines (1 of 2 - Risk 2-dose series) Hepatitis A Vaccines (1 of 2 - Risk 2-dose series) [facility] Comment on above: Postponed from 2021 (Patient Refus ed) Start: 03-28-2024 Depression Screening Depression Screening [facility] Start: 12-29-2023 DTaP/Tdap/Td vaccine (7 - Td or Tdap) DTaP/Tdap/Td vaccine (7 - Td or Tdap) [facility] Start: 12-29-2023 DTaP/Tdap/Td Vaccines (7 - Td or Tdap) DTaP/Tdap/Td Vaccines (7 - Td or Tdap) [facility] Start: 12-19-2023 COVID-19 Vaccine () COVID-19 Vaccine ( season) [facility] Start: 12-19-2023 Influenza vaccination Influenza Vaccine (#1) [facility] Start: 10-20-2023 End: 10-20-2023 Patient encounter procedure 10/20/2023 9:00 AM EDT Office Visit [facility] [address] [place] [address] [place] [address] Jose Yen MD [address] [place] [address] [place] [address] [facility] Start: 10-12-2023 End: 10-11-2024 Lipid 1996 panel - Serum or Plasma Lipid panel Lab Routine Hypercholesterolemia Expected: 10/12/2023 (Approximate), Expires: 10/11/2024 [facility] Work Phone: Comment on above: Expected: 10/12/2023 (Approximate), Expi res: 10/11/2024 Start: 09-23-2023 Thyroid stimulating hormone measurement TSH Level [facility] Start: 04-21-2023 End: 04-21-2024 CBC panel - Blood by Automated count CBC Lab Routine Screening for deficiency anemia Expected: 04/21/2023 (Approximate), Expires: 04/21/2024 [facility] Comment on above: Expected: 04/21/2023 (Approximate), Expi res: 04/21/2024 Start: 04-21-2023 End: 04-21-2024 Comprehensive metabolic 1998 panel - Serum or Plasma Comprehensive metabolic panel Lab Routine Screening for diabetes mellitus Expected: 04/21/2023 (Approximate), Expires: 04/21/2024 [facility] Work Phone: Comment on above: Expected: 04/21/2023 (Approximate), Expi res: 04/21/2024 Start: 04-21-2023 End: 04-21-2024 Lipid 1996 panel - Serum or Plasma Lipid panel Lab Routine Screening for cholesterol level Expected: 04/21/2023 (Approximate), Expires: 04/21/2024 [facility] [employer] Comment on above: Expected: 04/21/2023 (Approximate), Expi res: 04/21/2024 Start: 04-21-2023 End: 04-21-2023 Patient encounter procedure 04/21/2023 9:20 AM EST Office Visit [facility] [address] [facility] [place] [address] Kar Rojas, EMBOSSING CLERK - VARNISH MAKER HELPER [address] [place] [address] [facility] Start: 12-18-2022 COVID-19 Vaccine ( season) COVID-19 Vaccine () [facility] Start: 12-18-2022 Influenza vaccination Influenza Vaccine (#1) [facility] Start: 08-13-2022 End: 08-13-2022 Patient encounter procedure 08/13/2022 Office Visit Family Medicine Jose Yen MD [address] [place] [id number] [facility] Start: 07-01-2022 End: 07-01-2022 Patient encounter procedure 07/01/2022 Office Visit Family Medicine Jose Yen MD [address] [place] [id number] [facility] Start: 07-01-2022 Depression Screen Depression Screen [facility] Start: 2021 Hepatitis A Vaccines (1 of 2 - Risk 2-dose series) Hepatitis A Vaccines (1 of 2 - Risk 2-dose series) [facility] Start: 12-18-2020 Influenza vaccination [facility] Start: 01-16-2020 Hepatitis C screening Hepatitis C screen [facility] Start: 12-19-2019 Influenza vaccination Flu vaccine (#1) [place], [place] Start: 12-18-2018 Influenza vaccination Flu vaccine (#1) [place] Start: 2017 HIV screening HIV screen [facility] Start: 2014 COVID-19 Vaccine (1) COVID-19 Vaccine (1) [facility] Work Phone: Start: 2014 Depression Screen Depression Screen [facility] Start: 2014 Depression Screening Depression Screening [facility] Start: 01-16-2008 Pneumococcal 0-64 years Vaccine (1 - PCV) Pneumococcal 0-64 years Vaccine (1 - PCV) [facility] Start: 01-16-2008 Pneumococcal 0-64 years Vaccine (1 of 2 - PPSV23) Pneumococcal 0-64 years Vaccine (1 of 2 - PPSV23) [facility] Start: 2007 COVID-19 Vaccine (1) COVID-19 Vaccine (1) [facility] Start: 2003 Hepatitis A vaccine (1 of 2 - 2-dose series) Hepatitis A vaccine (1 of 2 - 2-dose series) [facility] Work Phone: Start: 2002 Hepatitis B vaccine (3 of 3 - 3-dose primary series) Hepatitis B vaccine (3 of 3 - 3-dose primary series) [facility] Start: 2002 COVID-19 Vaccine (#1) COVID-19 Vaccine (#1) [facility] Start: 2002 Hepatitis C screening Hepatitis C screen [facility] Start: 2002 Thyroid stimulating hormone measurement TSH Level [facility] End: 05-16-2021 [place] Level [facility] Work Phone: Comment on above: One Time for 1 Occurrences starting 04/20 until 05/16/2021 Patient Education ED Dyspnea [facility] Work Phone: Patient referral [facility] Work Phone: Immunizations Immunization Date Immunization Notes Care Provider Fa cility 04-26-2024 influenza, seasonal, injectable, preservative free Jose Yen MD Work Phone: [facility] 04-26-2024 influenza virus vacc ine, unspecified formulation Kar Rojas EMBOSSING CLERK - [employer]ARN[employer] MAKER HELPER Work Phone: [facility] 04-21-2023 Seasonal, quadrivale nt, recombinant, injectable influenza vaccine, preservative free Kar Rojas EMBOSSING CLERK - [employer]ARNISH MAKER HELPER Work Phone: [facility] 04-21-2023 influenza virus vacc ine, unspecified formulation Elva D'Maria Esther [facility] 05-30-2022 Seasonal, quadrivale nt, recombinant, injectable influenza vaccine, preservative free Jose Yen MD Work Phone: [facility] 05-30-2022 influenza virus vacc ine, unspecified formulation Jose Yen MD Work Phone: [facility] 02-04-2022 influenza, injectabl e, quadrivalent, preservative free Kvgn Foster Work Phone: [facility] 02-04-2022 Pneumococcal Conjuga te PCV20, Pf (Prevnar 20) Kvng Foster Work Phone: [facility] 07-01-2021 influenza, injectabl e, quadrivalent, preservative free Abner Carrion DO Work Phone: [facility] Work Phone: 03-20-2019 influenza, injectabl e, quadrivalent, preservative free Abner Carrion DO Work Phone: [facility] Work Phone: 06-22-2018 Human Papillomavirus 9-valent vaccine Abner Carrion DO Work Phone: [facility] Work Phone: 06-22-2018 influenza, injectabl e, quadrivalent, preservative free Abner Carrion DO Work Phone: [facility] Work Phone: 06-22-2018 meningococcal polysaccharide (groups A, C, Y and W-135) diphtheria toxoid conjugate vaccine (MCV4P) Abner Carrion DO Work Phone: [facility] Work Phone: 12-28-2013 human papilloma viru s vaccine, quadrivalent Abner Carrion DO Work Phone: [facility] Work Phone: 12-28-2013 meningococcal polysaccharide (groups A, C, Y and W-135) diphtheria toxoid conjugate vaccine (MCV4P) Abner avocadostore DO Work Phone: [facility] Work Phone: 12-28-2013 tetanus toxoid, redu dinah diphtheria toxoid, and acellular pertussis vaccine, adsorbed Abner Carrion DO Work Phone: [facility] Work Phone: 03-22-2012 influenza virus vacc ine, unspecified formulation Abner Carrion DO Work Phone: [facility] Work Phone: 03-22-2012 influenza, seasonal, injectable Jose Yen MD Work Phone: [facility] 05-22-2008 influenza virus vacc ine, unspecified formulation Kvng Foster Work Phone: [facility] 05-22-2008 influenza virus vacc ine, whole virus Abner Carrion DO Work Phone: [facility] Work Phone: 04-21-2007 influenza virus vacc ine, unspecified formulation Kvng Foster Work Phone: [facility] 04-21-2007 influenza virus vacc ine, whole virus Abner Carrion DO Work Phone: [facility] Work Phone: 06-17-2006 diphtheria, tetanus toxoids and acellular pertussis vaccine, unspecified formulation Abner Carrion DO Work Phone: [facility] Work Phone: 06-17-2006 measles, mumps, rube lla, and varicella virus vaccine Abner Carrion DO Work Phone: [facility] Work Phone: 06-17-2006 poliovirus vaccine, inactivated Abner Carrion DO Work Phone: [facility] Work Phone: 03-02-2005 influenza virus vacc ine, unspecified formulation Abner Carrion DO Work Phone: [facility] 03-02-2005 influenza, seasonal, injectable Jose Yen MD Work Phone: [facility] 02-20-2004 influenza virus vacc ine, unspecified formulation Kvng Foster Work Phone: [facility] 02-20-2004 influenza virus vacc ine, whole virus Abner Carrion DO Work Phone: [facility] Work Phone: 05-30-2003 diphtheria, tetanus toxoids and acellular pertussis vaccine, unspecified formulation Abner Carrion DO Work Phone: [facility] Work Phone: 05-30-2003 haemophilus influenz ae type b vaccine, PRP-T conjugate Abner Carrion DO Work Phone: [facility] Work Phone: 05-30-2003 influenza virus vacc ine, unspecified formulation Kvng Trevizo Pra Work Phone: [facility] 05-30-2003 influenza virus vacc ine, whole virus [facility] DO Work Phone: [facility] Work Phone: 01-31-2003 measles, mumps and rubella virus vaccine Abner Carrion DO Work Phone: [facility] Work Phone: 01-31-2003 pneumococcal conjuga te vaccine, 7 valent Abner Carrion DO Work Phone: [facility] Work Phone: 01-31-2003 varicella virus vaccine Juvenal Carrion DO Work Phone: [facility] Work Phone: 2002 pneumococcal conjuga te vaccine, 7 valent Abner Carrion DO Work Phone: [facility] Work Phone: 2002 poliovirus vaccine, inactivated Abner Carrion DO Work Phone: [facility] Work Phone: 2002 diphtheria, tetanus toxoids and acellular pertussis vaccine, unspecified formulation Abner Carrion DO Work Phone: [facility] Work Phone: 2002 haemophilus influenz ae type b conjugate and Hepatitis B vaccine Abner Carrion DO Work Phone: [facility] Work Phone: 2002 diphtheria, tetanus toxoids and acellular pertussis vaccine, unspecified formulation [facility] DO Work Phone: [facility] Work Phone: 2002 haemophilus influenz ae type b vaccine, PRP-T conjugate Abner Carrion DO Work Phone: [facility] Work Phone: 2002 pneumococcal conjuga te vaccine, 7 valent Abner Carrion DO Work Phone: [facility] Work Phone: 2002 poliovirus vaccine, inactivated Abner Carrion DO Work Phone: [facility] Work Phone: 2002 diphtheria, tetanus toxoids and acellular pertussis vaccine, unspecified formulation Abner Carrion DO Work Phone: [facility] Work Phone: 2002 haemophilus influenz ae type b conjugate and Hepatitis B vaccine Abner Carrion DO Work Phone: [facility] Work Phone: 2002 pneumococcal conjuga te vaccine, 7 valent Abner Carrion DO Work Phone: [facility] Work Phone: 2002 poliovirus vaccine, inactivated Abner Carrion DO Work Phone: [facility] Work Phone: 2002 hepatitis B vaccine, pediatric or pediatric/adolescent dosage Abner Carrion DO Work Phone: [facility] Work Phone: Payers Date Payer Category Payer Self-pay 2022 Medicaid [id number] 2022 Medicaid [facility] MEDICAID ODM [id number] 2022 Private Health Insurance [id number] 2022 Private Health Insurance [facility] UMR OPT [id number] 2022-Present [address] [place] [address] Commercial [id number] 2020 Private Health Insurance [id number] 2002 Unknown [id number] 2002 Unknown [id number] 2002 Unknown [id number] Unknown [id number] Social History Date Type Detail Facility Start: 08-19-2016 End: 11-03-2020 Tobacco smoking status [facility] Never smoker [place], [place] Start: 08-19-2016 End: 04-26-2024 Alcohol intake No [facility] Start: 2002 Sex Assigned At Not on file [place] Start: 08-19-2016 End: 08-15-2024 Tobacco use and exposure Never used [place] Start: 08-19-2016 End: 04-07-2022 Alcohol intake Current non-drinker of alcohol (finding) [place] Start: 07-27-2021 End: 09-22-2022 Exposure to SARS-CoV-2 (event) Not sure [facility] Start: 03-01-2021 End: 04-26-2024 Tobacco smoking status [facility] Occasional tobacco smoker [facility] Start: 05-03-2021 End: 06-03-2021 History of tobacco use Cigarette Smoker [employer] Work Phone: Start: 03-01-2021 End: 04-26-2024 Cigarettes smoked current (pack per day) - Reported 0.5 [employer] Start: 07-01-2021 End: 08-15-2024 Tobacco smoking status [facility] Ex-smoker [employer] Work Phone: Start: 05-03-2021 End: 06-03-2021 History of tobacco use Current smoker [employer] Work Phone: Start: 06-08-2021 Tobacco Comment 1 cigarette per day [employer] Phone: Within the last year , have you been afraid of your partner or ex-partner? Patient declined [employer] How often to you hav e a drink containing alcohol? Never [employer] Tobacco smoking status [facility] Start: 2002 Sex Assigned At Male A [facility] Start: 01-27-2024 Alcoholic beverage intake Ex-drinker (finding) [facility] [employer] Has the [employer], or [employer] threatened to shut off services in your home in past 12Mo No [facility] Are you now , , , , never or living with a partner? Never [facility] [employer] How often to you hav e a drink containing alcohol? Monthly or less [facility] How many standard drinks containing alcohol do you have on a typical day? 1 or 2 [facility] How hard is it for y ou to pay for the very basics like food, housing, medical care, and heating Very hard [facility] Do you feel stress - tense, restless, nervous, or anxious, or unable to sleep at night because your mind is troubled all the time - these days [OSQ] Rather much [facility] At any time in the p ast 12 months, were you homeless or living in penitentiary [including now]? Yes [employer] Start: 11-17-2021 End: 07-29-2023 Sex Male (finding) [employer] Start: 02-14-2024 Gender identity Identifies as male gender (finding) [facility] Start: 04-26-2024 End: 10-26-2024 Alcoholic beverage intake Current drinker of alcohol (finding) [facility] How often to you hav e a drink containing alcohol? 2-4 times a month [facility] Do you feel stress - tense, restless, nervous, or anxious, or unable to sleep at night because your mind is troubled all the time - these days [OSQ] To some extent [facility] (I/We) worried wheth er (my/our) food would run out before (I/we) got money to buy more. Never true [facility] Start: 09-26-2024 [facility] Functional Status Date Assessment Result Facility 10-26-2024 Patient Health Questionnaire 2 item (PHQ-2) [Reported] [facility] 10-26-2024 Generalized anxiety disorder 7 item (EDWIN-7) [facility] 07-30-2023 Functional Status Room located n [facility], [facility] 07-30-2023 Functional Status [facility] 07-29-[address] [facility] Mental Status Date Assessment Result Facility 07-30-2023 Mental Status Orientation Oriented x 4 [facility] 07-29-2023 Mental Status [facility] Clinical Notes 07-09-2020 to 10-26-2024 Assessment & Plan Note - ARIANA Mccray CNP - 10/26/2024 1:23 PM EDTAssessment & Plan Note - ARIANA Mccray CNP - 10/26/2024 1:23 PM EDT Note Date & Type Note Facility 10-26-2024 Evaluation + Plan note Associated Problem(s): Strain of back Consistent with strain. Left side of lumbar, thoracic. NSAID, muscle relaxant as directed. Start stretches provided. [facility] 10-26-2024 Miscellaneous Notes Associated Problem(s): Strain of back Consistent with strain. Left side of lumbar, thoracic. NSAID, muscle relaxant as directed. Start stretches provided. Associated Problem(s): Bipolar disorder, unspecified (HCC) Panchito currently, recommend that he follow up with his mental health provider Associated Problem(s): Anxiety disorder Uncontrolled. Recommend follow up with mental health provider Associated Problem(s): Asthma, exercise induced Intermittent symptoms. Mostly exercise induced. Continue albuterol mdi as directed documented in this encounter [facility] 10-26-2024 Evaluation + Plan note Associated Problem(s): Bipolar disorder, unspecified (HCC) Panchito currently, recommend that he follow up with his mental health provider [facility] 10-26-2024 Evaluation + Plan note Associated Problem(s): Anxiety disorder Uncontrolled. Recommend follow up with mental health provider [facility] 10-26-2024 Evaluation + Plan note Associated Problem(s): Asthma, exercise induced Intermittent symptoms. Mostly exercise induced. Continue albuterol mdi as directed [facility] 10-26-2024 History of Presen t illness Narrative Patient was identified by name and Date of . Health Maintenance Due Topic Meningococcal B Vaccine-declined DTaP/Tdap/Td Vaccines-declined Depression Monitoring-completed Images from the original note were not included. 10/26/2024 Aries Carrasco (: 2000) is a 24 y.o. male , Established patient, here for evaluation of the following chief complaint(s): Medication Check ASSESSMENT/PLAN: 1. Asthma, exercise induced Assessment & Plan: Intermittent symptoms. Mostly exercise induced. Continue albuterol mdi as directed Orders: - albuterol (Ventolin HFA) 108 (90 Base) MCG/ACT inhaler; Inhale 2 puffs every 4 hours as needed for wheezing or shortness of breath (and before strenuous exercise)., Starting Swati 10/26/2024, Until Wed10/26/2025 at 2359, Normal 2. Back strain, initial encounter Assessment & Plan: Consistent with strain. Left side of lumbar, thoracic. NSAID, muscle relaxant as directed. Start stretches provided. Orders: - tiZANidine (Zanaflex) 2 MG tablet; Take 1 tablet (2 mg) by mouth every 8 hours as needed for muscle spasms for up to 3 days., Starting Swati 10/26/2024, Until Wed10/29/2024 at 2359, Normal - ibuprofen 600 MG tablet; Take 1 tablet (600 mg) by mouth 3 times daily for 7 days. Take with food, Starting Swati 10/26/2024, Until Swati 11/02/2024, Normal 3. Bipolar disorder in partial remission, most recent episode unspecified type (HCC) Assessment & Plan: Stable currently, recommend that he follow up with his mental health provider 4. Generalized anxiety disorder Assessment & Plan: Uncontrolled. Recommend follow up with mental health provider Reviewed and provided written patient education/instructions regarding diagnosis and management. Reviewed symptom management with non-pharmacological interventions and appropriate use of otc medications for relief of symptoms. Follow up for worsening or no improvement in symptoms. Follow up in about 6 months (around 04/28/2025) for Yearly Wellness Visit. SUBJECTIVE/OBJECTIVE: GIBSON - Aries Carrasco (: 2000) is a 24 y.o. male , Established patient, here for the evaluation of the following chief complaint(s): Medication Check Patient presents for med check. He currently is not taking any medications but would like refill of his albuterol inhaler for his exercise-induced asthma. Reports he has been getting some shortness of breath with exercise especially when it is hot out. He has not had an inhaler for quite some time. Denies any chest pain or shortness of breath currently. Mental health-patient reports that he is doing okay but has noted that he does get easily agitated and sometimes his anxiety can be high. He is not taking any of his mental health medications and needs to follow-up with his mental health provider. He did go to the hospital within the past month for some vomiting, reports that he has not had any episodes since. He denies any abdominal pain nausea or vomiting. Back pain-reports his back has been bothering him and is difficult to lift heavy things and when he walks a long time it hurts. It is mostly left-sided going all the way up the back. Denies any numbness or tingling in the legs and no change in bowel or bladder Current Medications[1] Review of Systems Constitutional: Negative. HENT: Negative. Respiratory: Positive for shortness of breath. Negative for cough, chest tightness and wheezing. Occasional with activity such as exercise due to his asthma Cardiovascular: Negative. Gastrointestinal: Negative. Genitourinary: Negative for difficulty urinating. Musculoskeletal: Positive for back pain. Neurological: Negative. Psychiatric/Behavioral: Positive for agitation. Negative for dysphoric mood, self-injury, sleep disturbance and suicidal ideas. The patient is nervous/anxious. Vitals: 10/26/24 0807 BP: 122/82 Pulse: 58 Resp: 24 Weight: 176 lb 3.2 oz (79.9 kg) Physical Exam Vitals reviewed. Constitutional: General: He is not in acute distress. Appearance: Normal appearance. He is not ill-appearing. HENT: Head: Normocephalic and atraumatic. Mouth/Throat: Mouth: Mucous membranes are moist. Pharynx: Oropharynx is clear. No posterior oropharyngeal erythema. Eyes: Conjunctiva/sclera: Conjunctivae normal. Cardiovascular: Rate and Rhythm: Normal rate and regular rhythm. Pulses: Normal pulses. Heart sounds: Normal heart sounds. Pulmonary: Effort: Pulmonary effort is normal. Breath sounds: Normal breath sounds. Musculoskeletal: Thoracic back: Spasms and tenderness present. No bony tenderness. Normal range of motion. Lumbar back: Spasms and tenderness present. No bony tenderness. Normal range of motion. Back: Right lower leg: No edema. Left lower leg: No edema. Comments: Able to get on and off the exam table without difficulty Lymphadenopathy: Cervical: No cervical adenopathy. Neurological: Mental Status: He is alert and oriented to person, place, and time. Psychiatric: Mood and Affect: Mood normal. Behavior: Behavior normal. Thought Content: Thought content normal. An electronic signature was used to authenticate this note. ARIANA Mckeon CNP 10/26/2024 1:23 PM [1] Current Outpatient Medications Medication Sig Dispense Refill albuterol (Ventolin HFA) 108 (90 Base) MCG/ACT inhaler Inhale 2 puffs every 4 hours as needed for wheezing or shortness of breath (and before strenuous exercise). 8 g 5 ibuprofen 600 MG tablet Take 1 tablet (600 mg) by mouth 3 times daily for 7 days. Take with food 21 tablet 0 tiZANidine (Zanaflex) 2 MG tablet Take 1 tablet (2 mg) by mouth every 8 hours as needed for muscle spasms for up to 3 days. 9 tablet 0 No current facility-administered medications for this visit. documented in this encounter [facility] 09-26-2024 Radiology Diagnostic study note [facility] Services [address], [place] [id number] Chest PA and Lateral MR#: [id number] Acct: [id number] Name: ARIES CARRASCO Rep #: [id number] : 2000 M 24 From: Ami Matthews MD PCP: Dr. Jose Yen MD Status: REG ER Study:Chest PA and Lateral Date of Exam: 09/26/24 Exam# [id number] Ordering Dr: Schwiger ,Damion DO PROCEDURE: CHEST PA AND LATERAL 09/26/2024 REASON FOR EXAM: DYSPNEA TECHNIQUE: Frontal and lateral views of the chest. COMPARISON: None FINDINGS: No focal consolidations. No pleural effusion or pneumothorax. Cardiac silhouette is within normal limits. No acute fractures. RAD/Chest PA and Lateral IMPRESSION: No focal consolidations. Reading Location: [id number] CC: Dr. oJse Yen MD; Dr. Damion Trevino DO ~ Flocculator Operator: Signed [facility] 09-11-2024 Hospital Discharg e instructions Patient Education 09/11/2024 15:02:08 Upper GI Bleeding (Stable) Upper Gastrointestinal (GI) Bleeding (Stable) Your upper gastrointestinal (GI) tract includes your esophagus, stomach, and upper small intestine. You have signs of bleeding from your upper GI tract. You may have vomited or coughed up blood or coffee-ground like material. Or you may have black or tarry stools. Very small amounts of GI bleeding may not be visible and can only be found by a test of the stool. Causes of upper GI bleeding can include: Tear in the lining of the esophagus Enlarged veins in the esophagus or stomach, especially in someone with cirrhosis An ulcer in the stomach or top of the small intestine Severe irritation of the stomach Inflammation of the digestive tract Abnormal growth (tumor) of the upper digestive tract A bloody nose or mouth or dental problems may cause you to swallow blood. You may vomit this blood up. This is not true GI bleeding. Iron supplements and medicines for diarrhea and upset stomach can cause black stools. This is not GI bleeding and is not a cause for concern. Home care You've had an evaluation for your bleeding. You will need to continue your care at home. Depending on the cause of your bleeding, care may include the following: You may be given medicines to help protect your GI tract, treat your problem, and promote healing. Take these as directed. Sometimes tests such as endoscopy may also be used to stop bleeding. An endoscope is a thin flexible tube with a light and a camera on the tip that is put into your stomach through your esophagus (throat). Don't take NSAIDs, such as aspirin, ibuprofen, or naproxen. They can irritate the stomach and cause more bleeding. If you are taking these medicines for other reasons, talk to your healthcare provider before you stop them. If you are on blood thinners, discuss the plan with your healthcare provider. Don't use alcohol, caffeine, or tobacco. These can delay healing and make your problem worse. Follow-up care Follow up with your healthcare provider, or as advised. More tests may need to be done to find the cause of your bleeding. When to seek medical advice Call your healthcare provider right away for any of the following: Stomach pain starts or gets worse Pain spreads to the neck, back, shoulder, or arm Weakness or dizziness Swelling of your belly Red blood in your stool Fever of 100.4 F (38 C) or higher, or as directed by your healthcare provider Call 911 Call 911 if any of these occur: Trouble breathing or swallowing Severe dizziness Loss of consciousness Vomiting blood or large amounts of blood in the stool Black, tarry stool Chest pain or lightheadedness 8024-[address] [employer] [place] [address]. All rights reserved. This information is not intended as a substitute for professional medical care. Always follow your healthcare professional's instructions. 09/11/2024 15:01:54 Vomiting (Adult) Vomiting (Adult) Vomiting is a common symptom that may be due to different causes. These include gastroenteritis (stomach flu), food poisoning and gastritis. There are other more serious causes of vomiting which may be hard to diagnose early in the illness. Therefore, it is important to watch for the warning signs listed below. The main danger from repeated vomiting is dehydration. This is due to excess loss of water and minerals from the body. When this occurs, your body fluids must be replaced. Home care If symptoms are severe, rest at home for the next 24 hours. Because your symptoms may be from an infection, wash your hands often and well. If soap and water are not available, use alcohol-based administrative support specialist to keep from spreading the infection to others. Wash your hands for at least 20 seconds. Humming the happy birthday song twice while you wash is an easy way to make sure you've washed for 20 seconds. Wash your hands after using the toilet, before and after preparing food, before eating food, after changing a diaper, cleaning a wound, caring for a sick person, and blowing your nose, coughing, or sneezing. You should also wash your hands after caring for someone who is sick, touching pet food, or treats, and touching an animal, or animal waste. You may use acetaminophen or NSAID medicines like ibuprofen or naproxen to control fever, unless another medicine was prescribed. If you have chronic liver or kidney disease or ever had a stomach ulcer or gastrointestinal bleeding, talk with your doctor before using these medicines. Aspirin should never be used in anyone under 18 years of age who is ill with a fever. It may cause severe liver damage. Don't use NSAID medicines if you are already taking one for another condition (like arthritis) or are on aspirin (such as for heart disease, or after a stroke) Don't use tobacco and or drink alcohol, which may worsen your symptoms. If medicines for vomiting were prescribed, take as directed. Once vomiting stops, then follow these guidelines: During the first 12 to 24 hours follow the diet below: Fruit juices. Apple, grape juice, clear fruit drinks, and electrolyte replacement drinks. Beverages. Soft drinks without caffeine; mineral water (plain or flavored), decaffeinated tea and coffee. Soups. Clear broth and bouillon Desserts. Plain gelatin, ice pops, and fruit juice bars. As you feel better, you may add 6 to 8 ounces of yogurt per day. During the next 24 hours you may add the following to the above: Hot cereal, plain toast, bread, rolls, crackers Plain noodles, rice, mashed potatoes, chicken noodle or rice soup Unsweetened canned fruit such as applesauce, bananas (avoid pineapple and citrus) Limit caffeine and chocolate. No spices or seasonings except salt. During the next 24 hours: Gradually resume a normal diet, as you feel better and your symptoms lessen. Follow-up care Follow up with your healthcare provider, or as advised. When to seek medical advice Call your healthcare provider right away if any of these occur: Constant right-sided lower belly pain or increasing general belly pain Continued vomiting (unable to keep liquids down) for 24 hours Vomiting blood or coffee grounds Swollen belly Frequent diarrhea (more than 5 times a day); blood (red or black color) or mucus in diarrhea Reduced urine output or extreme thirst Weakness, dizziness or fainting Unusually drowsy or confused Fever of 100.4 F (38 C) oral or higher, or as directed Yellow color of the eyes or skin 9662-3[address] [employer] [address] [place] [address]. All rights reserved. This information is not intended as a substitute for professional medical care. Always follow your healthcare professional's instructions. Follow Up Care 09/11/2024 13:45:36 With:ARLENE HERNANDEZ MD [facility]: [address] [facility] [address] [place] [phone] When:2-4 days Comments:GI DOCTOR With:JOSE YEN MD Address: [address], [place] [id number]- When:2-4 days [facility] 09-11-2024 Emergency department Discharge summary Discharge Instructions Thank you for allowing [facility] to assist you with your healthcare needs. The following is important discharge information regarding your hospital visit. Diagnosis from Today's Visit Epigastric pain Hematemesis Vomiting What to Do Next Instructions from Your Care Team No qualifying data available. Post Acute Orders No qualifying data available. You Need to Schedule the Following Appointments Follow Up with ARLENE HERNANDEZ MD When:Within 2-4 days Where:[address] [facility] [address] [place] [phone] Additional Information: GI DOCTOR Follow Up with JOSE YEN MD When:Within 2-4 days Where:[address] [place] [address]- Allergies No Known Medication Allergies Medications Please ask your primary doctor or pharmacist before taking any other medication not listed, including over the counter drugs, herbal medications, vitamins and or supplements as they may interact with your home medications. What How Much When Instructions Last Dose New ondansetron (Zofran 4 mg oral tablet) 1 tab(s) by mouth Every 8 hours as needed for Nausea/Vomiting Duration: 5 Days Printed Prescription New pantoprazole (Protonix 20 mg oral enteric coated tablet) 1 tab(s) by mouth Once a day Printed Prescription Please take this list to your next doctor s visit. Bring all medications you take, including over the counter medications, herbals and other supplements with you to your doctor s visit. Patients and families are reminded to discard old lists and to update any records with all medication providers or retail pharmacies. Education Materials Upper Gastrointestinal (GI) Bleeding (Stable) Your upper gastrointestinal (GI) tract includes your esophagus, stomach, and upper small intestine. You have signs of bleeding from your upper GI tract. You may have vomited or coughed up blood or coffee-ground like material. Or you may have black or tarry stools. Very small amounts of GI bleeding may not be visible and can only be found by a test of the stool. Causes of upper GI bleeding can include: Tear in the lining of the esophagus Enlarged veins in the esophagus or stomach, especially in someone with cirrhosis An ulcer in the stomach or top of the small intestine Severe irritation of the stomach Inflammation of the digestive tract Abnormal growth (tumor) of the upper digestive tract A bloody nose or mouth or dental problems may cause you to swallow blood. You may vomit this blood up. This is not true GI bleeding. Iron supplements and medicines for diarrhea and upset stomach can cause black stools. This is not GI bleeding and is not a cause for concern. Home care You've had an evaluation for your bleeding. You will need to continue your care at home. Depending on the cause of your bleeding, care may include the following: You may be given medicines to help protect your GI tract, treat your problem, and promote healing. Take these as directed. Sometimes tests such as endoscopy may also be used to stop bleeding. An endoscope is a thin flexible tube with a light and a camera on the tip that is put into your stomach through your esophagus (throat). Don't take NSAIDs, such as aspirin, ibuprofen, or naproxen. They can irritate the stomach and cause more bleeding. If you are taking these medicines for other reasons, talk to your healthcare provider before you stop them. If you are on blood thinners, discuss the plan with your healthcare provider. Don't use alcohol, caffeine, or tobacco. These can delay healing and make your problem worse. Follow-up care Follow up with your healthcare provider, or as advised. More tests may need to be done to find the cause of your bleeding. When to seek medical advice Call your healthcare provider right away for any of the following: Stomach pain starts or gets worse Pain spreads to the neck, back, shoulder, or arm Weakness or dizziness Swelling of your belly Red blood in your stool Fever of 100.4 F (38 C) or higher, or as directed by your healthcare provider Call 911 Call 911 if any of these occur: Trouble breathing or swallowing Severe dizziness Loss of consciousness Vomiting blood or large amounts of blood in the stool Black, tarry stool Chest pain or lightheadedness [id number] [employer] [place] [address]. All rights reserved. This information is not intended as a substitute for professional medical care. Always follow your healthcare professional's instructions. Vomiting (Adult) Vomiting is a common symptom that may be due to different causes. These include gastroenteritis (stomach flu), food poisoning and gastritis. There are other more serious causes of vomiting which may be hard to diagnose early in the illness. Therefore, it is important to watch for the warning signs listed below. The main danger from repeated vomiting is dehydration. This is due to excess loss of water and minerals from the body. When this occurs, your body fluids must be replaced. Home care If symptoms are severe, rest at home for the next 24 hours. Because your symptoms may be from an infection, wash your hands often and well. If soap and water are not available, use alcohol-based administrative support specialist to keep from spreading the infection to others. Wash your hands for at least 20 seconds. Humming the happy birthday song twice while you wash is an easy way to make sure you've washed for 20 seconds. Wash your hands after using the toilet, before and after preparing food, before eating food, after changing a diaper, cleaning a wound, caring for a sick person, and blowing your nose, coughing, or sneezing. You should also wash your hands after caring for someone who is sick, touching pet food, or treats, and touching an animal, or animal waste. You may use acetaminophen or NSAID medicines like ibuprofen or naproxen to control fever, unless another medicine was prescribed. If you have chronic liver or kidney disease or ever had a stomach ulcer or gastrointestinal bleeding, talk with your doctor before using these medicines. Aspirin should never be used in anyone under 18 years of age who is ill with a fever. It may cause severe liver damage. Don't use NSAID medicines if you are already taking one for another condition (like arthritis) or are on aspirin (such as for heart disease, or after a stroke) Don't use tobacco and or drink alcohol, which may worsen your symptoms. If medicines for vomiting were prescribed, take as directed. Once vomiting stops, then follow these guidelines: During the first 12 to 24 hours follow the diet below: Fruit juices. Apple, grape juice, clear fruit drinks, and electrolyte replacement drinks. Beverages. Soft drinks without caffeine; mineral water (plain or flavored), decaffeinated tea and coffee. Soups. Clear broth and bouillon Desserts. Plain gelatin, ice pops, and fruit juice bars. As you feel better, you may add 6 to 8 ounces of yogurt per day. During the next 24 hours you may add the following to the above: Hot cereal, plain toast, bread, rolls, crackers Plain noodles, rice, mashed potatoes, chicken noodle or rice soup Unsweetened canned fruit such as applesauce, bananas (avoid pineapple and citrus) Limit caffeine and chocolate. No spices or seasonings except salt. During the next 24 hours: Gradually resume a normal diet, as you feel better and your symptoms lessen. Follow-up care Follow up with your healthcare provider, or as advised. When to seek medical advice Call your healthcare provider right away if any of these occur: Constant right-sided lower belly pain or increasing general belly pain Continued vomiting (unable to keep liquids down) for 24 hours Vomiting blood or coffee grounds Swollen belly Frequent diarrhea (more than 5 times a day); blood (red or black color) or mucus in diarrhea Reduced urine output or extreme thirst Weakness, dizziness or fainting Unusually drowsy or confused Fever of 100.4 F (38 C) oral or higher, or as directed Yellow color of the eyes or skin [id number] [employer]. [address] [place] [address], [place] [address]. All rights reserved. This information is not intended as a substitute for professional medical care. Always follow your healthcare professional's instructions. Additional Information VACCINATE! IT SAVES LIVES! Members of the community who have not yet received the COVID-19 vaccine and would like to receive it can visit one of [facility] vaccine clinics. There are many vaccine clinic locations within the [facility]. For locations and available times, please visit [email or web address] It is important to note that some COVID mobile vaccine clinics are held outdoors and may be canceled in rainy or stormy conditions. To learn more about pediatric vaccinations (ages 5-11), we invite you to visit the [facility] webpage. [email or web address]/p [email or web address]-[email or web address]-[email or web address] To learn more about the COVID-19 vaccine, we invite you to visit the CDC website for a list of frequently asked questions. https://www.cdc.gov/coronavirus/ 2019-ncov/vaccines/faq.html [employer] Patient Portal Access Instructions: Stay connected with your healthcare team and access your personal medical information anytime with the [employer] Patient Portal. If you would like a full copy of your medical records please contact the [facility] Medical Records Department Wednesday through Wednesday between 8a.m. and 4:30p.m. Please follow the directions below to access the portal: 1.Access the email account you provided upon registration to the hospital.2.Look for an invitation email from [facility].3.Open the email and access the invitation link: Accept Invitation to [facility] [employer]4.Fill in the required cutler to create your account. Sign into [email or web address] with your username and password that you created in the above steps to stay up to date. You can then view a summary of results, a summary of your visits, and the ability to download your summaries to your computer or send the information securely to a physician. Remember that your healthcare information is confidential, so carefully consider who you will allow to register on the [employer] Patient Portal for access to your information. You can also access the [employer] Patient Portal on the [employer] mar[employer]. Simply click on Health Records under Health Data and then click on the [employer] logo. HOW TO SAFELY DISPOSE OF PRESCRIPTION MEDICATIONS Please use one of the following methods to safely dispose of your unused medications. 1.Use a drug disposal kit: the drug disposal pouch allows you to safely discard your old and unused drugs. Ask your nurse to give you one when you are discharged.2.Visit a local take-back location: Many local pharmacies and police departments have programs that collect old and unwanted prescription drugs. Call your local pharmacy or go to http://Tenlegs.Tippr/0S0Rh6f to find one close to you.3.Make use of household items: Use cat litter or old coffee grounds to dispose medications if other options are not available. Mix your drugs with these household products, seal them in an airtight container and throw it into the garbage. Call [facility]: [phone] to be sure your drugs can be disposed of in this way. Some medicines may require a different approach.4.Never flush your medications down the toilet. IF YOU HAVE BEEN PRESCRIBED AN OPIOIDS FOR PAIN If you have been prescribed an opioid (such as hydrocodone, oxycodone or morphine), it is critical to understand the possible side effects and risks of opioid pain medications. Even when taken as directed, opioids can have several side effects including: Tolerance, meaning you might need to take more of a medication for the same pain relief. Nausea, vomiting and/or constipation. Sleepiness, dizziness, dry mouth, confusion, depression or itching. Physical dependence, meaning you have withdrawal symptoms when a medication is stopped ? this can develop within a few days. KNOW YOUR RESPONSIBILITIES It is important to know exactly how much and how often to take the opioid pain medications you are prescribed. Never take opioids in higher amounts or more often than prescribed. Do not combine opioids with alcohol or other drugs that cause drowsiness, such as benzodiazepines, also known as benzos, including diazepam and alprazolam, muscle relaxants or sleep aids. Never sell or share prescription opioids. This is illegal. Store opioids in a secure place and out of reach of others (including children, family, friends and visitors). The last page(s) of this document has been signed and retained as a CHART COPY Signatures Patient Education Materials Upper GI Bleeding (Stable) Vomiting (Adult) Medication Leaflets My discharge plan and instructions have been reviewed and explained to me and IDANILO COREY J understand my current condition and have read and understand these discharge instructions. I have received a written copy of the plan/instructions. If I have questions, I am aware that I should contact my doctor. Patient/Visual Inspector Signature: Date/Time: Relationship to Patient: Witness Name/Signature: Date/Time: [facility] 09-11-2024 Note Exam Date Time Procedure Performing Provider Status 09/11/24 2:39 PM XR Chest 1 View WILFREDO GONZALEZ DO; [facility] (Verified) [id number] ORIGINAL EXAMINATION: Exam Title:ONE XRAY VIEW OF THE CHEST Completed Time: 09/11/2024 2:39 pm Procedure Description:CHEST ONE VIEW AP/PA COMPARISON: July 12, 2024 chest x-ray HISTORY: ORDERING SYSTEM PROVIDED HISTORY: Reason for Exam: c/o feeling a knot in epigastric area that causes pressure with movement, especially bending over. Pt also c/o vomiting blood pain FINDINGS: Mild hypoinflation. No gross consolidative pneumonia, effusion, or pneumothorax. Heart size normal. Aortic arch contour normal. No gross acute osseous process demonstrated. Mild rotoscoliosis. IMPRESSION: No acute cardiopulmonary process demonstrated. Interpreted by: Wilfredo Gonzalez DO Preliminary Report By: Wilfredo Gonzalez DO Electronically signed By Wilfredo Gonzalez DO Dictated Date: 09/11/2024 2:52:50 PM Prelim Date: 09/11/2024 2:53:30 PM Sign Date: 09/11/2024 2:53:30 PM Ordering Provider: [facility]05-26-2025 Note* Exam Date Time Procedure Performing Provider Status 09/11/24 2:26 PM EKG [ED AO] - DRISS RODRIGUEZ MD; (Verified) ECG Final Report Sinus rhythm ST elev, probable normal early repol pattern Electronic Signature: DRISS MOCTEZUMA MD 09/11/2024 14:59:47 [facility]04-29-2025 Evaluation + Plan note* Assessment & Plan Note - ARIANA Mccray CNP - 08/15/2024 11:00 AM EDTAssociated Problem(s): Contact dermatitis Consistent with contact dermatitis. Unsure etiology. Recommend avoiding possible irritants. Cool compresses. Medrol dose aditya to help with swelling. [facility] [id number] Miscellaneous Notes* Assessment & Plan Note - ARIANA Mccray CNP - 08/15/2024 11:00 AM EDTAssociated Problem(s): Contact dermatitis Consistent with contact dermatitis. Unsure etiology. Recommend avoiding possible irritants. Cool compresses. Medrol dose aditya to help with swelling. documented in this [facility]04-29-2025 History of Present illness Narrative* Elva Pearce - 08/15/2024 10:20 AM EDT Patient was identified by name and Date of . * ARIANA Mccray CNP - 08/15/2024 10:20 AM EDT Images from the original note were not included. 08/15/2024 Ariesjosé TomlinDanilo (: 2000) is a 24 y.o. male , Established patient, here for evaluation of the following chief complaint(s): Facial Swelling ASSESSMENT/PLAN: 1. Contact dermatitis, unspecified contact dermatitis type, unspecified trigger Assessment & Plan: Consistent with contact dermatitis. Unsure etiology. Recommend avoiding possible irritants. Cool compresses. Medrol dose aditya to help with swelling. Orders: - methylPREDNISolone (Medrol Dospak) 4 MG tablets; Take as directed on package., Normal Follow up if symptoms worsen or fail to improve. SUBJECTIVE/OBJECTIVE: HPI - Aries Carrasco (: 2000) is a 24 y.o. male , Established patient, here for the evaluation of the following chief complaint(s): Facial Swelling Started last Wednesday, Last night started to have more irritation on his face and around the nose. Nofever or chills. Nose felt numb yesterday. Inside the nose is sore, throat is mildly irritated. Denies any change in medications. Has tried cool compresses. No itching, skin feels sore. Current Outpatient Medications Medication Sig Dispense Refill ARIPiprazole (Abilify) 5 MG tablet Take 1 tablet (5 mg) by mouth daily. 30 tablet 0 busPIRone (Buspar) 15 MG tablet Take 1 tablet (15 mg) by mouth 2 times daily. 60 tablet 0 lithium 150 MG capsule Take 3 capsules (450 mg) by mouth 2 times daily. 180 capsule 0 methylPREDNISolone (Medrol Dospak) 4 MG tablets Take as directed on package. 21 tablet 0 No current facility-administered medications for this visit. Review of Systems Constitutional: Negative. HENT: Positive for facial swelling. Negative for congestion, mouth sores and postnasal drip. Respiratory: Negative. Cardiovascular: Negative. Skin: Positive for rash. Vitals: 08/15/24 0931 BP: 125/80 Pulse: 76 Resp: 24 Temp: 37.4 C (99.3 F) TempSrc: Infrared SpO2: 97% Weight: 192 lb 12.8 oz (87.5 kg) Physical Exam Vitals reviewed. Constitutional: General: He is not in acute distress. Appearance: Normal appearance. He is not ill-appearing. HENT: Head: Normocephalic and atraumatic. Mouth/Throat: Mouth: Mucous membranes are moist. Pharynx: Oropharynx is clear. Uvula midline. No posterior oropharyngeal erythema. Eyes: Conjunctiva/sclera: Conjunctivae normal. Cardiovascular: Rate and Rhythm: Normal rate and regular rhythm. Pulses: Normal pulses. Heart sounds: Normal heart sounds. Pulmonary: Effort: Pulmonary effort is normal. Breath sounds: Normal breath sounds. Musculoskeletal: Right lower leg: No edema. Left lower leg: No edema. Lymphadenopathy: Cervical: No cervical adenopathy. Skin: Comments: Noted erythema and mild swelling over nasolabial folds, cheeks and forehead bilaterally. Neurological: Mental Status: He is alert and oriented to person, place, and time. Psychiatric: Mood and Affect: Mood normal. Behavior: Behavior normal. Thought Content: Thought content normal. An electronic signature was used to authenticate this note. ARIANA Mckeon CNP 08/15/2024 11:02 AM documented in this encounterSThe Surgical Hospital at [id number] Telephone encounter Note* Telephone Encounter - Guerline Langford RN - 08/15/2024 7:40 AM EDT S: Patient called the clinical access center with complaint of redness and swelling of his nose. B: started on Wednesday A: Pt complains of his nose being dry, wrinkled, puffy. He denies shortness of breath, any other facial swelling, fever, pus, sinus congestion. R: Appt today at 10:20 am with Mely Rojas. Pt advised to bring photo ID, insurance card, medications with them to their visit if possible. Home care advise given to patient: CALL BACK IF: * Fever * Swelling becomes red -spreading redness * You become worse Patient instructed to call back with worsening symptoms, concerns or questions. Covid/Flu questions: 1) Current symptoms consistent with Covid/Flu-no 2) Have you tested positive for Covid/Flu in last 10 days-no, has not taken a test 3) Known exposure to Covid/Flu in the last 10 days -no 4) Traveled out of the country in the last 10 days-no Reason for Disposition Looks infected (e.g., spreading redness, pus) Protocols used: Face [id number] [facility] [id number] Miscellaneous Notes* Telephone Encounter - Guerline Langford RN - 08/15/2024 7:40 AM EDT S: Patient called the clinical access center with complaint of redness and swelling of his nose. B: started on Wednesday A: Pt complains of his nose being dry, wrinkled, puffy. He denies shortness of breath, any other facial swelling, fever, pus, sinus congestion. R: Appt today at 10:20 am with Mely Rojas. Pt advised to bring photo ID, insurance card, medications with them to their visit if possible. Home care advise given to patient: CALL BACK IF: * Fever * Swelling becomes red -spreading redness * You become worse Patient instructed to call back with worsening symptoms, concerns or questions. Covid/Flu questions: 1) Current symptoms consistent with Covid/Flu-no 2) Have you tested positive for Covid/Flu in last 10 days-no, has not taken a test 3) Known exposure to Covid/Flu in the last 10 days -no 4) Traveled out of the country in the last 10 days-no Reason for Disposition Looks infected (e.g., spreading redness, pus) Protocols used: Face [id number] documented in this [facility]02-13-2025 Emergency department Note* Viky Tomlinson - 06/01/2024 11:37 PM EST Pt walked to cot to leave unit. Pt cooperative. [address]13-2025 Emergency department Note* Yael Mayers RN - 06/01/2024 11:37 PM EST Pt transported with DM. Pt cooperative, ambulatory with steady gate. Pt left with [address]13-2025 Emergency department Note* Viky Tomlinson - 06/01/2024 11:37 PM EST Pt walked to cot to leave unit. Pt cooperative. * Yael Mayers RN - 06/01/2024 11:37 PM EST Pt transported with DM. Pt cooperative, ambulatory with steady gate. Pt left with 2 bags * Viky Tomlinson - 06/01/2024 11:22 PM EST Jacob Conner here to transport Pt to [facility]. 2 bags of belongings and paperwork given to EMS. Yael RN at bedside for vitals prior to transport * Josefa Zee - 06/01/2024 10:07 PM EST Pt escorted to restroom by Annika DAVIS. * Viky Tomlinson - 06/01/2024 7:38 PM EST Yael RN at bedside * Maryanne Coleman RN - 06/01/2024 7:20 PM EST Report to RYAN Roblero * Dora Escalona - 06/01/2024 6:35 PM EST Pt To Restroom * Maryanne Coleman RN - 06/01/2024 6:30 PM EST Patient eating dinner in bed. No needs expressed at this time. Respirations equal and unlabored. * Dora Escalona - 06/01/2024 6:17 PM EST Dinner Tray Provided * SHANTAL Gerber - 06/01/2024 4:36 PM EST Pt returned phone and now talking with Tiffanie DAVIS in [facility]. * SHANTAL Gerber - 06/01/2024 4:27 PM EST Pt provided with phone. * Dora Escalona - 06/01/2024 3:59 PM EST RYAN Flynn At Pt Bedside To Check Vitals * Maryanne Coleman RN - 06/01/2024 3:09 PM EST Report to RYAN Flynn * Sandy Carrion RN - 06/01/2024 2:56 PM EST Hand off report given to Tiffanie DAVIS * Dora Escalona - 06/01/2024 2:50 PM EST Pt To Room 58 * Dora Escalona - 06/01/2024 2:49 PM EST Pt Changed Into Hospital Gowns And Socks. Skin Assessment Completed By RYAN Delgado. Pt Wanded By Protective Services, 2 Bags Of Belongings Locked Into Cabinet. * Sandy Carrion RN - 06/01/2024 2:19 PM EST Spoke with Babs at [facility] who says they are accepting patient for the referral. Accepting physician is Dr. Jones. He will be admitted to their 300 unit. Nurse to Nurse is [phone]. He can come anytime after 7p. * Sandy Carrion RN - 06/01/2024 2:05 PM EST RN spoke with Zane from [facility] regarding referral information, awaiting call back regarding acceptance of patient. * Sandy Carrion RN - 06/01/2024 11:58 AM EST Tobin at bedside speaking with patient. * Sandy Carrion RN - 06/01/2024 11:37 AM EST Patient given a food menu and educated on how to order, patient verbalized understanding. Y * Sandy Carrion RN - 06/01/2024 11:[address] Vera and Dr. Manley patient will be seen shortly by Tobin with [facility]. RN updated patient regarding this information. * Sandy Carrion RN - 06/01/2024 11:26 AM EST RN answered patients call light, Patient asking when the provider is coming in to see him. RN notified 3 providers on team via secure chat. * Kvng Vera MD - 06/01/2024 8:07 AM EST Emergency Department Encounter [facility] EMERGENCY DEPT Patient: Aries Carrasco : 2000 Date of Evaluation: 06/01/2024 ED Supervising Physician: Kvng Vera MD I personally saw Aries Carrasco and made/approved the management plan and take responsibility forthe patient management. In brief, Aries Carrasco is a 24 y.o. that presents to the emergency department for evaluation ofdepression. Patient states that over the past month he has had ups and downs with some manic behavior as well as depression. States that he recently had a break-up that has contributed to the depression. Patient states that he is just overwhelmed and needs help. He denies any auditory visual hallucinations. Denies drugs or alcohol use. Denies suicidal homicidal ideation. Denies any medical concerns or complaints. Focused exam: General appearance: Well-appearing, no acute distress. Psych: Awake alert and oriented 3. Pleasant and cooperative. Skin: Warm and dry. Neck: Supple. Cardiovascular: Regular rate and rhythm. Lungs: Clear to auscultation bilaterally, no accessory muscle use, tachypnea, or retractions. Extremities: Warm and well perfused. NROM and SILT throughout upper and lower extermities. Brief ED course/MDM: Patient presents the emergency department voluntarily to be evaluated by psychiatry for depression without suicidal or homicidal ideation. Patient does not appear to be a threat to himself or others but would benefit from psychiatric evaluation here in the emergency department to determine best course of treatment. I personally discussed the patient's management with other clinicians: [employer] psychiatry EMERGENCY DEPARTMENT COURSE and DIFFERENTIAL DIAGNOSIS/MDM: Vitals: Vitals: 06/01/24 0810 BP: 114/85 Pulse: 76 Resp: 18 Temp: 36.7 C (98.1 F) TempSrc: Oral SpO2: 99% Weight: 83.9 kg (185 lb) Height: 1.753 m (5' 9) All diagnostic, treatment, and disposition decisions were made by myself in conjunction with the MARBIN/Resident. I also supervised iraheta portions of any procedures performed by the MARBIN/Resident. For all further details of the patient's emergency department visit, please see their documentation. This will serve as my supervisory note and shared attestation. I did perform a substantiative portion of the visit including all aspects of the medical decision making. (Please note that portions of this note may have been completed with a voice recognition program. Efforts were made to edit the dictations but occasionally words are mis-transcribed.) Kvng Vera MD [employer] Kvng Vera MD 06/01/24 1552 documented in this [address]13-2025 Emergency department Note* Viky Tomlinson - 06/01/2024 11:22 PM EST Jacob Conner here to transport Pt to [facility]. 2 bags of belongings and paperwork given to EMS. Yael RN at bedside for vitals prior to transport [address]Fnnuri54-13-6255 Emergency department Note* Josefa Zee - 06/01/2024 10:07 PM EST Pt escorted to restroom by Annika DAVIS. [address]13-2025 Emergency department Note* Viky Tomlinson - 06/01/2024 7:38 PM EST Yael RN at bedside [address]Kbempj11-10-6133 Emergency department Note* Maryanne Coleman RN - 06/01/2024 7:20 PM EST Report to RYAN Roblero [id number] Emergency department Note* Dora Escalona - 06/01/2024 6:35 PM EST Pt To Restroom [address]Czdter04-79-1971 Emergency department Note* Maryanne Coleman RN - 06/01/2024 6:30 PM EST Patient eating dinner in bed. No needs expressed at this time. Respirations equal and unlabored. [id number] Emergency department Note* Dora Escalona - 06/01/2024 6:17 PM EST Dinner Tray Provided [address]Caqner07-67-4346 Emergency department Note* SHANTAL Gerber - 06/01/2024 4:36 PM EST Pt returned phone and now talking with Tiffanie DAVIS in [facility]. [id number] Emergency department Note* SHANTAL Gerber - 06/01/2024 4:27 PM EST Pt provided with phone. [address]Bdbsdr30-87-6271 Emergency department Note* Dora Escalona - 06/01/2024 3:59 PM EST RYAN Flynn At Pt Bedside To Check Vitals [address]Fanlta91-48-6900 Emergency department Note* Maryanne Coleman RN - 06/01/2024 3:09 PM EST Report to RYAN Flynn [address]Kfeowk68-51-2348 Emergency department Note* Sandy Carrion RN - 06/01/2024 2:56 PM EST Hand off report given to Tiffanie DAVIS [id number] Emergency department Note* Dora Escalona - 06/01/2024 2:50 PM EST Pt To Room 58 [id number] Emergency department Note* Dora Escalona - 06/01/2024 2:49 PM EST Pt Changed Into Hospital Gowns And Socks. Skin Assessment Completed By RYAN Delgado. Pt Wanded By Protective Services, 2 Bags Of Belongings Locked Into Cabinet. [address]Aoffxy65-93-2201 Emergency department Note* Sandy Carrion RN - 06/01/2024 2:19 PM EST Spoke with Babs at [facility] who says they are accepting patient for the referral. Accepting physician is Dr. Jones. He will be admitted to their 300 unit. Nurse to Nurse is [phone]. He can come anytime after 7p. [address]Wguism14-23-9879 NoteSpoke with Babs at [facility] who says they are accepting patient for the referral. Accepting physician is Dr. Jones. He will be admitted to their 300 unit. Nurse to Nurse is [phone]. He can come anytime after 7p.[facility]02-13-2025 Emergency department Note* Sandy Carrion RN - 06/01/2024 2:05 PM EST RN spoke with Zane from [employer] regarding referral information, awaiting call back regarding acceptance of patient. [address]Bngukn50-93-2737 NoteRN spoke with Zane from [employer] regarding referral information, awaiting call back regarding acceptance of patient.[facility]02-13-2025 Emergency department Note* Sandy Carrion RN - 06/01/2024 11:58 AM EST Tobin at bedside speaking with patient. [facility] [id number] History of Present illness Narrative* Crispin Walker, [facility] - 06/01/2024 11:41 AM EST Emergency Behavioral Health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 the eviction was legal and went through on 01/26/24. She would like to see him back on medications and safely placed in a shelter. No further information provided. She was appreciative of phone call and care. On my evaluation (01/28/24): Corroborates much of above story. Shares that he has been making poor choices and applying his opinion in the wrong places. Shares his admission is because he was arguing with his parents and disrespected them, so his father brought him into the ED for evaluation. Shares much of the above prior stressors, including losing $200 and having a break up 2 days ago (notably the relationship with 2 weeks). He also was evicted from his parent's home on 01/13, though has been living with them largely in the interim since he has 30 days to leave. He did go to [facility] for 1 day, but returned home as the conditions were not to his liking. As per the eviction, he states it was placed from CPS. States that during one of his conflicts with family, he called CPS because he had concerns that the house was smelling like marijuana and cigarette smoke. After their freddy (more content not included)...[facility]07-15-2024 Telephone encounter Note* Telephone Encounter - Jose Yen MD - 11/01/2023 4:39 PM EDT Talk to Aries and he is going to call tomorrow morning and schedule a follow-up lab draw he says adens been taking the medication since the end of last month [id number] Miscellaneous Notes* Telephone Encounter - Jose Yen MD - 11/01/2023 4:39 PM EDT Talk to Aries and he is going to call tomorrow morning and schedule a follow-up lab draw he says adens been taking the medication since the end of last month * Telephone Encounter - Trisha Delgado - 11/01/2023 12:24 PM EDT The patient called back in and stated that he picked up his prescription of rosuvastatin from [facility] at the start of the month and has been taking the medication. I did try to the backline. The patient would like a call back to , to discuss this . Please advise. * Telephone Encounter - Kamille Abreu MA - 11/01/2023 8:50 AM EDT Jose Yen MD18 hours ago (2:10 PM) This patient was supposed to start rosuvastatin 5 mg daily and follow-up in 4 weeks for blood bloodwork, I do not see where he ever agreed to start the rosuvastatin I do not see that it was ever sent in so I am not sure why he needs to come in in 4 weeks. Called pt, no answer and no vm. Mailed letter to contact the office. * Telephone Encounter - Hina Huntley MA - 10/29/2023 9:29 AM EDT Called pt and no answer and no voicemail * Telephone Encounter - Kamille Abreu MA - 10/28/2023 9:06 AM EDT Jose Yen MD18 hours ago (2:10 PM) This patient was supposed to start rosuvastatin 5 mg daily and follow-up in 4 weeks for blood bloodwork, I do not see where he ever agreed to start the rosuvastatin I do not see that it was ever sent in so I am not sure why he needs to come in in 4 weeks. Called pt, no answer and no vm. * Telephone Encounter - Jose Yen MD - 10/27/2023 2:09 PM EDT This patient was supposed to start rosuvastatin 5 mg daily and follow-up in 4 weeks for blood bloodwork, I do not see where he ever agreed to start the rosuvastatin I do not see that it was ever sent in so I am not sure why he needs to come in in 4 weeks. * Telephone Encounter - Annika Funes - 10/27/2023 11:08 AM EDT Name of caller: Aries Contact phone number: [phone] Relationship to Patient: Patient Provider: Practice: [facility] Chief Complaint/Reason for Call: Patient called in to schedule 4 week check. Did not see orders in chart and wanted to verify if appointment is with the lab or directly. Patient wanted to verify if he needs anymore appointments as well. Please advise. Best time of day caller can be reached: Any Patient advised that office/PCP has 24-48 business hours to return their call: Yes documented in this encounterSThe [facility] [id number] Telephone encounter Note* Telephone Encounter - Trisha Delgado - 11/01/2023 12:24 PM EDT The patient called back in and stated that he picked up his prescription of rosuvastatin from [facility] at the start of the month and has been taking the medication. I did try to the backline. The patient would like a call back to , to discuss this . Please advise. [id number] Telephone encounter Note* Telephone Encounter - Kamille Abreu MA - 11/01/2023 8:50 AM EDT Jose Yen MD18 hours ago (2:10 PM) This patient was supposed to start rosuvastatin 5 mg daily and follow-up in 4 weeks for blood bloodwork, I do not see where he ever agreed to start the rosuvastatin I do not see that it was ever sent in so I am not sure why he needs to come in in 4 weeks. Called pt, no answer and no vm. Mailed letter to contact the office. [facility] [id number] Telephone encounter Note* Telephone Encounter - Hina Huntley MA - 10/29/2023 9:29 AM EDT Called pt and no answer and no voicemail [facility] [id number] Telephone encounter Note* Telephone Encounter - Kamille Abreu MA - 10/28/2023 9:06 AM EDT Jose Yen MD18 hours ago (2:10 PM) This patient was supposed to start rosuvastatin 5 mg daily and follow-up in 4 weeks for blood bloodwork, I do not see where he ever agreed to start the rosuvastatin I do not see that it was ever sent in so I am not sure why he needs to come in in 4 weeks. Called pt, no answer and no vm. [facility] [id number] Telephone encounter Note* Telephone Encounter - Jose Yen MD - 10/27/2023 2:09 PM EDT This patient was supposed to start rosuvastatin 5 mg daily and follow-up in 4 weeks for blood bloodwork, I do not see where he ever agreed to start the rosuvastatin I do not see that it was ever sent in so I am not sure why he needs to come in in 4 weeks. [facility] [id number] Telephone encounter Note* Telephone Encounter - Annika Funes - 10/27/2023 11:08 AM EDT Name of caller: Aries Contact phone number: [phone] Relationship to Patient: Patient Provider: Practice: [facility] Chief Complaint/Reason for Call: Patient called in to schedule 4 week check. Did not see orders in chart and wanted to verify if appointment is with the lab or directly. Patient wanted to verify if he needs anymore appointments as well. Please advise. Best time of day caller can be reached: Any Patient advised that office/PCP has 24-48 business hours to return their call: Yes [facility] [id number] Telephone encounter Note* Telephone Encounter - Kamille Abreu MA - 10/18/2023 1:56 PM EDT I called Nikia parent who is listed as a contact we can speak to on communication form, Left a message to return call. [facility] [id number] Miscellaneous Notes* Telephone Encounter - Kamille Abreu MA - 10/18/2023 1:56 PM EDT I called Nikia, parent who is listed as a contact we can speak to on communication form, Left a message to return call. * Telephone Encounter - Kamille Abreu MA - 10/14/2023 3:02 PM EDT I called Nikia parent who is listed as a contact we can speak to on communication form, Left a message to return call. * Telephone Encounter - Elva Pearce - 10/13/2023 11:24 AM EDT Letter sent to patient no phone number listed. Pt has also never logged onto [employer]. If patient calls into the office Please relay results/providers message to patient and ask any follow up questions if needed. Patient given results from lab work? Agreeable to start medication? Pharmacy verified? Follow up lab work needed? YES if he starts the medication -If yes, LAB appointment scheduled? Future lab Orders put in? NO sent encounter back to office. * Telephone Encounter - Elva Pearce - 10/13/2023 11:14 AM EDT ----- Message from Jose Yen MD sent at 10/13/2023 5:26 AM EDT ----- Cholesterol total and bad are high, good is good canceling some of the bad, recommend low-dose rosuvastatin 5 mg daily and very strict low-fat low- cholesterol diet and recheck in 4 weeks. documented in this [id number] Telephone encounter Note* Telephone Encounter - Kamille Abreu MA - 10/14/2023 3:02 PM EDT I called Nikia, parent who is listed as a contact we can speak to on communication form, Left a message to return call. [facility] [id number] Miscellaneous Notes* Telephone Encounter - Kamille Abreu MA - 10/14/2023 3:02 PM EDT I called Nikia, parent who is listed as a contact we can speak to on communication form, Left a message to return call. * Telephone Encounter - Elva Pearce - 10/13/2023 11:24 AM EDT Letter sent to patient no phone number listed. Pt has also never logged onto [employer]. If patient calls into the office Please relay results/providers message to patient and ask any follow up questions if needed. Patient given results from lab work? Agreeable to start medication? Pharmacy verified? Follow up lab work needed? YES if he starts the medication -If yes, LAB appointment scheduled? Future lab Orders put in? NO sent encounter back to office. * Telephone Encounter - Elva Pearce - 10/13/2023 11:14 AM EDT ----- Message from Jose Yen MD sent at 10/13/2023 5:26 AM EDT ----- Cholesterol total and bad are high, good is good canceling some of the bad, recommend low-dose rosuvastatin 5 mg daily and very strict low-fat low- cholesterol diet and recheck in 4 weeks. documented in this encounterSThe [facility] at [id number] Telephone encounter Note* Telephone Encounter - Elva Ramses - 10/13/2023 11:24 AM EDT Letter sent to patient no phone number listed. Pt has also never logged onto [employer]. If patient calls into the office Please relay results/providers message to patient and ask any follow up questions if needed. Patient given results from lab work? Agreeable to start medication? Pharmacy verified? Follow up lab work needed? YES if he starts the medication -If yes, LAB appointment scheduled? Future lab Orders put in? NO sent encounter back to office. [facility] [id number] Telephone encounter Note* Telephone Encounter - Elva RaeMaria Esther - 10/13/2023 11:14 AM EDT ----- Message from Jose Yen MD sent at 10/13/2023 5:26 AM EDT ----- Cholesterol total and bad are high, good is good canceling some of the bad, recommend low-dose rosuvastatin 5 mg daily and very strict low-fat low- cholesterol diet and recheck in 4 weeks. [facility] [id number] History of Present illness Narrative* Hina Huntley MA - 10/12/2023 9:15 AM EDT Patient verified by last name and date of . * Jose Yen MD - 10/12/2023 9:15 AM EDT Images from the original note were not included. 10/12/2023 Aries Carrasco (: 2000) is a 23 y.o. male , Established patient, here for evaluation of the following chief complaint(s): ADHD, Asthma, Bipolar, and Medication Check (6 month) ASSESSMENT/PLAN: 1. Residual schizophrenia (CMS/HCC) ([facility]) Assessment & Plan: Stable, is slight group has taken him off of all of his medications except BuSpar, he feels like hemay need to be back on something and he will discuss that with them in November 2. Asthma, exercise induced Assessment & Plan: Stable, has no inhaler but is not currently very physically active. 3. Generalized anxiety disorder Assessment & Plan: Stable, continue BuSpar 15 mg twice a day 4. Allergic rhinitis due to pollen, unspecified seasonality Assessment & Plan: Stable, currently on no medications. 5. Obesity (BMI 30.0-34.9) Assessment & Plan: Weight has come down 15 to 16 pounds, encouraged him to continue weight loss with diet and exercisefor a few more pounds. 6. Hypercholesterolemia Assessment & Plan: Uncontrolled, continue low-fat low-cholesterol diet and repeat labs today. Orders: - Lipid panel Follow up in about 6 months (around 04/12/2024) for annual. SUBJECTIVE/OBJECTIVE: GIBSON Archuleta comes in today for 6-month follow-up on his multiple health issues he is seen psychiatrist and counselor in [place] who is actually taking off all of his medications except his BuSpar. He does have a follow-up appointment with them in November. He also has a history of allergic rhinitis which she currently is not taking any medicines for, hypercholesterolemia and he needs repeat lab work and he has a history of obesity but he has lost 15 to16 pounds in the last 6 months. Review of Systems Constitutional: Negative for activity change, appetite change, chills, fever and unexpected weight change. HENT: Negative for ear pain and sore throat. Respiratory: Negative for shortness of breath. Cardiovascular: Negative for chest pain and palpitations. Gastrointestinal: Negative for abdominal pain, blood in stool, constipation and diarrhea. Genitourinary: Negative for dysuria, frequency, hematuria and urgency. Musculoskeletal: Negative for arthralgias and back pain. Skin: Negative. Neurological: Negative for weakness and numbness. Psychiatric/Behavioral: Negative for dysphoric mood. The patient is not nervous/anxious. Vitals: 10/12/23 0837 BP: 121/80 Pulse: 52 SpO2: 96% Weight: 206 lb 12.8 oz (93.8 kg) Height: 5' 9 (1.753 m) Physical Exam Vitals and nursing note reviewed. Constitutional: General: He is not in acute distress. Appearance: Normal appearance. He is obese. HENT: Right Ear: Tympanic membrane, ear canal and external ear normal. Left Ear: Tympanic membrane, ear canal and external ear normal. Mouth/Throat: Mouth: Mucous membranes are moist. Pharynx: Oropharynx is clear. Eyes: Extraocular Movements: Extraocular movements intact. Conjunctiva/sclera: Conjunctivae normal. Pupils: Pupils are equal, round, and reactive to light. Neck: Thyroid: No thyromegaly. Cardiovascular: Rate and Rhythm: Normal rate and regular rhythm. Heart sounds: Normal heart sounds. No murmur heard. Pulmonary: Effort: Pulmonary effort is normal. Breath sounds: Normal breath sounds. Abdominal: General: Bowel sounds are normal. Palpations: Abdomen is soft. Tenderness: There is no abdominal tenderness. Musculoskeletal: General: Normal range of motion. Cervical back: Neck supple. Lymphadenopathy: Cervical: No cervical adenopathy. Skin: General: Skin is warm and dry. Neurological: General: No focal deficit present. Mental Status: He is alert and oriented to person, place, and time. Psychiatric: Mood and Affect: Mood normal. An electronic signature was used to authenticate this note. Jose Yen MD 10/12/2023 9:07 AM documented in this [facility]06-25-2024 Evaluation + Plan note* Assessment & Plan Note - Jose Yen MD - 10/12/2023 9:07 AM EDT Associated Problem(s): Hypercholesterolemia Uncontrolled, continue low-fat low-cholesterol diet and repeat labs today. [facility] [id number] Miscellaneous Notes* Assessment & Plan Note - Jose Yen MD - 10/12/2023 9:07 AM EDTAssociated Problem(s): Hypercholesterolemia Uncontrolled, continue low-fat low-cholesterol diet and repeat labs today. * Assessment & Plan Note - Jose Yen MD - 10/12/2023 9:06 AM EDT Associated Problem(s): Generalized anxiety disorder Stable, continue BuSpar 15 mg twice a day * Assessment & Plan Note - Jose Yen MD - 10/12/2023 9:06 AM EDT Associated Problem(s): Schizophrenia (HCC) Panchito, is slight group has taken him off of all of his medications except BuSpar, he feels like hemay need to be back on something and he will discuss that with them in November * Assessment & Plan Note - Jose Yen MD - 10/12/2023 9:06 AM EDT Associated Problem(s): Allergic rhinitis Stable, currently on no medications. * Assessment & Plan Note - Jose Yen MD - 10/12/2023 9:05 AM EDT Associated Problem(s): Obesity (BMI 30.0-34.9) Weight has come down 15 to 16 pounds, encouraged him to continue weight loss with diet and exercisefor a few more pounds. * Assessment & Plan Note - Jose Yen MD - 10/12/2023 9:05 AM EDT Associated Problem(s): Asthma, exercise induced Panchito, has no inhaler but is not currently very physically active. documented in this encounterSThe [facility] Hospital at [id number] Evaluation + Plan note* Assessment & Plan Note - Jose Yen MD - 10/12/2023 9:06 AM EDT Associated Problem(s): Generalized anxiety disorder Panchito, continue BuSpar 15 mg twice a day [facility] [id number] Evaluation + Plan note* Assessment & Plan Note - Jose Yen MD - 10/12/2023 9:06 AM EDTAssociated Problem(s): Schizophrenia (HCC) Panchito, is slight group has taken him off of all of his medications except BuSpar, he feels like hemay need to be back on something and he will discuss that with them in November [facility] [id number] Evaluation + Plan note* Assessment & Plan Note - Jose Yen MD - 10/12/2023 9:06 AM EDTAssociated Problem(s): Allergic rhinitis Panchito, currently on no medications. [facility] [id number] Evaluation + Plan note* Assessment & Plan Note - Jose Yen MD - 10/12/2023 9:05 AM EDTAssociated Problem(s): Obesity (BMI 30.0-34.9) Weight has come down 15 to 16 pounds, encouraged him to continue weight loss with diet and exercisefor a few more pounds. [facility] [id number] Evaluation + Plan note* Assessment & Plan Note - Jose Yen MD - 10/12/2023 9:05 AM EDTAssociated Problem(s): Asthma, exercise induced Stable, has no inhaler but is not currently very physically active. [facility]04-12-2024 Hospital Discharge instructions Patient Education 07/30/2023 03:05:34 Anxiety Reaction Anxiety Reaction Anxiety is the feeling we all get when we think something bad might happen. It is a normal responseto stress and usually causes only a mild reaction. When anxiety becomes more severe, it can interfere with daily life. In some cases, you may not even be aware of what it is you re anxious about. There may also be a genetic link or it may be a learned behavior in the home. Both psychological and physical triggers cause stress reaction. It's often a response to fear or emotional stress, real or imagined. This stress may come from home, family, work, or social relationships. During an anxiety reaction, you may feel: Helpless Nervous Depressed Irritable Your body may show signs of anxiety in many ways. You may experience: Dry mouth Shakiness Dizziness Weakness Trouble breathing Breathing fast (hyperventilating) Chest pressure Sweating Headache Nausea Diarrhea Tiredness Inability to sleep Sexual problems Home care Try to locate the sources of stress in your life. They may not be obvious. These may include: oDaily hassles of life (such as traffic jams, missed appointments, or car troubles) oMajor life changes, both good (new baby or job promotion) and bad (loss of job or loss of loved one) oOverload: feeling that you have too many responsibilities and can't take care of all of them at once oFeeling helpless or feeling that your problems are beyond what you re able to solve Notice how your body reacts to stress. Learn to listen to your body signals. This will help you take action before the stress becomes severe. When you can, do something about the source of your stress. (Avoid hassles, limit the amount of change that happens in your life at one time and take a break when you feel overloaded). Unfortunately, many stressful situations can't be avoided. It is necessary to learn how to better manage stress. There are many proven methods that will reduce your anxiety. These include simple things like exercise, good nutrition, and adequate rest. Also, there are certain techniques that are helpful: oRelaxation oBreathing exercises oVisualization oBiofeedback oMeditation For more information about this, consult your healthcare provider or go to a local bookstore and review the many books and tapes available on this subject. Follow-up care If you feel that your anxiety is not responding to self-help measures, contact your healthcare provider or make an appointment with a counselor. You may need short-term psychological counseling and temporary medicine to help you manage stress. Call 911 Call 911 if any of these happen: Trouble breathing Confusion Drowsiness or trouble wakening Fainting or loss of consciousness Rapid heart rate Seizure New chest pain that becomes more severe, lasts longer, or spreads into your shoulder, arm, neck, jaw, or back When to seek medical advice Call your healthcare provider right away if any of these happen: Your symptoms get worse Severe headache not relieved by rest and mild pain reliever 6983-9[address] [employer] [place] [address]. All rights reserved. This information is not intended as a substitute for professional medical care. Always follow yourhealthcare professional's instructions. Follow Up Care 07/29/2023 19:59:21 With:JOSE YEN MD Address: [address] [place] [address]- When:2-4 days [facility] 04-12-2024 Note Discharge Instructions Thank you for allowing [facility] to assist you with your healthcare needs. The following is importantdischarge information regarding your hospital visit. Diagnosis from Today's Visit Anxiety reaction Medical screening exam What to Do Next Instructions from Your Care Team No qualifying data available. Post Acute Orders No qualifying data available. You Need to Schedule the Following Appointments Follow Up with JOSE YEN MD When Within 2-4 days Where: [address] [place], [place] [id number]- Allergies No Known Medication Allergies Medications Please ask your primary doctor or pharmacist before taking any other medication not listed, including over the counter drugs, herbal medications, vitamins and or supplements as they may interact withyour home medications. Please take this list to your next doctor s visit. Bring all medications you take, including over the counter medications, herbals and other supplements with you to your doctor s visit. Patients and families are reminded to discard old lists and to update any records with all medication providers or retail pharmacies. Education Materials Anxiety Reaction Anxiety is the feeling we all get when we think something bad might happen. It is a normal responseto stress and usually causes only a mild reaction. When anxiety becomes more severe, it can interfere with daily life. In some cases, you may not even be aware of what it is you re anxious about. There may also be a genetic link or it may be a learned behavior in the home. Both psychological and physical triggers cause stress reaction. It's often a response to fear or emotional stress, real or imagined. This stress may come from home, family, work, or social relationships. During an anxiety reaction, you may feel: Helpless Nervous Depressed Irritable Your body may show signs of anxiety in many ways. You may experience: Dry mouth Shakiness Dizziness Weakness Trouble breathing Breathing fast (hyperventilating) Chest pressure Sweating Headache Nausea Diarrhea Tiredness Inability to sleep Sexual problems Home care Try to locate the sources of stress in your life. They may not be obvious. These may include: oDaily hassles of life (such as traffic jams, missed appointments, or car troubles) oMajor life changes, both good (new baby or job promotion) and bad (loss of job or loss of loved one) oOverload: feeling that you have too many responsibilities and can't take care of all of them at once oFeeling helpless or feeling that your problems are beyond what you re able to solve Notice how your body reacts to stress. Learn to listen to your body signals. This will help you take action before the stress becomes severe. When you can, do something about the source of your stress. (Avoid hassles, limit the amount of change that happens in your life at one time and take a break when you feel overloaded). Unfortunately, many stressful situations can't be avoided. It is necessary to learn how to better manage stress. There are many proven methods that will reduce your anxiety. These include simple things like exercise, good nutrition, and adequate rest. Also, there are certain techniques that are helpful: oRelaxation oBreathing exercises oVisualization oBiofeedback oMeditation For more information about this, consult your healthcare provider or go to a local bookstore and review the many books and tapes available on this subject. Follow-up care If you feel that your anxiety is not responding to self-help measures, contact your healthcare provider or make an appointment with a counselor. You may need short-term psychological counseling and temporary medicine to help you manage stress. Call 911 Call 911 if any of these happen: Trouble breathing Confusion Drowsiness or trouble wakening Fainting or loss of consciousness Rapid heart rate Seizure New chest pain that becomes more severe, lasts longer, or spreads into your shoulder, arm, neck, jaw, or back When to seek medical advice Call your healthcare provider right away if any of these happen: Your symptoms get worse Severe headache not relieved by rest and mild pain reliever [id number] [employer] [place] [address]. All rights reserved. This information is not intended as a substitute for professional medical care. Always follow yourhealthcare professional's instructions. Additional Information VACCINATE! IT SAVES LIVES! Members of the community who have not yet received the COVID-19 vaccine and would like to receive it can visit one of [facility] vaccine clinics. There are many vaccine clinic locations within the [facility]. For locations and available times, please visit [email or web address] It is important to note that some COVID mobile vaccine clinics are held outdoors and may be canceled in rainy or stormy conditions. To learn more about pediatric vaccinations (ages 5-11), we invite you to visit the [facility] webpage. [email or web address] [email or web address] learn more about the COVID-19 vaccine, we invite you to visit the CDC website for a list of frequently asked questions. https://www.cdc.gov/coronavirus/2019-ncov/vaccines/faq.html [facility] Patient Portal Access Instructions: Stay connected with your healthcare team and access your personal medical information anytime with the [facility] Patient Portal. If you would like a full copy of your medical records please contact the [facility] Medical Records Department Wednesday through Wednesday between 8a.m. and 4:30p.m. Please follow the directions below to access the portal: 1.Access the email account you provided upon registration to the [facility].2.Look for an invitation email from [facility].3.Open the email and access the invitation link: Accept Invitation to [employer]4.Fill in the required cutler to create your account. Sign into [email or web address] with your username and password that you created in the above steps to stay up to date. You can then view a summary of results, a summary of your visits, and the ability to download your summaries to your computer or send the information securely to a physician. Remember that your healthcare information is confidential, so carefully consider who you will allow to register on the [facility] [employer] Patient Portal for access to your information. You can also access the [facility] Patient Portal on the [employer] mar[employer]. Simply click on Health Records under HealthData and then click on the [employer] logo. HOW TO SAFELY DISPOSE OF PRESCRIPTION MEDICATIONS Please use one of the following methods to safely dispose of your unused medications. 1.Use a drug disposal kit: the drug disposal pouch allows you to safely discard your old and unuseddrugs. Ask your nurse to give you one when you are discharged.2.Visit a local take-back location: Many local pharmacies and police departments have programs that collect old and unwanted prescriptiondrugs. Call your local pharmacy or go to http://Tenlegs.Tippr/4P8Fk1m to find one close to you.3.Make use of household items: Use cat litter or old coffee grounds to dispose medications if other options arenot available. Mix your drugs with these household products, seal them in an airtight container andthrow it into the garbage. Call [facility]: [phone] to be sure your drugs can be disposed of in this way. Some medicines may require a different approach.4.Never flush your medications down the toilet. IF YOU HAVE BEEN PRESCRIBED AN OPIOIDS FOR PAIN If you have been prescribed an opioid (such as hydrocodone, oxycodone or morphine), it is critical to understand the possible side effects and risks of opioid pain medications. Even when taken as directed, opioids can have several side effects including: Tolerance, meaning you might need to take more of a medication for the same pain relief. Nausea, vomiting and/or constipation. Sleepiness, dizziness, dry mouth, confusion, depression or itching. Physical dependence, meaning you have withdrawal symptoms when a medication is stopped ? this can develop within a few days. KNOW YOUR RESPONSIBILITIES It is important to know exactly how much and how often to take the opioid pain medications you are prescribed. Never take opioids in higher amounts or more often than prescribed. Do not combine opioids with alcohol or other drugs that cause drowsiness, such as benzodiazepines, also known as benzos,including diazepam and alprazolam, muscle relaxants or sleep aids. Never sell or share prescriptionopioids. This is illegal. Store opioids in a secure place and out of reach of others (including children, family, friends and visitors). The last page(s) of this document has been signed and retained as a CHART COPY Signatures Patient Education Materials Anxiety Reaction Medication Leaflets My discharge plan and instructions have been reviewed and explained to me and I,ARIES CARRASCO understand my current condition and have read and understand these discharge instructions. I have received a written copy of the plan/instructions. If I have questions, I am aware that I should contactmy doctor. Patient/Visual Inspector Signature: Date/Time: Relationship to Patient: Witness Name/Signature: Date/Time: [facility]04-11-2024 NoteSinus rhythm Borderline prolonged MT interval RSR' in V1 or V2, probably normal variant ST elevation suggests acute pericarditis Electronic Signature: DRISS MOCTEZUMA MD 07/29/2023 23:46:22[facility] 02-07-2024 Evaluation + Plan note* Assessment & Plan Note - ARIANA Mccray CNP - 05/26/2023 5:32 PM ESTAssociated Problem(s): Mental disorder Has had some mood fluctuations recently, currently stable denies any SI or HI, recommend following up with psychiatry [facility] [id number] Miscellaneous Notes* Assessment & Plan Note - ARIANA Mccray CNP - 05/26/2023 5:32 PM ESTAssociated Problem(s): Mental disorder Has had some mood fluctuations recently, currently stable denies any SI or HI, recommend following up with psychiatry * Assessment & Plan Note - ARIANA Mccray CNP - 05/26/2023 5:31 PM ESTAssociated Problem(s): Closed fracture of tooth with routine healing Follow-up with dentist * Assessment & Plan Note - ARIANA Mccray CNP - 05/26/2023 5:29 PM ESTAssociated Problem(s): Contusion of scalp Neuro exam unremarkable. Recommend cold pack application and ibuprofen 600 mg every 8 hours for pain. Cognitive rest due to possible mild concussion. Follow-up with the psychiatrist regarding your Invega injections documented in this [facility]02-07-2024 Evaluation + Plan note* Assessment & Plan Note - ARIANA Mccray CNP - 05/26/2023 5:31 PM ESTAssociated Problem(s): Closed fracture of tooth with routine healing [id number] + Plan note* Assessment & Plan Note - ARIANA Mccray CNP - 05/26/2023 5:29 PM ESTAssociated Problem(s): Contusion of scalp Neuro exam unremarkable. Recommend cold pack application and ibuprofen 600 mg every 8 hours for pain. Cognitive rest due to possible mild concussion. Follow-up with the psychiatrist regarding your Invega injections [id number] History of Present illness Narrative* Kamille Abreu MA - 05/26/2023 3:20 PM EST Patient was verified by name and . * ARIANA Mccray CNP - 05/26/2023 3:20 PM EST Images from the original note were not included. 05/26/2023 Aries Carrasco (: 2000) is a 23 y.o. male , Established patient, here for evaluation of the following chief complaint(s): Fall (Fell early this morning/late last night) and Headache ASSESSMENT/PLAN: 1. Contusion of scalp, initial encounter Assessment & Plan: Neuro exam unremarkable. Recommend cold pack application and ibuprofen 600 mg every 8 hours for pain. Cognitive rest due to possible mild concussion. Follow-up with the psychiatrist regarding your Invega injections 2. Closed fracture of tooth with routine healing Assessment & Plan: Follow-up with dentist Follow up if symptoms worsen or fail to improve. SUBJECTIVE/OBJECTIVE: HPI - Aries Carrasco (: 2000) is a 23 y.o. male , Established patient, here for the evaluation of the following chief complaint(s): Fall (Fell early this morning/late last night) and Headache Was getting out of bed and went towards door and fell onto his face, did not lose consciousness. Has not taken anything for his symptoms. Broke a tooth. Will be seeing dentist soon. States that he has had a couple episodes of falling since starting the invega- is following up withthe psychiatrist regarding Prior to Admission medications Medication Sig Start Date End Date Taking? Authorizing Provider lamoTRIgine (LaMICtal) 25 MG tablet take 1 tablet by mouth for 14 days then INCREASE to 2 tablets daily 04/09/23 Yes Historical Provider, lithium 600 MG capsule Take 600 mg by mouth 2 times daily. 04/04/23 Yes Historical Provider, paliperidone palmitate ER (Invega Sustenna) 234 MG/1.5ML suspension prefilled syringe Inject 1.5 mL(234 mg) into the shoulder, thigh, or buttocks Once for 1 dose. Do not start before April 29, 2023. 04/29/23 05/26/23 Yes Jeramie Post MD Review of Systems Constitutional: Negative for activity change, appetite change, fatigue and fever. HENT: Positive for dental problem. Respiratory: Negative. Cardiovascular: Negative. Neurological: Positive for headaches (Right-sided head). Vitals: 05/26/23 1523 BP: 125/75 Pulse: 82 SpO2: 98% Weight: 218 lb (98.9 kg) Height: 5' 9 (1.753 m) Physical Exam Constitutional: General: He is not in acute distress. Appearance: Normal appearance. He is not ill-appearing. HENT: Head: Normocephalic. Right Ear: Tympanic membrane normal. Left Ear: Tympanic membrane normal. Mouth/Throat: Mouth: Mucous membranes are moist. Pharynx: Oropharynx is clear. No posterior oropharyngeal erythema. Eyes: Extraocular Movements: Extraocular movements intact. Conjunctiva/sclera: Conjunctivae normal. Pupils: Pupils are equal, round, and reactive to light. Cardiovascular: Rate and Rhythm: Normal rate and regular rhythm. Pulses: Normal pulses. Heart sounds: Normal heart sounds. Pulmonary: Effort: Pulmonary effort is normal. Breath sounds: Normal breath sounds. Neurological: Mental Status: He is alert and oriented to person, place, and time. An electronic signature was used to authenticate this note. ARIANA Mccray CNP 05/26/2023 5:32 PM documented in this [facility]02-07-2024 Instructions* Patient Instructions* ARIANA Mccray CNP - 05/26/2023 3:20 PM EST Cold aditya on right side of face- 20 minutes on every 3-4 hours. Ibuprofen 600 mg every 8 hours for pain. Follow up with Dentist and psychiatrist. documented in this [facility]02-07-2024 Telephone encounter Note* Telephone Encounter - ARIANA Mccray CNP - 05/26/2023 1:42 PM EST Noted. Agree with disposition. [id number] Miscellaneous Notes* Telephone Encounter - ARIANA Mccray CNP - 05/26/2023 1:42 PM EST Noted. Agree with disposition. * Telephone Encounter - Whit Rice RN - 05/26/2023 11:53 AM EST S: Patient spoke with [facility] nurse regarding fall last night, hit head- bruised, cracked tooth, pounding headache- ivenga shot from mental facility may be causing the falls. B: Onset of symptoms last night 05/25/23 A: Has fallen the last few days , states his legs gave out and hit is head, states there are no bumps or lumps on his head, it is bruised, pounding headache and rates as mild, no on blood thinners, patient left a message with the psych and waiting for a melanie back. No open areas. Requesting to be seen. R: Appointment scheduled, address given to the patient, instructed to bring photo ID, insurance info and medication list to the appointment. Patient understands care advice. No further needs at this time. Patient instructed to call back with new or worsening symptoms. Reason for Disposition MODERATE weakness (i.e., interferes with work, school, normal activities) and new-onset or worsening Protocols used: Falls and [id number] documented in this [facility]02-07-2024 Telephone encounter Note* Telephone Encounter - Whit Rice RN - 05/26/2023 11:53 AM EST S: Patient spoke with [facility] nurse regarding fall last night, hit head- bruised, cracked tooth, pounding headache- ivenga shot from mental facility may be causing the falls. B: Onset of symptoms last night 05/25/23 A: Has fallen the last few days , states his legs gave out and hit is head, states there are no bumps or lumps on his head, it is bruised, pounding headache and rates as mild, no on blood thinners, patient left a message with the psych and waiting for a melanie back. No open areas. Requesting to be seen. R: Appointment scheduled, address given to the patient, instructed to bring photo ID, insurance info and medication list to the appointment. Patient understands care advice. No further needs at this time. Patient instructed to call back with new or worsening symptoms. Reason for Disposition MODERATE weakness (i.e., interferes with work, school, normal activities) and new-onset or worsening Protocols used: Falls and [id number]-XR [facility]01-03-2024 Evaluation + Plan note* Assessment & Plan Note - ARIANA Mccray CNP - 04/21/2023 10:34 AM ESTAssociated Problem(s): Obesity (BMI 30.0-34.9) Encouraged healthy eating, portion control and increased physical activity as tolerated. [facility]01-03-2024 Miscellaneous Notes* Assessment & Plan Note - ARIANA Mccray CNP - 04/21/2023 10:34 AM ESTAssociated Problem(s): Obesity (BMI 30.0-34.9) Encouraged healthy eating, portion control and increased physical activity as tolerated. * Assessment & Plan Note - ARIANA Mccray CNP - 04/21/2023 10:33 AM ESTAssociated Problem(s): Jermaine (HCC) Resolved. Follow up with psychiatry. * Assessment & Plan Note - ARIANA Mccray CNP - 04/21/2023 10:32 AM ESTAssociated Problem(s): Attention deficit hyperactivity disorder, combined type Managed by psychiatry. * Assessment & Plan Note - ARIANA Mccray CNP - 04/21/2023 10:32 AM ESTAssociated Problem(s): Mental disorder Stable. Follow up with psychiatry as directed. documented [facility] this [facility]01-03-2024 Evaluation + Plan note* Assessment & Plan Note - ARIANA Mccray CNP - 04/21/2023 10:33 AM ESTAssociated Problem(s): Jermaine (HCC) Resolved. Follow [facility] with psychiatry. [id number] Evaluation + Plan note* Assessment & Plan Note - ARIANA Mccray CNP - 04/21/2023 10:32 AM ESTAssociated Problem(s): Attention deficit hyperactivity disorder, combined type Managed by psychiatry. [facility] [id number] Evaluation + Plan note* Assessment & Plan Note - ARIANA Mccray CNP - 04/21/2023 10:32 AM ESTAssociated Problem(s): Mental disorder Stable. Follow up with psychiatry as directed. [facility] [id number] History of Present illness Narrative* Elva Pearce - 04/21/2023 9:20 AM EST Patient was identified by name and Date of . HM: Hep A- declined Cnq-eljfjdja-ykyqfz Covid-declined ROR FAXED for [facility]- Patient was identified by name and Date Of . After obtaining informed consent, Immunization(s)were ordered by provider. The patient and or Family/Guardian was instructed on the benefits and risks related to the vaccine or toxoid. Information given to the patient and or Family/Guardian with signs and symptoms of adverse effects and when to seek medical attention. Site was cleansed with an alcohol swab, immunization(s) were given, and bandage(s) were applied to injection site. Patient tolerated well, advised patient and or Family/Guardian to stay in the office 20 minutes after injection has been given to observe for any reaction. Immunization(s) was given by Elva Pearce MA. * ARIANA Mccray CNP - 04/21/2023 9:20 AM EST Images from the original note were not included. 04/21/2023 Aries Carrasco (: 2000) is a 23 y.o. male , Established patient, here for evaluation of the following chief complaint(s): Annual Exam and Health Maintenance ASSESSMENT/PLAN: 1. Annual physical exam 2. Screening for deficiency anemia - CBC 3. Screening for cholesterol level - Lipid panel 4. Screening for diabetes mellitus - Comprehensive metabolic panel 5. Immunization due - Flu vaccine, quadrivalent, recombinant, preservative free 6. Jermaine (HCC) Assessment & Plan: Resolved. Follow up with psychiatry. 7. Attention deficit hyperactivity disorder, combined type Assessment & Plan: Managed by psychiatry. 8. Mental disorder Assessment & Plan: Stable. Follow up with psychiatry as directed. 9. Obesity (BMI 30.0-34.9) Assessment & Plan: Encouraged healthy eating, portion control and increased physical activity as tolerated. Aries seems to be doing well today. Has good insight into his mental illness and reports good support from family. Is established with counseling center in [facility]. We will have him follow-up with us in about 6 months. Sooner if any concerns arise. Follow up in about 6 months (around 10/20/2023) for Recheck. SUBJECTIVE/OBJECTIVE: HPI - Aries Carrasco (: 2000) is a 23 y.o. male , Established patient, here for the evaluation of the following chief complaint(s): Annual Exam and Health Maintenance Presents today for his annual exam and fasting labs and also for hospital follow-up. Was hospitalized March 27 through April 02 at [facility] for acute psychosis and manic behavior. He was started on Invega sustenna during his hospitalization and was discharged in stable condition. He is established with the counseling center at [facility]. He will be due for his next Invega injection on April 29, 2022 reports sister is going to do his invega shots-states she is certified in phlebotomy and injections. Kvng Alanis at counselor at the counseling center in [facility]- last saw him couple of weeks ago. States he has been doing very well since being discharged. Has been feeling good, eating better. Not over eating. Is walking when he gets in a mood. Overallpositive mood. Currently not working, is focusing on getting his mental health stabilized and then will look for work. Does not drive. Currently lives at home with his biological mom and stepfather. Reports a good relationship with both and they are very supportive. Prior to Admission medications Medication Sig Start Date End Date Taking? Authorizing Provider panteraoTRIgine (LaMICtal) 25 MG tablet take 1 tablet by mouth for 14 days then INCREASE to 2 tablets daily 04/09/23 Yes Historical Provider, lithium 600 MG capsule Take 600 mg by mouth 2 times daily. 04/04/23 Yes Historical Provider, paliperidone palmitate ER (Invega Sustenna) 234 MG/1.5ML suspension prefilled syringe Inject 1.5 mL(234 mg) into the shoulder, thigh, or buttocks Once for 1 dose. Do not start before April 29, 2023. 04/29/23 04/29/23 Yes Jeramie Post MD QUEtiapine (SEROquel) 100 MG tablet Take 100 mg by mouth 3 times daily. 01/28/23 Yes Historical Provider, Review of Systems Constitutional: Negative for activity change, appetite change, fatigue and fever. HENT: Negative. Respiratory: Negative. Cardiovascular: Negative. Gastrointestinal: Negative. Genitourinary: Negative. Neurological: Negative for dizziness, light-headedness and headaches. Psychiatric/Behavioral: Negative for agitation, dysphoric mood, self-injury, sleep disturbance and suicidal ideas. The patient is not nervous/anxious. Vitals: 04/21/23 0852 BP: 116/73 Pulse: 88 Resp: 24 Temp: 36.9 C (98.4 F) TempSrc: Infrared SpO2: 99% Weight: 222 lb (101 kg) Height: 5' 9 (1.753 m) Physical Exam Vitals reviewed. Constitutional: General: He is not in acute distress. Appearance: Normal appearance. He is obese. He is not ill-appearing or toxic-appearing. HENT: Head: Normocephalic and atraumatic. Right Ear: Tympanic membrane, ear canal and external ear normal. There is no impacted cerumen. Left Ear: Tympanic membrane, ear canal and external ear normal. There is no impacted cerumen. Nose: Nose normal. No congestion or rhinorrhea. Mouth/Throat: Mouth: Mucous membranes are moist. Pharynx: Oropharynx is clear. No oropharyngeal exudate or posterior oropharyngeal erythema. Eyes: Conjunctiva/sclera: Conjunctivae normal. Pupils: Pupils are equal, round, and reactive to light. Cardiovascular: Rate and Rhythm: Normal rate and regular rhythm. Pulses: Normal pulses. Heart sounds: Normal heart sounds. No murmur heard. Pulmonary: Effort: Pulmonary effort is normal. No respiratory distress. Breath sounds: Normal breath sounds. Abdominal: General: Abdomen is flat. Bowel sounds are normal. Palpations: Abdomen is soft. There is no mass. Tenderness: There is no abdominal tenderness. There is no right CVA tenderness or left CVA tenderness. Musculoskeletal: General: Normal range of motion. Cervical back: Normal range of motion and neck supple. No rigidity or tenderness. Lymphadenopathy: Cervical: No cervical adenopathy. Skin: General: Skin is warm and dry. Neurological: General: No focal deficit present. Mental Status: He is alert and oriented to person, place, and time. Psychiatric: Attention and Perception: Attention normal. Mood and Affect: Mood and affect normal. Speech: Speech normal. Behavior: Behavior normal. Thought Content: Thought content normal. Cognition and Memory: Cognition normal. Judgment: Judgment normal. An electronic signature was used to authenticate this note. ARIANA Mccray CNP 04/21/2023 10:34 AM documented in this [facility]01-03-2024 Instructions* Patient Instructions* ARIANA Mccray CNP - 04/21/2023 9:20 AM EST Follow up with counseling and psychiatry at [facility]. * Attachments The following attachments cannot be sent through Care Everywhere. * Flu Vaccine ([place]) documented in this [facility]12-21-2023 Telephone encounter Note* Telephone Encounter - Jose Yen MD - 04/08/2023 3:29 PM EST Okay, thank you [employer] Phone: 1(491) 927-718612-21-2023 Miscellaneous Notes* Telephone Encounter - Jose Yen MD - 04/08/2023 3:29 PM EST Okay, thank you * Telephone Encounter - Kamille Abreu MA - 04/08/2023 2:00 PM EST Notified, scheduled physical for 04/21/23. He states he was getting this at [facility] in [place] before, will contact them for next injection. * Telephone Encounter - Jose Yen MD - 04/08/2023 1:42 PM EST I am not familiar with this medication this is something that needs to come from a psychiatrist. This is an antipsychotic and I have never used it before. Where was he getting it before? Also he has not been seen here for over a year * Telephone Encounter - Alivia Bruner MA - 04/08/2023 12:27 PM EST Name of caller: Aries Contact phone number: [phone] Relationship to Patient: patient Provider: Dr. Yen Practice: [facility] Chief Complaint/Reason for Call: patient states that he was told [facility] that he needed to schedule an appt with his PCP to get a injection by the name of invega. Please advise. Patient states that his next injection is due on 05/03/23. Please advise. Patient wanting a call back from the office. Best time of day caller can be reached: any Patient advised that office/PCP has 24-48 business hours to return their call: Yes documented in this [facility]12-21-2023 Telephone encounter Note* Telephone Encounter - Kamille Abreu MA - 04/08/2023 2:00 PM EST Notified, scheduled physical for 04/21/23. He states he was getting this at [facility] in [place] before, will contact them for next injection. [id number] Telephone encounter Note* Telephone Encounter - Jose Yen MD - 04/08/2023 1:42 PM EST I am not familiar with this medication this is something that needs to come from a psychiatrist. This is an antipsychotic and I have never used it before. Where was he getting it before? Also he has not been seen here for over a year [id number] Telephone encounter Note* Telephone Encounter - Alivia Bruner MA - 04/08/2023 12:27 PM EST Name of caller: Aries Contact phone number: [phone] Relationship to Patient: patient Provider: Dr. Yen Practice: [facility] Chief Complaint/Reason for Call: patient states that he was told be [facility] that he needed to schedule an appt with his PCP to get a injection by the name of invega. Please advise. Patient states that his next injection is due on 05/03/23. Please advise. Patient wanting a call back from the office. Best time of day caller can be reached: any Patient advised that office/PCP has 24-48 business hours to return their call: Yes [employer]01-24-2023 Telephone encounter Note* Telephone Encounter - Karey Garcia - 05/12/2022 2:40 PM EST Prescription Request: Last medication check: none Last physical exam: 02/05/2022 Next scheduled appointment: 08/13/2022 CSA on file (date): none Last urine drug screen: none Last date of refill on this medication 02/04/2022 30 days 2 refills [employer]01-24-2023 Miscellaneous Notes* Telephone Encounter - Karey Garcia - 05/12/2022 2:40 PM EST Prescription Request: Last medication check: none Last physical exam: 02/05/2022 Next scheduled appointment: 08/13/2022 CSA on file (date): none Last urine drug screen: none Last date of refill on this medication 02/04/2022 30 days [address] [facility] [address] [facility]04-20-2022 Hospital Discharge instructions* Instructions* Abner Carrion DO - 08/06/2021 Please return to the emergency department if you have any further concerns. Please follow-up with gastroenterology as discussed. Please take medications as prescribed. documented in this [facility] Work Phone: 1(974) 270-304701-28-2022 Hospital Discharge instructions* Instructions* Bhavesh Horn MD - 05/16/2021 Please return to the Emergency Department immediately for new or worsening symptoms or any new concerns. Please follow-up with [your primary care doctor] within the next [3-5] days. * Attachments The following attachments cannot be sent through Care Everywhere. * Abdominal Pain ([place]) documented in this [facility] Work Phone: 1(820) 743-174803-23-2021 NotePsychopharmacology Progress Note Aries Carrasco is a 20 y.o. male presenting today for medication management. This visit was modified due to the COVID19 pandemic. This is a telephone evaluation and management service requested by the patient/guardian that was performed with the originating site at home and the distant site at office. This visit occurred during the Coronavirus (COVID-19) Public Health Emergency. An audio/visual visit was not available. I spent 30 minutes of medical discussion with the patient's mother via telephone. Subjective: Per mother: Behaviors are very difficult to control. Per mother behaviors are: Very disobedient. Storming out opening the wooden doors and doors getting slammed Aggressive: verbally aggressive. Cursing. Mother denied physical aggression or violence. He says he is 20 and he can do what he wants Rules he does not follow (triggers): language, including no cursing, no sexual talking (because there are kids in the house). Helping cleaning the house. Taking showers and getting out of bed. Mother also said that at the same time CJ is also very loving and protective of his siblings. Mother has not safety concerns in that regard. He does not like see anyone hurt. However she later mentioned that he makes violent threats. He just started counseling [facility] (adult services)- intake appt so far. He is still in the mix of getting him a caser up and adult psychiatrist. They are working on getting more services, including group therapy that will allow him to have social interactions. He did not get the job at [employer], he was told he got it but them they never call him. He is very upset about it. Per mother That's one of the things that brought him really down.He gets social security money that come under mother's name. Per mother, mother only give him part of the money because he is irresponsible with his money and he spend it all on candy. Very frustrated about not being able to be completely independent from parents now that he is 20. He thinks he does not have to listen to anybody. feeling like a burden to his family. Mother said every time he gets upset he talks about feeling like no one loves him, questions his existence. expressing wishes and sometimes suicidal ideations He also makes threats about leaving the house to live in the streets. He is isolating from the family. He prefers to stay up at night and sleeps when others in the house are awake. He reports feeling sad and crying a lot. Very low self-esteem. Frustrated about not being productive and not doing much. No problems with appetite reported today Taking medications as prescribed. No side effects reported today, including EPS. No new medical problems or allergies reported today. Therapy: [facility]. Pain History Current Pain Ratin AIMS: 0 No EPS sxs reported Lab Results: See scanned documents Visit Diagnosis: 1. Bipolar affective disorder 2. Attention deficit hyperactivity disorder, combined type 3. Generalized anxiety disorder 4. Oppositional defiant disorder Treatment Goal/Objective: Treatment plan reviewed,medication education provided,learning needs assessed Recommendations & Plan: Add to treatment plan: Risperidone 0.5 mg prn agitation/aggressive behaviors No other medication adjustment made today. Symptoms seems to be related to his current situation and poor frustration tolerance. Feeling like a burden to his family and upset about not having complete autonomy and independence. For which I recommend to continue working with counselor/case work aide into developing coping skills to be able to manage stressors and finding new interests, activities and a even job that help him feel more productive and to keep him more active. Part of his pattern at the time of frustration is expressing sadness associated with suicidal ideations. Per mother, he has been taken to ER for evaluation multiple times due to SI and after an assessment it is determined that he does not pose an acute safety risk warranting psychiatric admission. Still, I recommended mother to take Aries to ER when safety is a concern. He has not being physically aggressive or violent in the recent past. These symptoms and behavior reported by mother today are not consistent with an episode of jermaine. Sleep is normal. Appetite is normal. There is situational irritability but not elated mood. Not grandiosity reported. No hallucinations reported or any other perceptual disturbance. No increase in goal oriented activities reported. No risky behaviors reported. He is starting new therapy services at an adult facility. He is also in the process of transitioning to case management and psychiatric services for adults within the same facility, which have not yet being established. I will be assisting during the transition process wi (more content not included)...[facility] No data available for this section [facility] Evaluation note* Diagnosis Foot sprain, left, initial encounter- Primary Contusion of left foot, initial encounter documented in this encounter [facility] Work Phone: Evaluation note* Diagnosis Contusion of left knee, initial encounter- Primary documented in this encounter [facility] Work Phone: Evaluation note* Diagnosis Generalized abdominal pain- Primary Abdominal pain, generalized documented [facility] Work Phone: Evaluation [facility]* Diagnosis Blood in stool- Primary documented in this encounter [facility] Work Phone: Evaluation note* Diagnosis Sprain of right middle finger, unspecified site of digit, initial encounter- Primary documented in this encounter [facility] Work Phone: Evaluation note* Diagnosis Annual physical exam- Primary Routine general medical examination at a health care facility Screening for deficiency anemia Screening for other and unspecified deficiency anemia Screening for cholesterol level Screening for diabetes mellitus Immunization due Jermaine (HCC) Bipolar I disorder, single manic episode, unspecified Attention deficit hyperactivity disorder, combined type Attention deficit disorder with hyperactivity Mental disorder Unspecified nonpsychotic mental disorder Obesity (BMI 30.0-34.9) [facility] Diagnosis Contusion of scalp, initial encounter- Primary Closed fracture of tooth with routine healing [facility]* Diagnosis 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, unspecified condition Asthma, exercise induced Exercise induced bronchospasm Generalized anxiety disorder Allergic rhinitis due to pollen, unspecified seasonality Obesity (BMI 30.0-34.9) Hypercholesterolemia Pure hypercholesterolemia [facility]* Diagnosis Annual physical exam- Primary Routine general medical examination at a health care facility Screening for deficiency anemia Screening for other and unspecified deficiency anemia Screening for cholesterol level Screening for diabetes mellitus Immunization due Jermaine (HCC) Bipolar I disorder, single manic episode, unspecified Attention deficit hyperactivity disorder, combined type Attention deficit disorder with hyperactivity Mental disorder Unspecified nonpsychotic mental disorder Obesity (BMI 30.0-34.9) Contusion of scalp, initial encounter- Primary Closed fracture of tooth with routine healing 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, unspecified condition Asthma, exercise induced Exercise induced bronchospasm Generalized anxiety disorder Allergic rhinitis due to pollen, unspecified seasonality Obesity (BMI 30.0-34.9) Hypercholesterolemia Pure hypercholesterolemia Annual physical exam- Primary Routine general medical examination at a health care facility 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, unspecified condition Asthma, exercise induced Exercise induced bronchospasm Adolescent idiopathic scoliosis of thoracolumbar region Attention deficit hyperactivity disorder, combined type Attention deficit disorder with hyperactivity Bipolar disorder in partial remission, most recent episode unspecified type (HCC) Hypercholesterolemia Pure hypercholesterolemia Screening for diabetes mellitus [facility]* Diagnosis Annual physical exam- Primary Routine general medical examination at a health care facility Screening for deficiency anemia Screening for other and unspecified deficiency anemia Screening for cholesterol level Screening for diabetes mellitus Immunization due Jermaine (HCC) Bipolar I disorder, single manic episode, unspecified Attention deficit hyperactivity disorder, combined type Attention deficit disorder with hyperactivity Mental disorder Unspecified nonpsychotic mental disorder Obesity (BMI 30.0-34.9) Contusion of scalp, initial encounter- Primary Closed fracture of tooth with routine healing 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, unspecified condition Asthma, exercise induced Exercise induced bronchospasm Generalized anxiety disorder Allergic rhinitis due to pollen, unspecified seasonality Obesity (BMI 30.0-34.9) Hypercholesterolemia Pure hypercholesterolemia Annual physical exam- Primary Routine general medical examination at a health care facility 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, unspecified condition Asthma, exercise induced Exercise induced bronchospasm Adolescent idiopathic scoliosis of thoracolumbar region Attention deficit hyperactivity disorder, combined type Attention deficit disorder with hyperactivity Bipolar disorder in partial remission, most recent episode unspecified type (HCC) Hypercholesterolemia Pure hypercholesterolemia Screening for diabetes mellitus Persistent depressive disorder- Primary [facility]* Diagnosis Annual physical exam- Primary Routine general medical examination at a health care facility Screening for deficiency anemia Screening for other and unspecified deficiency anemia Screening for cholesterol level Screening for diabetes mellitus Immunization due Jermaine (HCC) Bipolar I disorder, single manic episode, unspecified Attention deficit hyperactivity disorder, combined type Attention deficit disorder with hyperactivity Mental disorder Unspecified nonpsychotic mental disorder Obesity (BMI 30.0-34.9) Contusion of scalp, initial encounter- Primary Closed fracture of tooth with routine healing 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, unspecified condition Asthma, exercise induced Exercise induced bronchospasm Generalized anxiety disorder Allergic rhinitis due to pollen, unspecified seasonality Obesity (BMI 30.0-34.9) Hypercholesterolemia Pure hypercholesterolemia Annual physical exam- Primary Routine general medical examination at a health care facility 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, unspecified condition Asthma, exercise induced Exercise induced bronchospasm Adolescent idiopathic scoliosis of thoracolumbar region Attention deficit hyperactivity disorder, combined type Attention deficit disorder with hyperactivity Bipolar disorder in partial remission, most recent episode unspecified type (HCC) Hypercholesterolemia Pure hypercholesterolemia Screening for diabetes mellitus Contact dermatitis, unspecified contact dermatitis type, unspecified trigger- Primary [facility] noteNo assessment information availableWC[facility] Work Phone: Evaluation [facility]* Diagnosis Annual physical exam- Primary Routine general medical examination at a health care facility Screening for deficiency anemia Screening for other and unspecified deficiency anemia Screening for cholesterol level Screening for diabetes mellitus Immunization due Jermaine (HCC) Bipolar I disorder, single manic episode, unspecified Attention deficit hyperactivity disorder, combined type Attention deficit disorder with hyperactivity Mental disorder Unspecified nonpsychotic mental disorder Obesity (BMI 30.0-34.9) Contusion of scalp, initial encounter- Primary Closed fracture of tooth with routine healing 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, unspecified condition Asthma, exercise induced Exercise induced bronchospasm Generalized anxiety disorder Allergic rhinitis due to pollen, unspecified seasonality Obesity (BMI 30.0-34.9) Hypercholesterolemia Pure hypercholesterolemia Annual physical exam- Primary Routine general medical examination at a health care facility 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, unspecified condition Asthma, exercise induced Exercise induced bronchospasm Adolescent idiopathic scoliosis of thoracolumbar region Attention deficit hyperactivity disorder, combined type Attention deficit disorder with hyperactivity Bipolar disorder in partial remission, most recent episode unspecified type (HCC) Hypercholesterolemia Pure hypercholesterolemia Screening for diabetes mellitus Asthma, exercise induced- Primary Exercise induced bronchospasm Back strain, initial encounter Bipolar disorder in partial remission, most recent episode unspecified type (HCC) Generalized anxiety disorder [facility]* Attachments The following attachments cannot be sent through Care Everywhere. * Contusion ([place]) * Foot Sprain ([place]) documented in this [facility] Work Phone: Hospital Discharge instructions* Attachments The following attachments cannot be sent through Care Everywhere. * Contusion ([place]) * Knee Pain or Injury ([place]) documented in this [facility] Work Phone: Hospital Discharge instructions* Attachments The following attachments cannot be sent through Care Everywhere. * Finger Sprain: Rehab Exercises ([place]) documented in this [facility] Work Phone: Instructions* Attachments The following attachments cannot be sent through Care Everywhere. * Flu Vaccine ([place]) documented in [facility]* Attachments The following attachments cannot be sent through Care Everywhere. * Contact Dermatitis Discharge Instructions ([place]ments The following attachments cannot be sent through Care Everywhere. * Exercises for Upper Back Pain ([place]) documented in this [facility] HealthNurse Progress note* TIKA Haq: PERFORM Event Display: Progress Note-Nurse Authored Date: [facility] Reason for referral (narrative)No reason for referral information availableWCleveland Clinic [facility] Work Phone: Summary note* Eun TIKA Mikayla Lopez: PERFORM Event Display: Patient Summary Documents Authored Date: [facility] Advance Directives No Advanced Directives Records FoundLatest Code Status on File Code Status Date Activated Date Inactivated Comments Full Code 11/01/2020 2:43 AM 11/04/2020 5:32 PM Latest Code Status on File Code Status Date Activated Date Inactivated Comments Full Code 03/02/2021 12:53 AM 03/03/2021 7:00 PM Full Code 11/01/2020 2:43 AM 11/04/2020 5:32 PM Latest Code Status on File Code Status Date Activated Date Inactivated Comments Full Code 06/08/2021 9:42 PM 06/13/2021 6:07 PM Full Code 03/02/2021 12:53 AM 03/03/2021 7:00 PM Full Code 11/01/2020 2:43 AM 11/04/2020 5:32 PM Latest Code Status on File Code Status Date Activated Date Inactivated Comments Full Code 06/08/2021 9:42 PM 06/13/2021 6:07 PM Full Code 03/02/2021 12:53 AM 03/03/2021 7:00 PM Latest Code Status on File Code Status Date Activated Date Inactivated Comments Full Code 03/27/2023 4:47 PM 04/02/2023 6:59 PM Date Activated Date Inactivated Comments 03/27/2023 4:47 PM 04/02/2023 6:59 PM Date Activated Date Inactivated Comments 01/27/2024 8:57 PM 02/07/2024 6:56 PM Date Activated Date Inactivated Comments 03/27/2023 4:47 PM 04/02/2023 6:59 PM Advance Directive Response Recorded Date/ Time Do you have a Healthcare Power of Wine [employer]? No September 26, 2024 8:20pm Summary Purpose Family History No Family History Records FoundNo Family History Records FoundNo Family History Records Found No data available for this section No Family History Records Found No data available for this section No Family History Records FoundNo Family History Records FoundNo Family History Records Found Reason for Referral Specialty Diagnoses / Procedures Referred By Contleydi t Referred To Contact Gastroenterology Diagnoses Blood in stool [facility] [address] [place] [address] [facility] [address] [place] [address] Referral ID Status Reason Start Date Expiration Date V isits Requested Visits Authorized Open Specialty Services Required 08/06/2021 08/06/2022 1 1 Scheduling Instructions [facility] [address], [address] [place]. [address] Fax: Chief Complaint and Reason for Visit Chief Complaint Admit Date SOB AND ABDOMINAL PAIN September 26, 2024 6 :45pm Additional Source Comments Reason for Visit (unrecogniz ed section and content) Reason Comments Ankle Pain left ankle Reason Comments Knee Injury Pt was swinging on a swing, he jumped off and hit his knee on the swingset which is wooden. He describes the pain as extremely achy. The pain has increased over the last couple of hours. Reason Comments Abdominal Pain Reason Onset Date Comments Rectal Bleeding 08/06/2021 Reason Comments Hand Injury Reason Onset Date Comments Appointment 04/08/2023 Reason Comments Annual Exam Health Maintenance Reason Onset Date Comments Fall 05/26/2023 Reason Comments Fall Fell early this morn ing/late last night Headache Reason Comments ADHD Asthma Bipolar Medication Check 6 month Reason Onset Date Comments Discuss Labs 10/13/2023 Reason Onset Date Comments Appointment 10/27/2023 Medication Problem 10/27/2023 Reason Comments Med Refill Reason Comments Annual Exam Blood Work Pt has not been dat todd his rosuvastatin Health Maintenance Flu vaccine- [id number] h covid vaccine- not doneTdap vaccine- advised to go to his pharmacy Reason Comments Depression Pt states depression increasing, denies SI/HI. Reason Comments Facial Swelling Reason Onset Date Comments Facial Swelling 08/15/2024 Reason Comments Medication Check Ordered Prescriptions (unrec ognized section and content) Prescription Sig Dispensed Refills Start Date End Da te ibuprofen (ADVIL;MOTRIN) 600 MG tablet Take 1 tablet by mouth every 6 hours as needed for Pain 28 tablet 0 12/06/2020 Prescription Sig Dispensed Refills Start Date End Da te sucralfate (CARAFATE) 1 GM tablet Take 1 tablet by mouth 3 times daily for 5 days 15 tablet 0 05/16/2021 05/21/2021 dicyclomine (BENTYL) 10 MG capsule Take 1 capsule by mouth 4 times daily for 5 days 20 capsule 0 05/16/2021 05/21/2021 Prescription Sig Dispensed Refills Start Date End Da te dicyclomine (BENTYL) 10 MG capsule Take 1 capsule by mouth 4 times daily for 10 days 40 capsule 0 08/06/2021 08/16/2021 Scheduled Active and Recently Administ ered Medications (unrecognized section and content) Medication Order 12/04/2020 12/05/2020 12/06/2020 ibuprofen (ADVIL;MOTRIN) tablet 600 mg (COMPLETED) 600 mg, Oral, ONCE, On Wed12/06/20 at 2300, For 1 dose, Do not crush or break. 2310 (Given - Provid er: Chelsi Velasco RN) Scheduled Medication Order 05/14/2021 05/15/2021 05/16/2021 aluminum & magnesium hydroxide-simethicone (MAALOX) 30 mL, lidocaine viscous hcl (XYLOCAINE) 5 mL (GI COCKTAIL) (COMPLETED) Oral, ONCE, On Wed05/16/21 at 1950, For 1 dose, Take 5 mL from lidocaine viscous 2% cup and mix with 30 mL of maalox and then administer. 2009 (Given - Provid er: Nohemy Duvall RN) dicyclomine (BENTYL) capsule 10 mg (COMPLETED) 10 mg, Oral, ONCE, On Wed05/16/21 at 1950, For 1 dose 2009 (Given - Provid er: Nohemy Duvall RN) ondansetron (ZOFRAN) injection 4 mg (COMPLETED) 4 mg, IntraVENous, ONCE, On Wed05/16/21 at 1950, For 1 dose 2010 (Given - Provid er: Nohemy Duvall RN) sucralfate (CARAFATE) tablet 1 g (COMPLETED) 1 g, Oral, ONCE, On Wed05/16/21 at 1951, For 1 dose, Administer on an empty stomach. Do not administer antacids within 30 minutes of administration of sucralfate. 2009 (Given - Provid er: Nohemy Duvall RN) Scheduled Medication Order 08/04/2021 08/05/2021 08/06/2021 dicyclomine (BENTYL) injection 20 mg (COMPLETED) 20 mg, IntraMUSCular, ONCE, 1 dose, On Wed08/06/21 at 1627 1642 (Given - Provid er: Carisa Woo RN) Scheduled Medication Order 08/16/2021 08/17/2021 08/18/2021 ibuprofen (ADVIL;MOTRIN) tablet 400 mg (COMPLETED) 400 mg, Oral, ONCE, 1 dose, On Wed08/18/21 at 2112, Do not crush or chew. 2115 (Given - Provid er: Nohemy Duvall RN) Care Teams (unrecognized sec tion and content) Security Guard Dispatcher Relationship Specialty Start Date End Date Yanely Mendez [place] [address] PCP - General 11/03/14 Security Guard Dispatcher Relationship Specialty Start Date End Date Jose Yen MD [address] [place] [id number] PCP - General Family Medicine 07/01/21 Security Guard Dispatcher Relationship Specialty Start Date End Date Jose Yen MD [address] [place] [id number] PCP - General Family Medicine 07/01/21 Security Guard Dispatcher Relationship Specialty Start Date End Date Jose Yen MD [address] [place] [id number] PCP - General 07/01/21 Security Guard Dispatcher Relationship Specialty Start Date End Date Jose Yen MD [address] [facility] [place] [address] PCP - General 07/01/21 Security Guard Dispatcher Relationship Specialty Start Date End Date Jose Yen MD [address] [facility] [place] [address] PCP - General 07/01/21 Security Guard Dispatcher Relationship Specialty Start Date End Date Jose Yen MD [address] [facility] [place] [address] PCP - General 07/01/21 Security Guard Dispatcher Relationship Specialty Start Date End Date Jose Yen MD [address] [facility] [place] [address] PCP - General 07/01/21 Security Guard Dispatcher Relationship Specialty Start Date End Date Jose Yen MD [address] [facility] [place] [address] PCP - General 07/01/21 Security Guard Dispatcher Relationship Specialty Start Date End Date Jose Yen MD [address] [facility] [place] [address] PCP - General 07/01/21 Security Guard Dispatcher Relationship Specialty Start Date End Date Jose Yen MD [address] [facility] [place] [address] PCP - General 07/01/21 Security Guard Dispatcher Relationship Specialty Start Date End Date Jose Yen MD [address] [place] [address] PCP - General 07/01/21 Security Guard Dispatcher Relationship Specialty Start Date End Date Jose Yen MD [address] [facility] [place] [address] PCP - General 07/01/21 Security Guard Dispatcher Relationship Specialty Start Date End Date [facility] [place] [address] PCP - General 07/01/21 Security Guard Dispatcher Relationship Specialty Start Date End Date Jose Yen MD [address] [place] [address] PCP - General 07/01/21 Security Guard Dispatcher Relationship Specialty Start Date End Date Jose Yne [facility] [place] [address] PCP - General 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 Jose Yen MD Primary Care Provider Active Team Status: Inactive Member Role Status Dates Dr. Damion Trevino DO Emergency Provider Active Start: September 26, 2024 End: September 26, 2024 Dr. 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 Specialty Start Date End Date Jose Yen MD [address] [place] [address], [place] [address] PCP - General 07/01/21 (unrecognized sect ion and content) No Status Records FoundNo Status Records FoundNo Status Records FoundNo Status Records FoundNo Status Records FoundNo Status Records FoundNo Status Records Found INFORMATION SOURCE (unrecogn ized section and content) DATE CREATED AUTHOR 07/05/2021 [facility] DATE CREATED AUTHOR AUTHOR'S ORGANIZ ATION 11/06/2021 [facility] DATE CREATED AUTHOR AUTHOR'S ORGANIZ ATION 08/12/2023 [facility] (ID) DATE CREATED AUTHOR AUTHOR'S ORGANIZ ATION 09/15/2024 [facility] DATE CREATED AUTHOR AUTHOR'S ORGANIZ ATION 10/04/2024 [facility] DATE CREATED AUTHOR AUTHOR'S ORGANIZ ATION 11/08/2024 [facility] Goals (unrecognized section and content) Goals may be documented in a n alternate section FOR RECORDS PERTAINING TO PATIENTS WHO ARE OR HAVE BEEN ENROLLED IN A CHEMICAL DEPENDENCY/SUBSTANCEABUSE PROGRAM, SOME INFORMATION MAY BE OMITTED. This clinical summary was aggregated from multiple sources. Caution should be exercised in using it in the provision of clinical care. This summary normalizes information from multiple sources, and as a consequence, information in this document may materially change the coding, format and clinical context of patient data. In addition, data may be omitted in some cases. CLINICAL DECISIONS SHOULD BE BASED ON THE PRIMARY CLINICAL RECORDS. [facility]. provides no warranty or guarantee of the accuracy or completeness of information in this document.
[2025-02-02 06:14] VITALS: BP 145/73; PULSE 78; RESP 18; TEMP 36.6; O2SAT 100
== END 2025-02-02 06:16 | disposition home or self-care (01) ==
PROVIDERS: Emergency Provider Emergency Medicine; Visit Provider Emergency Medicine
DX: S80.02XA Contusion of left knee, initial encounter (principal); F20.9 Schizophrenia, unspecified; F41.9 Anxiety disorder, unspecified; F32.A Depression, unspecified; S80.212A Abrasion, left knee, initial encounter; Z79.899 Other long term (current) drug therapy; W06.XXXA Fall from bed, initial encounter
CPT/HCPCS: 73564; 96372; 99285